=== PATIENT | female | born 1935 | race Caucasian/White ===

== ENCOUNTER 2020-06-29 10:07 | Observation (INO) | payer MEDICARE, SELFPAY ==
[2020-06-29] VITALS (8 sets, daily range): BP systolic 139–217; BP diastolic 70–103; PULSE 92–119; RESP 16–22; TEMP 36.1–36.5; O2SAT 96–100; BMI 32.0
--- NOTE | 2020-06-29 10:20 | ECG_ITS ---
Test Reason : HYPERTENSION Blood Pressure : / mmHG Vent. Rate : 097 BPM Atrial Rate : 097 BPM P-R Int : 140 ms QRS Dur : 074 ms QT Int : 350 ms P-R-T Axes : 041 -28 014 degrees QTc Int : 444 ms Sinus rhythm with Premature atrial complexes Possible Left atrial enlargement Left axis deviation Borderline ECG When compared with ECG of 17-DEC-2017 18:16, Premature atrial complexes are now Present Referred By: Suzanne Pablo Electronically Signed By:TASHA GONZALEZ MD
--- NOTE | 2020-06-29 10:20 | XR_ITS ---
EXAMINATION: Pain and swelling CLINICAL INFORMATION: Back pain COMPARISON: 12/17/2017 TECHNIQUE: Chest frontal and lateral Lungs and Rahel: No radiographic evidence of acute infiltrates. Prominent right and left rahel might be vascular, cannot rule out underlying adenopathy. Pleura: Normal. Costophrenic angles are sharp. No pneumothorax. Heart: The heart is normal in size. Mediastinum: The mediastinum is within normal limits.. Bones: Skeletal structures included are normal for patient's age. XR/XR chest 2V IMPRESSION: No acute infiltrates or failure. Prominent rahel bilaterally, although could be vascular, cannot rule out underlying pathology or lymphadenopathy. Attention to follow-up recommended. Consider chest x-ray in one month. Alternatively may further investigated with CT scan with IV contrast.
--- NOTE | 2020-06-29 10:25 | ED.GENADULT ---
HPI - General Adult General Chief complaint: Extremity Injury, Lower Stated complaint: LEFT LEG PAIN Time Seen by Provider: 06/29/20 10:20 Source: patient and EMS Mode of arrival: EMS Limitations: no limitations History of Present Illness HPI narrative: 84yoF c PMHx of DM, HTN, HLD, pulmonary hypertension, history of echocardiogram with EF of 60 through 65%, tricuspid/mitral/aortic regurg mild, LVH, thyroid disease, ulcerative colitis and arthritis presenting to the ED with complaints of left buttocks pain pain radiating down the lower leg reports it is her sciatica. Patient also noted that her legs are edematous but are more improved than usual. Denies any additional complaints or concerns such as fevers, nausea/vomiting, chest pain, shortness of breath, abdominal pain, diarrhea or constipation. Related Data Home Medications Medication Instructions Recorded Confirmed Amalia Back and Body 06/29/20 06/29/20 L.acid-L.casei-B.bif-B.jamee-FOS cap PO 06/29/20 06/29/20 [Probiotic Blend] Vitamin D3 06/29/20 magnesium 06/29/20 06/29/20 metformin 1 tab PO BEDTIME 06/29/20 06/29/20 metoprolol succinate 1 tab PO DAILY 06/29/20 06/29/20 naproxen sodium [Aleve] mg 06/29/20 06/29/20 omeprazole 1 cap PO DAILY 06/29/20 06/29/20 Allergies Allergy/AdvReac Type Severity Reaction Status Date / Time amoxicillin [Augmentin] Allergy Unknown hives Verified 02/01/19 00:00 clavulanic acid [Augmentin] Allergy Unknown hives Verified 02/01/19 00:00 morphine [MORPHINE] Allergy Unknown NAUSEA & Unverified 05/01/20 14:50 VOMITING codeine [CODEINE] AdvReac Unknown DIGESTIVE Unverified 05/01/20 14:50 PROBLEMS oxycodone AdvReac Unknown NAUSEA AND Unverified 05/01/20 14:50 VOMITING tramadol [From ULTRAM] AdvReac Unknown DIGESTIVE Unverified 05/01/20 14:50 PROBLEMS Codeine Phosphate Allergy Unknown Uncoded 03/27/20 00:00 codiene Allergy Unknown SOB, cp Uncoded 02/01/19 00:00 morphine Allergy Unknown n/v Uncoded 02/01/19 00:00 percocet Allergy Unknown vomiting Uncoded 02/01/19 00:00 Percodan Allergy Unknown Uncoded 03/27/20 00:00 percodan Allergy Unknown vomiting Uncoded 02/01/19 00:00 Review of Systems Review of Systems: Constitutional : No trauma, No Weight loss, No Fever, No Chills, No Night Sweats, No Fatigue, No Malaise ENT/Mouth : No Hearing loss, No Ear Pain, No Nasal Congestion, No Sinus Pain, No Hoarseness, No sore throat, No Rhinorrhea, No Swallowing Difficulty Cardiovascular : + extremity swelling, No SOB, no Dyspnea on Exertion, No Orthopnea, No Palpitations Respiratory : No Cough, No Sputum, No Wheezing, No Dyspnea Gastrointestinal : No Nausea, No Vomiting, No Diarrhea, No abdominal Pain, No Hematochezia, No Melena Genitourinary : No Dysuria, No Urinary Frequency, No Hematuria, No Urinary or Bowel Incontinence/retention Musculoskeletal : + Back pain, No neck pain, No joint stiffness, No joint swelling Skin : No Skin Lesions, No rash or signs of infection Neuro : No Weakness, No radiation, No Numbness, No Paresthesias, No headache, no loss of bowel or bladder incontinence, no saddle anesthesia Denies history of IV drug usage. Yes all other systems are reviewed and are negative [facility] Past Medical History Attestation statement: The following information was validated with the patient. Medical History (Updated 06/29/20 @ 16:24 by ALEJO Mai) Arthritis Diabetes Hyperlipidemia Hypertension Surgical History (Updated 06/29/20 @ 16:22 by ALEJO Moulton) H/O sinus surgery H/O: hysterectomy History of cholecystectomy History of total left knee replacement Hx of appendectomy Family History Family History (Updated 06/29/20 @ 16:23 by ALEJO Moulton) Mother Diabetes Social History Social History (Updated 06/29/20 @ 16:23 by ALEJO Moulton) Household Members: None Alcohol intake: never Smoking Status: Never smoker Smoked in Last 30 Days: No Use of substances other than those prescribed or required for medical reasons: No Advance Directives: No Advance Directives Information Provided: No Physical Exam Vital Signs: Vital Signs: Last Vital Signs Temp 97.7 F 06/29/20 16:00 Pulse 101 H 06/29/20 16:00 Resp 16 06/29/20 16:00 BP 155/79 H 06/29/20 16:00 Pulse Ox 97 06/29/20 16:00 Body Mass Index 32.0 vital signs have been reviewed as normal and appeared to be correct. Blood pressure hypertensive. Heart rate tacycardic. Respiration rate normal. Temperature normal. Oxygen saturation normal. Appearance: Alert. Oriented X3. No acute distress. Head: Normal external exam. Normocephalic. Atraumatic. Eyes: PERRLA. EOMI. Conjunctiva and sclera normal. Eyelids normal. ENT: EAC normal. Pharynx normal. Uvula midline. Moist mucous membranes. Neck: Normal inspection. Neck supple. FROM. No adenopathy. No meningeal signs. CVS: Normal heart rate and rhythm. Heart sound normal. No murmurs noted. Pulses normal throughout. Respiratory: No respiratory distress. Painless inspiration. Breath sounds normal. No wheezes/rales/rhonchi noted. Chest nontender. No accessory muscle usage noted or decreased air movement noted. Abdomen: Soft and nontender. Bowel sounds normal in all 4 quadrants. No distention noted. No organomegaly noted. No visible injury noted. Back: No CVA tenderness. Full range of motion noted. No obvious deformities, or edema. Mild para-spinal muscular tenderness from lumbar region to coccyx. Full ROM in back and lower extremities. 5/5 strength hip extension/flexion, abduction, adduction. Mild Lumbar pain with hip flexion against resistance. Straight leg raise test + on right; Straight leg raise test negative on left; Reflexes normal ankle and knee bilaterally; EHL motor strength normal bilaterally Skin: Skin warm and dry. Normal skin color. Normal skin turgor. No rashes/lesions/lacerations noted. Extremities: +b/l +2 pitting lower extremity edema noted. Extremities exhibit normal range of motion. Extremities nontender. Neuro: Oriented X 3. No motor deficit. No sensory deficit. Reflexes normal. Course Course Course Narrative: 10:30AM - 84yoF c PMHx of DM, HTN, HLD, pulmonary hypertension, history of echocardiogram with EF of 60 through 65%, tricuspid/mitral/aortic regurg mild, LVH, thyroid disease, ulcerative colitis and arthritis presenting to the ED with complaints of left buttocks pain pain radiating down the lower leg reports it is her sciatica. - Concern for scioatic. Concern for CHF. - Plan: Labs, CXR, EKG. Provide 5 mg of Flexeril and 650 mg of Tylenol then re-evaluate. Reevaluation(s) Reevaluation #1: - WBC at 11,000. BUN at 28 although appears to be at baseline per patient she has had this elevated in the past worse. BNP 114. All other labs WNL. EKG sinus rhythm with premature atrial complexes with left atrial enlargement, normal QRS duration, normal QT/QTC interval. No acute ischemic changes noted. Similar compared to prior on 12/17/2017. CXR revealed No acute infiltrates or failure. Prominent rahel bilaterally, although could be vascular, cannot rule out underlying pathology or lymphadenopathy. Attention to follow-up c repeat CXR in [address] chest c IV contrast. - Patient reports no symptomatic relief after the 5 mg of Flexeril on 650 mg of Tylenol therefore 15 mg of Toradol and 10 mg of Decadron ordered and still no symptomatic relief and patient's blood pressure is now 217/103 therefore will give her 1 mg of Dilaudid and scan her chest and abdomen to evaluate for any acute processes such as aortic dissection. Patient is tachycardic at this time and tachypneic although I believe this is due to the patient is in pain and this is not sepsis. No source of infection. No indication for lactic acid blood cultures at this time. Will re-evaluate. Time: 12:20 Reevaluation #2: - CTA of chest negative for PE/aortic dissection or any other acute processes. CT scan of abdomen and pelvis revealed chronic changes no acute processes noted. X-ray of left knee revealed that patient's left total knee prosthesis ease is in good position without complication. - patient's pain is a bit more controlled after the 1 mg of dilaudid. - awaiting for patient to wake back up due to she does not want to go to short-term rehab she would rather go home with VNA or be admitted for pain control. Will re-evaluate. Time: 15:35 Reevaluation #3: Patient will be admitted for intractable back pain/sciatica. Patient understands agrees the plan. Time: 16:07 Medical Decision Making Medical Records Medical records reviewed: Yes I reviewed the patient's medical records. Lab Data Lab results reviewed: Yes I reviewed the patient's lab results. Result diagrams: 06/29/20 10:33 06/29/20 10:33 Labs: Lab Results 06/29/20 06/29/20 06/29/20 Range/Units 10:33 10:33 10:33 WBC 11.4 H (4.8-10.8) X10*3/uL RBC 4.82 (4.20-5.50) X10*6/uL Hgb 12.7 (12.0-16.0) g/dl Hct 40.2 (37-47) % MCV 83.4 (80-98) fL MCH 26.3 L (27.0-33.0) pg MCHC 31.6 (31.0-35.0) g/dl RDW 13.6 (11.0-16.0) % Plt Count 311 (160-400) X10*3/uL MPV 10.7 (9.4-12.3) fL Immature Gran % (Auto) 1.0 H (0.0-0.4) % Neut % (Auto) 69.7 (45-73) % Lymph % (Auto) 20.6 (20-40) % [place] % (Auto) 7.1 (2-11) % Eos % (Auto) 1.1 (0-4) % Baso % (Auto) 0.5 (0-2) % Lymph # (Auto) 2.3 (1.2-4.9) X10*3/uL [place] # (Auto) 0.8 (0.1-1.2) X10*3/uL Eos # (Auto) 0.1 (0.0-0.4) X10*3/uL Baso # (Auto) 0.1 (0.0-0.2) X10*3/uL Abs Immat Gran (auto) 0.11 H (0.00-0.03) X10*3/uL Absolute Neuts (auto) 7.9 (2.0-8.3) X10*3/uL Absolute Nucleated RBC 0.000 (0.0-0.012) X10*3/uL Nucleated RBC % (auto) 0.0 (0.0-0.2) /100WBC Hold Purple Top PT 11.5 (10.8-13.0) SEC INR 1.0 (0.9-1.1) Sodium 137 (135-145) mmol/L Potassium 4.5 (3.3-5.1) mmol/l Chloride 101 (96-108) mmol/L Carbon Dioxide 27 (22-29) mmol/L Anion Gap 14 (12-20) BUN 28 H (9-16) mg/dL Creatinine 0.82 (0.5-1.4) mg/dL Estim Creat Clear Calc 44.1 Estimated GFR > 60 Random Glucose 157 H (60-115) mg/dL Calcium 9.3 (8.4-10.2) mg/dL Magnesium 1.9 (1.6-2.6) mg/dL Total Bilirubin 0.4 (0.0-1.0) mg/dL Direct Bilirubin < 0.2 (0.0-0.5) mg/dL AST 20 (5-31) U/L ALT 19 (0-31) U/L Alkaline Phosphatase 109 (39-117) U/L Troponin I High Sens (<3.5-17.0) ng/L B-Natriuretic Peptide (<100) pg/mL Total Protein 6.7 (6.5-8.0) g/dL Albumin 4.1 (3.5-5.0) g/dL Urine Color Urine Appearance Urine pH (5.0-8.0) Ur Specific [place] (1.005-1.025) Urine Protein (NEG-TRACE) MG/DL Urine Glucose (UA) (NEG) MG/DL Urine Ketones (NEG) MG/DL Urine Blood (NEG) Urine Nitrite (NEG) Ur Leukocyte Esterase (NEG) Coronavirus (PCR) (Negative) Influenza Type A (PCR) (Negative) Influenza Type B (PCR) (Negative) RSV RNA Qual (PCR) (Negative) 06/29/20 06/29/20 06/29/20 Range/Units 10:33 10:33 12:17 WBC (4.8-10.8) X10*3/uL RBC (4.20-5.50) X10*6/uL Hgb (12.0-16.0) g/dl Hct (37-47) % MCV (80-98) fL MCH (27.0-33.0) pg MCHC (31.0-35.0) g/dl RDW (11.0-16.0) % Plt Count (160-400) X10*3/uL MPV (9.4-12.3) fL Immature Gran % (Auto) (0.0-0.4) % Neut % (Auto) (45-73) % Lymph % (Auto) (20-40) % [place] % (Auto) (2-11) % Eos % (Auto) (0-4) % Baso % (Auto) (0-2) % Lymph # (Auto) (1.2-4.9) X10*3/uL [place] # (Auto) (0.1-1.2) X10*3/uL Eos # (Auto) (0.0-0.4) X10*3/uL Baso # (Auto) (0.0-0.2) X10*3/uL Abs Immat Gran (auto) (0.00-0.03) X10*3/uL Absolute Neuts (auto) (2.0-8.3) X10*3/uL Absolute Nucleated RBC (0.0-0.012) X10*3/uL Nucleated RBC % (auto) (0.0-0.2) /100WBC Hold Purple Top Cancelled PT (10.8-13.0) SEC INR (0.9-1.1) Sodium (135-145) mmol/L Potassium (3.3-5.1) mmol/l Chloride (96-108) mmol/L Carbon Dioxide (22-29) mmol/L Anion Gap (12-20) BUN (9-16) mg/dL Creatinine (0.5-1.4) mg/dL Estim Creat Clear Calc Estimated GFR Random Glucose (60-115) mg/dL Calcium (8.4-10.2) mg/dL Magnesium (1.6-2.6) mg/dL Total Bilirubin (0.0-1.0) mg/dL Direct Bilirubin (0.0-0.5) mg/dL AST (5-31) U/L ALT (0-31) U/L Alkaline Phosphatase (39-117) U/L Troponin I High Sens 19.9 H (<3.5-17.0) ng/L B-Natriuretic Peptide 114 H (<100) pg/mL Total Protein (6.5-8.0) g/dL Albumin (3.5-5.0) g/dL Urine Color YELLOW Urine Appearance CLEAR Urine pH 7.5 (5.0-8.0) Ur Specific [place] 1.015 (1.005-1.025) Urine Protein NEG (NEG-TRACE) MG/DL Urine Glucose (UA) NEG (NEG) MG/DL Urine Ketones NEG (NEG) MG/DL Urine Blood NEG (NEG) Urine Nitrite NEG (NEG) Ur Leukocyte Esterase NEG (NEG) Coronavirus (PCR) (Negative) Influenza Type A (PCR) (Negative) Influenza Type B (PCR) (Negative) RSV RNA Qual (PCR) (Negative) 06/29/20 06/29/20 Range/Units 13:25 14:12 WBC (4.8-10.8) X10*3/uL RBC (4.20-5.50) X10*6/uL Hgb (12.0-16.0) g/dl Hct (37-47) % MCV (80-98) fL MCH (27.0-33.0) pg MCHC (31.0-35.0) g/dl RDW (11.0-16.0) % Plt Count (160-400) X10*3/uL MPV (9.4-12.3) fL Immature Gran % (Auto) (0.0-0.4) % Neut % (Auto) (45-73) % Lymph % (Auto) (20-40) % [place] % (Auto) (2-11) % Eos % (Auto) (0-4) % Baso % (Auto) (0-2) % Lymph # (Auto) (1.2-4.9) X10*3/uL [place] # (Auto) (0.1-1.2) X10*3/uL Eos # (Auto) (0.0-0.4) X10*3/uL Baso # (Auto) (0.0-0.2) X10*3/uL Abs Immat Gran (auto) (0.00-0.03) X10*3/uL Absolute Neuts (auto) (2.0-8.3) X10*3/uL Absolute Nucleated RBC (0.0-0.012) X10*3/uL Nucleated RBC % (auto) (0.0-0.2) /100WBC Hold Purple Top PT (10.8-13.0) SEC INR (0.9-1.1) Sodium (135-145) mmol/L Potassium (3.3-5.1) mmol/l Chloride (96-108) mmol/L Carbon Dioxide (22-29) mmol/L Anion Gap (12-20) BUN (9-16) mg/dL Creatinine (0.5-1.4) mg/dL Estim Creat Clear Calc Estimated GFR Random Glucose (60-115) mg/dL Calcium (8.4-10.2) mg/dL Magnesium (1.6-2.6) mg/dL Total Bilirubin (0.0-1.0) mg/dL Direct Bilirubin (0.0-0.5) mg/dL AST (5-31) U/L ALT (0-31) U/L Alkaline Phosphatase (39-117) U/L Troponin I High Sens 20.9 H (<3.5-17.0) ng/L B-Natriuretic Peptide (<100) pg/mL Total Protein (6.5-8.0) g/dL Albumin (3.5-5.0) g/dL Urine Color Urine Appearance Urine pH (5.0-8.0) Ur Specific [place] (1.005-1.025) Urine Protein (NEG-TRACE) MG/DL Urine Glucose (UA) (NEG) MG/DL Urine Ketones (NEG) MG/DL Urine Blood (NEG) Urine Nitrite (NEG) Ur Leukocyte Esterase (NEG) Coronavirus (PCR) NEGATIVE (Negative) Influenza Type A (PCR) NEGATIVE (Negative) Influenza Type B (PCR) NEGATIVE (Negative) RSV RNA Qual (PCR) NEGATIVE (Negative) Imaging Data Chest x-ray: Attestation: I personally reviewed and interpreted this imaging study as follows: Radiologist's impression: Lungs and Rahel: No radiographic evidence of acute infiltrates. Prominent right and left rahel might be vascular, cannot rule out underlying adenopathy. Pleura: Normal. Costophrenic angles are sharp. No pneumothorax. Heart: The heart is normal in size. Mediastinum: The mediastinum is within normal limits.. Bones: Skeletal structures included are normal for patient's age. XR/XR chest 2V IMPRESSION: No acute infiltrates or failure. Prominent rahel bilaterally, although could be vascular, cannot rule out underlying pathology or lymphadenopathy. Attention to follow-up recommended. Consider chest x-ray in one month. Alternatively may further investigated with CT scan with IV contrast. 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 No other etiology for low back pain radiating to the left leg is found. Incidental note is made once again of: 1. Lobular liver cyst with mild intrahepatic ductal dilatation status post cholecystectomy. 2. Bilateral renal cysts with 2 hyperdense cysts on the left, one which demonstrates an increase in density since the prior CT scan. 3. Resolution of previously demonstrated colitis CT scan - chest: Attestation: I personally reviewed and interpreted this imaging study as follows: Radiologist's impression: IMPRESSION: Exam limited by motion artifacts. 1. There are no large emboli however exam is somewhat limited, there are motion artifact, some of the tertiary distal branches bilaterally are not opacified, this felt to be more likely artifactual, however the less likely possibility of small distal emboli cannot entirely be excluded. 2. There is pulmonary vascular congestion. 3. Mild coronary calcification. 4. Diminished lung volume. ECG Data Attestation: I personally reviewed and interpreted this ECG as follows: Interpretation: EKG sinus rhythm with premature atrial complexes with a ventricular rate of 97 with left atrial enlargement with normal QRS, normal QT/QTC interval. No acute ischemic changes noted. Similar compared to prior EKG on 12/17/2017. Critical Care Time Critical Care Time Critical Care Time: Yes Total Critical Care Time: 60 Attestation: I personally attest to this time spent taking care of the patient Discharge Plan Discharge Clinical Impression: Intractable back pain, Sciatica Patient Disposition: Admitted As Inpatient Prescriptions: No Action metoprolol succinate 100 mg tablet extended release 24 hr 1 tab PO DAILY RF: 0 omeprazole 20 mg capsule,delayed release(DR/EC) 1 cap PO DAILY RF: 0 metformin 500 mg tablet extended release 24 hr 1 tab PO BEDTIME RF: 0 naproxen sodium [Aleve] 220 mg Capsule RF: 0 Probiotic Blend 2 billion cell-50 mg Capsule PO RF: 0 Amalia Back and Body RF: 0 Vitamin D3 RF: 0 magnesium RF: 0
[2020-06-29 10:40] LABS: Basophils Absolute Auto 0.1 X10*3/uL (0.0-0.2); Basophils Percent Auto 0.5 % (0-2); Eosinophils Absolute Auto 0.1 X10*3/uL (0.0-0.4); Eosinophils Percent Auto 1.1 % (0-4); Hematocrit 40.2 % (37-47); Hemoglobin 12.7 g/dl (12.0-16.0); Imm Gran Abs Auto 0.11 X10*3/uL (0.00-0.03); Lymphocytes Absolute Auto 2.3 X10*3/uL (1.2-4.9); Lymphocytes Percent Auto 20.6 % (20-40); MANUAL DIFF FLAG NO; Mean Corpuscular HGB Conc 31.6 g/dl (31.0-35.0); Mean Corpuscular Hemoglobin 26.3 pg (27.0-33.0); Mean Corpuscular Volume 83.4 fL (80-98); Mean Platelet Volume 10.7 fL (9.4-12.3); Monocytes Absolute Auto 0.8 X10*3/uL (0.1-1.2); Monocytes Percent Auto 7.1 % (2-11); Neutrophils Absolute Auto 7.9 X10*3/uL (2.0-8.3); Neutrophils Percent Auto 69.7 % (45-73); Platelet Count 311 X10*3/uL (160-400); Red Blood Count 4.82 X10*6/uL (4.20-5.50); Red Cell Distribution Width 13.6 % (11.0-16.0); White Blood Count 11.4 X10*3/uL (4.8-10.8)
[2020-06-29 10:47] LABS: Prothrombin Time 11.5 SEC (10.8-13.0)
[2020-06-29] MEDS: Acetaminophen 325 MG TABLET 650 MG PO ×2 (10:48→19:46)
[2020-06-29] MEDS: Cyclobenzaprine HCl 5 MG TABLET PO (10:48)
[2020-06-29 11:08] LABS: Alanine Aminotransferase 19 U/L (0-31); Albumin Level 4.1 g/dL (3.5-5.0); Alkaline Phosphatase 109 U/L (39-117); Anion Gap 14 (12-20); Aspartate Amino Transferase 20 U/L (5-31); B Type Natriuretic Peptide 114 pg/mL (<100); Bilirubin Direct < 0.2 mg/dL (0.0-0.5); Bilirubin Total 0.4 mg/dL (0.0-1.0); Blood Urea Nitrogen 28 mg/dL (9-16); Calcium 9.3 mg/dL (8.4-10.2); Carbon Dioxide 27 mmol/L (22-29); Chloride 101 mmol/L (96-108); Creatinine Clr Calc Pharmacy 44.1; Estimated Glomerular Filt Rate > 60; Glucose Random 157 mg/dL (60-115); Magnesium 1.9 mg/dL (1.6-2.6); Potassium 4.5 mmol/l (3.3-5.1); Sodium 137 mmol/L (135-145); Total Protein 6.7 g/dL (6.5-8.0)
[2020-06-29] MEDS: Ketorolac Tromethamine 15 MG/ML VIAL IV (11:51)
[2020-06-29] MEDS: dexAMETHasone 2 MG TABLET 10 MG PO (11:52)
[2020-06-29] MEDS: 0.9 % Sodium Chloride 1,000 ML 999 ML IVCONT (11:52)
--- NOTE | 2020-06-29 12:11 | XR_ITS ---
EXAMINATION: XR KNEE, LEFT CLINICAL INFORMATION: Left knee pain COMPARISON: Left knee x-rays 02/09/2007 TECHNIQUE: 2 views of the left knee. FINDINGS: Patient is status post total knee arthroplasty. There is no periprosthetic fracture. Femoral component appears slightly subluxed anteriorly compared with the tibial component, however, I suspect this may be due to patient rotation. No suprapatellar joint effusion is demonstrated. There is mild soft tissue swelling of the anterior knee. XR/XR knee LT 2V IMPRESSION: Alignment of the prosthesis appears slightly subluxed, however, I suspect this is due to patient rotation. Clinical correlation is recommended. If indicated, further evaluation can be obtained with a dedicated 4 view knee series.
--- NOTE | 2020-06-29 12:15 | CT_ITS ---
EXAMINATION: CT CHEST ANGIOGRAM PE PROTOCOL CLINICAL INFORMATION: , Neck swelling and elevated blood pressure shortness of breath. COMPARISON: None TECHNIQUE: Volumetric imaging was performed through the chest. Reformatted coronal and sagittal imaging was performed. 3-D MIP images performed at a dedicated separate workstation. This CT examination was performed using dose optimization techniques as appropriate, variously including the following: *Automated exposure control *Adjustment of mA and/or kV according to patient size (this includes techniques or standardized protocols for targeted exams where dose is matched to indication/reason for exam; i.e. extremities or head) *Use of iterative reconstruction technique CONTRAST: 80 mL of Omnipaque 350 injected. DLP: 1035 FINDINGS: PULMONARY ARTERIES: The main pulmonary artery and its main branches are properly opacified with no evidence of large emboli however some of the distal branches were not fully opacified, this felt to be more likely due to an artifact, however less likely possibility of very small distal emboli cannot be entirely excluded. LINES/TUBES: None LUNGS: Overall diminished lung volume. Lung Parenchyma: The heart is enlarged, there is a prominence of the pulmonary vasculature. Lung Nodules:There are no significant lung nodules. AIRWAYS: Trachea and bronchi are normal. PLEURA: No pleural effusion or pneumothorax. MEDIASTINUM AND CHARY: The visualized thyroid gland is unremarkable. No mediastinal, hilar or axillary lymphadenopathy. There is no mediastinal mass. VESSELS: Thoracic aorta is normal in size. HEART AND PERICARDIUM: Heart is normal in size. There is no pericardial effusion. There are coronary calcifications. CHEST WALL, LOWER NECK, SURROUNDING SOFT TISSUES: Normal VISUALIZED ABDOMEN: Unremarkable BONES: The visualized bony thorax is within normal limits. CT/CT angio chest PE protocol IMPRESSION: Exam limited by motion artifacts. 1. There are no large emboli however exam is somewhat limited, there are motion artifact, some of the tertiary distal branches bilaterally are not opacified, this felt to be more likely artifactual, however the less likely possibility of small distal emboli cannot entirely be excluded. 2. There is pulmonary vascular congestion. 3. Mild coronary calcification. 4. Diminished lung volume.
--- NOTE | 2020-06-29 12:15 | CT_ITS ---
EXAMINATION: CT ABDOMEN AND PELVIS WITH CONTRAST CLINICAL INFORMATION: Low back pain radiating to left leg and buttocks COMPARISON: Renal ultrasound 01/26/[address] abdomen pelvis 12/17/2017 TECHNIQUE: Multidetector volumetric images were obtained from the superior aspect of the liver through the pubic symphysis following administration 80 mL of Omnipaque 350 intravenous contrast. Sagittal and coronal reformatted images were obtained on the technologist's workstation. Oral contrast: No This CT examination was performed using dose optimization techniques as appropriate, variously including the following: *Automated exposure control *Adjustment of mA and/or kV according to patient size (this includes techniques or standardized protocols for targeted exams where dose is matched to indication/reason for exam; i.e. extremities or head) *Use of iterative reconstruction technique DLP: 1035 mGy-cm FINDINGS: LUNG BASES: See report from chest CT same day. Small hiatal hernia is present. LIVER, GALLBLADDER, AND BILIARY TREE: The liver is normal in size, shape, and attenuation. Again seen is mild prominence of intrahepatic bile ducts similar to that noted previously. A lobular cyst centrally in the liver is unchanged. No worrisome solid focal liver masses are seen.. Status post cholecystectomy PANCREAS: Unremarkable. SPLEEN: Unremarkable. ADRENAL GLANDS: Unremarkable. KIDNEYS AND URETERS: The kidneys are normal in size, shape, and attenuation. Bilateral renal cysts are once again seen. There is one mass in the left kidney that measures 1.2 cm which now measures 80 Hounsfield units which previously measured 25-30 Hounsfield units. It is unchanged in size. Again noted is an unchanged hyperattenuating mass measuring 1 cm at the lower pole the left kidney presumably also a hyperattenuating cyst. This most likely represents hemorrhage into a cyst. No suspicious solid renal masses are seen. No hydronephrosis, hydroureter, or calculi seen. No perinephric stranding. BLADDER: Unremarkable. GASTROINTESTINAL TRACT: The small and large bowel are unremarkable. Marked wall thickening seen at the time of the prior study has resolved as have the inflammatory changes that were seen adjacent to the right colon.. The appendix is none seen. ABDOMINAL WALL: No significant hernia is appreciated. LYMPH NODES: No retroperitoneal lymphadenopathy. VASCULAR: Atherosclerotic changes present in the abdominal aorta and iliofemoral femoral vessels with calcific plaquing. No aneurysm is seen. PELVIC VISCERA: Status post hysterectomy. An abnormal pelvic mass or free pelvic fluid is not seen OSSEOUS STRUCTURES: Marked degenerative changes again seen throughout the lumbosacral spine most marked from T12 through L5. 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 No other etiology for low back pain radiating to the left leg is found. Incidental note is made once again of: 1. Lobular liver cyst with mild intrahepatic ductal dilatation status post cholecystectomy. 2. Bilateral renal cysts with 2 hyperdense cysts on the left, one which demonstrates an increase in density since the prior CT scan. 3. Resolution of previously demonstrated colitis
[2020-06-29 12:24] LABS: Glucose Urine UA NEG (NEG); Leukocyte Esterase Urine NEG (NEG); Nitrite Urine NEG (NEG); PH 7.5 (5.0-8.0); Specific Gravity - Urine 1.015 (1.005-1.025); Urine Blood NEG (NEG); Urine Ketones NEG (NEG); Urine Protein NEG (NEG-TRACE)
[2020-06-29 12:25] LABS: Appearance Urine CLEAR; Color Urine YELLOW
[2020-06-29] MEDS: ondansetron HCL 4 MG/2 ML VIAL IVPUSH (12:27)
[2020-06-29] MEDS: HYDROmorphone HCl 1 MG/ML SYRINGE IVPUSH (12:27)
--- NOTE | 2020-06-29 12:50 | MHC.CM.ED ---
Received case management consult from Suzanne DHILLON. Work up is still pending. Per ISHAN Lam, patient lives alone and has been going to outpatient physical therapy. Started experiencing increased leg pain. T/W will meet with patient once she is more comfortable. Continue to monitor for d/c needs.
[2020-06-29 12:57] LABS: Troponin-I High Sensitivity 19.9 ng/L (<3.5-17.0)
--- NOTE | 2020-06-29 13:46 | XR_ITS ---
EXAMINATION: XR KNEE, LEFT CLINICAL INFORMATION: Knee prosthesis COMPARISON: Films done at 12:30 PM today TECHNIQUE: Four views of the left knee. FINDINGS: A left total knee prosthesis is present. Based upon the 4 including radiographs no subluxation or dislocation is seen. No fractures are present and there is no evidence of prosthesis loosening. Again noted is some mild soft tissue swelling seen anteriorly. XR/XR knee LT 3V IMPRESSION: Knee prosthesis in good position without complication.
[2020-06-29] MEDS: iohexoL 350 MG/ML 100 ML INFUS..BTL IV (13:47)
[2020-06-29 13:58] LABS: Troponin-I High Sensitivity 20.9 ng/L (<3.5-17.0)
[2020-06-29] MEDS: Metoclopramide HCl 10 MG/2 ML VIAL IVPUSH (14:44)
[2020-06-29 15:01] LABS: Influenza A PCR NEGATIVE (Negative); Influenza B PCR NEGATIVE (Negative); Resp Syncy Virus RNA Qual PCR NEGATIVE (Negative); SARS COV2 PCR INHOUSE NEGATIVE (Negative)
--- NOTE | 2020-06-29 15:05 | PC.NURSE ---
plan for admission for pain managment control and pt reports wanting home pt and vna if not able to be admitted. left a message with nephmitchel toussaint.
--- NOTE | 2020-06-29 15:50 | PM.EVENT ---
Event Note Date of Service: 06/29/20 Event Note: Patient seen and examined independently and was present during lr portion of E/M service. Agree with midlevel's history, physical, assessment, and plan. 84F prsented with left sided leg pain sciatica tylenol, motrin, avoid opiates if possible PT
--- NOTE | 2020-06-29 16:16 | P.HPHOSP_ITS ---
History of Present Illness Date of Service: 06/29/20 Chief Complaint: sciatic pain this is an 84-year-old female who presented to the emergency department with complaints of sciatic pain. She began having pain in her left lower back which radiated down her left leg. It has been getting progressively worse over the past 5 days. She denies any numbness or tingling in her groin or loss of bladder /bowel control. She underwent CAT scan of the abdomen as well as CT a in the ED which were unremarkable. She was given numerous medications and her pain is finally improving, however the decision was made to keep her overnight for observation given her advanced age and lives alone. Review of Systems Review of Systems: Yes all other systems are reviewed and are negative Constitutional: Constitutional: Denies chills and Denies fever(s) Cardiovascular: Cardiovascular: Denies chest pain Respiratory: Respiratory: Denies cough Gastrointestinal: Gastrointestinal: Denies abdominal pain [facility] Medical History (Updated 06/29/20 @ 16:29 by ALEJO Moulton) Arthritis Diabetes Hyperlipidemia Hypertension Thyroid disease Family History (Updated 06/29/20 @ 16:23 by ALEJO Moulton) Mother Diabetes Surgical History (Updated 06/29/20 @ 16:24 by ALEJO Moulton) H/O adenoidectomy H/O sinus surgery H/O: hysterectomy History of cholecystectomy History of total left knee replacement Hx of appendectomy Hx of tonsillectomy Social History (Updated 06/29/20 @ 16:23 by ALEJO Moulton) Household Members: None Alcohol intake: never Smoking Status: Never smoker Smoked in Last 30 Days: No Use of substances other than those prescribed or required for medical reasons: No Currently Displaying Signs/Symptoms of Drug Intoxication Withdrawal: No Advance Directives: No Advance Directives Information Provided: No Do you have thoughts of harming others: None Do you have a plan to hurt others: No Plan service: No Current occupational status: retired Meds Allergies Allergy/AdvReac Type Severity Reaction Status Date / Time amoxicillin [Augmentin] Allergy Unknown hives Verified 02/01/19 00:00 clavulanic acid [Augmentin] Allergy Unknown hives Verified 02/01/19 00:00 morphine [MORPHINE] Allergy Unknown NAUSEA & Unverified 05/01/20 14:50 VOMITING codeine [CODEINE] AdvReac Unknown DIGESTIVE Unverified 05/01/20 14:50 PROBLEMS oxycodone AdvReac Unknown NAUSEA AND Unverified 05/01/20 14:50 VOMITING tramadol [From ULTRAM] AdvReac Unknown DIGESTIVE Unverified 05/01/20 14:50 PROBLEMS Codeine Phosphate Allergy Unknown Uncoded 03/27/20 00:00 codiene Allergy Unknown SOB, cp Uncoded 02/01/19 00:00 morphine Allergy Unknown n/v Uncoded 02/01/19 00:00 percocet Allergy Unknown vomiting Uncoded 02/01/19 00:00 Percodan Allergy Unknown Uncoded 03/27/20 00:00 percodan Allergy Unknown vomiting Uncoded 02/01/19 00:00 Home Medications Medication Instructions Recorded Confirmed Type Amalia Back and Body 06/29/20 06/29/20 History Probiotic Blend cap PO 06/29/20 06/29/20 History Vitamin D3 06/29/20 History magnesium 06/29/20 06/29/20 History metformin 1 tab PO DAILY@0730 06/29/20 06/30/20 History metoprolol succinate 1 tab PO DAILY 06/29/20 06/29/20 History naproxen sodium [Aleve] mg 06/29/20 06/29/20 History omeprazole 1 cap PO DAILY 06/29/20 06/29/20 History levothyroxine 1 tab PO QAM 06/30/20 06/30/20 History Physical Exam Vital Signs and Narrative: Vital Signs: Last Vital Signs Temp 97.7 F 06/29/20 16:00 Pulse 101 H 06/29/20 16:00 Resp 16 06/29/20 16:00 BP 155/79 H 06/29/20 16:00 Pulse Ox 97 06/29/20 16:00 Body Mass Index 32.0 Const: Nutritional Appearance: well nourished Orientation/consciousness: patient oriented x3 HENMT: Head: Yes normocephalic and Yes atraumatic Eyes: Sclerae: sclerae normal Chest: Chest palpation & inspection: normal inspection of the chest Resp: Effort & Inspection: normal respiratory effort and no respiratory distress Auscultation: clear to auscultation bilaterally Cardio: Rate: regular rate Rhythm: regular rhythm GI: Palpation (GI): Soft to palpation and nontender Skin: General skin exam: no rashes or lesions noted Neuro: General: patient oriented x3 Cranial nerves: Yes CN's II-XII intact bilaterally and Yes Bilaterally intact EOM present Extrem: Other: pain radiating down left leg with straight leg raise General: Yes normal to inspection Results Labs CBC and Chem 7: 06/30/20 06:21 06/29/20 10:33 Labs: Laboratory Results - last 24 hr 06/29/20 06/29/20 06/29/20 10:33 10:33 10:33 MCV 83.4 MCH 26.3 L MCHC 31.6 RDW 13.6 Plt Count 311 MPV 10.7 Immature Gran % (Auto) 1.0 H Neut % (Auto) 69.7 Lymph % (Auto) 20.6 [place] % (Auto) 7.1 Eos % (Auto) 1.1 Baso % (Auto) 0.5 Lymph # (Auto) 2.3 [place] # (Auto) 0.8 Eos # (Auto) 0.1 Baso # (Auto) 0.1 Abs Immat Gran (auto) 0.11 H Absolute Neuts (auto) 7.9 Absolute Nucleated RBC 0.000 Nucleated RBC % (auto) 0.0 Hold Purple Top PT 11.5 INR 1.0 Anion Gap 14 Estim Creat Clear Calc 44.1 Estimated GFR > 60 Random Glucose 157 H Calcium 9.3 Magnesium 1.9 Total Bilirubin 0.4 Direct Bilirubin < 0.2 AST 20 ALT 19 Alkaline Phosphatase 109 Troponin I High Sens B-Natriuretic Peptide Total Protein 6.7 Albumin 4.1 Urine Color Urine Appearance Urine pH Ur Specific [place] Urine Protein Urine Glucose (UA) Urine Ketones Urine Blood Urine Nitrite Ur Leukocyte Esterase Coronavirus (PCR) Influenza Type A (PCR) Influenza Type B (PCR) RSV RNA Qual (PCR) 06/29/20 06/29/20 06/29/20 10:33 10:33 12:17 MCV MCH MCHC RDW Plt Count MPV Immature Gran % (Auto) Neut % (Auto) Lymph % (Auto) [place] % (Auto) Eos % (Auto) Baso % (Auto) Lymph # (Auto) [place] # (Auto) Eos # (Auto) Baso # (Auto) Abs Immat Gran (auto) Absolute Neuts (auto) Absolute Nucleated RBC Nucleated RBC % (auto) Hold Purple Top Cancelled PT INR Anion Gap Estim Creat Clear Calc Estimated GFR Random Glucose Calcium Magnesium Total Bilirubin Direct Bilirubin AST ALT Alkaline Phosphatase Troponin I High Sens 19.9 H B-Natriuretic Peptide 114 H Total Protein Albumin Urine Color YELLOW Urine Appearance CLEAR Urine pH 7.5 Ur Specific [place] 1.015 Urine Protein NEG Urine Glucose (UA) NEG Urine Ketones NEG Urine Blood NEG Urine Nitrite NEG Ur Leukocyte Esterase NEG Coronavirus (PCR) Influenza Type A (PCR) Influenza Type B (PCR) RSV RNA Qual (PCR) 06/29/20 06/29/20 13:25 14:12 MCV MCH MCHC RDW Plt Count MPV Immature Gran % (Auto) Neut % (Auto) Lymph % (Auto) [place] % (Auto) Eos % (Auto) Baso % (Auto) Lymph # (Auto) [place] # (Auto) Eos # (Auto) Baso # (Auto) Abs Immat Gran (auto) Absolute Neuts (auto) Absolute Nucleated RBC Nucleated RBC % (auto) Hold Purple Top PT INR Anion Gap Estim Creat Clear Calc Estimated GFR Random Glucose Calcium Magnesium Total Bilirubin Direct Bilirubin AST ALT Alkaline Phosphatase Troponin I High Sens 20.9 H B-Natriuretic Peptide Total Protein Albumin Urine Color Urine Appearance Urine pH Ur Specific [place] Urine Protein Urine Glucose (UA) Urine Ketones Urine Blood Urine Nitrite Ur Leukocyte Esterase Coronavirus (PCR) NEGATIVE Influenza Type A (PCR) NEGATIVE Influenza Type B (PCR) NEGATIVE RSV RNA Qual (PCR) NEGATIVE Imaging Radiologist's Impressions: Impressions Chest X-Ray 06/29/20 10:20 IMPRESSION: No acute infiltrates or failure. Prominent iker bilaterally, although could be vascular, cannot rule out underlying pathology or lymphadenopathy. Attention to follow-up recommended. Consider chest x-ray in one month. Alternatively may further investigated with CT scan with IV contrast. Knee X-Ray 06/29/20 12:11 IMPRESSION: Alignment of the prosthesis appears slightly subluxed, however, I suspect this is due to patient rotation. Clinical correlation is recommended. If indicated, further evaluation can be obtained with a dedicated 4 view knee series. Abdomen/Pelvis CT 06/29/20 12:15 IMPRESSION: Severe degenerative changes involving the lumbosacral spine. No other etiology for low back pain radiating to the left leg is found. Incidental note is made once again of: 1. Lobular liver cyst with mild intrahepatic ductal dilatation status post cholecystectomy. 2. Bilateral renal cysts with 2 hyperdense cysts on the left, one which demonstrates an increase in density since the prior CT scan. 3. Resolution of previously demonstrated colitis Chest CTA 06/29/20 12:15 IMPRESSION: Exam limited by motion artifacts. 1. There are no large emboli however exam is somewhat limited, there are motion artifact, some of the tertiary distal branches bilaterally are not opacified, this felt to be more likely artifactual, however the less likely possibility of small distal emboli cannot entirely be excluded. 2. There is pulmonary vascular congestion. 3. Mild coronary calcification. 4. Diminished lung volume. Knee X-Ray 06/29/20 13:46 IMPRESSION: Knee prosthesis in good position without complication. Assessment and Plan (1) Intractable back pain: Status: Acute (2) Sciatica: Qualifiers: Laterality: left Qualified Code(s): M54.32 - Sciatica, left side Status: Acute this is an 84-year-old female with diabetes, hypertension who presents to the emergency department with sciatic back pain being admitted for intractable pain sciatic pain, left - scheduled Tylenol, p.r.n. Motrin - PT evaluation - avoid narcotics if possible diabetes - hold metformin ( received contrast bolus) - SSI, POCs - ADA diet hypertension blood pressure controlled - continue metoprolol thyroid disease - continue meds once med rec complete continue the remainder of her home medications once med reconciliation has been completed DVT prophylaxis- Lovenox code status -full code This case was discussed with Dr. Bro
--- NOTE | 2020-06-29 16:53 | PC.NURSE ---
CALLED TO MED [facility]G FOR REPORT
--- NOTE | 2020-06-29 17:26 | PC.NURSE ---
REPORT GIVEN TO MED SURG
[2020-06-29 18:55] LABS: Glucose, Whole Blood 221 mg/dL (60-115)
[2020-06-29] MEDS: 0.9 % Sodium Chloride Flush 3 ML SYRINGE IVFLUSH (19:00)
[2020-06-29] MEDS: Insulin Lispro 100 UNIT/ML 3 ML VIAL SUBCUT (19:01)
[2020-06-29] MEDS: Ibuprofen 400 MG TABLET PO (19:02)
[2020-06-29] MEDS: Enoxaparin Sodium 40 MG/0.4 ML SYRINGE SUBCUT (19:46)
[2020-06-29 20:49] LABS: Glucose, Whole Blood 295 mg/dL (60-115)
[2020-06-30] MEDS: Ibuprofen 400 MG TABLET PO ×2 (00:35→06:27)
[2020-06-30] MEDS: 0.9 % Sodium Chloride Flush 3 ML SYRINGE IVFLUSH ×2 (00:36→07:37)
--- NOTE | 2020-06-30 02:18 | MHC.PIE ---
06/29/20 2300 p; pt c/o pain to low back, 02/21, pt asking for prn motrin. note;prn motrin given at 100
--- NOTE | 2020-06-30 02:20 | MHC.PIE ---
06/29 2300 p; pt c/o pain 02/21 to low back. note; prn motrin q8 given at 1900 i; dr paige notified; new order motrin 400 mg now e; pt in bed asleep, no signs of pain noted in facial expression, will cont to monitor
[2020-06-30 04:00] VITALS: RESP 18
[2020-06-30] MEDS: Omeprazole 20 MG CAPSULE.DR PO (06:26)
[2020-06-30] MEDS: Levothyroxine Sodium 50 MCG TABLET PO (06:52)
[2020-06-30 06:58] LABS: Hematocrit 39.7 % (37-47); Hemoglobin 12.5 g/dl (12.0-16.0); Mean Corpuscular HGB Conc 31.5 g/dl (31.0-35.0); Mean Corpuscular Hemoglobin 26.5 pg (27.0-33.0); Mean Corpuscular Volume 84.1 fL (80-98); Mean Platelet Volume 12.1 fL (9.4-12.3); Platelet Count 236 X10*3/uL (160-400); Red Blood Count 4.72 X10*6/uL (4.20-5.50); Red Cell Distribution Width 13.7 % (11.0-16.0); White Blood Count 12.9 X10*3/uL (4.8-10.8)
[2020-06-30 07:07] VITALS: BP 140/85; PULSE 97; RESP 18; TEMP 36.5; O2SAT 97
[2020-06-30 07:59] LABS: Glucose, Whole Blood 162 mg/dL (60-115)
[2020-06-30 09:42] VITALS: BP 140/85; PULSE 97
[2020-06-30] MEDS: Metoprolol Succinate ER 100 MG TAB.ER.24H PO (09:42)
[2020-06-30] MEDS: Acetaminophen 325 MG TABLET 650 MG PO (09:42)
--- NOTE | 2020-06-30 10:05 | W.MHC.F2F ---
Service Date Service Date: 06/30/20 Reasons for Services Homebound: Leaving the home is medically contraindicated at this time without the asist of a device and/or another person due th the listed conditions above and below. Certification: Based on the above findings, I certify that this patient is confined to the home and needs intermittent intermediate care, physical therapy and/or speech therapy, or continues to need occupational therapy. The patient is under my care, and I have initiated the establishment of the plan of care. The patient will be followed by a physician who will periodically review the plan of care.
--- NOTE | 2020-06-30 10:06 | PM.DS ---
DS: Providers Provider Date of admission: 06/29/20 16:03 Primary care physician: Jose Alberto Bridges MD DS: Diagnosis Discharge Diagnosis (1) Intractable back pain: Status: Acute (2) Sciatica: Status: Acute DS: Medications Discharge Medications Home Medications: Home Medications Medication Instructions Recorded Confirmed Amalia Back and Body 06/29/20 06/29/20 Probiotic Blend cap PO 06/29/20 06/29/20 Vitamin D3 06/29/20 magnesium 06/29/20 06/29/20 metformin 1 tab PO DAILY@0730 06/29/20 06/30/20 metoprolol succinate 1 tab PO DAILY 06/29/20 06/29/20 naproxen sodium [Aleve] mg 06/29/20 06/29/20 omeprazole 1 cap PO DAILY 06/29/20 06/29/20 levothyroxine 1 tab PO QAM 06/30/20 06/30/20 DS: Summary Hospital Course Hospital Course: Patient was admitted for intractable pain due to left-sided sciatica. Her pain became manageable. She was able to walk with Physical therapy. Physical therapy did recommend rehab at long-term facility. However, patient does not want to be placed and would like to do physical therapy at home. Patient will be discharged home, she will continue on Tylenol and Aleve for pain control, she is on Prilosec for GI prophylaxis. Time Spent with Patient Time attestation: Total time spent providing and/or coordinating discharge services: Physical Exam Vital Signs: Vital Signs: Last Vital Signs Temp 97.7 F 06/30/20 07:07 Pulse 97 06/30/20 09:42 Resp 18 06/30/20 07:07 BP 140/85 H 06/30/20 09:42 Pulse Ox 97 06/30/20 07:07 Body Mass Index 32.0 General: AO X 3, no acute distress Resp: CTA bilateral CVS: S1,S2,RRR GI: soft, non tender, non distended Neuro: motor grossly intact Psych: appropriate affect DS: Data Data Completed and Pending Labs on day of discharge: 06/29/20 10:20 ECG 12 lead EKG Stat EKG Documentation DIRECTED XR chest 2V Stat 06/29/20 10:21 Acetaminophen [Tylenol] 650 mg PO ONCE ONE Cyclobenzaprine HCl [Flexeril] 5 mg PO ONCE ONE 06/29/20 10:25 Continuous Cardiac Monitoring NOW 06/29/20 10:33 B Type Natriuretic Peptide Stat Basic Metabolic Panel Stat Complete Blood Count Auto Diff Stat Liver Panel Stat Magnesium Stat Prothrombin Time INR Stat Troponin-I High Sensitivity Stat 06/29/20 11:34 Ketorolac Tromethamine [Toradol] 15 mg IV ONCE ONE dexAMETHasone [Decadron] 10 mg PO ONCE ONE 06/29/20 11:36 0.9 % Sodium Chloride [Ns] 1,000 ml IVCONT 999 mls/hr 06/29/20 12:11 XR knee LT 2V Stat 06/29/20 12:15 CT abdomen pelvis w con Stat CT angio chest PE protocol Stat Add Laboratory Test Stat 06/29/20 12:16 HYDROmorphone HCl [Dilaudid] 1 mg IVPUSH ONCE ONE 06/29/20 12:17 UA CC w/rflx Micro + Cult Stat ondansetron HCL [Zofran] 4 mg IVPUSH ONCE ONE 06/29/20 12:57 HYDROmorphone HCl [Dilaudid] 0.5 mg IVPUSH ONCE ONE 06/29/20 13:25 Troponin-I High Sensitivity Stat 06/29/20 13:46 XR knee LT 3V Stat 06/29/20 13:47 iohexoL 350 MG/ML [Omnipaque 350 MG/ML] 100 ml IV ONCE ONE 06/29/20 14:12 SARS-CoV2/FLU/RSV Stat 06/29/20 14:30 Metoclopramide HCl [Reglan] 10 mg IVPUSH ONCE ONE 06/29/20 15:52 Transfer Order Routine 06/29/20 18:48 Glucose, Whole Blood Routine 06/29/20 Dinner Regular Diet 06/29/20 20:41 Glucose, Whole Blood Routine 06/29/20 23:59 Ibuprofen [Motrin] 400 mg PO ONCE ONE 06/30/20 06:21 Complete Blood Count no Diff DAILY@0600 06/30/20 06:39 Levothyroxine Sodium [Synthroid] 50 mcg PO ONCE ONE 06/30/20 07:13 Glucose, Whole Blood Routine Laboratory Last Values WBC 12.9 X10*3/uL (4.8-10.8) H 06/30/20 06:21 RBC 4.72 X10*6/uL (4.20-5.50) 06/30/20 06:21 Hgb 12.5 g/dl (12.0-16.0) 06/30/20 06:21 Hct 39.7 % (37-47) 06/30/20 06:21 MCV 84.1 fL (80-98) 06/30/20 06:21 MCH 26.5 pg (27.0-33.0) L 06/30/20 06:21 MCHC 31.5 g/dl (31.0-35.0) 06/30/20 06:21 RDW 13.7 % (11.0-16.0) 06/30/20 06:21 Plt Count 236 X10*3/uL (160-400) 06/30/20 06:21 MPV 12.1 fL (9.4-12.3) 06/30/20 06:21 Immature Gran % (Auto) 1.0 % (0.0-0.4) H 06/29/20 10:33 Neut % (Auto) 69.7 % (45-73) 06/29/20 10:33 Lymph % (Auto) 20.6 % (20-40) 06/29/20 10:33 [place] % (Auto) 7.1 % (2-11) 06/29/20 10:33 Eos % (Auto) 1.1 % (0-4) 06/29/20 10:33 Baso % (Auto) 0.5 % (0-2) 06/29/20 10:33 Lymph # (Auto) 2.3 X10*3/uL (1.2-4.9) 06/29/20 10:33 [place] # (Auto) 0.8 X10*3/uL (0.1-1.2) 06/29/20 10:33 Eos # (Auto) 0.1 X10*3/uL (0.0-0.4) 06/29/20 10:33 Baso # (Auto) 0.1 X10*3/uL (0.0-0.2) 06/29/20 10:33 Abs Immat Gran (auto) 0.11 X10*3/uL (0.00-0.03) H 06/29/20 10:33 Absolute Neuts (auto) 7.9 X10*3/uL (2.0-8.3) 06/29/20 10:33 Absolute Nucleated RBC 0.000 X10*3/uL (0.0-0.012) 06/30/20 06:21 Nucleated RBC % (auto) 0.0 /100WBC (0.0-0.2) 06/30/20 06:21 Hold Purple Top Cancelled 06/29/20 10:33 PT 11.5 SEC (10.8-13.0) 06/29/20 10:33 INR 1.0 (0.9-1.1) 06/29/20 10:33 Sodium 137 mmol/L (135-145) 06/29/20 10:33 Potassium 4.5 mmol/l (3.3-5.1) 06/29/20 10:33 Chloride 101 mmol/L (96-108) 06/29/20 10:33 Carbon Dioxide 27 mmol/L (22-29) 06/29/20 10:33 Anion Gap 14 (12-20) 06/29/20 10:33 BUN 28 mg/dL (9-16) H 06/29/20 10:33 Creatinine 0.82 mg/dL (0.5-1.4) 06/29/20 10:33 Estim Creat Clear Calc 44.1 06/29/20 10:33 Estimated GFR > 60 06/29/20 10:33 POC Glucose 162 mg/dL (60-115) H 06/30/20 07:13 Random Glucose 157 mg/dL (60-115) H 06/29/20 10:33 Calcium 9.3 mg/dL (8.4-10.2) 06/29/20 10:33 Magnesium 1.9 mg/dL (1.6-2.6) 06/29/20 10:33 Total Bilirubin 0.4 mg/dL (0.0-1.0) 06/29/20 10:33 Direct Bilirubin < 0.2 mg/dL (0.0-0.5) 06/29/20 10:33 AST 20 U/L (5-31) 06/29/20 10:33 ALT 19 U/L (0-31) 06/29/20 10:33 Alkaline Phosphatase 109 U/L (39-117) 06/29/20 10:33 Troponin I High Sens 20.9 ng/L (<3.5-17.0) H 06/29/20 13:25 B-Natriuretic Peptide 114 pg/mL (<100) H 06/29/20 10:33 Total Protein 6.7 g/dL (6.5-8.0) 06/29/20 10:33 Albumin 4.1 g/dL (3.5-5.0) 06/29/20 10:33 Urine Color YELLOW 06/29/20 12:17 Urine Appearance CLEAR 06/29/20 12:17 Urine pH 7.5 (5.0-8.0) 06/29/20 12:17 Ur Specific [place] 1.015 (1.005-1.025) 06/29/20 12:17 Urine Protein NEG MG/DL (NEG-TRACE) 06/29/20 12:17 Urine Glucose (UA) NEG MG/DL (NEG) 06/29/20 12:17 Urine Ketones NEG MG/DL (NEG) 06/29/20 12:17 Urine Blood NEG (NEG) 06/29/20 12:17 Urine Nitrite NEG (NEG) 06/29/20 12:17 Ur Leukocyte Esterase NEG (NEG) 06/29/20 12:17 Coronavirus (PCR) NEGATIVE (Negative) 06/29/20 14:12 Influenza Type A (PCR) NEGATIVE (Negative) 06/29/20 14:12 Influenza Type B (PCR) NEGATIVE (Negative) 06/29/20 14:12 RSV RNA Qual (PCR) NEGATIVE (Negative) 06/29/20 14:12 Discharge Plan Discharge Patient Disposition: Home Health Service Referrals: Jose Alberto Bridges MD [Primary Care Provider] - Discharge Medications: Continued metoprolol succinate 100 mg tablet extended release 24 hr 1 tab PO DAILY RF: 0 omeprazole 20 mg capsule,delayed release(DR/EC) 1 cap PO DAILY RF: 0 metformin 500 mg tablet extended release 24 hr 1 tab PO DAILY@0730 RF: 0 naproxen sodium [Aleve] 220 mg Capsule RF: 0 Probiotic Blend 2 billion cell-50 mg Capsule PO RF: 0 Amalia Back and Body RF: 0 Vitamin D3 RF: 0 magnesium RF: 0 levothyroxine 50 mcg tablet 1 tab PO QAM RF: 0 Discharge Orders: Discharge Order (Routine); Ordered 06/30/20 Ordered By: Pardeep Bro Diet: advance to usual diet Activity on Discharge: As tolerated Visit Report Forms: Patient Portal Discharge page Care Plan Goals: pain control Health Concerns: sciatica Plan of Treatment: PT
[2020-06-30 11:33] VITALS: BP 118/88; PULSE 98; RESP 18; TEMP 36.6; O2SAT 99
--- NOTE | 2020-06-30 11:34 | MHC.CM.PN ---
CM met with pt to discuss DC planning, Pt reports she plans to go home today with VNA and requests a referral to [facility]. Pt reports she lives alone and is independent with all care at baseline. Pt reports she does have a walker and cane but typically does not need them. pt also has grab bars in her bathroom and an adjustable bed. Pt reports he nephew lives in the area and he can get her groceries and help her if needed. She will have him get the walker out of storage today. 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 Pt is active with Jose Alberto Bridges and has a HCP on file. Pt will DC home today with home PT. Referral sent to [facility]. Pts nephew Mohamud will provide transportation
--- NOTE | 2020-06-30 11:36 | MHC.CM.PN ---
Cm answered call from Mohamud Boyer ([email or web address] a [phone]). Will be picking up aunt today. Requests call back regarding time of d/c. Requesting information regarding help in the home for his aunt. Discussed [facility] elder care services, both private pay and if she is available for discounted services. Will place referral to [facility]. Will add to D/C planning along with contact number for care[facility]mil[facility] and awa.
[2020-06-30 12:01] LABS: Glucose, Whole Blood 178 mg/dL (60-115)
--- NOTE | 2020-06-30 13:01 | MHC.CM.PN ---
Pt initially set up to DC with [facility] however NA contacted CM and indicated they would not be able to see this pt. Referral placed to [facility] who report they will see the pt in the next 48 hours. Pt verbally informed of [facility] change
== END 2020-06-30 13:20 | disposition home health service (06) ==
LOC: HO.ED 16:24 → HO.S3 16:48
PROVIDERS: Physician Assistant Medical; Admitting Provider Internal Medicine; Emergency Provider Emergency Medicine; PCP Internal Medicine; Visit Provider Internal Medicine
DX: M54.42 Lumbago with sciatica, left side (principal); R22.1 Localized swelling, mass and lump, neck; I10 Essential (primary) hypertension; R06.02 Shortness of breath; I49.1 Atrial premature depolarization; E11.9 Type 2 diabetes mellitus without complications; E78.5 Hyperlipidemia, unspecified; N28.1 Cyst of kidney, acquired; N28.89 Other specified disorders of kidney and ureter; Z20.828 Contact with and (suspected) exposure to other viral communicable diseases; Z90.710 Acquired absence of both cervix and uterus; Z96.652 Presence of left artificial knee joint; Z88.5 Allergy status to narcotic agent; Z88.0 Allergy status to penicillin; Z79.4 Long term (current) use of insulin; Z79.899 Other long term (current) drug therapy
CPT/HCPCS: 0241U; 36415; 71046; 71275; 73560; 73562; 74177; 80048; 80076; 81003; 82947; 83735; 83880; 84484; 85025; 85027; 85610; 93005; 96361; 96374; 96375; 96376; 97162; 99218; 99285; 99291; J1170; J1650; J1885; J2405; J2765; J8540; Q9967

== ENCOUNTER 2020-08-11 06:48 | Outpatient (REF) | payer MEDICARE, SELFPAY ==
[2020-08-11 11:11] LABS: MANUAL DIFF FLAG NO
[2020-08-11 11:28] LABS: Basophils Absolute Auto 0.1 X10*3/uL (0.0-0.2); Eosinophils Absolute Auto 0.4 X10*3/uL (0.0-0.4); Eosinophils Percent Auto 5.1 % (0-4); Hematocrit 37.1 % (37-47); Hemoglobin 11.6 g/dl (12.0-16.0); Imm Gran Abs Auto 0.04 X10*3/uL (0.00-0.03); Imm Gran Pct Auto 0.5 % (0.0-0.4); Lymphocytes Absolute Auto 2.2 X10*3/uL (1.2-4.9); Lymphocytes Percent Auto 26.3 % (20-40); Mean Corpuscular HGB Conc 31.3 g/dl (31.0-35.0); Mean Corpuscular Hemoglobin 26.1 pg (27.0-33.0); Mean Corpuscular Volume 83.6 fL (80-98); Monocytes Absolute Auto 0.7 X10*3/uL (0.1-1.2); Monocytes Percent Auto 8.6 % (2-11); Neutrophils Absolute Auto 4.9 X10*3/uL (2.0-8.3); Neutrophils Percent Auto 58.5 % (45-73); Platelet Count 335 X10*3/uL (160-400); Red Blood Count 4.44 X10*6/uL (4.20-5.50); Red Cell Distribution Width 13.6 % (11.0-16.0); White Blood Count 8.3 X10*3/uL (4.8-10.8)
[2020-08-11 11:50] LABS: Glucose Urine UA NEG (NEG); Leukocyte Esterase Urine NEG (NEG); Nitrite Urine NEG (NEG); PH 5.5 (5.0-8.0); Specific Gravity - Urine 1.025 (1.005-1.025); Urine Blood NEG (NEG); Urine Ketones NEG (NEG); Urine Protein NEG (NEG-TRACE)
[2020-08-11 11:53] LABS: Alanine Aminotransferase 13 U/L (0-31); Albumin Level 4.1 g/dL (3.5-5.0); Alkaline Phosphatase 98 U/L (39-117); Anion Gap 16 (12-20); Aspartate Amino Transferase 14 U/L (5-31); Bilirubin Total 0.3 mg/dL (0.0-1.0); Blood Urea Nitrogen 33 mg/dL (9-16); Calcium 9.3 mg/dL (8.4-10.2); Carbon Dioxide 26 mmol/L (22-29); Chloride 103 mmol/L (96-108); Cholesterol 164 mg/dL; Estimated Glomerular Filt Rate > 60; Glucose Random 130 mg/dL (60-115); HDL Cholesterol 49 mg/dL; LDL Cholesterol Calculated 93 mg/dl; Potassium 4.3 mmol/l (3.3-5.1); Sodium 141 mmol/L (135-145); Total Protein 6.4 g/dL (6.5-8.0); Triglycerides 110 mg/dL
[2020-08-11 12:00] LABS: Appearance Urine CLEAR; Color Urine YELLOW
[2020-08-11 12:02] LABS: Thyroid Stimulating Hormone 2.16 uIU/mL (0.32-4.0)
[2020-08-11 12:03] LABS: Creatinine Urine 99.69 mg/dL
[2020-08-11 12:11] LABS: Estimated Average Glucose 146 mg/dL; Hemoglobin A1c % 6.7 %
[2020-08-11 12:12] LABS: Vitamin B12 298 pg/mL (200-900)
== END 2020-08-11 06:49 | disposition home or self-care (01) ==
LOC: HO.HMGCLDS 06:48
PROVIDERS: PCP Internal Medicine; Visit Provider Internal Medicine
DX: R60.0 Localized edema (principal); E11.9 Type 2 diabetes mellitus without complications; I10 Essential (primary) hypertension
CPT/HCPCS: 36415; 80053; 80061; 81003; 82043; 82607; 83036; 84443; 85025

== ENCOUNTER 2020-09-09 09:23 | Inpatient (IN) | payer MEDICARE, SELFPAY ==
--- NOTE | 2020-09-09 09:30 | CT_ITS ---
EXAMINATION: CT ABDOMEN AND PELVIS WITH CONTRAST CLINICAL INFORMATION: Diarrhea. History of colitis. COMPARISON: Previous CT of the abdomen and pelvis June 2020 TECHNIQUE: Multidetector volumetric images were obtained from the superior aspect of the liver through the pubic symphysis following administration 85 mL of Omnipaque 350 intravenous contrast. Sagittal and coronal reformatted images were obtained on the technologist's workstation. Oral contrast: Yes This CT examination was performed using dose optimization techniques as appropriate, variously including the following: *Automated exposure control *Adjustment of mA and/or kV according to patient size (this includes techniques or standardized protocols for targeted exams where dose is matched to indication/reason for exam; i.e. extremities or head) *Use of iterative reconstruction technique DLP: 629 mGy-cm FINDINGS: LUNG BASES: The visualized lung bases are unremarkable. LIVER, GALLBLADDER, AND BILIARY TREE: There is a 2.6 x 3 cm cyst in the central liver in the anterior segment of the right lobe. Axial image 22 series 3. There is a peripheral mild intrahepatic biliary duct dilatation of the right lobe. No other biliary duct dilatation is seen and biliary duct dilatation appears decreased from previous CT June 2020 There is a second small 5 mm low-attenuation lesion in the right lobe axial image 21 series 3 that is difficult to characterize due to small size. The liver is otherwise unremarkable. The gallbladder is not identified. There is no intra or extrahepatic biliary duct dilatation. PANCREAS: Unremarkable. SPLEEN: Unremarkable. ADRENAL GLANDS: Unremarkable. KIDNEYS AND URETERS: There are bilateral renal cysts. There is a 9 mm lesion exophytic to the lateral lower pole right kidney axial image 36 series 3. Hounsfield units following IV contrast measure 50 not compatible with a simple cyst. It is uncertain whether this represents a complex cyst or solid lesion. There is a second lesion in the lateral mid left kidney that measures 1.2 cm axial image 28 series 3. Hounsfield units measure 50 following contrast and again it is uncertain whether this represents a complex cyst or solid lesion. The remainder of the cysts represent simple cysts. The largest cyst measures 2.6 x 3.6 cm in the upper pole of the left kidney. BLADDER: Unremarkable. GASTROINTESTINAL TRACT: There is wall thickening of the colon suggestive of colitis. This is greatest involving the cecum and the right colon where there is marked wall thickening, edema of the wall and stranding of the surrounding pericolic fat. No evidence of obstruction is seen. There is no evidence of pneumatosis, mesenteric air or portal vein air. The small bowel is unremarkable. The appendix is not identified. There is trace ascites seen adjacent to the cecum. ABDOMINAL WALL: No significant hernia is appreciated. LYMPH NODES: Normal. VASCULAR: There is evidence of atherosclerotic disease. No aneurysm is seen. PELVIC VISCERA: The uterus may have been removed. No pelvic mass is seen. OSSEOUS STRUCTURES: There is scoliosis and degenerative change of the spine. CT/CT abdomen pelvis w con IMPRESSION: Pancolitis with severe involvement of the cecum and right colon with marked wall thickening and edema. Bilateral renal cysts. 2 indeterminate lesions in the left kidney questionable for complex cysts versus masses. Stable liver cyst. Interval decrease in intrahepatic biliary duct dilatation from June 2020
[2020-09-09 09:31] VITALS: BP 140/78; PULSE 124; RESP 18; TEMP 36.9; O2SAT 97; BMI 29.2
--- NOTE | 2020-09-09 09:31 | ECG_ITS ---
Test Reason : WEAKNESS Blood Pressure : / mmHG Vent. Rate : 124 BPM Atrial Rate : 124 BPM P-R Int : 140 ms QRS Dur : 072 ms QT Int : 320 ms P-R-T Axes : 031 -29 007 degrees QTc Int : 459 ms Sinus tachycardia with Premature supraventricular complexes Possible Left atrial enlargement Borderline ECG When compared with ECG of 29-JUN-2020 11:17, No significant change was found Referred By: Marce Garsia Electronically Signed By:Pranav Smyth
--- NOTE | 2020-09-09 09:33 | ED.NAVMDI ---
HPI - Nausea/Vomiting/Diarrhea General Chief complaint: Nausea/Vomiting/Diarrhea Stated complaint: DIARRHEA X'S 24 HOURS,ST @ 130-140 Time Seen by Provider: 09/09/20 09:29 Source: patient, EMS and old records reviewed Mode of arrival: EMS Limitations: no limitations History of Present Illness HPI Narrative: 84 yo female with HTN, DM valvular disease, hypothyroidism, hx of infectious colitis requiring IV antibiotics in 2011 comes in with 24 hours of significant watery diarrhea nonbloody, cramping abdominal pain and nausea, denies antibiotic use in the last 4 weeks, feels weak, reports eating grilled cheese she made at home prior to events, she has been going so frequently that she has soiled herself. MD elicited complaint: diarrhea and abdominal pain Pertinent past history: other (colitis) Onset (ago): hour(s) (24) Associated abdominal pain: Yes Location of pain: diffuse Radiation: diffuse Pain consistency: intermittent and colicky Severity: mild Quality: cramping Exacerbating factors: none Relieving factors: none Context: history of abdominal surgery Associated symptoms: loss of appetite and malaise Related Data Home Medications Medication Instructions Recorded Confirmed Probiotic Blend 1 cap PO DAILY 06/29/20 09/09/20 metformin 500 mg PO DAILY@0730 06/29/20 09/09/20 metoprolol succinate 100 mg PO DAILY 06/29/20 09/09/20 naproxen sodium [Aleve] 220 mg PO Q12H PRN 06/29/20 09/09/20 omeprazole 20 mg PO DAILY 06/29/20 09/09/20 levothyroxine 50 mcg PO QAM 06/30/20 09/09/20 furosemide 40 mg PO DAILY PRN 09/09/20 09/09/20 magnesium oxide 500 mg PO DAILY 09/09/20 09/09/20 Allergies Allergy/AdvReac Type Severity Reaction Status Date / Time morphine [MORPHINE] Allergy Unknown NAUSEA & Verified 09/09/20 09:55 VOMITING codeine [CODEINE] AdvReac Unknown DIGESTIVE Verified 09/09/20 09:55 PROBLEMS oxycodone AdvReac Unknown NAUSEA AND Verified 09/09/20 09:55 VOMITING tramadol [From ULTRAM] AdvReac Unknown DIGESTIVE Verified 09/09/20 09:55 PROBLEMS Codeine Phosphate Allergy Unknown Nausea and Uncoded 09/09/20 09:55 Vomiting codiene Allergy Unknown SOB, cp Uncoded 09/09/20 09:55 morphine Allergy Unknown n/v Uncoded 09/09/20 09:55 percocet Allergy Unknown vomiting Uncoded 09/09/20 09:55 Percodan Allergy Unknown Nausea and Uncoded 09/09/20 09:55 Vomiting percodan Allergy Unknown vomiting Uncoded 09/09/20 09:55 Review of Systems Review of Systems: Constitutional : No Weight loss, No Fever, pos Chills ENT/Mouth : No sore throat, No Rhinorrhea Eyes: No Swelling, No Redness Cardiovascular : No Chest Pain, No SOB, NoEdema Respiratory : No Cough, No Sputum, No Wheezing Gastrointestinal : no Nausea, no Vomiting, positive Diarrhea, positive abdominal Pain, No Hematochezia, No Melena Genitourinary : No Dysuria, No Urinary Frequency, No Hematuria, No Urgency Musculoskeletal : No joint pain, No Myalgias, No Joint Swelling Skin : No Skin Lesions, No rash Neuro : No Weakness, No Numbness, No Dizziness, No Headache Psych : No Anxiety/Panic, No Depression Heme/Lymph: No Bruising, No Lymphadenopathy Endocrine : No Polyuria, No Polydipsia All other systems reviewed and are negative. [facility] Past Medical History Attestation statement: The following information was validated with the patient. Medical History (Updated 09/09/20 @ 11:22 by Marce Garsia DO) Arthritis Diabetes Hyperlipidemia Hypertension Infectious colitis Thyroid disease Surgical History H/O adenoidectomy H/O sinus surgery H/O: hysterectomy History of cholecystectomy History of total left knee replacement Hx of appendectomy Hx of tonsillectomy Family History Family History (Updated 06/29/20 @ 16:23 by ALEJO Moulton) Mother Diabetes Social History Social History Household Members: None Alcohol intake: current Alcohol intake frequency: holidays/special occasions only Smoking Status: Former smoker Use of substances other than those prescribed or required for medical reasons: No Advance Directives: Yes Advance Directives Information Provided: Yes Advance Directives on File: No service: No Current occupational status: retired Physical Exam Vital Signs: Vital Signs: Last Vital Signs Temp 98.4 F 09/09/20 09:31 Pulse 124 H 09/09/20 09:31 Resp 18 09/09/20 09:31 BP 140/78 H 09/09/20 09:31 Pulse Ox 97 09/09/20 09:31 Body Mass Index 29.2 Appearance: Alert. Oriented X3. No acute distress. Eyes: Pupils equal, round and reactive to light. ENT: Pharynx normal. Neck: Normal inspection. Neck supple. CVS: tachycardic heart rate and rhythm. Pulses normal. Respiratory: No respiratory distress. Breath sounds normal. Abdomen: Soft and mild epigastric ttp, some mild distention Skin: Skin warm and dry. Normal skin color. Normal skin turgor. Extremities: bilateral 1 to 2+ pitting edema shiny skin changes no warmth or erythema. No calf ttp Neuro: Oriented X 3. No motor deficit. No sensory deficit. Course Course Course Narrative: started on IV antibiotics for colitis, PO metoprolol ordered did not take her 100mg today likely cause of her tachycardia MDM - Nausea/Vomiting/Diarrhea MDM Narrative Medical decision making narrative: 84 yo female with hx of HTN, DM, valve disease, chronic LE edema EF 60%, hx of infectious colitis in 2011 at this time will need tylenol, gentle fluids, CT scan for colitis, cultures and lactic acid dispo per results and findings. Lab Data Result diagrams: 09/09/20 10:06 09/09/20 10:07 Labs: Lab Results 09/09/20 09/09/20 09/09/20 Range/Units 10:06 10:06 10:06 WBC 12.1 H (4.8-10.8) X10*3/uL RBC 4.26 (4.20-5.50) X10*6/uL Hgb 11.0 L (12.0-16.0) g/dl Hct 34.8 L (37-47) % MCV 81.7 (80-98) fL MCH 25.8 L (27.0-33.0) pg MCHC 31.6 (31.0-35.0) g/dl RDW 14.0 (11.0-16.0) % Plt Count 319 (160-400) X10*3/uL MPV 11.3 (9.4-12.3) fL Immature Gran % (Auto) 0.4 (0.0-0.4) % Neut % (Auto) 89.3 H (45-73) % Lymph % (Auto) 5.6 L (20-40) % [place] % (Auto) 4.0 (2-11) % Eos % (Auto) 0.4 (0-4) % Baso % (Auto) 0.3 (0-2) % Lymph # (Auto) 0.7 L (1.2-4.9) X10*3/uL [place] # (Auto) 0.5 (0.1-1.2) X10*3/uL Eos # (Auto) 0.1 (0.0-0.4) X10*3/uL Baso # (Auto) 0.0 (0.0-0.2) X10*3/uL Abs Immat Gran (auto) 0.05 H (0.00-0.03) X10*3/uL Absolute Neuts (auto) 10.8 H (2.0-8.3) X10*3/uL Absolute Nucleated RBC 0.000 (0.0-0.012) X10*3/uL Nucleated RBC % (auto) 0.0 (0.0-0.2) /100WBC Smear Tech's Comments VERIFIED PT 12.4 (10.8-13.0) SEC INR 1.0 (0.9-1.1) APTT 33.5 (24.1-38.0) SEC Sodium (135-145) mmol/L Potassium (3.3-5.1) mmol/l Chloride (96-108) mmol/L Carbon Dioxide (22-29) mmol/L Anion Gap (12-20) BUN (9-16) mg/dL Creatinine (0.5-1.4) mg/dL Estim Creat Clear Calc Estimated GFR Random Glucose (60-115) mg/dL Lactic Acid (0.5-2.0) mmol/L Calcium (8.4-10.2) mg/dL Magnesium (1.6-2.6) mg/dL Total Bilirubin (0.0-1.0) mg/dL Direct Bilirubin (0.0-0.5) mg/dL AST (5-31) U/L ALT (0-31) U/L Alkaline Phosphatase (39-117) U/L B-Natriuretic Peptide 113 H (<100) pg/mL Total Protein (6.5-8.0) g/dL Albumin (3.5-5.0) g/dL Lipase (8-78) U/L COVID-19 (IVETH) (Negative) COVID-19 Clin Com 09/09/20 09/09/20 09/09/20 Range/Units 10:06 10:07 10:07 WBC (4.8-10.8) X10*3/uL RBC (4.20-5.50) X10*6/uL Hgb (12.0-16.0) g/dl Hct (37-47) % MCV (80-98) fL MCH (27.0-33.0) pg MCHC (31.0-35.0) g/dl RDW (11.0-16.0) % Plt Count (160-400) X10*3/uL MPV (9.4-12.3) fL Immature Gran % (Auto) (0.0-0.4) % Neut % (Auto) (45-73) % Lymph % (Auto) (20-40) % [place] % (Auto) (2-11) % Eos % (Auto) (0-4) % Baso % (Auto) (0-2) % Lymph # (Auto) (1.2-4.9) X10*3/uL [place] # (Auto) (0.1-1.2) X10*3/uL Eos # (Auto) (0.0-0.4) X10*3/uL Baso # (Auto) (0.0-0.2) X10*3/uL Abs Immat Gran (auto) (0.00-0.03) X10*3/uL Absolute Neuts (auto) (2.0-8.3) X10*3/uL Absolute Nucleated RBC (0.0-0.012) X10*3/uL Nucleated RBC % (auto) (0.0-0.2) /100WBC Smear Tech's Comments PT (10.8-13.0) SEC INR (0.9-1.1) APTT (24.1-38.0) SEC Sodium 139 (135-145) mmol/L Potassium 4.3 (3.3-5.1) mmol/l Chloride 105 (96-108) mmol/L Carbon Dioxide 19 L (22-29) mmol/L Anion Gap 19 (12-20) BUN 24 H (9-16) mg/dL Creatinine 0.70 (0.5-1.4) mg/dL Estim Creat Clear Calc 49.3 Estimated GFR > 60 Random Glucose 174 H (60-115) mg/dL Lactic Acid 1.6 (0.5-2.0) mmol/L Calcium 8.9 (8.4-10.2) mg/dL Magnesium 1.4 L* (1.6-2.6) mg/dL Total Bilirubin 0.5 (0.0-1.0) mg/dL Direct Bilirubin 0.2 (0.0-0.5) mg/dL AST 13 (5-31) U/L ALT 12 (0-31) U/L Alkaline Phosphatase 97 (39-117) U/L B-Natriuretic Peptide (<100) pg/mL Total Protein 5.9 L (6.5-8.0) g/dL Albumin 3.7 (3.5-5.0) g/dL Lipase 28 (8-78) U/L COVID-19 (IVETH) Negative (Negative) COVID-19 Clin Com See Note ECG Data Attestation: I personally reviewed and interpreted this ECG as follows: ECG interpretation date: 09/09/20 ECG interpretation time: 09:47 Interpretation: Rate: 124 Rhythm: sinus tachycardia [place]: left Normal P waves. Normal RACHEL. Normal QRS complex. ST T wave : normal, no ONEL qTC: normal prior studies: no acute ischemia The study has been interpreted contemporaneously by me. . Discharge Plan Discharge Clinical Impression: Pancolitis, Tachycardia, Abdominal pain, Hypomagnesemia Patient Disposition: Admitted As Inpatient Prescriptions: No Action metoprolol succinate 100 mg tablet extended release 24 hr 100 mg PO DAILY RF: 0 omeprazole 20 mg capsule,delayed release(DR/EC) 20 mg PO DAILY RF: 0 metformin 500 mg tablet extended release 24 hr 500 mg PO DAILY@0730 RF: 0 naproxen sodium [Aleve] 220 mg Capsule 220 mg PO Q12H PRN (Reason: Pain) RF: 0 Probiotic Blend 2 billion cell-50 mg Capsule 1 cap PO DAILY RF: 0 levothyroxine 50 mcg tablet 50 mcg PO QAM RF: 0 furosemide 40 mg tablet 40 mg PO DAILY PRN (Reason: Edema) RF: 0 magnesium oxide 500 mg Tablet 500 mg PO DAILY RF: 0
[2020-09-09] MEDS: 0.9 % Sodium Chloride 500 ML IV (09:52)
[2020-09-09] MEDS: Acetaminophen 325 MG TABLET 650 MG PO ×2 (09:55→17:19)
[2020-09-09 10:19] LABS: Basophils Percent Auto 0.3 % (0-2); Eosinophils Absolute Auto 0.1 X10*3/uL (0.0-0.4); Eosinophils Percent Auto 0.4 % (0-4); Hematocrit 34.8 % (37-47); Imm Gran Abs Auto 0.05 X10*3/uL (0.00-0.03); Imm Gran Pct Auto 0.4 % (0.0-0.4); Lymphocytes Absolute Auto 0.7 X10*3/uL (1.2-4.9); Lymphocytes Percent Auto 5.6 % (20-40); MANUAL DIFF FLAG SCAN; Mean Corpuscular HGB Conc 31.6 g/dl (31.0-35.0); Mean Corpuscular Hemoglobin 25.8 pg (27.0-33.0); Mean Corpuscular Volume 81.7 fL (80-98); Mean Platelet Volume 11.3 fL (9.4-12.3); Monocytes Absolute Auto 0.5 X10*3/uL (0.1-1.2); Neutrophils Absolute Auto 10.8 X10*3/uL (2.0-8.3); Neutrophils Percent Auto 89.3 % (45-73); Platelet Count 319 X10*3/uL (160-400); Red Blood Count 4.26 X10*6/uL (4.20-5.50); SCAN SMEAR FLAG 1; White Blood Count 12.1 X10*3/uL (4.8-10.8)
[2020-09-09 10:31] LABS: Prothrombin Time 12.4 SEC (10.8-13.0)
[2020-09-09 10:33] LABS: Partial Thromboplastin Time 33.5 SEC (24.1-38.0)
[2020-09-09 10:40] LABS: Lactic Acid 1.6 mmol/L (0.5-2.0)
[2020-09-09 10:43] LABS: COVID-19 Test Negative (Negative); IDNOW Serial# 9DD0AD1C
[2020-09-09 10:46] LABS: Alanine Aminotransferase 12 U/L (0-31); Albumin Level 3.7 g/dL (3.5-5.0); Alkaline Phosphatase 97 U/L (39-117); Anion Gap 19 (12-20); Aspartate Amino Transferase 13 U/L (5-31); Bilirubin Direct 0.2 mg/dL (0.0-0.5); Bilirubin Total 0.5 mg/dL (0.0-1.0); Blood Urea Nitrogen 24 mg/dL (9-16); Calcium 8.9 mg/dL (8.4-10.2); Carbon Dioxide 19 mmol/L (22-29); Chloride 105 mmol/L (96-108); Creatinine Clr Calc Pharmacy 49.3; Estimated Glomerular Filt Rate > 60; Glucose Random 174 mg/dL (60-115); Lipase 28 U/L (8-78); Potassium 4.3 mmol/l (3.3-5.1); Sodium 139 mmol/L (135-145); Total Protein 5.9 g/dL (6.5-8.0)
[2020-09-09 10:47] LABS: Magnesium 1.4 mg/dL (1.6-2.6)
[2020-09-09 10:49] LABS: B Type Natriuretic Peptide 113 pg/mL (<100)
[2020-09-09] MEDS: iohexoL 350 MG/ML 100 ML INFUS..BTL 85 ML IV (10:51)
[2020-09-09 11:09] LABS: SLIDE REVIEW VERIFIED
[2020-09-09 11:28] LABS: Glucose Urine UA NEG (NEG); Leukocyte Esterase Urine 1+ (NEG); Nitrite Urine NEG (NEG); UACC Culture Trigger YES; Urine Blood TRACE (NEG); Urine Ketones NEG (NEG); Urine Protein NEG (NEG-TRACE)
[2020-09-09 11:31] LABS: Appearance Urine HAZY; Color Urine YELLOW
--- NOTE | 2020-09-09 11:33 | P.HPHOSP_ITS ---
History of Present Illness Date of Service: 09/09/20 Chief Complaint: Diarrhea 84 year old women presenting with diarrhea and abdominal cramping. she reported that her diarrhea started yesterday morning. She denied fever, chills, improperly cooked foods, nausea or vomiting. She had constipation last week. She reported that she had a similar episode several years ago and may have been told it was her Metformin causing the issue although she still has been on it. Abdominal CT showed Pancolitis with severe involvement of the cecum and right colon with marked wall thickening and edema. Magnesium was noted to be 1.4, covid 19 negative. She was given Levaquin and Flagyl. She will be admitted for further management and treatment of pancolitis. Review of Systems Review of Systems: Denies any recent fever chills or decrease in appetite respiratory denies any shortness of breath coverage production cardiovascular is adjustment of any PND or edema gastrointestinal denies any dysphagia abdominal pain nausea vomiting or diarrhea genitourinary denies any dysuria frequency or hematuria musculoskeletal denies any joint pain or swelling neuropsych denies any weakness or seizures all other systems reviewed are negative [facility] Medical History (Updated 09/09/20 @ 11:22 by Marce Garsia DO) Arthritis Diabetes Hyperlipidemia Hypertension Infectious colitis Thyroid disease Family History (Updated 06/29/20 @ 16:23 by ALEJO Moulton) Mother Diabetes Surgical History H/O adenoidectomy H/O sinus surgery H/O: hysterectomy History of cholecystectomy History of total left knee replacement Hx of appendectomy Hx of tonsillectomy Social History Household Members: None Alcohol intake: current Alcohol intake frequency: holidays/special occasions only Smoking Status: Former smoker Use of substances other than those prescribed or required for medical reasons: No Advance Directives: Yes Advance Directives Information Provided: Yes Advance Directives on File: No service: No Current occupational status: retired Meds Allergies Allergy/AdvReac Type Severity Reaction Status Date / Time morphine [MORPHINE] Allergy Unknown NAUSEA & Verified 09/09/20 09:55 VOMITING codeine [CODEINE] AdvReac Unknown DIGESTIVE Verified 09/09/20 09:55 PROBLEMS oxycodone AdvReac Unknown NAUSEA AND Verified 09/09/20 09:55 VOMITING tramadol [From ULTRAM] AdvReac Unknown DIGESTIVE Verified 09/09/20 09:55 PROBLEMS Codeine Phosphate Allergy Unknown Nausea and Uncoded 09/09/20 09:55 Vomiting codiene Allergy Unknown SOB, cp Uncoded 09/09/20 09:55 morphine Allergy Unknown n/v Uncoded 09/09/20 09:55 percocet Allergy Unknown vomiting Uncoded 09/09/20 09:55 Percodan Allergy Unknown Nausea and Uncoded 09/09/20 09:55 Vomiting percodan Allergy Unknown vomiting Uncoded 09/09/20 09:55 Home Medications Medication Instructions Recorded Confirmed Type Probiotic Blend 1 cap PO DAILY 06/29/20 09/09/20 History metformin 500 mg PO DAILY@0730 06/29/20 09/09/20 History metoprolol succinate 100 mg PO DAILY 06/29/20 09/09/20 History naproxen sodium [Aleve] 220 mg PO Q12H PRN 06/29/20 09/09/20 History omeprazole 20 mg PO DAILY 06/29/20 09/09/20 History levothyroxine 50 mcg PO QAM 06/30/20 09/09/20 History furosemide 40 mg PO DAILY PRN 09/09/20 09/09/20 History magnesium oxide 500 mg PO DAILY 09/09/20 09/09/20 History Physical Exam Vital Signs and Narrative: Vital Signs: Last Vital Signs Temp 98.4 F 09/09/20 09:31 Pulse 124 H 09/09/20 09:31 Resp 18 09/09/20 09:31 BP 140/78 H 09/09/20 09:31 Pulse Ox 97 09/09/20 09:31 Body Mass Index 29.2 Appearing in no acute distress head is normocephalic atraumatic eyes pupils are PERRLA sclera is anicteric mouth throat mucous membranes are intact and moist neck is supple no lymphadenopathy, no JVD noted lung sounds are clear to auscultation heart regular rate rhythm, clear S1, S2 positive bowel sounds, abdomen is soft, nontender neuro patient is alert x3, no focal deficits Results Labs CBC and Chem 7: 09/09/20 10:06 09/09/20 10:07 Labs: Laboratory Results - last 24 hr 09/09/20 09/09/20 09/09/20 10:06 10:06 10:06 MCV 81.7 MCH 25.8 L MCHC 31.6 RDW 14.0 Plt Count 319 MPV 11.3 Immature Gran % (Auto) 0.4 Neut % (Auto) 89.3 H Lymph % (Auto) 5.6 L [place] % (Auto) 4.0 Eos % (Auto) 0.4 Baso % (Auto) 0.3 Lymph # (Auto) 0.7 L [place] # (Auto) 0.5 Eos # (Auto) 0.1 Baso # (Auto) 0.0 Abs Immat Gran (auto) 0.05 H Absolute Neuts (auto) 10.8 H Absolute Nucleated RBC 0.000 Nucleated RBC % (auto) 0.0 Smear Tech's Comments VERIFIED PT 12.4 INR 1.0 APTT 33.5 Anion Gap Estim Creat Clear Calc Estimated GFR Random Glucose Lactic Acid Calcium Magnesium Total Bilirubin Direct Bilirubin AST ALT Alkaline Phosphatase B-Natriuretic Peptide 113 H Total Protein Albumin Lipase Urine Color Urine Appearance Urine pH Ur Specific [place] Urine Protein Urine Glucose (UA) Urine Ketones Urine Blood Urine Nitrite Ur Leukocyte Esterase COVID-19 (IVETH) COVID-[facility] 09/09/20 09/09/20 09/09/20 10:06 10:07 10:07 MCV MCH MCHC RDW Plt Count MPV Immature Gran % (Auto) Neut % (Auto) Lymph % (Auto) [place] % (Auto) Eos % (Auto) Baso % (Auto) Lymph # (Auto) [place] # (Auto) Eos # (Auto) Baso # (Auto) Abs Immat Gran (auto) Absolute Neuts (auto) Absolute Nucleated RBC Nucleated RBC % (auto) Smear Tech's Comments PT INR APTT Anion Gap 19 Estim Creat Clear Calc 49.3 Estimated GFR > 60 Random Glucose 174 H Lactic Acid 1.6 Calcium 8.9 Magnesium 1.4 L* Total Bilirubin 0.5 Direct Bilirubin 0.2 AST 13 ALT 12 Alkaline Phosphatase 97 B-Natriuretic Peptide Total Protein 5.9 L Albumin 3.7 Lipase 28 Urine Color Urine Appearance Urine pH Ur Specific [place] Urine Protein Urine Glucose (UA) Urine Ketones Urine Blood Urine Nitrite Ur Leukocyte Esterase COVID-19 (IVETH) Negative COVID[facility]ure[facility] Clin Com See Note 09/09/20 11:11 MCV MCH MCHC RDW Plt Count MPV Immature Gran % (Auto) Neut % (Auto) Lymph % (Auto) [place] % (Auto) Eos % (Auto) Baso % (Auto) Lymph # (Auto) [place] # (Auto) Eos # (Auto) Baso # (Auto) Abs Immat Gran (auto) Absolute Neuts (auto) Absolute Nucleated RBC Nucleated RBC % (auto) Smear Tech's Comments PT INR APTT Anion Gap Estim Creat Clear Calc Estimated GFR Random Glucose Lactic Acid Calcium Magnesium Total Bilirubin Direct Bilirubin AST ALT Alkaline Phosphatase B-Natriuretic Peptide Total Protein Albumin Lipase Urine Color YELLOW Urine Appearance HAZY Urine pH 6.0 Ur Specific [place] 1.010 Urine Protein NEG Urine Glucose (UA) NEG Urine Ketones NEG Urine Blood TRACE Urine Nitrite NEG Ur Leukocyte Esterase 1+ H COVID-19 (IVETH) COVID-19 Clin Com Imaging Radiologist's Impressions: Impressions Abdomen/Pelvis CT 09/09/20 09:30 IMPRESSION: Pancolitis with severe involvement of the cecum and right colon with marked wall thickening and edema. Bilateral renal cysts. 2 indeterminate lesions in the left kidney questionable for complex cysts versus masses. Stable liver cyst. Interval decrease in intrahepatic biliary duct dilatation from June 2020 Assessment and Plan (1) Pancolitis: Status: Acute 84 year old women admitted with pancolitis with diarrhea that started yesterday. Pancolitis. Continue Levaquin and Flagyl, stool studies, GI consult, clear liquids for now. Hypomagnesemia. Repleted. Check Mag in the morning. Diabetes. Sliding scale, ADA diet. Hold Metformin due to diarrhea. LVH. Lasix, BB. GERD. PPI. DVT prophylaxis with Heparin Discussed with Dr. Frias DNR
[2020-09-09 11:42] LABS: Bacteria Urine TRACE /LPF; Mucus Urine 1+ /LPF; RBC Urine 0-2 /HPF (0); Renal Epithelial Cells Urine 1+ /LPF; Squamous Epithelial Cell Urine 1+ /LPF
[2020-09-09 11:55] VITALS: BP 148/82; PULSE 124
[2020-09-09] MEDS: Metoprolol Succinate ER 100 MG TAB.ER.24H PO (11:55)
[2020-09-09] MEDS: Magnesium Sulfate/H2O 2 GM/50 ML PIGGYBACK IV (11:59)
[2020-09-09] MEDS: metroNIDAZOLE/NS 500 MG/100 ML PIGGYBACK 100 MG IV (12:10)
--- NOTE | 2020-09-09 12:11 | PC.NURSE ---
CT scan obtained and results recieved. IV antibiotics ordered. MAgnesium also crtitically low. 2G mag ordered IV. Flagyl started with magnesium for compatability. Levaquin to be hung after the magnesium infusion. PT only has one IV and is a difficult stick. BC obtained prior to abx.
[2020-09-09] MEDS: Levothyroxine Sodium 50 MCG TABLET PO (13:45)
[2020-09-09] MEDS: levoFLOXacin/D5W 500 MG/100 ML PIGGYBACK 100 MG IV (13:49)
[2020-09-09 15:07] VITALS: BP 140/76; PULSE 102; RESP 20; TEMP 36.7; O2SAT 97
[2020-09-09 16:00] VITALS: BP 150/72; PULSE 108; RESP 18; TEMP 37.6; O2SAT 97
[2020-09-09] MEDS: 0.9 % Sodium Chloride Flush 3 ML SYRINGE IVFLUSH (17:11)
[2020-09-09 17:17] LABS: Glucose, Whole Blood 126 mg/dL (60-115)
[2020-09-09] MEDS: Heparin Sodium,Porcine 5,000 UNIT/ML VIAL 5000 UNIT SUBCUT (17:20)
--- NOTE | 2020-09-09 18:00 | PM.EVENT ---
Event Note Date of Service: 09/09/20 Event Note: GI Consult-Full note dictated-Hx via patient, EMR, and RN. Imp: Acute colitis-clinically stable with a benign abdomen Diff Dx: Infectious(although denies risk factors for that), NSAID-induced(uses Alleve fairly regularly) doubt ischemic given the distribution, doubt IBD. Rec: Supportive care, clear liquids, check stool specimens when available, F/U labs in AM, avoid anti-diarrheal agents, can continue antibiotics for now, and hold off on colonoscopy unless things do not improve. Repeat CT if abdominal exam worsens. Can advance diet as tolerated if her condition continues to improve. Avoid NSAIDs. D/W patient in detail and she is comfortable with this plan. Thanks
--- NOTE | 2020-09-09 18:14 | P.EN_ITS ---
Event Note Date of Service: 09/09/20 Event Note: admission note the patient was seen and evaluated with Abi Russo NP. I agree with her note, assessment and plan with the following. An 84 years old lady with PMH of MR, pulmonary hypertension, sciatica and LVH presents to the hospital with reported abdominal pain and diarrhea. She denies any fever, chills, urinary symptoms or chest pain. A CT scan done in the emergency showing salter colitis. Admitted for further evaluation treatment. Acute colitis Likely infectious, cannot rule out other etiologies CT scan as reported Start ceftriaxone and Flagyl GI input appreciated, supportive measures for now continue IV fluid Use Imodium as needed for diarrhea Rest of evaluations by BICYCLE RENTAL CLERK note.
--- NOTE | 2020-09-09 19:14 | PC.NURSE ---
PT ARRIVED TO UNIT VIA STRETCHER FROM ED. C/O HEADACHE, MEDICATED WITH PO TYLENOL WITH GOOD EFFECT. TOLERATED CLEAR LIQUID DIET AT THIS TIME
--- NOTE | 2020-09-09 19:39 | CONS_ITS ---
DATE OF SERVICE: 09/09/2020 REFERRING PHYSICIAN: Coby Frias MD REASON FOR CONSULTATION: Abdominal pain, diarrhea, and colitis. HISTORY OF PRESENT ILLNESS: The patient is an 84-year-old female, who was in her usual state of health up until yesterday. At that time, she developed the acute onset of diarrhea with some transient lower abdominal cramps. This persisted through the day and into this morning. She finally came to the ER for evaluation of this and her weakness. She describes that her bowel movements have been fairly regular with a single episode of hematochezia 2 weeks ago. However, there was no associated diarrhea and no bleeding prior to that, nor since then. Her past history is notable for an episode of infectious diarrhea and colitis in 2011 due to Campylobacter jejuni. She did well thereafter. Her last colonoscopy was in 2010 and this was unremarkable. After presenting to the ER here, she reports that she has really had no further bouts of diarrhea. She did have some transient nausea, but no vomiting. Aside from the intermittent abdominal cramps, which were relieved by passing diarrhea, she has had no other abdominal pain. She does take Aleve fairly regularly. She does not smoke nor use any significant alcohol. She denies any preceding history of travel, ill contacts, suspicious food intake, nor any antibiotic use. Of note, she does use daily probiotics. FAMILY HISTORY: Colon cancer in her mother and some paternal aunts. There is no family history of inflammatory bowel disease. MEDICATIONS: At home included furosemide, levothyroxine, magnesium, metformin, metoprolol, Aleve, omeprazole, and probiotics. Her medications here in the hospital include acetaminophen, ceftriaxone, subcu heparin, IV Flagyl, insulin, levothyroxine, metoprolol, omeprazole, and Zofran p.r.n. PAST MEDICAL HISTORY: She has had a cholecystectomy, appendectomy, hysterectomy. She has a history of [id number]-fmguulkrl diabetes mellitus. Osteoarthritis. Hyperlipidemia. Hypertension. Campylobacter gastritis as above. Hypothyroidism. She has had bilateral carpal tunnel surgery. Left knee replacement. Sinus surgery. Tonsillectomy and adenoidectomy. She denies history of [place] nor stroke. SOCIAL HISTORY: She lives by herself. She does not smoke or use any significant alcohol. REVIEW OF SYSTEMS: CONSTITUTIONAL: Prior to yesterday, she reports feeling well with good appetite and fairly good energy. SKIN: No rash. No pruritus. CARDIAC: No chest pain. PULMONARY: No cough. No hemoptysis. GI: As above. URINARY: No dysuria. No hematuria. PHYSICAL EXAMINATION: GENERAL: The patient is a pleasant, comfortable-appearing female, in no distress. She is lying comfortably in bed. SKIN: Warm and dry. Nonjaundiced. HEENT: Anicteric sclerae. Moist mucous membranes. NECK: Supple without lymphadenopathy. CARDIAC: Normal S1, S2. ABDOMEN: Soft, nondistended normal bowel sounds. Nontender without organomegaly or mass. LABORATORY DATA: White count 12.1, hemoglobin 11.0, MCV 82, platelets 219,000, PT 12.4 with INR 1.0. Normal electrolytes. BUN 24, creatinine 0.7, total bilirubin 0.5, AST 13, ALT 12, alkaline phosphatase 97, albumin 3.7, lipase 28. COVID was negative. Stool specimens have been ordered, but have not yet been collected. She did have a CAT scan of the abdomen and pelvis this morning. This describes what appears to be an acute colitis throughout the colon with the most involvement in the area of the cecum and ascending colon. There was some edema of the bowel wall and stranding in the surrounding fat. There is no evidence of any free air, abscess, nor obstruction. There is no description of any small-bowel disease. IMPRESSION: Given the patient's clinical history and workup, this appears to be an acute colitis. The most likely etiologies would be infectious, although she really has no risk factors for that, or possible NSAID-induced as she does use Aleve fairly regularly. Given the distribution of the colitis, I doubt this is ischemic. I also doubt this is inflammatory bowel disease given the acute onset as well. At this point, she appears stable and her abdominal exam is very benign. I will continue supportive care. I think she can be on clear liquids. I would follow up laboratories in the morning and check stool specimens when available. I think she can stay on antibiotics for now, but I would stop those in the next day or 2 if she remains well and there are no further signs of infection. I do not think colonoscopy is currently required, but would consider that if she continues to have problems going forward. I would repeat a CAT scan if her exam worsens. I would avoid all antidiarrheal agents. Her diet can be advanced in the next 24 to 48 hours if her condition continues to improve and remains stable. She should avoid all NSAIDs as well. This has been discussed with the patient in detail and she is comfortable with this plan. Thank you for this consultation. MD CLIFTON [place]/JORDAN / [id number] MTDD
[2020-09-09] MEDS: 0.9 % Sodium Chloride 1,000 ML 50 ML IVCONT (19:45)
[2020-09-09] MEDS: metroNIDAZOLE 500 MG TABLET PO (19:52)
[2020-09-09 21:17] LABS: Glucose, Whole Blood 126 mg/dL (60-115)
[2020-09-09 23:51] VITALS: BP 160/72; PULSE 100; RESP 20; TEMP 37.4; O2SAT 95
[2020-09-10] MEDS: Acetaminophen 325 MG TABLET 650 MG PO ×3 (00:06→14:16)
[2020-09-10] MEDS: metroNIDAZOLE 500 MG TABLET PO ×3 (03:37→21:30)
[2020-09-10] MEDS: Heparin Sodium,Porcine 5,000 UNIT/ML VIAL 5000 UNIT SUBCUT ×2 (05:39→18:10)
[2020-09-10] MEDS: Levothyroxine Sodium 50 MCG TABLET PO (05:39)
[2020-09-10 06:52] LABS: Basophils Percent Auto 0.4 % (0-2); Eosinophils Absolute Auto 0.2 X10*3/uL (0.0-0.4); Eosinophils Percent Auto 2.6 % (0-4); Hematocrit 33.1 % (37-47); Hemoglobin 10.4 g/dl (12.0-16.0); Imm Gran Abs Auto 0.04 X10*3/uL (0.00-0.03); Imm Gran Pct Auto 0.5 % (0.0-0.4); Lymphocytes Percent Auto 12.3 % (20-40); MANUAL DIFF FLAG SCAN; Mean Corpuscular HGB Conc 31.4 g/dl (31.0-35.0); Mean Corpuscular Hemoglobin 25.8 pg (27.0-33.0); Mean Corpuscular Volume 82.1 fL (80-98); Mean Platelet Volume 12.9 fL (9.4-12.3); Monocytes Absolute Auto 0.6 X10*3/uL (0.1-1.2); Neutrophils Absolute Auto 6.1 X10*3/uL (2.0-8.3); Neutrophils Percent Auto 76.2 % (45-73); PLT CLUMP 1; Red Blood Count 4.03 X10*6/uL (4.20-5.50); Red Cell Distribution Width 14.1 % (11.0-16.0); SCAN SMEAR FLAG 1
[2020-09-10 07:09] LABS: Anion Gap 12 (12-20); Blood Urea Nitrogen 13 mg/dL (9-16); Calcium 8.4 mg/dL (8.4-10.2); Carbon Dioxide 25 mmol/L (22-29); Chloride 105 mmol/L (96-108); Creatinine Clr Calc Pharmacy 54.7; Estimated Glomerular Filt Rate > 60; Glucose Random 103 mg/dL (60-115); Magnesium 1.8 mg/dL (1.6-2.6); Potassium 3.9 mmol/l (3.3-5.1); Sodium 138 mmol/L (135-145)
[2020-09-10 07:28] VITALS: BP 150/60; PULSE 91; RESP 19; TEMP 36.9; O2SAT 98
[2020-09-10 07:36] LABS: Glucose, Whole Blood 109 mg/dL (60-115)
[2020-09-10 07:42] LABS: White Blood Count 8.1 X10*3/uL (4.8-10.8)
[2020-09-10 07:43] LABS: SLIDE REVIEW VERIFIED
[2020-09-10] MEDS: Metoprolol Succinate ER 100 MG TAB.ER.24H PO (08:02)
[2020-09-10] MEDS: Omeprazole 20 MG CAPSULE.DR PO (08:02)
[2020-09-10] MEDS: cefTRIAXone sodium 1 GM in 0.9 % Sodium Chloride 50 ML IV (10:47)
--- NOTE | 2020-09-10 11:23 | MHC.CM.PN ---
probable dc dc plan home no servceis pt [facility]
[2020-09-10 12:33] LABS: Glucose, Whole Blood 122 mg/dL (60-115)
--- NOTE | 2020-09-10 13:42 | P.PNIM_ITS ---
Subjective Subjective Date of Service: 09/10/20 Interval History: the patient was seen and evaluated this morning Laying in bed, feels comfortable Denies any fever, chills or shortness of breath No reported diarrhea or abdominal pain Able to tolerate liquid diet No reported other overnight events. Systemic review: No fever, chills or weakness No chest pain, palpitation No shortness of breath or coughing No abdominal pain, nausea or vomiting No urinary symptoms No any rash or wounds Physical Exam Vital Signs: Vital Signs: Last Vital Signs Temp 98.5 F 09/10/20 07:28 Pulse 91 09/10/20 07:28 Resp 19 09/10/20 07:28 BP 150/60 H 09/10/20 07:28 Pulse Ox 98 09/10/20 07:28 Body Mass Index 29.2 Const: Other: Constitutional : Alert, oriented, not in distress Neck : Normal inspection, Supple Cardiovascular : RRR, S1 S2, no lower extremity edema Respiratory : Good bilateral air entry, no crackles, wheezes or rhonchi Gastrointestinal: soft, lax, Normal bowel sounds, Non tender Skin : Warm/Dry, No rash Neurological : Alert & oriented x3, No focal deficit Objective Data Current Medications Generic Name Dose Route Start Last Admin Trade Name Freq PRN Reason Stop Dose Admin Acetaminophen 650 mg 09/09/20 12:20 09/10/20 08:02 Acetaminophen 325 Mg Tablet PO 650 mg Q6H PRN Administration Pain, Mild (Pain Scale 1-3) Heparin Sodium (Porcine) 5,000 unit 09/09/20 18:00 09/10/20 05:39 Heparin Sodium,Porcine 5,000 Unit/Ml Vial SUBCUT 5,000 unit Q12H JULIA Administration Ceftriaxone Sodium 1 gm/ 50 mls @ 100 mls/hr 09/10/20 11:00 09/10/20 12:27 Sodium Chloride IV Infused Q24H JULIA Infusion Insulin Human Lispro 0 unit 09/09/20 16:30 09/10/20 12:49 Insulin Lispro 100 Unit/Ml 3 Ml Vial SUBCUT Not Given QIDACHS COUNTS INCLUDE 234 BEDS AT THE [facility] Protocol Levothyroxine Sodium 50 mcg 09/09/20 12:30 09/10/20 05:39 Levothyroxine Sodium 50 Mcg Tablet PO 50 mcg DAILY@0630 COUNTS INCLUDE 234 BEDS AT THE [facility] Administration Metoprolol Succinate 100 mg 09/10/20 09:00 09/10/20 08:02 Metoprolol Succinate Er 100 Mg Tab.Er.24h PO 100 mg DAILY JULIA Administration Protocol Metronidazole 500 mg 09/09/20 20:00 09/10/20 12:47 Metronidazole 500 Mg Tablet PO 500 mg Q8H JULIA Administration Omeprazole 20 mg 09/10/20 09:00 09/10/20 08:02 Omeprazole 20 Mg Capsule. PO 20 mg DAILY JULIA Administration Ondansetron HCl 4 mg 09/09/20 12:20 Ondansetron Hcl 4 Mg/2 Ml Vial IVPUSH Q8H PRN Nausea and Vomiting Pharmacy Consult 1 each 09/09/20 09:29 Consult Rx Perform Med Rec MISCELLANE ONCE PRN Consult order Sodium Chloride 3 ml 09/09/20 16:00 09/10/20 08:02 0.9 % Sodium Chloride Flush 3 Ml Syringe IVFLUSH Not Given QSHIFT COUNTS INCLUDE 234 BEDS AT THE [facility] Labs CBC & Chem 7: 09/10/20 06:04 09/10/20 06:04 Microbiology Microbiology Results: Microbiology 09/09/20 10:21 Blood - Venous Blood Culture - Preliminary No growth after 24 hours. 09/09/20 10:05 Blood - Venous Blood Culture - Preliminary No growth after 24 hours. 09/09/20 00:00 Urine clean catch - Clean Catch Midstream Urine Culture - Final Assessment and Plan (1) Pancolitis: Status: Acute Assessment and Plan: An 84 years old lady with PMH of MR, pulmonary hypertension, sciatica and LVH presents to the hospital with reported abdominal pain and diarrhea. Acute Pancolitis Likely infectious, cannot rule out other etiologies CT scan as reported Improving Continue ceftriaxone and Flagyl GI input appreciated, supportive measures for now DC IV fluid Advanced diet today Use Imodium as needed for diarrhea Hypomagnesemia Repleted Repeat Mag Diabetes Sliding scale, ADA diet. Hold Metformin due to diarrhea. LVH. Lasix, BB. GERD. PPI. DVT prophylaxis Heparin
[2020-09-10 15:59] VITALS: BP 150/82; PULSE 86; RESP 20; TEMP 36.2; O2SAT 97
[2020-09-10 16:43] LABS: Glucose, Whole Blood 121 mg/dL (60-115)
[2020-09-10 20:22] LABS: Glucose, Whole Blood 156 mg/dL (60-115)
[2020-09-10] MEDS: Insulin Lispro 100 UNIT/ML 3 ML VIAL SUBCUT (21:29)
[2020-09-10] MEDS: Butalb/Acetamin/Caff 50/325/40 TABLET 1 TAB PO (21:30)
[2020-09-11] VITALS: BP 160/68; PULSE 87; RESP 18; TEMP 36.9; O2SAT 95
[2020-09-11] MEDS: metroNIDAZOLE 500 MG TABLET PO (04:35)
[2020-09-11] MEDS: Heparin Sodium,Porcine 5,000 UNIT/ML VIAL 5000 UNIT SUBCUT (06:13)
[2020-09-11] MEDS: Levothyroxine Sodium 50 MCG TABLET PO (06:13)
[2020-09-11 08:00] VITALS: BP 140/70; PULSE 80; RESP 18; TEMP 36.8; O2SAT 97
[2020-09-11 08:22] LABS: Glucose, Whole Blood 116 mg/dL (60-115)
[2020-09-11 09:24] VITALS: BP 140/70; PULSE 80
[2020-09-11] MEDS: Metoprolol Succinate ER 100 MG TAB.ER.24H PO (09:24)
[2020-09-11] MEDS: Omeprazole 20 MG CAPSULE.DR PO (09:24)
--- NOTE | 2020-09-11 10:59 | MHC.CM.PN ---
nurse skin care technician note electronic medical record reviewed and case discussed on hospitalist. discharge plan home with no services, pcp to call for post hospital dischagre follow up transportation family
--- NOTE | 2020-09-11 11:07 | P.DS_ITS ---
DS: Providers Provider Date of Service: 09/11/20 Date of admission: 09/09/20 12:20 Primary care physician: Jose Alberto Bridges MD Consults: 09/09/20 12:20 Consult to Gastroenterology Routine Consulting Provider: Dwaine Odell Reason for consultation: Pancolitis for your kind eval and recommendations Has provider been notified: No DS: Diagnosis Discharge Diagnosis (1) Pancolitis: Status: Acute (2) Tachycardia: Status: Acute (3) Abdominal pain: Status: Acute (4) Hypomagnesemia: Status: Acute DS: Medications Discharge Medications Home Medications: Home Medications Medication Instructions Recorded Confirmed Probiotic Blend 1 cap PO DAILY 06/29/20 09/09/20 metformin 500 mg PO DAILY@0730 06/29/20 09/09/20 metoprolol succinate 100 mg PO DAILY 06/29/20 09/09/20 naproxen sodium [Aleve] 220 mg PO Q12H PRN 06/29/20 09/09/20 omeprazole 20 mg PO DAILY 06/29/20 09/09/20 levothyroxine 50 mcg PO QAM 06/30/20 09/09/20 furosemide 40 mg PO DAILY PRN 09/09/20 09/09/20 magnesium oxide 500 mg PO DAILY 09/09/20 09/09/20 Previous Rx's Medication Instructions Recorded [id number]-[id number]-bfxs 1 cap PO Q8H PRN #20 cap 09/11/20 cefuroxime axetil 500 mg PO BID #10 tab 09/11/20 metronidazole 500 mg PO BID #10 tab 09/11/20 DS: Summary Hospital Course Hospital Course: Admission note HPI 84 year old women presenting with diarrhea and abdominal cramping. she reported that her diarrhea started yesterday morning. She denied fever, chills, improperly cooked foods, nausea or vomiting. She had constipation last week. She reported that she had a similar episode several years ago and may have been told it was her Metformin causing the issue although she still has been on it. Abdominal CT showed Pancolitis with severe involvement of the cecum and right colon with marked wall thickening and edema. Magnesium was noted to be 1.4, covid 19 negative. She was given Levaquin and Flagyl. She will be admitted for further management and treatment of pancolitis. Hospital course The patient was admitted for treatment of acute pancolitis showing on CT scan of the abdomen and pelvis. Treated mainly for infection was causes with IV fluid and IV antibiotic of ceftriaxone and Flagyl. She was evaluated by industrial security analyst who recommended no intervention at this point and to continue supportive treatment. Her symptoms resolved and she was able to tolerate diet well with no reported fever or chills. To be discharged on Flagyl and Ceftin to finish total of 7 days of antibiotics. Time Spent with Patient Time attestation: Total time spent providing and/or coordinating discharge services: Discharge coordination time: Greater than 30 minutes Physical Exam Vital Signs: Vital Signs: Last Vital Signs Temp 98.2 F 09/11/20 08:00 Pulse 80 09/11/20 09:24 Resp 18 09/11/20 08:00 BP 140/70 H 09/11/20 09:24 Pulse Ox 97 09/11/20 08:00 Body Mass Index 29.2 Const: Other: Constitutional : Alert, oriented, not in distress Neck : Normal inspection, Supple Cardiovascular : RRR, S1 S2, no lower extremity edema Respiratory : Good bilateral air entry, no crackles, wheezes or rhonchi Gastrointestinal: soft, lax, Normal bowel sounds, Non tender Skin : Warm/Dry, No rash Neurological : Alert & oriented x3, No focal deficit DS: Data Data Completed and Pending Labs on day of discharge: Laboratory Tests 09/09/20 09/09/20 09/09/20 10:06 10:06 10:06 WBC 12.1 H RBC 4.26 Hgb 11.0 L Hct 34.8 L MCV 81.7 MCH 25.8 L MCHC 31.6 RDW 14.0 Plt Count 319 MPV 11.3 Immature Gran % (Auto) 0.4 Neut % (Auto) 89.3 H Lymph % (Auto) 5.6 L Evangeline % (Auto) 4.0 Eos % (Auto) 0.4 Baso % (Auto) 0.3 Lymph # (Auto) 0.7 L Evangeline # (Auto) 0.5 Eos # (Auto) 0.1 Baso # (Auto) 0.0 Abs Immat Gran (auto) 0.05 H Absolute Neuts (auto) 10.8 H Absolute Nucleated RBC 0.000 Nucleated RBC % (auto) 0.0 Smear Tech's Comments VERIFIED PT 12.4 INR 1.0 APTT 33.5 Sodium Potassium Chloride Carbon Dioxide Anion Gap BUN Creatinine Estim Creat Clear Calc Estimated GFR POC Glucose Random Glucose Lactic Acid Calcium Magnesium Total Bilirubin Direct Bilirubin AST ALT Alkaline Phosphatase B-Natriuretic Peptide 113 H Total Protein Albumin Lipase Urine Color Urine Appearance Urine pH Ur Specific [place] Urine Protein Urine Glucose (UA) Urine Ketones Urine Blood Urine Nitrite Ur Leukocyte Esterase Urine RBC Urine WBC Ur Squamous Epith Cells Ur Renal Epithelial Cell Urine Bacteria Urine Mucus COVID-19 (IVETH) COVID-19 Clin Com 09/09/20 09/09/20 09/09/20 10:06 10:07 10:07 WBC RBC Hgb Hct MCV MCH MCHC RDW Plt Count MPV Immature Gran % (Auto) Neut % (Auto) Lymph % (Auto) Evangeline % (Auto) Eos % (Auto) Baso % (Auto) Lymph # (Auto) Evangeline # (Auto) Eos # (Auto) Baso # (Auto) Abs Immat Gran (auto) Absolute Neuts (auto) Absolute Nucleated RBC Nucleated RBC % (auto) Smear Tech's Comments PT INR APTT Sodium 139 Potassium 4.3 Chloride 105 Carbon Dioxide 19 L Anion Gap 19 BUN 24 H Creatinine 0.70 Estim Creat Clear Calc 49.3 Estimated GFR > 60 POC Glucose Random Glucose 174 H Lactic Acid 1.6 Calcium 8.9 Magnesium 1.4 L* Total Bilirubin 0.5 Direct Bilirubin 0.2 AST 13 ALT 12 Alkaline Phosphatase 97 B-Natriuretic Peptide Total Protein 5.9 L Albumin 3.7 Lipase 28 Urine Color Urine Appearance Urine pH Ur Specific [place] Urine Protein Urine Glucose (UA) Urine Ketones Urine Blood Urine Nitrite Ur Leukocyte Esterase Urine RBC Urine WBC Ur Squamous Epith Cells Ur Renal Epithelial Cell Urine Bacteria Urine Mucus COVID-19 (IVETH) Negative COVID-19 Clin Com See Note 09/09/20 09/09/20 09/09/20 11:11 17:11 21:12 WBC RBC Hgb Hct MCV MCH MCHC RDW Plt Count MPV Immature Gran % (Auto) Neut % (Auto) Lymph % (Auto) Evangeline % (Auto) Eos % (Auto) Baso % (Auto) Lymph # (Auto) Evangeline # (Auto) Eos # (Auto) Baso # (Auto) Abs Immat Gran (auto) Absolute Neuts (auto) Absolute Nucleated RBC Nucleated RBC % (auto) Smear Tech's Comments PT INR APTT Sodium Potassium Chloride Carbon Dioxide Anion Gap BUN Creatinine Estim Creat Clear Calc Estimated GFR POC Glucose 126 H 126 H Random Glucose Lactic Acid Calcium Magnesium Total Bilirubin Direct Bilirubin AST ALT Alkaline Phosphatase B-Natriuretic Peptide Total Protein Albumin Lipase Urine Color YELLOW Urine Appearance HAZY Urine pH 6.0 Ur Specific [place] 1.010 Urine Protein NEG Urine Glucose (UA) NEG Urine Ketones NEG Urine Blood TRACE Urine Nitrite NEG Ur Leukocyte Esterase 1+ H Urine RBC 0-2 Urine WBC 10-14 H Ur Squamous Epith Cells 1+ Ur Renal Epithelial Cell 1+ Urine Bacteria TRACE Urine Mucus 1+ COVID-19 (IVETH) COVID-19 Clin Com 09/10/20 09/10/20 09/10/20 06:04 06:04 06:04 WBC 8.1 RBC 4.03 L Hgb 10.4 L Hct 33.1 L MCV 82.1 MCH 25.8 L MCHC 31.4 RDW 14.1 Plt Count TNP MPV 12.9 H Immature Gran % (Auto) 0.5 H Neut % (Auto) 76.2 H Lymph % (Auto) 12.3 L Evangeline % (Auto) 8.0 Eos % (Auto) 2.6 Baso % (Auto) 0.4 Lymph # (Auto) 1.0 L Evangeline # (Auto) 0.6 Eos # (Auto) 0.2 Baso # (Auto) 0.0 Abs Immat Gran (auto) 0.04 H Absolute Neuts (auto) 6.1 Absolute Nucleated RBC 0.000 Nucleated RBC % (auto) 0.0 Smear Tech's Comments VERIFIED PT INR APTT Sodium Cancelled 138 Potassium Cancelled 3.9 Chloride Cancelled 105 Carbon Dioxide Cancelled 25 Anion Gap Cancelled 12 BUN Cancelled 13 Creatinine Cancelled 0.63 Estim Creat Clear Calc Cancelled 54.7 Estimated GFR Cancelled > 60 POC Glucose Random Glucose Cancelled 103 D Lactic Acid Calcium Cancelled 8.4 Magnesium 1.8 Total Bilirubin Direct Bilirubin AST ALT Alkaline Phosphatase B-Natriuretic Peptide Total Protein Albumin Lipase Urine Color Urine Appearance Urine pH Ur Specific [place] Urine Protein Urine Glucose (UA) Urine Ketones Urine Blood Urine Nitrite Ur Leukocyte Esterase Urine RBC Urine WBC Ur Squamous Epith Cells Ur Renal Epithelial Cell Urine Bacteria Urine Mucus COVID-19 (IVETH) COVID-19 Scour Prevention Com 09/10/20 09/10/20 09/10/20 07:31 11:17 16:23 WBC RBC Hgb Hct MCV MCH MCHC RDW Plt Count MPV Immature Gran % (Auto) Neut % (Auto) Lymph % (Auto) Evangeline % (Auto) Eos % (Auto) Baso % (Auto) Lymph # (Auto) Evangeline # (Auto) Eos # (Auto) Baso # (Auto) Abs Immat Gran (auto) Absolute Neuts (auto) Absolute Nucleated RBC Nucleated RBC % (auto) Smear Tech's Comments PT INR APTT Sodium Potassium Chloride Carbon Dioxide Anion Gap BUN Creatinine Estim Creat Clear Calc Estimated GFR POC Glucose 109 122 H 121 H Random Glucose Lactic Acid Calcium Magnesium Total Bilirubin Direct Bilirubin AST ALT Alkaline Phosphatase B-Natriuretic Peptide Total Protein Albumin Lipase Urine Color Urine Appearance Urine pH Ur Specific [place] Urine Protein Urine Glucose (UA) Urine Ketones Urine Blood Urine Nitrite Ur Leukocyte Esterase Urine RBC Urine WBC Ur Squamous Epith Cells Ur Renal Epithelial Cell Urine Bacteria Urine Mucus COVID-19 (IVETH) COVID-19 [place] 09/10/20 09/11/20 20:16 08:03 WBC RBC Hgb Hct MCV MCH MCHC RDW Plt Count MPV Immature Gran % (Auto) Neut % (Auto) Lymph % (Auto) Evangeline % (Auto) Eos % (Auto) Baso % (Auto) Lymph # (Auto) Evangeline # (Auto) Eos # (Auto) Baso # (Auto) Abs Immat Gran (auto) Absolute Neuts (auto) Absolute Nucleated RBC Nucleated RBC % (auto) Smear Tech's Comments PT INR APTT Sodium Potassium Chloride Carbon Dioxide Anion Gap BUN Creatinine Estim Creat Clear Calc Estimated GFR POC Glucose 156 H 116 H Random Glucose Lactic Acid Calcium Magnesium Total Bilirubin Direct Bilirubin AST ALT Alkaline Phosphatase B-Natriuretic Peptide Total Protein Albumin Lipase Urine Color Urine Appearance Urine pH Ur Specific [place] Urine Protein Urine Glucose (UA) Urine Ketones Urine Blood Urine Nitrite Ur Leukocyte Esterase Urine RBC Urine WBC Ur Squamous Epith Cells Ur Renal Epithelial Cell Urine Bacteria Urine Mucus COVID-19 (IVETH) COVID-19 [place] Preliminary micro results at discharge 09/09/20 10:21 Blood Culture - Preliminary Blood - Venous No growth after 24 hours. 09/09/20 10:05 Blood Culture - Preliminary Blood - Venous No growth after 24 hours. Discharge Plan Discharge Patient Disposition: Home, Self-Care Referrals: Jose Alberto Bridges MD [Primary Care Provider] - Discharge Medications: New metronidazole 500 mg tablet 500 mg PO BID Qty: 10 RF: 0 cefuroxime axetil 500 mg tablet 500 mg PO BID Qty: 10 RF: 0 lkispyjtfw-dvyrrlurzwnwt-atov 50-300-40 mg capsule 1 cap PO Q8H PRN (Reason: pain) Qty: 20 RF: 0 Continued metoprolol succinate 100 mg tablet extended release 24 hr 100 mg PO DAILY RF: 0 omeprazole 20 mg capsule,delayed release(DR/EC) 20 mg PO DAILY RF: 0 metformin 500 mg tablet extended release 24 hr 500 mg PO DAILY@0730 RF: 0 naproxen sodium [Aleve] 220 mg Capsule 220 mg PO Q12H PRN (Reason: Pain) RF: 0 Probiotic Blend 2 billion cell-50 mg Capsule 1 cap PO DAILY RF: 0 levothyroxine 50 mcg tablet 50 mcg PO QAM RF: 0 furosemide 40 mg tablet 40 mg PO DAILY PRN (Reason: Edema) RF: 0 magnesium oxide 500 mg Tablet 500 mg PO DAILY RF: 0 Discharge Orders: Discharge Order (Routine); Ordered 09/11/20 Ordered By: Coby Frias Diet: advance to usual diet Activity on Discharge: As tolerated Stand Alone Forms: Patient Portal Discharge page Visit Report Forms: Patient Portal Discharge page Care Plan Goals: Read below Health Concerns: Read below Plan of Treatment: You were admitted to the hospital for evaluation of abdominal pain and diarrhea. Images for your abdomen was consistent with colitis. You were treated with IV fluid, IV antibiotics with good response and evaluated by industrial security analyst who recommended conservative measures only. Continue Flagyl and Ceftin as prescribed To follow-up with Dr. Odell as outpatient as needed
== END 2020-09-11 12:01 | disposition home or self-care (01) | DRG 387 ==
LOC: HO.ED 11:22 → HO.EDOVER 13:07 → HO.S3 14:49
PROVIDERS: Nurse Practitioner Acute Care; Admitting Provider Student in an Organized Health Care Education/Training Program; Emergency Provider Emergency Medicine; PCP Internal Medicine; Visit Provider Student in an Organized Health Care Education/Training Program
DX: K51.00 Ulcerative (chronic) pancolitis without complications (principal); E78.5 Hyperlipidemia, unspecified; I10 Essential (primary) hypertension; E83.42 Hypomagnesemia; K21.9 Gastro-esophageal reflux disease without esophagitis; E03.9 Hypothyroidism, unspecified; Z20.822 Contact with and (suspected) exposure to COVID-19; Z87.891 Personal history of nicotine dependence; Z88.6 Allergy status to analgesic agent; Z79.1 Long term (current) use of non-steroidal anti-inflammatories (NSAID); Z79.84 Long term (current) use of oral hypoglycemic drugs; Z79.899 Other long term (current) drug therapy; Z66 Do not resuscitate
CPT/HCPCS: 36415; 74177; 80048; 80076; 81001; 81003; 82947; 83605; 83690; 83735; 83880; 85025; 85610; 85730; 87040; 87086; 87635; 93005; 96361; 96365; 96367; 96375; 99285; J0696; J1956; J3475; Q9967

== ENCOUNTER 2020-10-22 09:54 | Outpatient (REF) | payer SELFPAY | END 2020-10-22 09:55 | disposition home or self-care (01) | LOC: HO.SH 09:54 | PROVIDERS: Visit Provider Internal Medicine | DX: H90.3 Sensorineural hearing loss, bilateral (principal) | CPT/HCPCS: V5266 ==

== ENCOUNTER 2020-10-22 11:11 | Outpatient (REF) | payer MEDICARE, SELFPAY ==
--- NOTE | 2020-10-22 14:22 | MHC.AU.P13 ---
Adult Audiological Evaluation Date of Visit: 10/22/20 Reason for Appointment: History of sensorineural hearing loss. Patient arrives to determine if there has been a change in hearing. Patient was hospitalized in August 2020 for colitis and a UTI. During this time, she was given IV Gentamicin, which is potentially ototoxic. Patient did not notice any acute changes in hearing during or after her hospitalization. Patient reports that she used to have cerumen removal performed by an ENT every 4-5 months, but has been unable to do so in the past year given the COVID-19 pandemic. Previous Hearing Test Results: At this clinic on 07/10/2019- Moderate to severe sensorineural hearing loss bilaterally. Word discrimination was 76% bilaterally. Ear History: Recent Ear Drainage: None Reported Recent Ear Pain: None Reported Recent Ear Infections: None Reported History of Ear Wax Buildup: Both Ears Medical History: Medical History: History of sciatica, which has required hospitalization and physical therapy within the past year to stabilize. Hypertension. Vascular problem/chronic edema in the legs- will soon be seeing a specialist. Type 2 Diabetes. Vitamin B12 Deficiency. Hearing Instrument History- Right Ear: Kosher Butcher: [employer] Model: [employer]0-M Serial Number: [id number] Battery Size: 312 Repair Warranty: 09/19/2019 Loss and Damage Warranty: 09/19/2019 Dispensed By: [facility] Date of Fittin06/30/2016 Hearing Instrument History- Left Ear: Kosher Butcher: [employer] Model: [employer]0-M Serial Number: [id number] Battery Size: 312 Warranty: 09/19/2019 Loss and Damage Warranty: 09/19/2019 Dispensed By: [facility] Date of Fittin06/30/2016 Otoscopy: Right Ear: Significant cerumen, but tympanic membrane still visible Left Ear: Significant cerumen, but tympanic membrane still visible Tympanometry: Tympanometry performed due to: To determine if cerumen blockage is fully occluding canal(s) Right Ear: Normal Middle Ear System (Type A) Left Ear: Normal Middle Ear System (Type A) Hearing Evaluation: Transducer(s) Used: Circumaural Headphones Method: Conventional Audiometry Stimuli Used: Pure Tones Right Ear: Description of Hearing: Moderate to severe sensorineural hearing loss Left Ear: Description of Hearing: Moderate to severe sensorineural hearing loss Speech Recognition Threshold (SRT): Method Used: Recorded Lists Stimuli Used: Spondee Words Right Ear: 50 dBHL Left Ear: 50 dBHL Word Discrimination: Method: Recorded Lists Word Lists Used: NU-6 Right Ear: 60% at 85 dBHL Left Ear: 64% at 80 dBHL Most Comfortable Level (MCL): Right Ear: 85 dBHL Left Ear: 80 dBHL Aided Testing: Aided word discrimination is 84% at 55 dBHL Comparison: Compared to the most recent evaluation: Hearing is stable. Recommendations: Audiological re-evaluation in one year, or sooner if changes are noted. Hearing aid maintenance performed. No programming changes made today. Patient is satisfied with how hearing aids sound, and there have been no changes to thresholds. Patient plans to schedule an appointment with her ENT for cerumen removal. Diagnosis: Primary Diagnosis: H90.3 Bilateral Sensorineural Hearing Loss Services Performed: Comprehensive Audiological Evaluation (CPT 61240), Tympanometry (CPT 44611) Signature: Provider: Valentina Bowles, CCC-A
== END 2020-10-22 11:12 | disposition home or self-care (01) ==
LOC: HO.HAP 11:11
PROVIDERS: Visit Provider Internal Medicine
DX: Z46.1 Encounter for fitting and adjustment of hearing aid (principal); H90.3 Sensorineural hearing loss, bilateral
CPT/HCPCS: 92557; 92567

== ENCOUNTER 2020-12-16 06:55 | Outpatient (REF) | payer MEDICARE, SELFPAY ==
[2020-12-16 11:14] LABS: MANUAL DIFF FLAG NO
[2020-12-16 11:33] LABS: Basophils Absolute Auto 0.1 X10*3/uL (0.0-0.2); Basophils Percent Auto 0.6 % (0-2); Eosinophils Absolute Auto 0.3 X10*3/uL (0.0-0.4); Eosinophils Percent Auto 3.3 % (0-4); Hematocrit 37.5 % (37-47); Hemoglobin 11.6 g/dl (12.0-16.0); Imm Gran Abs Auto 0.07 X10*3/uL (0.00-0.03); Imm Gran Pct Auto 0.9 % (0.0-0.4); Lymphocytes Absolute Auto 2.9 X10*3/uL (1.2-4.9); Lymphocytes Percent Auto 36.1 % (20-40); Mean Corpuscular HGB Conc 30.9 g/dl (31.0-35.0); Mean Corpuscular Hemoglobin 25.4 pg (27.0-33.0); Mean Corpuscular Volume 82.1 fL (80-98); Mean Platelet Volume 11.9 fL (9.4-12.3); Monocytes Absolute Auto 0.6 X10*3/uL (0.1-1.2); Monocytes Percent Auto 7.7 % (2-11); Neutrophils Absolute Auto 4.2 X10*3/uL (2.0-8.3); Neutrophils Percent Auto 51.4 % (45-73); Platelet Count 316 X10*3/uL (160-400); Red Blood Count 4.57 X10*6/uL (4.20-5.50); Red Cell Distribution Width 15.3 % (11.0-16.0); White Blood Count 8.1 X10*3/uL (4.8-10.8)
[2020-12-16 11:48] LABS: Estimated Average Glucose 160 mg/dL; Hemoglobin A1c % 7.2 %
[2020-12-16 11:59] LABS: Glucose Urine UA NEG (NEG); Leukocyte Esterase Urine NEG (NEG); Nitrite Urine NEG (NEG); PH 5.5 (5.0-8.0); Urine Blood 2+ (NEG); Urine Ketones NEG (NEG); Urine Protein NEG (NEG-TRACE)
[2020-12-16 12:03] LABS: Appearance Urine CLEAR; Color Urine YELLOW
[2020-12-16 12:16] LABS: Thyroid Stimulating Hormone 2.66 uIU/mL (0.32-4.0)
[2020-12-16 12:22] LABS: Alanine Aminotransferase 16 U/L (0-31); Albumin Level 3.9 g/dL (3.5-5.0); Alkaline Phosphatase 99 U/L (39-117); Anion Gap 18 (12-20); Aspartate Amino Transferase 17 U/L (5-31); Bilirubin Total 0.4 mg/dL (0.0-1.0); Blood Urea Nitrogen 32 mg/dL (9-16); Calcium 9.4 mg/dL (8.4-10.2); Carbon Dioxide 24 mmol/L (22-29); Chloride 103 mmol/L (96-108); Cholesterol 225 mg/dL; Estimated Glomerular Filt Rate > 60; Glucose Random 118 mg/dL (60-115); HDL Cholesterol 51 mg/dL; LDL Cholesterol Calculated 143 mg/dl; Potassium 4.5 mmol/L (3.3-5.1); Sodium 140 mmol/L (135-145); Total Protein 6.4 g/dL (6.5-8.0); Triglycerides 159 mg/dL
[2020-12-16 12:26] LABS: Creatinine Urine 97.11 mg/dL; Microalbum/Creatinine Ratio Ur 45.3 ug/mg cr
[2020-12-16 12:33] LABS: Squamous Epithelial Cell Urine TRACE /LPF; WBC Urine 0 /HPF (0-4)
== END 2020-12-16 06:56 | disposition home or self-care (01) ==
LOC: HO.HMGCLDS 06:55
PROVIDERS: PCP Internal Medicine; Visit Provider Internal Medicine
DX: E11.42 Type 2 diabetes mellitus with diabetic polyneuropathy (principal); I10 Essential (primary) hypertension
CPT/HCPCS: 36415; 80053; 80061; 81001; 81003; 82043; 83036; 84443; 85025; 87086

== ENCOUNTER 2021-04-28 09:55 | Outpatient (REF) | payer SELFPAY ==
--- NOTE | 2021-04-28 10:32 | MHC.AU.P13 ---
Hearing Instrument Problem Date of Visit: 04/28/21 Right Ear: Carpet Inspector Finished: Phonak Model: Bolero V50-M Serial Number: [id number] Repair Warranty: 09/19/2019 Loss and Damage Warranty: 09/19/2019 Battery Size: 312 Dispensed By: [facility] Date of Fittin06/30/2016 Left Ear: Carpet Inspector Finished: Phonak Model: Bolero V50-M Serial Number: [id number] Repair Warranty: 09/19/2019 Loss and Damage Warranty: 09/19/2019 Battery Size: 312 Dispensed By: [facility] Date of Fittin06/30/2016 Follow-Up Summary: Patient brought in left aid - battery door came off. Able to put back on with pin, cleaned, changed #1 left slim tube and small power dome - amplifying clearly. Recommendations: Recommendations: Hearing instrument follow-up or maintenance as needed. Diagnosis Code(s): Primary Diagnosis: H90.3 Bilateral Sensorineural Hearing Loss Signature: Provider: LILIA Fuller-HIS
== END 2021-04-28 09:56 | disposition home or self-care (01) ==
LOC: HO.HAP 09:55
PROVIDERS: Visit Provider Internal Medicine
DX: Z46.1 Encounter for fitting and adjustment of hearing aid (principal); H90.3 Sensorineural hearing loss, bilateral
CPT/HCPCS: 99499; V5266

== ENCOUNTER 2021-04-29 06:47 | Outpatient (REF) | payer MEDICARE, SELFPAY ==
[2021-04-29 11:22] LABS: MANUAL DIFF FLAG NO
[2021-04-29 11:29] LABS: Basophils Absolute Auto 0.1 X10*3/uL (0.0-0.2); Basophils Percent Auto 0.6 % (0-2); Eosinophils Absolute Auto 0.4 X10*3/uL (0.0-0.4); Eosinophils Percent Auto 3.7 % (0-4); Hemoglobin 11.2 g/dl (12.0-16.0); Imm Gran Abs Auto 0.08 X10*3/uL (0.00-0.03); Imm Gran Pct Auto 0.7 % (0.0-0.4); Lymphocytes Absolute Auto 3.3 X10*3/uL (1.2-4.9); Lymphocytes Percent Auto 30.5 % (20-40); Mean Corpuscular HGB Conc 31.1 g/dl (31.0-35.0); Mean Corpuscular Hemoglobin 25.5 pg (27.0-33.0); Mean Corpuscular Volume 81.8 fL (80-98); Mean Platelet Volume 11.8 fL (9.4-12.3); Monocytes Absolute Auto 0.8 X10*3/uL (0.1-1.2); Neutrophils Absolute Auto 6.3 X10*3/uL (2.0-8.3); Neutrophils Percent Auto 57.5 % (45-73); Platelet Count 325 X10*3/uL (160-400); Red Cell Distribution Width 15.4 % (11.0-16.0); White Blood Count 10.9 X10*3/uL (4.8-10.8)
[2021-04-29 12:25] LABS: Creatinine Urine 47.02 mg/dL; Microalbum/Creatinine Ratio Ur 25.5 ug/mg cr
[2021-04-29 12:41] LABS: Alanine Aminotransferase 12 U/L (0-31); Alkaline Phosphatase 107 U/L (39-117); Anion Gap 14 (12-20); Aspartate Amino Transferase 11 U/L (5-31); Bilirubin Total 0.5 mg/dL (0.0-1.0); Blood Urea Nitrogen 35 mg/dL (9-16); Calcium 9.7 mg/dL (8.4-10.2); Carbon Dioxide 26 mmol/L (22-29); Chloride 104 mmol/L (96-108); Estimated Glomerular Filt Rate > 60; Glucose Random 120 mg/dL (60-115); Potassium 4.4 mmol/L (3.3-5.1); Sodium 140 mmol/L (135-145); Total Protein 6.2 g/dL (6.5-8.0)
[2021-04-29 12:58] LABS: Estimated Average Glucose 148 mg/dL; Hemoglobin A1C 149.7063 umol/L; Hemoglobin A1c % 6.8 %
[2021-04-29 14:54] LABS: Thyroid Stimulating Hormone 2.24 uIU/mL (0.32-4.0)
== END 2021-04-29 06:48 | disposition home or self-care (01) ==
LOC: HO.HMGCLDS 06:47
PROVIDERS: PCP Internal Medicine; Visit Provider Internal Medicine
DX: I10 Essential (primary) hypertension (principal); E11.9 Type 2 diabetes mellitus without complications; E78.00 Pure hypercholesterolemia, unspecified; E03.9 Hypothyroidism, unspecified
CPT/HCPCS: 36415; 80053; 82043; 83036; 84443; 85025

== ENCOUNTER 2021-06-22 12:25 | Outpatient (REF) | payer SELFPAY ==
--- NOTE | 2021-06-22 16:32 | MHC.AU.HAS ---
Hearing Aid Evaluation Date of Visit: 06/22/21 Historical Information: Description of Hearing: Mild to moderately severe sensorineural hearing loss bilaterally. Current personal amplification information, if applicable: Phonak Bolero V50-M BTE with slim tubes Summary: Ms. Piña reports that she has lost her left hearing aid. She is interested in purchasing a new hearing aid for the left ear only at this time. Would like to stay with a similar style hearing aid. Hearing Aid Prescription: Based on the individual?s shared listening needs, communication environments, dexterity, desire for connectivity, and personal preferences, the following prescription for amplification has been made: Left ear: Left ear prescription to be same as Right Hearing Aid above: Web Database Developer: [place] Model: [employer] M50-M Battery Size: 312 Color: P6- Silver Smith Tubing: Size 1 slim tube Type of Dome: Small power Plan of Care: Patient wishes to purchase hearing aids as prescribed Action Taken/Action Needed: Medical Clearance to be requested from PCP/ENT. Hearing Instrument Fitting to be scheduled when materials arrive. Primary Diagnosis: H90.3 Bilateral Sensorineural Hearing Loss Secondary Diagnosis: H61.23 Impacted Cerumen, Bilateral Signature: Provider: Valentina Junior, CCC-A
--- NOTE | 2021-06-22 16:33 | MHC.AU.MED ---
Medical Clearance for Hearing Instrumentation Date: 06/22/21 Patient Name: Lory Piña Date of : 1935 Referring Provider: Jose Alberto Bridges MD We have seen your patient on 06/22/21 and have determined that they are a candidate for amplification (See accompanying report). Specifically, they would benefit from: Hearing aid use in both ears There is a statute that addresses Medical Evaluation Requirements prior to fitting a patient with a hearing aid. According to [place] statute 265 CMR:6.03(1), (a) General. Except as provided in 265 CMR 6.03(1)(b), a skid strapper shall not sell a hearing aid unless the prospective user has presented to the skid strapper a written statement signed by a licensed physician that states that the patient's hearing loss has been medically evaluated and the patient may be considered a candidate for a hearing aid. The medical evaluation must have taken place within the preceding six months. Please note: Due to the [place] Statute referenced above, we cannot accept a signature other than that of a licensed physician. MARKET DEVELOPMENT TRAINER and PA signatures cannot be accepted. I am in agreement with the above recommendation. There is no medical contraindication for hearing instrumentation. Physician Signature Date Physician Name (Printed)
== END 2021-06-22 12:26 | disposition home or self-care (01) ==
LOC: HO.HAP 12:25
PROVIDERS: Visit Provider Internal Medicine
DX: H90.3 Sensorineural hearing loss, bilateral (principal); H61.23 Impacted cerumen, bilateral
CPT/HCPCS: 92591; 92700

== ENCOUNTER 2021-06-24 06:25 | Outpatient (REF) | payer MEDICARE, SELFPAY ==
[2021-06-24 11:23] LABS: MANUAL DIFF FLAG NO
[2021-06-24 11:32] LABS: Basophils Absolute Auto 0.1 X10*3/uL (0.0-0.2); Eosinophils Absolute Auto 0.4 X10*3/uL (0.0-0.4); Eosinophils Percent Auto 5.8 % (0-4); Hematocrit 36.1 % (37.0-47.0); Hemoglobin 11.3 g/dl (12.0-16.0); Imm Gran Abs Auto 0.02 X10*3/uL (0.00-0.03); Imm Gran Pct Auto 0.3 % (0.0-0.4); Lymphocytes Absolute Auto 2.6 X10*3/uL (1.2-4.9); Mean Corpuscular HGB Conc 31.3 g/dl (31.0-35.0); Mean Corpuscular Hemoglobin 25.5 pg (27.0-33.0); Mean Corpuscular Volume 81.5 fL (80.0-98.0); Monocytes Absolute Auto 0.5 X10*3/uL (0.1-1.2); Monocytes Percent Auto 8.3 % (2-11); Neutrophils Absolute Auto 2.6 x10*3/uL (2.0-8.3); Neutrophils Percent Auto 42.6 % (45-73); Platelet Count 322 X10*3/uL (160-400); Red Blood Count 4.43 X10*6/uL (4.20-5.50); Red Cell Distribution Width 15.3 % (11.0-16.0); White Blood Count 6.2 X10*3/uL (4.8-10.8)
[2021-06-24 11:57] LABS: Anion Gap 14 (12-20); Blood Urea Nitrogen 27 mg/dL (9-16); Calcium 9.6 mg/dL (8.4-10.2); Carbon Dioxide 25 mmol/L (22-29); Chloride 106 mmol/L (96-108); Estimated Glomerular Filt Rate > 60; Glucose Random 118 mg/dL (60-115); Potassium 4.2 mmol/L (3.3-5.1); Sodium 141 mmol/L (135-145)
[2021-06-24 12:07] LABS: Thyroid Stimulating Hormone 3.18 uIU/mL (0.32-4.0)
== END 2021-06-24 06:26 | disposition home or self-care (01) ==
LOC: HO.HMGCLDS 06:25
PROVIDERS: PCP Internal Medicine; Visit Provider Internal Medicine
DX: I10 Essential (primary) hypertension (principal); R60.0 Localized edema
CPT/HCPCS: 36415; 80048; 84443; 85025

== ENCOUNTER 2021-07-22 14:27 | Outpatient (REF) | payer SELFPAY | END 2021-07-22 14:28 | disposition home or self-care (01) | LOC: HO.HAP 14:27 | PROVIDERS: Visit Provider Internal Medicine | DX: Z46.1 Encounter for fitting and adjustment of hearing aid (principal); H90.3 Sensorineural hearing loss, bilateral; H61.23 Impacted cerumen, bilateral | CPT/HCPCS: V5257 ==

== ENCOUNTER 2021-10-13 06:28 | Outpatient (REF) | payer MEDICARE, SELFPAY ==
[2021-10-13 11:31] LABS: MANUAL DIFF FLAG NO
[2021-10-13 11:53] LABS: Estimated Average Glucose 143 mg/dL; Hemoglobin A1C 149.8937 umol/L; Hemoglobin A1c % 6.6 %
[2021-10-13 11:54] LABS: Basophils Absolute Auto 0.1 X10*3/uL (0.0-0.2); Basophils Percent Auto 0.8 % (0-2); Eosinophils Absolute Auto 0.3 X10*3/uL (0.0-0.4); Eosinophils Percent Auto 3.7 % (0-4); Hematocrit 37.6 % (37.0-47.0); Hemoglobin 11.4 g/dl (12.0-16.0); Imm Gran Pct Auto 1.1 % (0.0-0.4); Lymphocytes Absolute Auto 2.1 X10*3/uL (1.2-4.9); Lymphocytes Percent Auto 22.6 % (20-40); Mean Corpuscular HGB Conc 30.3 g/dl (31.0-35.0); Mean Corpuscular Hemoglobin 25.7 pg (27.0-33.0); Mean Corpuscular Volume 84.7 fL (80.0-98.0); Mean Platelet Volume 11.8 fL (9.4-12.3); Monocytes Absolute Auto 0.7 X10*3/uL (0.1-1.2); Monocytes Percent Auto 7.4 % (2-11); Neutrophils Percent Auto 64.4 % (45-73); Platelet Count 283 X10*3/uL (160-400); Red Blood Count 4.44 X10*6/uL (4.20-5.50); White Blood Count 9.3 X10*3/uL (4.8-10.8)
[2021-10-13 11:56] LABS: Appearance Urine CLEAR; Color Urine YELLOW; Glucose Urine UA NEG (NEG); Leukocyte Esterase Urine NEG (NEG); Nitrite Urine NEG (NEG); Specific Gravity - Urine 1.015 (1.005-1.025); Urine Blood NEG (NEG); Urine Ketones NEG (NEG); Urine Protein NEG (NEG-TRACE)
[2021-10-13 12:06] LABS: Alanine Aminotransferase 12 U/L (0-31); Albumin Level 3.9 g/dL (3.5-5.0); Alkaline Phosphatase 95 U/L (39-117); Anion Gap 14 (12-20); Aspartate Amino Transferase 13 U/L (5-31); Bilirubin Total 0.5 mg/dL (0.0-1.0); Blood Urea Nitrogen 34 mg/dL (9-16); Calcium 9.7 mg/dL (8.4-10.2); Carbon Dioxide 27 mmol/L (22-29); Chloride 103 mmol/L (96-108); Cholesterol 240 mg/dL; Estimated Glomerular Filt Rate > 60; Glucose Random 119 mg/dL (60-115); HDL Cholesterol 60 mg/dL; LDL Cholesterol Calculated 157 mg/dl; Potassium 4.6 mmol/L (3.3-5.1); Sodium 139 mmol/L (135-145); Total Protein 6.3 g/dL (6.5-8.0); Triglycerides 119 mg/dL
[2021-10-13 12:16] LABS: Thyroid Stimulating Hormone 2.14 uIU/mL (0.32-4.0)
[2021-10-13 12:25] LABS: Vitamin B12 1060 pg/mL (200-900)
[2021-10-13 12:33] LABS: Creatinine Urine 40.88 mg/dL; Microalbumin Urine < 5.0 mg/L
== END 2021-10-13 06:29 | disposition home or self-care (01) ==
LOC: HO.HMGCLDS 06:28
PROVIDERS: Visit Provider Internal Medicine
DX: E11.9 Type 2 diabetes mellitus without complications (principal); E78.00 Pure hypercholesterolemia, unspecified; I10 Essential (primary) hypertension; E03.9 Hypothyroidism, unspecified; M89.49 Other hypertrophic osteoarthropathy, multiple sites; Z79.4 Long term (current) use of insulin
CPT/HCPCS: 36415; 80053; 80061; 81003; 82043; 82607; 83036; 84443; 85025

== ENCOUNTER 2021-12-16 10:52 | Outpatient (REF) | payer MEDICARE, SELFPAY ==
--- NOTE | ~2021-12-16 | MM_ITS ---
EXAMINATION: BONE DENSITOMETRY CLINICAL INDICATION: Postmenopausal estrogen deficiency. COMPARISON: Previous BD dated 03/28/2012 and baseline BD dated 07/05/2005. TECHNIQUE: Using a Gramovox DXA System (software version: 13.1) manufactured by [employer], dual-energy x-ray absorptiometry was performed of the lumbar spine and left hip. The images are of good technical quality. Summary results are attached. FINDINGS: AP SPINE L1-L4 (excluding L3): The data of L1-L4 has been changed to exclude the L3 vertebral body, because levocurvature and degenerative changes at this level may cause overestimation of lumbar spine density. There are other multilevel degenerative changes also contributing to probable overestimation of the bone mineral density lumbar spine. Current: BMD 1.503 g/cm2, Z-score 4.9, T-score 2.8, normal, 14.3% decrease from previous, 14.6% increase from baseline (<5% change is not significant). Prior: BMD 1.754 g/cm2. Baseline: BMD 1.311 g/cm2. LEFT FEMUR, NECK: Current: BMD 0.654 g/cm2, Z-score -0.2, T-score -2.8, osteoporosis. Prior: BMD 0.786 g/cm2. Baseline: BMD 0.805 g/cm2. LEFT FEMUR, TOTAL: Current: BMD 0.758 g/cm2, Z-score 0.5, T-score -2.0, osteopenia, 16.5% decrease from previous, 18.5% decrease from baseline (<5% change is not significant). Prior: BMD 0.908 g/cm2. Baseline: BMD 0.930 g/cm2. IDENTIFIED RISK FACTORS: Early menopause, secondary osteoporosis, height loss, osteoporosis, hysterectomy, bilateral oophorectomy. HISTORY OF FRACTURE: None listed. MEDICATIONS: Vitamin D. MM/XR DEXA axial skeleton IMPRESSION: 1. DIAGNOSIS: Osteoporosis based on the lowest T-score value of -2.8 in the femoral neck applying World Health Organization criteria. 2. 10-YEAR FRACTURE RISK PREDICTION, FRAX: According to the guidelines, FRAX calculation should only be performed on patients in the osteopenia bone density category. Therefore, FRAX was not performed on this patient. 3. Treatment Recommendations: NOF guidelines recommend consideration for treatment in postmenopausal women and men age 50 and older presenting with the following: -A hip or vertebral (clinical or morphometric) fracture. -T-score less than or equal to -2.5 at the femoral neck or spine after appropriate evaluation to exclude secondary causes. -Low bone mass at the hip or spine and a 10-year fracture probability by FRAX of greater than or equal to 3% for hip fracture or greater than or equal to 20% for major osteoporotic fracture based on the [place] adapted WHO algorithm. 4. Other Recommendations: All treatment decisions require clinical judgment and consideration of individual patient factors, including patient preferences, comorbidities, previous drug use, risk factors not captured in the FRAX model (e.g. frailty, falls, vitamin D deficiency, increased bone turnover, interval significant decline in bone density) and possible under or overestimation of fracture risk by FRAX. Additional medical evaluation for secondary cause of low bone mineral density may be appropriate. FUTURE SCAN RECOMMENDATION: People with diagnosed cases of osteoporosis or at high risk for fracture should have regular bone mineral density tests. For patients eligible for Medicare, routine testing is allowed once every 2 years. The testing frequency can be increased to one year for patients who have rapidly progressing disease, those who are receiving or discontinuing medical therapy to restore bone mass, or have additional risk factors.
== END 2021-12-16 10:53 | disposition home or self-care (01) ==
LOC: HO.MAMMO 10:52
PROVIDERS: Visit Provider Internal Medicine
DX: M81.0 Age-related osteoporosis without current pathological fracture (principal); Z78.0 Asymptomatic menopausal state; Z90.710 Acquired absence of both cervix and uterus; Z90.722 Acquired absence of ovaries, bilateral
CPT/HCPCS: 77080

== ENCOUNTER 2022-02-09 06:18 | Outpatient (REF) | payer MEDICARE, SELFPAY ==
[2022-02-09 11:42] LABS: MANUAL DIFF FLAG NO
[2022-02-09 11:59] LABS: Basophils Absolute Auto 0.1 X10*3/uL (0.0-0.2); Basophils Percent Auto 0.4 % (0-2); Eosinophils Absolute Auto 0.2 X10*3/uL (0.0-0.4); Eosinophils Percent Auto 1.8 % (0-4); Hemoglobin 11.3 g/dl (12.0-16.0); Imm Gran Abs Auto 0.13 X10*3/uL (0.00-0.03); Lymphocytes Absolute Auto 3.4 X10*3/uL (1.2-4.9); Lymphocytes Percent Auto 27.2 % (20-40); Mean Corpuscular HGB Conc 30.5 g/dl (31.0-35.0); Mean Corpuscular Volume 85.3 fL (80.0-98.0); Monocytes Absolute Auto 0.8 X10*3/uL (0.1-1.2); Monocytes Percent Auto 6.7 % (2-11); Neutrophils Percent Auto 62.9 % (45-73); Platelet Count 308 X10*3/uL (160-400); Red Blood Count 4.34 X10*6/uL (4.20-5.50); Red Cell Distribution Width 14.5 % (11.0-16.0); White Blood Count 12.6 X10*3/uL (4.8-10.8)
[2022-02-09 12:07] LABS: Alanine Aminotransferase 18 U/L (0-31); Albumin Level 3.9 g/dL (3.5-5.0); Alkaline Phosphatase 93 U/L (39-117); Anion Gap 13 (12-20); Aspartate Amino Transferase 14 U/L (5-31); Bilirubin Total 0.4 mg/dL (0.0-1.0); Blood Urea Nitrogen 33 mg/dL (9-16); Calcium 9.5 mg/dL (8.4-10.2); Carbon Dioxide 27 mmol/L (22-29); Chloride 104 mmol/L (96-108); Estimated Glomerular Filt Rate > 60; Glucose Random 134 mg/dL (60-115); Potassium 4.6 mmol/L (3.3-5.1); Sodium 139 mmol/L (135-145); Total Protein 6.3 g/dL (6.5-8.0)
[2022-02-09 12:25] LABS: Estimated Average Glucose 157 mg/dL; Hemoglobin A1c % 7.1 %
[2022-02-09 12:50] LABS: Vitamin B12 917 pg/mL (200-900)
== END 2022-02-09 06:19 | disposition home or self-care (01) ==
LOC: HO.HMGCLDS 06:18
PROVIDERS: Visit Provider Internal Medicine
DX: E11.42 Type 2 diabetes mellitus with diabetic polyneuropathy (principal); I10 Essential (primary) hypertension
CPT/HCPCS: 36415; 80053; 82607; 83036; 85025

== ENCOUNTER 2022-04-21 09:53 | Outpatient (REF) | payer MEDICARE, SELFPAY ==
[2022-04-21 11:13] LABS: MANUAL DIFF FLAG NO
[2022-04-21 11:27] LABS: Basophils Absolute Auto 0.1 X10*3/uL (0.0-0.2); Eosinophils Absolute Auto 0.3 X10*3/uL (0.0-0.4); Eosinophils Percent Auto 2.9 % (0-4); Hematocrit 36.1 % (37.0-47.0); Hemoglobin 11.2 g/dl (12.0-16.0); Imm Gran Abs Auto 0.05 X10*3/uL (0.00-0.03); Imm Gran Pct Auto 0.5 % (0.0-0.4); Lymphocytes Absolute Auto 2.3 X10*3/uL (1.2-4.9); Lymphocytes Percent Auto 24.7 % (20-40); Mean Corpuscular Hemoglobin 25.7 pg (27.0-33.0); Mean Platelet Volume 12.3 fL (9.4-12.3); Monocytes Absolute Auto 0.9 X10*3/uL (0.1-1.2); Monocytes Percent Auto 9.8 % (2-11); Neutrophils Absolute Auto 5.8 x10*3/uL (2.0-8.3); Neutrophils Percent Auto 61.1 % (45-73); Platelet Count 271 X10*3/uL (160-400); Red Blood Count 4.35 X10*6/uL (4.20-5.50); Red Cell Distribution Width 14.5 % (11.0-16.0); White Blood Count 9.4 X10*3/uL (4.8-10.8)
== END 2022-04-21 09:54 | disposition home or self-care (01) ==
LOC: HO.HMGCLDS 09:53
PROVIDERS: PCP Internal Medicine; Visit Provider Nurse Practitioner Family
DX: D72.829 Elevated white blood cell count, unspecified (principal)
CPT/HCPCS: 36415; 85025

== ENCOUNTER → 2022-05-18 11:14 | Outpatient (BNVA) | payer MEDICARE, SELFPAY | PROVIDERS: PCP Internal Medicine; Visit Provider Internal Medicine Endocrinology, Diabetes & Metabolism | DX: M81.0 Age-related osteoporosis without current pathological fracture (principal) | CPT/HCPCS: 99202 ==

== ENCOUNTER 2022-05-25 09:44 | Outpatient (REF) | payer MEDICARE, SELFPAY ==
[2022-05-25 12:06] LABS: Vitamin D 25-OH Total 58.1 ng/mL (>30)
[2022-05-27 22:07] LABS: Prot Elec - Albumin 3.9 g/dL (3.8-4.8); Prot Elec - Alpha1 0.3 g/dL (0.2-0.3); Prot Elec - Beta 1 0.5 g/dL (0.4-0.6); Prot Elec - Beta 2 0.3 g/dL (0.2-0.5); Prot Elec - Gamma 0.6 g/dL (0.8-1.7); Prot Elec - Total Protein 6.6 g/dL (6.1-8.1)
== END 2022-05-25 09:45 | disposition home or self-care (01) ==
LOC: HO.HMGCLDS 09:44
PROVIDERS: PCP Internal Medicine; Visit Provider Internal Medicine Endocrinology, Diabetes & Metabolism
DX: M81.0 Age-related osteoporosis without current pathological fracture (principal)
CPT/HCPCS: 82306; 84100; 84165; 86335

== ENCOUNTER 2022-05-27 08:54 | Outpatient (REF) | payer MEDICARE, SELFPAY ==
[2022-05-27 12:13] LABS: Total Volume 24 Hour Urine 1325 mL
[2022-05-27 13:24] LABS: Creatinine, 24Hr Urine 0.5 G/Day (1.0-2.0); Creatinine, mg/dL 34.04
[2022-05-29 17:47] LABS: Calcium, 24 Hr Urine 82 mg/24 h; Calcium/Creatinine Ratio 182 mg/g creat (30-275); Creatinine 24Hr Urine 0.45 g/24 h (0.50-2.15)
== END 2022-05-27 08:55 | disposition home or self-care (01) ==
LOC: HO.HMGCLDS 08:54
PROVIDERS: PCP Internal Medicine; Visit Provider Internal Medicine Endocrinology, Diabetes & Metabolism
DX: M81.0 Age-related osteoporosis without current pathological fracture (principal)
CPT/HCPCS: 82340; 82570

== ENCOUNTER 2022-06-01 11:15 | Outpatient (REF) | payer SELFPAY | END 2022-06-01 11:16 | disposition home or self-care (01) | LOC: HO.HAP 11:15 | PROVIDERS: Visit Provider Internal Medicine | DX: Z46.1 Encounter for fitting and adjustment of hearing aid (principal); H90.3 Sensorineural hearing loss, bilateral; H61.23 Impacted cerumen, bilateral | CPT/HCPCS: V5266 ==

== ENCOUNTER 2022-06-03 08:37 | Outpatient (REF) | payer MEDICARE, SELFPAY | END 2022-06-03 08:38 | disposition home or self-care (01) | LOC: HO.HMGCLDS 08:37 | PROVIDERS: PCP Internal Medicine; Visit Provider Internal Medicine Endocrinology, Diabetes & Metabolism | DX: M81.0 Age-related osteoporosis without current pathological fracture (principal) | CPT/HCPCS: 86335 ==

== ENCOUNTER 2022-06-23 06:41 | Outpatient (REF) | payer MEDICARE, SELFPAY ==
[2022-06-23 11:24] LABS: MANUAL DIFF FLAG NO
[2022-06-23 11:33] LABS: Basophils Absolute Auto 0.1 X10*3/uL (0.0-0.2); Basophils Percent Auto 0.8 % (0-2); Eosinophils Absolute Auto 0.2 X10*3/uL (0.0-0.4); Eosinophils Percent Auto 2.5 % (0-4); Hematocrit 39.4 % (37.0-47.0); Hemoglobin 12.3 g/dl (12.0-16.0); Imm Gran Abs Auto 0.08 X10*3/uL (0.00-0.03); Imm Gran Pct Auto 0.9 % (0.0-0.4); Lymphocytes Absolute Auto 2.8 X10*3/uL (1.2-4.9); Lymphocytes Percent Auto 32.3 % (20-40); Mean Corpuscular HGB Conc 31.2 g/dl (31.0-35.0); Mean Corpuscular Hemoglobin 25.9 pg (27.0-33.0); Mean Corpuscular Volume 82.9 fL (80.0-98.0); Mean Platelet Volume 11.5 fL (9.4-12.3); Monocytes Absolute Auto 0.7 X10*3/uL (0.1-1.2); Monocytes Percent Auto 7.5 % (2-11); Neutrophils Absolute Auto 4.9 x10*3/uL (2.0-8.3); Platelet Count 318 X10*3/uL (160-400); Red Blood Count 4.75 X10*6/uL (4.20-5.50); Red Cell Distribution Width 14.8 % (11.0-16.0); White Blood Count 8.8 X10*3/uL (4.8-10.8)
[2022-06-23 11:45] LABS: Alanine Aminotransferase 18 U/L (0-31); Alkaline Phosphatase 97 U/L (39-117); Anion Gap 18 (12-20); Aspartate Amino Transferase 15 U/L (5-31); Bilirubin Total 0.4 mg/dL (0.0-1.0); Blood Urea Nitrogen 32 mg/dL (9-16); Calcium 9.8 mg/dL (8.4-10.2); Carbon Dioxide 25 mmol/L (22-29); Chloride 102 mmol/L (96-108); Cholesterol 264 mg/dL; Estimated Glomerular Filt Rate > 60; Glucose Random 156 mg/dL (60-115); HDL Cholesterol 64 mg/dL; Iron 101 mcg/dL (30-160); LDL Cholesterol Calculated 174 mg/dl; Percent Iron Saturation 23 % (15-50); Potassium 4.5 mmol/L (3.3-5.1); Sodium 140 mmol/L (135-145); Total Iron Binding Capacity 443 mcg/dL (228-428); Total Protein 6.6 g/dL (6.5-8.0); Triglycerides 130 mg/dL; Unsaturated Iron Binding 342 ug/dL
[2022-06-23 11:47] LABS: Estimated Average Glucose 171 mg/dL; Hemoglobin A1c % 7.6 %
[2022-06-23 12:10] LABS: Ferritin 18 ng/mL (10-250); Free T4 (Free Thyroxine) 1.19 ng/dL (0.71-1.85); Thyroid Stimulating Hormone 2.25 uIU/mL (0.32-4.0)
[2022-06-23 12:18] LABS: Creatinine Urine 26.64 mg/dL; Microalbum/Creatinine Ratio Ur 22.5 ug/mg cr
[2022-06-23 12:40] LABS: Folate 13.4 ng/mL (> or = 4.0); Vitamin B12 > 2000 pg/mL (200-900)
== END 2022-06-23 06:42 | disposition home or self-care (01) ==
LOC: HO.HMGCLDS 06:41
PROVIDERS: PCP Internal Medicine; Visit Provider Internal Medicine
DX: E11.42 Type 2 diabetes mellitus with diabetic polyneuropathy (principal); I10 Essential (primary) hypertension; D64.9 Anemia, unspecified; E78.00 Pure hypercholesterolemia, unspecified; E03.9 Hypothyroidism, unspecified
CPT/HCPCS: 36415; 80053; 80061; 82043; 82607; 82728; 82746; 83036; 83540; 84439; 84443; 85025

== ENCOUNTER 2022-06-24 11:23 | Outpatient (REF) | payer MEDICARE, SELFPAY | END 2022-06-24 11:24 | disposition home or self-care (01) | LOC: HO.SH 11:23 | PROVIDERS: Visit Provider Internal Medicine | DX: H90.3 Sensorineural hearing loss, bilateral (principal) | CPT/HCPCS: 92552; 92556; 92567 ==

== ENCOUNTER 2022-06-24 11:46 | Outpatient (REF) | payer SELFPAY ==
--- NOTE | 2022-06-24 16:21 | MHC.AU.MED ---
Medical Clearance for Hearing Instrumentation Date: 06/24/22 Patient Name: Lory Piña Date of : 1935 Primary Care Provider: Referring Provider: Jose Alberto Bridges MD We have seen your patient on 06/24/22 and have determined that they are a candidate for amplification (See accompanying report). Specifically, they would benefit from: Hearing aid use in the right ear There is a statute that addresses Medical Evaluation Requirements prior to fitting a patient with a hearing aid. According to [place] statute 265 CMR:6.03(1), (a) General. Except as provided in 265 CMR 6.03(1)(b), a shearing machine operator shall not sell a hearing aid unless the prospective user has presented to the shearing machine operator a written statement signed by a licensed physician that states that the patient's hearing loss has been medically evaluated and the patient may be considered a candidate for a hearing aid. The medical evaluation must have taken place within the preceding six months. Please note: Due to the [place] Statute referenced above, we cannot accept a signature other than that of a licensed physician. CHARACTER ARTIST and PA signatures cannot be accepted. I am in agreement with the above recommendation. There is no medical contraindication for hearing instrumentation. Physician Signature Date Physician Name (Printed)
--- NOTE | 2022-06-25 07:29 | MHC.AU.HAS ---
Hearing Aid Evaluation Date of Visit: 06/24/22 Historical Information: Description of Hearing: Bilateral moderate to severe sensorineural hearing loss. Current personal amplification information, if applicable: Left Phonak Bolero M 50-M BTE (08/04) & Right Phonak Bolero V 50-M (06/30) Summary: Lory would like to purchase a new right hearing aid to match her newer left aid Hearing Aid Prescription: Based on the individual?s shared listening needs, communication environments, dexterity, desire for connectivity, and personal preferences, the following prescription for amplification has been made: Right ear: Reinforced Concrete Inspector: Phonak Model: Bolero M 50-M Color: Silver Smith Battery: 312 Tubin slim tube Type of Dome: Small Power Plan of Care: Patient wishes to purchase hearing aids as prescribed Action Taken/Action Needed: Medical Clearance to be requested from PCP/ENT Hearing Instrument Fitting to be scheduled when materials arrive Primary Diagnosis: H90.3 Bilateral Sensorineural Hearing Loss Secondary Diagnosis: H61.23 Impacted Cerumen, Bilateral Signature:Provider: Jose Grier, [facility]
== END 2022-06-24 11:47 | disposition home or self-care (01) ==
LOC: HO.HAP 11:46
PROVIDERS: Visit Provider Internal Medicine
DX: H90.3 Sensorineural hearing loss, bilateral (principal); H61.23 Impacted cerumen, bilateral
CPT/HCPCS: 92590; 92700; V5266

== ENCOUNTER 2022-07-15 10:24 | Outpatient (REF) | payer SELFPAY | END 2022-07-15 10:25 | disposition home or self-care (01) | LOC: HO.HAP 10:24 | PROVIDERS: Visit Provider Internal Medicine | DX: Z46.1 Encounter for fitting and adjustment of hearing aid (principal); H90.3 Sensorineural hearing loss, bilateral; H61.23 Impacted cerumen, bilateral | CPT/HCPCS: V5257; V5266; V5299 ==

== ENCOUNTER 2022-08-02 12:53 | Outpatient (REF) | payer SELFPAY ==
--- NOTE | 2022-08-02 15:12 | MHC.AU.HFU ---
Hearing Instrument Follow-Up- Binaural Date of Visit: 08/02/22 Right Ear: Spinning Mule Tender: Usha Tomlin M50-M Silver Serial # [id number] Repair Warranty: 09/25/2025 Loss and Damage Warranty: 09/25/2025 Service Plan: 07/15/2025 Battery Size: 312 Tubing: Size 0 slim tube Type of Dome: Small power dome Type of Wax Guard: NONE Dispensed By: [facility] Date of Fittin07/15/2022 Left Ear: Phonak Nabor M 50 M #[id number] Repair Warranty: 09/27/2024 Loss and Damage Warranty: 09/27/2024 Service Plan: 07/22/2024 Battery Size: 312 Color: P6- Silver Smith Tubing: Size 0 slim tube Type of Dome: Small power Type of Wax Guard: NONE Dispensed By: [facility] Date of Fittin07/22/2021 Follow-Up Summary: Patient reports she is doing very well having the matching hearing aids now. Hearing is much more balanced and clear. Datalogging shows an average of 2 hours wearing time a day. Patient reports she primarily only wears the aid when going out and to [employer] everyday. Discussed the improved benefit and maintenance of speech understanding from aids when using the aids every day, all day. Patient understands and will try to increase wearing time of aids. Patient wants to keep the new right aid. Recommendations: Hearing instrument follow-up or maintenance as needed. Please contact our clinic with any questions or concerns. Diagnosis Code(s):Primary Diagnosis: H90.3 Bilateral Sensorineural Hearing Loss Secondary Diagnosis: H61.23 Impacted Cerumen, Bilateral Signature:Provider: Jose Grier, [facility]
== END 2022-08-02 12:54 | disposition home or self-care (01) ==
LOC: HO.HAP 12:53
PROVIDERS: Visit Provider Internal Medicine
DX: Z13.89 Encounter for screening for other disorder (principal)

== ENCOUNTER 2022-09-21 11:45 | Outpatient (REF) | payer MEDICARE, SELFPAY ==
--- NOTE | ~2022-09-21 | XR_ITS ---
EXAMINATION: XR KNEE, RIGHT CLINICAL INFORMATION: Age-related osteoporosis without current pathologic fracture. COMPARISON: None TECHNIQUE: Four views of the right knee. FINDINGS: Osteopenia. No fracture or subluxation. Sclerosis along the medial and lateral compartments with mild lateral compartment joint space narrowing. Chondrocalcinosis present. Tricompartmental marginal osteophytes. Small joint effusion. Diffuse soft tissue swelling. XR/XR knee RT 4V IMPRESSION: No fracture or malalignment. Moderate tricompartmental degenerative changes. Chondrocalcinosis. Small joint effusion.
== END 2022-09-21 11:46 | disposition home or self-care (01) ==
LOC: HO.HMGCX 11:45
PROVIDERS: Absent Provider Nurse Practitioner Family; PCP Internal Medicine; Visit Provider Internal Medicine Endocrinology, Diabetes & Metabolism
DX: M81.0 Age-related osteoporosis without current pathological fracture (principal); M25.561 Pain in right knee; Z79.899 Other long term (current) drug therapy
CPT/HCPCS: 73564; 99212

== ENCOUNTER 2022-09-23 08:51 | Outpatient (REF) | payer MEDICARE, SELFPAY ==
--- NOTE | ~2022-09-23 | XR_ITS ---
EXAMINATION: XR knee RT 1V, XR knee standing BI CLINICAL INFORMATION: Reason for Exam M25.569 - Pain in unspecified knee COMPARISON: 09/21/2022 TECHNIQUE: Standing view of the bilateral knees and one view of the right knee XR/XR knee RT 1V FINDINGS/IMPRESSION: * No acute fracture or dislocation. * Redemonstration of moderate tricompartmental degenerative changes with chondrocalcinosis of the bilateral tibiofemoral compartments. Small suprapatellar effusion. Status post left total knee arthroplasty.
--- NOTE | ~2022-09-23 | XR_ITS ---
EXAMINATION: XR knee RT 1V, XR knee standing BI CLINICAL INFORMATION: Reason for Exam M25.569 - Pain in unspecified knee COMPARISON: 09/21/2022 TECHNIQUE: Standing view of the bilateral knees and one view of the right knee XR/XR knee standing BI FINDINGS/IMPRESSION: * No acute fracture or dislocation. * Redemonstration of moderate tricompartmental degenerative changes with chondrocalcinosis of the bilateral tibiofemoral compartments. Small suprapatellar effusion. Status post left total knee arthroplasty.
== END 2022-09-23 08:52 | disposition home or self-care (01) ==
LOC: HO.HOSX 08:51
PROVIDERS: Visit Provider Physician Assistant
DX: M17.11 Unilateral primary osteoarthritis, right knee (principal)
CPT/HCPCS: 20610; 73560; 73565; 99202; J1040

== ENCOUNTER 2022-09-27 08:33 | Outpatient (REF) | payer MEDICARE, SELFPAY ==
--- NOTE | ~2022-09-27 | XR_ITS ---
EXAMINATION: XR HAND, RIGHT CLINICAL INFORMATION: M79.641 - Pain in right hand COMPARISON: None TECHNIQUE: Right hand is imaged in 3 views. FINDINGS: There is generalized osteopenia. There is a fracture mid waist carpal navicular possibly subacute or chronic and with cystic change which may suggest pathologic fracture. There is slight positive ulnar variance. Chondrocalcinosis is present in the region of triangular fibrocartilage and proximal radial carpal compartment. There is osteoarthritis lateral carpus at the triscaphe joint and first carpometacarpal joint. Mild narrowing MCP joints without erosive change. There are osteoarthritic changes interphalangeal joints, prominent at the DIP points without definite erosions. XR/XR hand RT min 3V IMPRESSION: 1. Fracture mid carpal navicular possibly subacute or chronic and with cystic changes which may suggest pathologic fracture. 2. Chondrocalcinosis wrist. Osteoarthritis lateral carpus. 3. Mild joint narrowing MCP joints. Osteoarthritis interphalangeal joints, greatest DIP.
== END 2022-09-27 08:34 | disposition home or self-care (01) ==
LOC: HO.HOSX 08:33
PROVIDERS: Visit Provider Orthopaedic Surgery
DX: S62.001G Unspecified fracture of navicular [scaphoid] bone of right wrist, subsequent encounter for fracture with delayed healing (principal); M19.041 Primary osteoarthritis, right hand; M19.042 Primary osteoarthritis, left hand
CPT/HCPCS: 73130; 99212

== ENCOUNTER 2022-11-02 06:44 | Outpatient (REF) | payer MEDICARE, SELFPAY ==
[2022-11-02 11:31] LABS: MANUAL DIFF FLAG NO
[2022-11-02 11:49] LABS: Basophils Absolute Auto 0.1 X10*3/uL (0.0-0.2); Eosinophils Absolute Auto 0.5 X10*3/uL (0.0-0.4); Imm Gran Abs Auto 0.03 X10*3/uL (0.00-0.03); Imm Gran Pct Auto 0.4 % (0.0-0.4); Lymphocytes Absolute Auto 2.4 X10*3/uL (1.2-4.9); Lymphocytes Percent Auto 33.9 % (20-40); Mean Corpuscular HGB Conc 30.6 g/dl (31.0-35.0); Mean Corpuscular Hemoglobin 25.3 pg (27.0-33.0); Mean Corpuscular Volume 82.9 fL (80.0-98.0); Mean Platelet Volume 11.7 fL (9.4-12.3); Monocytes Absolute Auto 0.6 X10*3/uL (0.1-1.2); Monocytes Percent Auto 8.5 % (2-11); Neutrophils Absolute Auto 3.4 x10*3/uL (2.0-8.3); Neutrophils Percent Auto 48.2 % (45-73); Platelet Count 363 X10*3/uL (160-400); Red Blood Count 4.34 X10*6/uL (4.20-5.50); Red Cell Distribution Width 14.9 % (11.0-16.0)
[2022-11-02 12:03] LABS: Estimated Average Glucose 151 mg/dL; Hemoglobin A1C 150.1128 umol/L; Hemoglobin A1c % 6.9 %
[2022-11-02 12:29] LABS: Alanine Aminotransferase 21 U/L (0-31); Albumin Level 3.8 g/dL (3.5-5.0); Alkaline Phosphatase 190 U/L (39-117); Anion Gap 15 (12-20); Aspartate Amino Transferase 19 U/L (5-31); Bilirubin Total 0.6 mg/dL (0.0-1.0); Blood Urea Nitrogen 30 mg/dL (9-16); Calcium 9.2 mg/dL (8.4-10.2); Carbon Dioxide 25 mmol/L (22-29); Chloride 107 mmol/L (96-108); Cholesterol 175 mg/dL; Estimated Glomerular Filt Rate > 60; Glucose Random 129 mg/dL (60-115); HDL Cholesterol 50 mg/dL; LDL Cholesterol Calculated 108 mg/dl; Sodium 142 mmol/L (135-145); Total Protein 6.1 g/dL (6.5-8.0); Triglycerides 89 mg/dL
== END 2022-11-02 06:45 | disposition home or self-care (01) ==
LOC: HO.HMGCLDS 06:44
PROVIDERS: PCP Internal Medicine; Visit Provider Internal Medicine
DX: E11.42 Type 2 diabetes mellitus with diabetic polyneuropathy (principal); I10 Essential (primary) hypertension
CPT/HCPCS: 36415; 80053; 80061; 83036; 85025

== ENCOUNTER → 2022-12-30 14:34 | Outpatient (BNVA) | payer MEDICARE, SELFPAY | PROVIDERS: PCP Internal Medicine; Visit Provider Physician Assistant | DX: M17.11 Unilateral primary osteoarthritis, right knee (principal); E11.9 Type 2 diabetes mellitus without complications | CPT/HCPCS: 20610; 99212; J1020 ==

== ENCOUNTER 2023-01-18 06:31 | Outpatient (REF) | payer MEDICARE, SELFPAY ==
[2023-01-18 11:58] LABS: Anion Gap 13 (12-20); Blood Urea Nitrogen 34 mg/dL (9-16); Calcium 9.2 mg/dL (8.4-10.2); Carbon Dioxide 25 mmol/L (22-29); Chloride 106 mmol/L (96-108); Estimated Glomerular Filt Rate > 60; Glucose Random 125 mg/dL (60-115); Potassium 4.6 mmol/L (3.3-5.1); Sodium 139 mmol/L (135-145)
== END 2023-01-18 06:32 | disposition home or self-care (01) ==
LOC: HO.HMGCLDS 06:31
PROVIDERS: PCP Internal Medicine; Visit Provider Internal Medicine
DX: I10 Essential (primary) hypertension (principal)
CPT/HCPCS: 36415; 80048

== ENCOUNTER 2023-03-29 13:31 | Outpatient (AMB) | payer MEDICARE, SELFPAY ==
[2023-03-29 13:36] VITALS: BMI 31.2
--- NOTE | 2023-03-29 13:36 | MHC.OFFVIS ---
Intake Vital Signs 03/29/23 13:36 Height 4 ft 9 in Weight 144 lb BMI 31.2 Intake Visit Reasons: OV-Right knee injection-last injection 12/30/22 Intake Note: Lory is a 86 year old female who presents today for a follow up for her right knee pain, last injection 12/30/22. Patient reports she would like to repeat her injections due to her last injection lasting for 2 months. She states that her knee gives out on her randomly. Patient reports using her cane to move around for her appointments and she uses her walker to move a little quicker around the house. Allergies morphine [MORPHINE] Allergy (Unknown, Verified 03/29/23 13:40) NAUSEA & VOMITING codeine [CODEINE] Adverse Reaction (Unknown, Verified 03/29/23 13:40) DIGESTIVE PROBLEMS oxycodone Adverse Reaction (Unknown, Verified 03/29/23 13:40) NAUSEA AND VOMITING tramadol [From ULTRAM] Adverse Reaction (Unknown, Verified 03/29/23 13:40) DIGESTIVE PROBLEMS Codeine Phosphate Allergy (Unknown, Uncoded 12/30/22 14:43) Nausea and Vomiting codiene Allergy (Unknown, Uncoded 12/30/22 14:43) SOB, cp morphine Allergy (Unknown, Uncoded 12/30/22 14:43) n/v percocet Allergy (Unknown, Uncoded 12/30/22 14:43) vomiting Percodan Allergy (Unknown, Uncoded 12/30/22 14:43) Nausea and Vomiting percodan Allergy (Unknown, Uncoded 12/30/22 14:43) vomiting HPI OV-Right knee injection-last injection 12/30/22 HPI Details 87-year-old female who presents in the office today for a follow up of right knee pain. The patient had a cortisone injection on 12/30/2022, with 2 months of relief. She would like to repeat the cortisone injection in the office today. She claims her right knee gave out on her randomly. She states she uses a cane to get around for her appointment and a walker to move a little quicker at home. Patient has a medical history of diabetes mellitus. [facility] Medical History Arthritis Diabetes Hyperlipidemia Hypertension Infectious colitis Osteoporosis Thyroid disease Surgical History H/O adenoidectomy H/O sinus surgery H/O: hysterectomy History of carpal tunnel surgery History of cholecystectomy History of surgery History of surgery History of total left knee replacement Hx of appendectomy Hx of tonsillectomy Family History Mother Diabetes Social History Household Members: None Housing: House Do you presently have visiting nurse or other home services: No Alcohol intake: current Alcohol intake frequency: holidays/special occasions only Patient Tobacco Use Status: Never used Tobacco Advance Directives Date on File: 09/09/20 service: No Current occupational status: retired Review of Systems Const All systems reviewed & are unremarkable except as noted in HPI and below Physical Exam Vital Signs: BMI result Body Mass Index 31.2 Const General: cooperative, healthy appearing and no acute distress Resp Effort & Inspection: normal respiratory effort and able to speak in complete sentences Cardio Rate: regular rate Peripheral pulses: Peripheral pulses 2+ throughout GI Palpation (GI): Soft to palpation Skin Lesions: no lesions Rashes: no rashes Extrem Other: Right knee: Normal to inspection. No ecchymosis, erythema, or joint effusion. No tenderness to palpation to the medial or lateral joint lines. ROM is 10-90 degrees. Crepitus felt with ROM. NVI. The patient reports her pain to be globally, but more pain located on the medial aspect of the right knee. Office Procedures Joint Injection/Drain Joint Injection/Drain Primary Site: right knee Prep: site was prepped using aseptic technique, ethochloride spray was applied and injection warnings given Injected: 40 mg of, DepoMedrol, with 8 mL of (2% plain lido ) and in the joint Approach Used: anterolateral Procedure: The patient tolerated the procedure well, but had some pain with the injection and there was some relief with the local anesthesia Coding 38989 - Large joint Procedure code (CPT) selection complete Results Reviewed Results Reviewed: 03/29/23 13:48 Lidocaine HCl 2 % MPF [Xylocaine 2 % MPF] 5 ml .ROUTE .STK-MED ONE methylPREDNISolone acetate [DEPO-MedroL] 40 mg .ROUTE .STK-MED ONE Assessment & Plan Assessment & Plan (1) Osteoarthritis of right knee: Code(s): M17.11 - Unilateral primary osteoarthritis, right knee (2) Diabetes mellitus: Code(s): E11.9 - Type 2 diabetes mellitus without complications Plan Ms. Piña is an 87-year-old female who presents in the office today for a follow up of right knee pain. The patient had a cortisone injection on 12/30/2022, with 2 months of relief. She would like to repeat the cortisone injection in the office today. She claims her right knee gave out on her randomly. She states she uses a cane to get around for her appointment and a walker to move a little quicker at home. Patient has a medical history of diabetes mellitus. The patient was offered a cortisone injection in the right knee with 40 mg of DepoMedrol. The patient was explained the risk, benefits, and alternatives to receiving this injection. After receiving consent for the injection, the patient had the procedure done while in office today. The patient tolerated the procedure well with no complications. Due to the patient?s history of diabetes, they were instructed to monitor her blood glucose level. The patient was informed that they could see a rise in their numbers and if the numbers became too high, they were instructed to call their PCP. The patient was also informed that they could have facial flushing as a side effect of the injection but this will pass. Follow up will be in 3 months for a repeat cortisone injection, or sooner if needed. Patient Instructions: Scribed for Gertrude Melvin PA-C by [facility] representative, on 03/29/2023 at 1:38 pm, EST. Coding Level of Care Code Est Pt Level 4 (27243) Diagnoses Osteoarthritis of right knee M17.11 Diabetes mellitus E11.9 CPT Codes Coding - 42409 Large joint: 11429 - Large joint ([id number])
== END 2023-03-29 15:19 | disposition home or self-care (01) ==
PROVIDERS: Visit Provider Physician Assistant
DX: M17.11 Unilateral primary osteoarthritis, right knee (principal); E11.9 Type 2 diabetes mellitus without complications
CPT/HCPCS: 20610; 99214

== ENCOUNTER → 2023-03-29 13:31 | Outpatient (BNVA) | payer MEDICARE, SELFPAY | PROVIDERS: Visit Provider Physician Assistant | DX: M17.11 Unilateral primary osteoarthritis, right knee (principal); E11.9 Type 2 diabetes mellitus without complications | CPT/HCPCS: 20610; 99212; J1020 ==

== ENCOUNTER 2023-04-05 09:52 | Outpatient (AMB) | payer MEDICARE, SELFPAY ==
--- NOTE | 2023-04-05 10:05 | A.OFFVIS_ITS ---
Intake Vital Signs 04/05/23 10:06 Height 4 ft 9 in Weight 141 lb 5.061 oz BMI 30.6 BP 142/96 H Blood Pressure Location Lt brachial Position Sitting Pulse 92 Pulse Source Pulse Oximeter Intake Visit Reasons: f/u osteoporosis Intake Note: Patient present for Osteoporosis follow up visit. 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 Accompanied by: Self / Same As Patient Allergies morphine [MORPHINE] Allergy (Unknown, Verified 04/05/23 10:11) NAUSEA & VOMITING codeine [CODEINE] Adverse Reaction (Unknown, Verified 04/05/23 10:11) DIGESTIVE PROBLEMS oxycodone Adverse Reaction (Unknown, Verified 04/05/23 10:11) NAUSEA AND VOMITING tramadol [From ULTRAM] Adverse Reaction (Unknown, Verified 04/05/23 10:11) DIGESTIVE PROBLEMS Codeine Phosphate Allergy (Unknown, Uncoded 12/30/22 14:43) Nausea and Vomiting codiene Allergy (Unknown, Uncoded 12/30/22 14:43) SOB, cp morphine Allergy (Unknown, Uncoded 12/30/22 14:43) n/v percocet Allergy (Unknown, Uncoded 12/30/22 14:43) vomiting Percodan Allergy (Unknown, Uncoded 12/30/22 14:43) Nausea and Vomiting percodan Allergy (Unknown, Uncoded 12/30/22 14:43) vomiting HPI HPI Comments History of Present Illness Details 87 YO Female with is seen in consultation at the request of PCP for Osteoporosis. First diagnosed in this yr . Not Received treatment in the past No history of pathologic fracture or ONJ. Has several servings of dietary calcium per day in the form of milk and cottage cheese . Not Takes Calcium supplement Takes 1000 IU of Vitamin D daily. Takes PPI, not anticoagulant, antiepileptic or glucocorticoid medication. 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 UTD on dental cleanings and sees dentist every 6 months. Has upcoming dental work for crown placement or extractions. DXA dated : EXAMINATION: BONE DENSITOMETRY CLINICAL INDICATION: Postmenopausal estrogen deficiency. COMPARISON: Previous BD dated 03/28/2012 and baseline BD dated 07/05/2005. TECHNIQUE: Using a [employer] DXA System (software version: 13.1) manufactured by [employer], dual-energy x-ray absorptiometry was performed of the lumbar spine and left hip. The images are of good technical quality. Summary results are attached. FINDINGS: AP SPINE L1-L4 (excluding L3): The data of L1-L4 has been changed to exclude the L3 vertebral body, because levocurvature and degenerative changes at this level may cause overestimation of lumbar spine density. There are other multilevel degenerative changes also contributing to probable overestimation of the bone mineral density lumbar spine. Current: BMD 1.503 g/cm2, Z-score 4.9, T-score 2.8, normal, 14.3% decrease from previous, 14.6% increase from baseline (<5% change is not significant). Prior: BMD 1.754 g/cm2. Baseline: BMD 1.311 g/cm2. LEFT FEMUR, NECK: Current: BMD 0.654 g/cm2, Z-score -0.2, T-score -2.8, osteoporosis. Prior: BMD 0.786 g/cm2. Baseline: BMD 0.805 g/cm2. LEFT FEMUR, TOTAL: Current: BMD 0.758 g/cm2, Z-score 0.5, T-score -2.0, osteopenia, 16.5% decrease from previous, 18.5% decrease from baseline (<5% change is not significant). Prior: BMD 0.908 g/cm2. Baseline: BMD 0.930 g/cm2. Labs: Currently on alendronate 70 mg q.week PFSH Medical History Arthritis Diabetes Hyperlipidemia Hypertension Infectious colitis Osteoporosis Thyroid disease Surgical History H/O adenoidectomy H/O sinus surgery H/O: hysterectomy History of carpal tunnel surgery History of cholecystectomy History of surgery History of surgery History of total left knee replacement Hx of appendectomy Hx of tonsillectomy Family History Mother Diabetes Social History Household Members: None Housing: House Do you presently have visiting nurse or other home services: No Alcohol intake: current Alcohol intake frequency: holidays/special occasions only Patient Tobacco Use Status: Never used Tobacco Advance Directives Date on File: 09/09/20 service: No Current occupational status: retired Physical Exam Vital Signs: Last Vital Signs Pulse 92 04/05/23 10:06 BP 142/96 H 04/05/23 10:06 BMI result Body Mass Index 30.6 Assessment & Plan Assessment & Plan (1) Osteoporosis: Code(s): M81.0 - Age-related osteoporosis without current pathological fracture Plan: This 86-year-old white female with a history of osteoporosis. Secondary workup is negative Plan is to continue the alendronate Coding Level of Care Code Est Pt Level 3 (72490) Diagnoses Osteoporosis M81.0
[2023-04-05 10:06] VITALS: BP 142/96; PULSE 92; BMI 30.6
== END 2023-04-05 10:35 | disposition home or self-care (01) ==
PROVIDERS: PCP Internal Medicine; Visit Provider Internal Medicine Endocrinology, Diabetes & Metabolism
DX: M81.0 Age-related osteoporosis without current pathological fracture (principal)
CPT/HCPCS: 99213

== ENCOUNTER → 2023-04-05 09:52 | Outpatient (BNVA) | payer MEDICARE, SELFPAY | PROVIDERS: Visit Provider Internal Medicine Endocrinology, Diabetes & Metabolism | DX: M81.0 Age-related osteoporosis without current pathological fracture (principal) | CPT/HCPCS: 99212 ==

== ENCOUNTER 2023-05-12 07:18 | Outpatient (REF) | payer MEDICARE, SELFPAY ==
[2023-05-12 11:06] LABS: MANUAL DIFF FLAG NO
[2023-05-12 11:31] LABS: Basophils Absolute Auto 0.1 X10*3/uL (0.0-0.2); Eosinophils Absolute Auto 0.3 X10*3/uL (0.0-0.4); Eosinophils Percent Auto 3.9 % (0-4); Hematocrit 37.4 % (37.0-47.0); Hemoglobin 11.8 g/dl (12.0-16.0); Imm Gran Abs Auto 0.03 X10*3/uL (0.00-0.03); Imm Gran Pct Auto 0.4 % (0.0-0.4); Lymphocytes Absolute Auto 2.7 X10*3/uL (1.2-4.9); Mean Corpuscular HGB Conc 31.6 g/dl (31.0-35.0); Mean Corpuscular Volume 82.4 fL (80.0-98.0); Monocytes Absolute Auto 0.6 X10*3/uL (0.1-1.2); Monocytes Percent Auto 7.9 % (2-11); Neutrophils Percent Auto 51.8 % (45-73); Platelet Count 302 X10*3/uL (160-400); Red Blood Count 4.54 X10*6/uL (4.20-5.50); Red Cell Distribution Width 14.3 % (11.0-16.0); White Blood Count 7.8 X10*3/uL (4.8-10.8)
[2023-05-12 11:51] LABS: Alanine Aminotransferase 9 U/L (0-31); Alkaline Phosphatase 73 U/L (39-117); Anion Gap 17 (12-20); Aspartate Amino Transferase 14 U/L (5-31); Bilirubin Total 0.4 mg/dL (0.0-1.0); Blood Urea Nitrogen 27 mg/dL (9-16); Calcium 9.8 mg/dL (8.4-10.2); Carbon Dioxide 22 mmol/L (22-29); Chloride 105 mmol/L (96-108); Estimated Glomerular Filt Rate > 60; Glucose Random 130 mg/dL (60-115); Magnesium 1.9 mg/dL (1.6-2.6); Potassium 4.2 mmol/L (3.3-5.1); Sodium 140 mmol/L (135-145); Total Protein 6.9 g/dL (6.5-8.0)
[2023-05-12 12:07] LABS: Estimated Average Glucose 134 mg/dL; Hemoglobin A1c % 6.3 % (<6.0)
== END 2023-05-12 07:19 | disposition home or self-care (01) ==
LOC: HO.HMGCLDS 07:18
PROVIDERS: PCP Internal Medicine; Visit Provider Internal Medicine
DX: I10 Essential (primary) hypertension (principal); E11.42 Type 2 diabetes mellitus with diabetic polyneuropathy; M15.9 Polyosteoarthritis, unspecified; E03.9 Hypothyroidism, unspecified; I87.2 Venous insufficiency (chronic) (peripheral)
CPT/HCPCS: 36415; 80053; 83036; 83735; 85025

== ENCOUNTER 2023-07-01 13:37 | Outpatient (AMB) | payer MEDICARE, SELFPAY ==
--- NOTE | 2023-07-01 13:42 | MHC.OFFVIS ---
Intake Vital Signs 07/01/23 13:54 Height 4 ft 9 in Weight 141 lb BMI 30.5 Intake Visit Reasons: OV-Right knee injection-last injection 03/29/23 Intake Note: Lory 87 yr old female presents for repeat injection for her right knee. States last injection from 03/29/23 lasted approx 3 months. Allergies morphine [MORPHINE] Allergy (Unknown, Verified 07/01/23 13:54) NAUSEA & VOMITING codeine [CODEINE] Adverse Reaction (Unknown, Verified 07/01/23 13:54) DIGESTIVE PROBLEMS oxycodone Adverse Reaction (Unknown, Verified 07/01/23 13:54) NAUSEA AND VOMITING tramadol [From ULTRAM] Adverse Reaction (Unknown, Verified 07/01/23 13:54) DIGESTIVE PROBLEMS Codeine Phosphate Allergy (Unknown, Uncoded 07/01/23 13:54) Nausea and Vomiting codiene Allergy (Unknown, Uncoded 07/01/23 13:54) SOB, cp morphine Allergy (Unknown, Uncoded 07/01/23 13:54) n/v percocet Allergy (Unknown, Uncoded 07/01/23 13:54) vomiting Percodan Allergy (Unknown, Uncoded 07/01/23 13:54) Nausea and Vomiting percodan Allergy (Unknown, Uncoded 07/01/23 13:54) vomiting HPI OV-Right knee injection-last injection 03/29/23 HPI Details 87-year-old female who presents in the office today for a follow up of right knee pain. The patient had a cortisone injection in the right knee on 03/29/2023. Patient has a significant medical history of diabetes mellitus. [facility] Medical History Arthritis Diabetes Hyperlipidemia Hypertension Infectious colitis Osteoporosis Thyroid disease Surgical History H/O adenoidectomy H/O sinus surgery H/O: hysterectomy History of carpal tunnel surgery History of cholecystectomy History of surgery History of surgery History of total left knee replacement Hx of appendectomy Hx of tonsillectomy Family History Mother Diabetes Social History Household Members: None Housing: House Do you presently have visiting nurse or other home services: No Alcohol intake: current Alcohol intake frequency: holidays/special occasions only Patient Tobacco Use Status: Never used Tobacco Advance Directives Date on File: 09/09/20 service: No Current occupational status: retired Review of Systems Const All systems reviewed & are unremarkable except as noted in HPI and below Physical Exam Const General: cooperative, healthy appearing and no acute distress Resp Effort & Inspection: normal respiratory effort and able to speak in complete sentences Cardio Rate: regular rate Peripheral pulses: Peripheral pulses 2+ throughout GI Palpation (GI): Soft to palpation Skin Lesions: no lesions Rashes: no rashes Extrem Other: Right knee: Normal to inspection. No ecchymosis, erythema, or joint effusion. No tenderness to palpation to the medial or lateral joint lines. ROM is 10-90 degrees. Crepitus felt with ROM. NVI. The patient reports her pain to be globally, but more pain located on the medial aspect of the right knee. Office Procedures Joint Injection/Drain Joint Injection/Drain Primary Site: right knee Prep: site was prepped using aseptic technique, ethochloride spray was applied and injection warnings given Injected: 40 mg of, DepoMedrol, with 8 mL of (2% plain lido ) and in the joint Approach Used: anterolateral Procedure: The patient tolerated the procedure well, but had some pain with the injection and there was some relief with the local anesthesia Coding 74766 - Large joint Procedure code (CPT) selection complete Assessment & Plan Assessment & Plan (1) Osteoarthritis of right knee: Code(s): M17.11 - Unilateral primary osteoarthritis, right knee Qualifiers: Osteoarthritis type: unspecified Qualified Code(s): M17.11 - Unilateral primary osteoarthritis, right knee (2) Diabetes mellitus: Code(s): E11.9 - Type 2 diabetes mellitus without complications Plan Ms. Piña is an 87-year-old female who presents in the office today for a follow up of right knee pain. The patient had a cortisone injection in the right knee on 03/29/2023. Patient has a significant medical history of diabetes mellitus. The patient was offered a cortisone injection in the right knee with 40 mg of DepoMedrol. The patient was explained the risk, benefits, and alternatives to receiving this injection. After receiving consent for the injection, the patient had the procedure done while in office today. The patient tolerated the procedure well with no complications. Due to the patient?s history of diabetes, they were instructed to monitor her blood glucose level. The patient was informed that they could see a rise in their numbers and if the numbers became too high, they were instructed to call their PCP. The patient was also informed that they could have facial flushing as a side effect of the injection but this will pass. Follow up will be PRN, or sooner if needed. Patient Instructions: Scribed for Gertrude Melvin PA-C by Mitra Munoz medical detail representative, on 07/01/2023 at 1:45 pm, EST. Coding Level of Care Code Est Pt Level 4 (76909) Diagnoses Osteoarthritis of right knee, unspecified osteoarthritis type M17.11 Osteoarthritis type: unspecified Diabetes mellitus E11.9 CPT Codes Coding - 20484 Large joint: 81965 - Large joint ([id number])
[2023-07-01 13:54] VITALS: BMI 30.5
== END 2023-07-01 13:54 | disposition home or self-care (01) ==
PROVIDERS: PCP Internal Medicine; Visit Provider Physician Assistant
DX: M17.11 Unilateral primary osteoarthritis, right knee (principal)
CPT/HCPCS: 20610; 99214

== ENCOUNTER → 2023-07-01 13:37 | Outpatient (BNVA) | payer MEDICARE, SELFPAY | PROVIDERS: PCP Internal Medicine; Visit Provider Physician Assistant | DX: M17.11 Unilateral primary osteoarthritis, right knee (principal); E11.9 Type 2 diabetes mellitus without complications | CPT/HCPCS: 20610; 99212; J1020 ==

== ENCOUNTER 2023-07-15 13:27 | Outpatient (REF) | payer MEDICARE, SELFPAY ==
--- NOTE | ~2023-07-15 | US_ITS ---
EXAMINATION: US VENOUS ULTRASOUND WITH DOPPLER LOWER EXTREMITY, RIGHT CLINICAL INFORMATION: Right leg pain and edema. Evaluate for deep vein thrombosis. COMPARISON: None available. TECHNIQUE: Ultrasound of the deep veins is performed from the right hip to the calf with compression sonography and color and pulse Doppler assessment. Spectral analysis with color-flow imaging is performed. FINDINGS: The common femoral vein is compressible and exhibits a normal phasic waveform; this suggests that the iliac veins are widely patent above. Within the proximal thigh, the visualized profunda femoris vein is normal. The examined greater saphenous vein and saphenofemoral junction are normal. Superficial femoral vein is patent in the proximal, mid and distal thigh. Popliteal vein is normal to the level of the trifurcation. On compression wright scale and color Doppler images, the visualized deep calf veins are grossly patent. No evidence of Gaytan's cyst. There is edema within subcutaneous tissues of the calf. US/US venous duplex LE RT IMPRESSION: * No evidence of deep vein thrombosis in the right lower extremity. * There is edema within subcutaneous tissues of the calf.
--- NOTE | ~2023-07-15 | XR_ITS ---
EXAMINATION: XR LUMBOSACRAL SPINE CLINICAL INFORMATION: Right lower back pain with sciatica. COMPARISON: None available. TECHNIQUE: AP, lateral, and both oblique views of the lumbosacral spine. FINDINGS: There is bony demineralization. There is a marked lumbar levoscoliosis. There is multi-level marked degenerative disc disease extending from T12-L1 through L4-L5. No remaining disc spaces are relatively well-maintained. No acute fracture or spondylolisthesis is seen. There is multi-level thoracolumbar spondylosis and facet arthropathy. There are aortoiliac atherosclerotic calcifications. XR/XR lumbar spine 2-3V IMPRESSION: 1. There is a marked lumbar levoscoliosis. 2. There is multi-level marked degenerative disc disease extending from T12-L1 through L4-L5. 3. There is multi-level thoracolumbar spondylosis and facet arthropathy.
[2023-07-15 16:06] LABS: MANUAL DIFF FLAG NO
[2023-07-15 16:13] LABS: Basophils Absolute Auto 0.1 X10*3/uL (0.0-0.2); Basophils Percent Auto 0.6 % (0-2); Eosinophils Absolute Auto 0.2 X10*3/uL (0.0-0.4); Eosinophils Percent Auto 1.9 % (0-4); Hematocrit 36.6 % (37.0-47.0); Hemoglobin 11.4 g/dl (12.0-16.0); Imm Gran Abs Auto 0.02 X10*3/uL (0.00-0.03); Imm Gran Pct Auto 0.2 % (0.0-0.4); Mean Corpuscular HGB Conc 31.1 g/dl (31.0-35.0); Mean Corpuscular Hemoglobin 26.5 pg (27.0-33.0); Mean Corpuscular Volume 84.9 fL (80.0-98.0); Mean Platelet Volume 12.2 fL (9.4-12.3); Monocytes Absolute Auto 0.5 X10*3/uL (0.1-1.2); Neutrophils Absolute Auto 6.3 x10*3/uL (2.0-8.3); Neutrophils Percent Auto 69.3 % (45-73); Platelet Count 248 X10*3/uL (160-400); Red Blood Count 4.31 X10*6/uL (4.20-5.50); Red Cell Distribution Width 14.6 % (11.0-16.0)
[2023-07-15 16:19] LABS: INTERNATIONAL NORM RATIO 0.9 (0.9-1.1)
[2023-07-15 16:29] LABS: Alanine Aminotransferase 12 U/L (0-31); Albumin Level 4.1 g/dL (3.5-5.0); Alkaline Phosphatase 82 U/L (39-117); Anion Gap 12 (12-20); Aspartate Amino Transferase 15 U/L (5-31); Bilirubin Total 0.2 mg/dL (0.0-1.0); Blood Urea Nitrogen 33 mg/dL (9-16); Calcium 9.8 mg/dL (8.4-10.2); Carbon Dioxide 26 mmol/L (22-29); Chloride 103 mmol/L (96-108); Estimated Glomerular Filt Rate > 60; Glucose Random 237 mg/dL (60-115); Potassium 4.2 mmol/L (3.3-5.1); Sodium 137 mmol/L (135-145)
== END 2023-07-15 13:28 | disposition home or self-care (01) ==
LOC: HO.HMGCX 13:27
PROVIDERS: PCP Internal Medicine; Visit Provider Internal Medicine
DX: R60.0 Localized edema (principal); M79.604 Pain in right leg; M54.41 Lumbago with sciatica, right side; I10 Essential (primary) hypertension; T14.8XXA Other injury of unspecified body region, initial encounter
CPT/HCPCS: 36415; 72100; 80053; 85025; 85610; 93971

== ENCOUNTER 2023-08-01 13:25 | Inpatient (IN) | payer MEDICARE, SELFPAY ==
--- NOTE | ~2023-08-01 | XR_ITS ---
EXAMINATION: XR CHEST CLINICAL INFORMATION: Reason for Exam Lower extremity swelling COMPARISON: Chest radiograph 06/19/2020 TECHNIQUE: One view of the chest FINDINGS: Lines and tubes: None. Clear lungs. No pleural effusion. No pneumothorax. Unchanged cardiomediastinal silhouette. Left humeral head is high riding with loss of subacromial joint space which could be seen in the setting of rotator cuff pathology. XR/XR chest 1V IMPRESSION: 1. Clear lungs. 2. Left humeral head is high riding with loss of subacromial joint space which could be seen in the setting of rotator cuff pathology.
[2023-08-01 13:36] VITALS: BP 150/90; PULSE 130; O2SAT 97
[2023-08-01 13:45] VITALS: BP 152/79; PULSE 113; RESP 16; TEMP 37; O2SAT 93; BMI 26.3
--- NOTE | 2023-08-01 13:59 | PC.NURSE ---
pt a&o x4, pleasant, calm, and cooperative. coming from home. pt reports sciatica pain and BLLE pain, swelling, redness, and warmth. pt sts she is newly taking lasix for edema but is having a tough time elevating her feet due to sciatica pain. pt has 3+ pitting edema to BLLE, with redness, warmth, and pain. IV initiated by EMS. 20G to right hand. plan of care ongoing.
--- NOTE | 2023-08-01 14:14 | ED.GENADULT ---
HPI - General Adult General Chief complaint: General Medical Stated complaint: REDNESS+SWELLING TO LOWER EXTREMITIES Time Seen by Provider: 08/01/23 14:03 History of Present Illness HPI narrative: 87 y/o F patient; PMH T2DM, OA, sciatica, pulmonary hypertension, ulcerative colitis; presents from home reporting bilateral lower extremity swelling, redness, warmth, and pain. She states she has a history of lower extremity swelling but never this severe. She has been following with her PCP who prescribed her Lasix. She took 40mg, 40mg, 60mg, 80mg, 40mg over the last 5 days with minimal improvement. One day ago she noticed the lower extremity pain and redness which is what brought her to the ED today. She also reports intermittent chills yesterday 07/31/2023. She denies any history of prior DVT/PE. She denies any associated: nausea/vomiting, diarrhea, abdominal pain, chest pain, SOB, syncope, fever. Related Data Home Medications Medication Instructions Recorded Confirmed L.acidophil-L.casei-B.bifid-B.longum-FOS 1 cap PO DAILY 06/29/20 09/21/22 2 billion cell-50 mg capsule (Probiotic Blend) metformin 500 mg tablet,extended 500 mg PO DAILY@0730 06/29/20 09/21/22 release 24 hr metoprolol succinate 100 mg 100 mg PO DAILY 06/29/20 09/21/22 tablet,extended release 24 hr naproxen sodium 220 mg capsule 220 mg PO Q12H PRN Pain 06/29/20 09/21/22 (Aleve) omeprazole 20 mg capsule,delayed 20 mg PO DAILY 06/29/20 09/21/22 release furosemide 40 mg tablet 40 mg PO DAILY PRN Edema 09/09/20 09/21/22 magnesium oxide 500 mg tablet 500 mg PO DAILY 09/09/20 09/21/22 losartan 25 mg tablet 25 mg PO DAILY 05/18/22 09/21/22 cholecalciferol (vitamin D3) 50 50 mcg PO DAILY 09/21/22 09/21/22 mcg (2,000 unit) capsule levothyroxine 50 mcg capsule 50 mcg PO DAILY 09/21/22 09/21/22 vitamin B complex (B 1 tab PO DAILY 09/21/22 09/21/22 Complex-Vitamin B12 tablet) Previous Rx's Medication Instructions Recorded cefuroxime axetil 500 mg tablet 500 mg PO BID #10 tabs 09/11/20 alendronate 70 mg tablet 70 mg PO QWEEK #4 tabs 09/21/22 diclofenac sodium 1 % topical gel 4 g topical QID #100 grams 09/23/22 Allergies Allergy/AdvReac Type Severity Reaction Status Date / Time morphine [MORPHINE] Allergy Unknown NAUSEA & Verified 08/01/23 14:02 VOMITING codeine [CODEINE] AdvReac Unknown DIGESTIVE Verified 08/01/23 14:02 PROBLEMS oxycodone AdvReac Unknown NAUSEA AND Verified 08/01/23 14:02 VOMITING tramadol [From ULTRAM] AdvReac Unknown DIGESTIVE Verified 08/01/23 14:02 PROBLEMS Codeine Phosphate Allergy Unknown Nausea and Uncoded 07/01/23 13:54 Vomiting codiene Allergy Unknown SOB, cp Uncoded 07/01/23 13:54 morphine Allergy Unknown n/v Uncoded 07/01/23 13:54 percocet Allergy Unknown vomiting Uncoded 07/01/23 13:54 Percodan Allergy Unknown Nausea and Uncoded 07/01/23 13:54 Vomiting percodan Allergy Unknown vomiting Uncoded 07/01/23 13:54 Review of Systems Review of Systems: Yes all other systems are reviewed and are negative PMFSH Past Medical History Attestation statement: The following information was validated with the patient. Source: old records reviewed Medical History Osteoporosis Infectious colitis Hyperlipidemia Hypertension Thyroid disease Arthritis Diabetes Surgical History History of surgery History of surgery History of carpal tunnel surgery History of cholecystectomy H/O sinus surgery H/O: hysterectomy Hx of appendectomy H/O adenoidectomy Hx of tonsillectomy History of total left knee replacement Family History Family History Mother Diabetes Social History Social History Household Members: None Housing: House Do you presently have visiting nurse or other home services: No Alcohol intake: current Alcohol intake frequency: holidays/special occasions only Comment: sleeping Patient Tobacco Use Status: Never used Tobacco Advance Directives: Yes Advance Directives on File: Yes Advance Directives Date on File: 08/01/23 service: No Current occupational status: retired Physical Exam ED Vital Signs: Vital Signs - 24 hr 08/01/23 13:45 08/01/23 16:24 Temperature 98.6 F 98.2 F Pulse Rate 113 H 98 Respiratory Rate 16 18 Blood Pressure 152/79 H 157/76 H Pulse Oximetry 93 96 Oxygen Delivery Method Room Air Room Air BMI result Body Mass Index 26.3 Patient is afebrile, tachycardic, normotensive. Const General: cooperative and no acute distress HENMT Head: Yes atraumatic Eyes General: appearance normal, both eyes and all related structures Pupils: Equal, round and reactive pupils present EOM: EOMs intact bilaterally Neck Neck: Yes full ROM, Yes supple and No tender Chest Chest palpation & inspection: normal inspection of the chest and normal palpation of entire chest wall Resp Effort & Inspection: normal respiratory effort, able to speak in complete sentences and no respiratory distress Auscultation: clear to auscultation bilaterally Cardio Other: 3+ bilateral lower extremity edema Rate: regular rate Rhythm: regular rhythm GI Inspection: Yes normal to inspection and No Abdominal wall edema Palpation (GI): Soft to palpation, not firm and nontender Auscultation: normal bowel sounds Skin Other: Bilateral lower extremity cellulitis - with warmth, sensitivity, redness circumferentially but especially anteriorly. Neuro Cranial nerves: Yes Equal, round and reactive pupils present Course Course Course Narrative: Patient is afebrile, tachycardic, normotensive. Concern for lower extremity edema and signs of bilateral lower extremity cellulitis. Ordered EKG, CXR, and laboratory studies including ESR. Reevaluation(s) Reevaluation #1: EKG: ST 106BPM without ischemic changes Patient with tachycardia, LA 1.9. Provided Cefazolin IV after blood cultures obtained. Held further IVF, received 500cc IVF via EMS and concern for fluid overload state given significant lower extremity edema. ESR 40. BNP 59. CXR without acute abnormalities. Time: 15:07 Reevaluation #2: Plan: Admit to hospitalist for bilateral lower extremity cellulitis Condition: Stable Medications Administered Generic Name Dose Route Start Last Admin Trade Name Freq PRN Reason Stop Dose Admin Cefazolin Sodium/Dextrose 2 gm in 50 mls @ 100 mls/hr 08/01/23 16:00 08/01/23 17:13 Ancef IV 100 mls/hr ONCE JULIA Administration Medical Decision Making Lab Data 08/01/23 14:55 08/01/23 14:55 Labs: Lab Results 08/01/23 Range/Units 14:55 WBC 10.7 (4.8-10.8) X10*3/uL RBC 4.33 (4.20-5.50) X10*6/uL Hgb 11.9 L (12.0-16.0) g/dl Hct 36.4 L (37.0-47.0) % MCV 84.1 (80.0-98.0) fL MCH 27.5 (27.0-33.0) pg MCHC 32.7 (31.0-35.0) g/dl RDW 14.2 (11.0-16.0) % Plt Count 236 (160-400) X10*3/uL MPV 11.7 (9.4-12.3) fL Immature Gran % (Auto) 0.6 H (0.0-0.4) % Neut % (Auto) 72.5 (45-73) % Lymph % (Auto) 18.4 L (20-40) % [place] % (Auto) 7.0 (2-11) % Eos % (Auto) 0.8 (0-4) % Baso % (Auto) 0.7 (0-2) % Lymph # (Auto) 2.0 (1.2-4.9) X10*3/uL [place] # (Auto) 0.8 (0.1-1.2) X10*3/uL Eos # (Auto) 0.1 (0.0-0.4) X10*3/uL Baso # (Auto) 0.1 (0.0-0.2) X10*3/uL Abs Immat Gran (auto) 0.06 H (0.00-0.03) X10*3/uL Absolute Neuts (auto) 7.8 (2.0-8.3) x10*3/uL Absolute Nucleated RBC 0.000 (0.0-0.012) X10*3/uL Nucleated RBC % (auto) 0.0 (0.0-0.2) /100WBC Smear Tech's Comments VERIFIED ESR 40 H (0-20) MM/HR Sodium 139 (135-145) mmol/L Potassium 3.9 (3.3-5.1) mmol/L Chloride 101 (96-108) mmol/L Carbon Dioxide 26 (22-29) mmol/L Anion Gap 16 (12-20) BUN 40 H (9-16) mg/dL Creatinine 0.83 (0.5-1.4) mg/dL Estim Creat Clear Calc 37.3 Estimated GFR > 60 Random Glucose 124 H (60-115) mg/dL Lactic Acid 1.9 (0.5-2.0) mmol/L Calcium 10.3 H (8.4-10.2) mg/dL Total Bilirubin 0.3 (0.0-1.0) mg/dL Direct Bilirubin 0.1 (0.0-0.5) mg/dL AST 19 (5-31) U/L ALT 16 (0-31) U/L Alkaline Phosphatase 81 (39-117) U/L B-Natriuretic Peptide 59 (<100) pg/mL Total Protein 7.1 (6.5-8.0) g/dL Albumin 4.1 (3.5-5.0) g/dL Lipase 28 (8-78) U/L Discharge Plan Discharge Clinical Impression: Cellulitis Patient Disposition: Admitted As Inpatient Prescriptions: No Action metoprolol succinate 100 mg tablet extended release 24 hr 100 mg PO DAILY omeprazole 20 mg capsule,delayed release(DR/EC) 20 mg PO DAILY metformin 500 mg tablet extended release 24 hr 500 mg PO DAILY@0730 naproxen sodium [Aleve] 220 mg Capsule 220 mg PO Q12H PRN (Reason: Pain) Probiotic Blend 2 billion cell-50 mg Capsule 1 cap PO DAILY furosemide 40 mg tablet 40 mg PO DAILY PRN (Reason: Edema) magnesium oxide 500 mg Tablet 500 mg PO DAILY cefuroxime axetil 500 mg tablet 500 mg PO BID Qty: 10 0RF levothyroxine 50 mcg capsule 50 mcg PO DAILY cholecalciferol (vitamin D3) 50 mcg (2,000 unit) capsule 50 mcg PO DAILY vitamin B complex [B Complex-Vitamin B12] Tablet 1 tab PO DAILY alendronate 70 mg tablet 70 mg PO QWEEK Qty: 4 11RF losartan 25 mg tablet 25 mg PO DAILY diclofenac sodium 1 % gel 4 g topical QID Qty: 100 0RF Rx Instructions: apply to single knee, ankle, foot; for foot includes sole/toes/top of foot
--- NOTE | 2023-08-01 14:34 | ECG_ITS ---
Test Reason : CELLULITIS Blood Pressure : / mmHG Vent. Rate : 106 BPM Atrial Rate : 106 BPM P-R Int : 166 ms QRS Dur : 076 ms QT Int : 336 ms P-R-T Axes : 025 -38 002 degrees QTc Int : 446 ms Sinus tachycardia Possible Left atrial enlargement Left axis deviation Abnormal ECG When compared with ECG of 09-SEP-2020 09:38, Premature supraventricular complexes are no longer Present Referred By: Britney Christensen Electronically Signed By:MISSY HAMILTON MD
--- NOTE | 2023-08-01 14:53 | PC.NURSE ---
pt ambulated to bathroom with walker. gait slow and steady. pt changed over to hospital attire. labs drawn and sent.
[2023-08-01 15:17] LABS: Lactic Acid 1.9 mmol/L (0.5-2.0)
[2023-08-01 15:21] LABS: Alanine Aminotransferase 16 U/L (0-31); Albumin Level 4.1 g/dL (3.5-5.0); Alkaline Phosphatase 81 U/L (39-117); Anion Gap 16 (12-20); Aspartate Amino Transferase 19 U/L (5-31); Bilirubin Direct 0.1 mg/dL (0.0-0.5); Bilirubin Total 0.3 mg/dL (0.0-1.0); Blood Urea Nitrogen 40 mg/dL (9-16); Calcium 10.3 mg/dL (8.4-10.2); Carbon Dioxide 26 mmol/L (22-29); Chloride 101 mmol/L (96-108); Creatinine Clr Calc Pharmacy 37.3; Estimated Glomerular Filt Rate > 60; Glucose Random 124 mg/dL (60-115); Lipase 28 U/L (8-78); Potassium 3.9 mmol/L (3.3-5.1); Sodium 139 mmol/L (135-145); Total Protein 7.1 g/dL (6.5-8.0)
[2023-08-01 15:26] LABS: B Type Natriuretic Peptide 59 pg/mL (<100)
[2023-08-01 15:40] LABS: Basophils Absolute Auto 0.1 X10*3/uL (0.0-0.2); Basophils Percent Auto 0.7 % (0-2); Eosinophils Absolute Auto 0.1 X10*3/uL (0.0-0.4); Eosinophils Percent Auto 0.8 % (0-4); Hematocrit 36.4 % (37.0-47.0); Hemoglobin 11.9 g/dl (12.0-16.0); Imm Gran Abs Auto 0.06 X10*3/uL (0.00-0.03); Imm Gran Pct Auto 0.6 % (0.0-0.4); Lymphocytes Percent Auto 18.4 % (20-40); MANUAL DIFF FLAG SCAN; Mean Corpuscular HGB Conc 32.7 g/dl (31.0-35.0); Mean Corpuscular Hemoglobin 27.5 pg (27.0-33.0); Mean Corpuscular Volume 84.1 fL (80.0-98.0); Mean Platelet Volume 11.7 fL (9.4-12.3); Monocytes Absolute Auto 0.8 X10*3/uL (0.1-1.2); Neutrophils Absolute Auto 7.8 x10*3/uL (2.0-8.3); Neutrophils Percent Auto 72.5 % (45-73); PLT CLUMP 1; Red Blood Count 4.33 X10*6/uL (4.20-5.50); Red Cell Distribution Width 14.2 % (11.0-16.0); SCAN SMEAR FLAG 1
[2023-08-01 16:02] LABS: Platelet Count 236 X10*3/uL (160-400); SLIDE REVIEW VERIFIED; White Blood Count 10.7 X10*3/uL (4.8-10.8)
[2023-08-01 16:07] LABS: Erythrocyte Sedimentation Rate 40 MM/HR (0-20)
[2023-08-01 16:24] VITALS: BP 157/76; PULSE 98; RESP 18; TEMP 36.8; O2SAT 96
--- NOTE | 2023-08-01 16:25 | PC.NURSE ---
pt ambulatory to bathroom with walker and standby assist.
[2023-08-01] MEDS: ceFAZolin Sodium/Dextrose,Iso 2 GM/50 ML PIGGYBACK IV (17:13)
--- NOTE | 2023-08-01 17:29 | PC.NURSE ---
pt requesting something to eat. given OK by Dr. Christensen. pt provided with PB&J sandwich and milk.
--- NOTE | 2023-08-01 18:29 | P.HPHOSP_ITS ---
History of Present Illness Date of Service: 08/01/23 Chief Complaint: Bilateral lower extremity cellulitis 87 y/o F patient; PMH T2DM, OA, sciatica, pulmonary hypertension, ulcerative colitis; presents from home reporting bilateral lower extremity swelling, redness, warmth, and pain. She states she has a history of lower extremity swelling but never this severe. She has been following with her PCP who prescribed her Lasix. She took 40mg, 40mg, 60mg, 80mg, 40mg over the last 5 days with minimal improvement. One day ago she noticed the lower extremity pain and redness which is what brought her to the ED today. She also reports intermittent chills yesterday 07/31/2023. She denies any history of prior DVT/PE. She denies any associated: nausea/vomiting, diarrhea, abdominal pain, chest pain, SOB, syncope, fever. ER Course Received Kefzol 2 g IV; chest x-ray unremarkable admission requested for treatment of cellulitis Review of Systems 2 Review of Systems: Denies chest pain Denies shortness of breath Denies nausea vomiting and diarrhea Denies fever chills [facility] Medical History (Updated 08/01/23 @ 18:34 by Elton Madsen DO) Hypertension Thyroid disease Osteoporosis Infectious colitis Hyperlipidemia Arthritis Diabetes Family History Mother Diabetes Surgical History History of surgery History of surgery History of carpal tunnel surgery History of cholecystectomy H/O sinus surgery H/O: hysterectomy Hx of appendectomy H/O adenoidectomy Hx of tonsillectomy History of total left knee replacement Social History Household Members: None Housing: House Do you presently have visiting nurse or other home services: No Alcohol intake: current Alcohol intake frequency: holidays/special occasions only Comment: sleeping Patient Tobacco Use Status: Never used Tobacco Advance Directives: Yes Advance Directives on File: Yes Advance Directives Date on File: 08/01/23 service: No Current occupational status: retired Meds Allergies Allergy/AdvReac Type Severity Reaction Status Date / Time morphine [MORPHINE] Allergy Unknown NAUSEA & Verified 08/01/23 14:02 VOMITING codeine [CODEINE] AdvReac Unknown DIGESTIVE Verified 08/01/23 14:02 PROBLEMS oxycodone AdvReac Unknown NAUSEA AND Verified 08/01/23 14:02 VOMITING tramadol [From ULTRAM] AdvReac Unknown DIGESTIVE Verified 08/01/23 14:02 PROBLEMS Codeine Phosphate Allergy Unknown Nausea and Uncoded 07/01/23 13:54 Vomiting codiene Allergy Unknown SOB, cp Uncoded 07/01/23 13:54 morphine Allergy Unknown n/v Uncoded 07/01/23 13:54 percocet Allergy Unknown vomiting Uncoded 07/01/23 13:54 Percodan Allergy Unknown Nausea and Uncoded 07/01/23 13:54 Vomiting percodan Allergy Unknown vomiting Uncoded 07/01/23 13:54 Active Medications: Current Medications Acetaminophen (Acetaminophen 325 Mg Tablet) 650 mg PO Q6H PRN PRN Reason: Pain, Mild (Pain Scale 1-3) Enoxaparin Sodium (Enoxaparin Sodium 40 Mg/0.4 Ml Syringe) 40 mg SUBCUT Q24H [facility] Cefazolin Sodium/Dextrose (Ancef) 2 gm in 50 mls @ 100 mls/hr IV ONCE JULIA Last Admin: 08/01/23 17:13 Dose: 100 mls/hr Piperacillin Sod/Tazobactam (Sod 2.25 gm/ Sodium Chloride) 50 mls @ 100 mls/hr IV Q6H JULIA Vancomycin HCl 1,250 mg/ (Sodium Chloride) 250 mls @ 166.667 mls/hr IV ONCE ONE Stop: 08/01/23 19:23 Ondansetron HCl (Ondansetron Hcl 4 Mg/2 Ml Vial) 4 mg IVPUSH Q8H PRN PRN Reason: Nausea and Vomiting Pharmacy Consult (Consult Rx Vancomycin Dosing) 1 each MISCELLANE DAILY PRN PRN Reason: Consult order Sodium Chloride (0.9 % Sodium Chloride Flush 3 Ml Syringe) 3 ml IVFLUSH QSHIFT [facility] Home Medications Medication Instructions Recorded Confirmed Last Taken Type L.acidophil-L.casei-B.bifid-B.longum-FOS 1 cap PO DAILY 06/29/20 09/21/22 09/08/20 History 2 billion cell-50 mg capsule (Probiotic Blend) metformin 500 mg tablet,extended 500 mg PO DAILY@0730 06/29/20 09/21/22 09/08/20 History release 24 hr metoprolol succinate 100 mg 100 mg PO DAILY 06/29/20 09/21/22 09/08/20 History tablet,extended release 24 hr naproxen sodium 220 mg capsule 220 mg PO Q12H PRN Pain 06/29/20 09/21/22 09/08/20 History (Aleve) omeprazole 20 mg capsule,delayed 20 mg PO DAILY 06/29/20 09/21/22 09/08/20 History release furosemide 40 mg tablet 40 mg PO DAILY PRN Edema 09/09/20 09/21/22 09/08/20 History magnesium oxide 500 mg tablet 500 mg PO DAILY 09/09/20 09/21/22 09/08/20 History cholecalciferol (vitamin D3) 50 50 mcg PO DAILY 09/21/22 09/21/22 Unknown History mcg (2,000 unit) capsule levothyroxine 50 mcg capsule 50 mcg PO DAILY 09/21/22 09/21/22 Unknown History vitamin B complex (B 1 tab PO DAILY 09/21/22 09/21/22 Unknown History Complex-Vitamin B12 tablet) alendronate 70 mg tablet 70 mg PO WE 08/01/23 08/01/23 07/27/23 History diclofenac sodium 1 % topical gel 4 g topical QID PRN SHOULDER PAIN 08/01/23 08/01/23 08/01/23 History gabapentin 100 mg capsule 100 - 200 mg PO BEDTIME low back 08/01/23 Unknown History pain losartan 50 mg tablet 50 mg PO DAILY 08/01/23 Unknown History Physical Exam 2 Vital Signs and Narrative: Vital Signs: Last Vital Signs Temp 98.2 F 08/01/23 16:24 Pulse 98 08/01/23 16:24 Resp 18 08/01/23 16:24 BP 157/76 H 08/01/23 16:24 Pulse Ox 96 08/01/23 16:24 O2 Del Method Room Air 08/01/23 16:24 BMI result Body Mass Index 26.3 Const: Other: Awake alert no acute distress Resp: Other: Clear to auscultation bilaterally no rales rhonchi or wheeze Cardio: Other: No S4; positive S1-S2; no S3 murmurs rubs or gallops GI: Other: Soft nontender nondistended normoactive bowel sounds Neuro: Other: Cranial nerves 2-12 grossly intact as tested. Motor is 5/5 all extremities. Sensation is intact. Extrem: Other: Bilateral lower extremity pitting edema with erythema from tibial plateau to dorsum of bilateral feet Results Labs 08/01/23 14:55 08/01/23 14:55 Labs: Laboratory Results - last 24 hr 08/01/23 14:55 MCV 84.1 MCH 27.5 MCHC 32.7 RDW 14.2 Plt Count 236 MPV 11.7 Immature Gran % (Auto) 0.6 H Neut % (Auto) 72.5 Lymph % (Auto) 18.4 L [place] % (Auto) 7.0 Eos % (Auto) 0.8 Baso % (Auto) 0.7 Lymph # (Auto) 2.0 [place] # (Auto) 0.8 Eos # (Auto) 0.1 Baso # (Auto) 0.1 Abs Immat Gran (auto) 0.06 H Absolute Neuts (auto) 7.8 Absolute Nucleated RBC 0.000 Nucleated RBC % (auto) 0.0 Smear Tech's Comments VERIFIED ESR 40 H Anion Gap 16 Estim Creat Clear Calc 37.3 Estimated GFR > 60 Random Glucose 124 H Lactic Acid 1.9 Calcium 10.3 H Total Bilirubin 0.3 Direct Bilirubin 0.1 AST 19 ALT 16 Alkaline Phosphatase 81 B-Natriuretic Peptide 59 Total Protein 7.1 Albumin 4.1 Lipase 28 Imaging Radiologist's Impressions: Impressions Chest X-Ray 08/01/23 15:53 IMPRESSION: 1. Clear lungs. 2. Left humeral head is high riding with loss of subacromial joint space which could be seen in the setting of rotator cuff pathology. 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 She states this started out with worsening edema for which she attempted oral Lasix without results. Today could not ambulate without extreme pain and sought treatment in the emergency room. She will be admitted for treatment of lower extremity edema with cellulitis 1. Lower extremity cellulitis (history of diabetes) -vanco/Zosyn (1) -bilateral venous duplex in a.m. -1 dose IV Lasix 40 mg. .. Follow clinically -2D echo in a.m. 2. Diabetes type 2 -acceptable control on current regimen. .. Continue outpatient therapies -lispro correctional scale -adjust as indicated 3. Hypertension -acceptable control -adjust as indicated 4. Hypothyroidism -continue outpatient supplements Full code Lovenox Patient will require at least 2 midnights going forward of inpatient hospitalization for IV antibiotics for lower extremity cellulitis along with IV Lasix for edema. She has failed outpatient therapy with oral Lasix and therefore will be admitted for IV therapy. Quality Stroke Does the patient have a stroke diagnosis?: No VTE Prior VTE?: No VTE Risk Level:: Medical - moderate - high VTE Device Contraindication: Treatment Not Indicated VTE Drug Contraindication: N/A - Med Ordered
--- NOTE | 2023-08-01 18:36 | PHA.MEDREC ---
Pharmacy Consult ? Medication Reconciliation Pharmacy has completed the medication reconciliation. Patient had updated list of medications. Report she has been taking her prn furosemide; she took 40 mg on tuesday and , 60 mg on and 80 mg on tuesday because the swelling was not going down. Due to gi issue, patient reports only taking morning dose of metformin. Evangelina Mcallister, PharmD
[2023-08-01] MEDS: Enoxaparin Sodium 40 MG/0.4 ML SYRINGE SUBCUT (19:16)
[2023-08-01] MEDS: vancomycin HCL 1,250 MG in 0.9 % Sodium Chloride 250 ML 166.67 MG IV (19:16)
--- NOTE | 2023-08-01 19:17 | PC.NURSE ---
this rn assumed care of pt. pt ambulated off stretcher to bathroom with walker with steady gait.pt denies chest pain and dizziness. delay in medication administration due to previous shift and pt only having one IV access.
--- NOTE | 2023-08-01 19:23 | PC.NURSE ---
pt noted to have bilateral lower extremity redness and swelling. pt reports pain upon palpation. CSM in tact.
[2023-08-01 19:29] VITALS: BP 152/79; PULSE 94; RESP 18; TEMP 37; O2SAT 98
--- NOTE | 2023-08-01 20:02 | PC.NURSE ---
pt right hand access infiltrated at this time, new access established.
--- NOTE | 2023-08-01 20:16 | PHA.PROG ---
Admission Date/Time: August 01, 2023 17:49 Indication: Cellulitis Weight in k.967 kg Adjusted body weight in Kg: Blain body weight in Kg: Obesity Dosing Indication % IBW: Serum Creatinine - Last 168 Hours 08/01/23 14:55 Creatinine 0.83 Estimated CrCl and GFR - Last 168 Hours 08/01/23 14:55 Estim Creat Clear Calc 37.3 Estimated GFR > 60 Vancomycin Loading Dose: 1250 mg (21 mg/kg) Current Vancomycin Dosing Regimen: 1000 mg Q24h Date and Time for next Vancomycin Level to be drawn: 08/04 @ 1800 Pharmacist Comments on Vancomycin Plan: patient receiving an adequate load dose in the ER, start 08/01 @ 1916. Line inflitrated so full dose took longer than 1 and half hours to infuse. Maintenance dose vancomycin 1000 mg q24h is scheduled to start 08/02 @ 2000. Predict AUC 477 with a trough of 14.3. Level is scheduled for prior to the 4th dose Pharmacy will monitor renal function daily Evangelina Mcallister, DarielD Vancomycin dosing will take advantage of [employer] as a clinical decision support tool that uses Bayesian modeling to calculate individual patient's pharmacokinetic parameters and forecast the patient's drug concentration time course with the target goal AUC 24 range of 400 - 600 mg/L/hr.
[2023-08-01] MEDS: Acetaminophen 325 MG TABLET 650 MG PO (21:08)
[2023-08-01] MEDS: Piperacillin Sodium/Tazobactam 2.25 GM in 0.9 % Sodium Chloride 50 ML IV (21:11)
[2023-08-01 21:59] LABS: Glucose, Whole Blood 140 mg/dL (60-115)
[2023-08-01] MEDS: Ibuprofen 400 MG TABLET PO (23:35)
[2023-08-01] MEDS: Gabapentin 100 MG CAPSULE PO (23:47)
[2023-08-01 23:57] VITALS: BP 154/72; PULSE 110; RESP 16; TEMP 36.6; O2SAT 98
[2023-08-02] MEDS: 0.9 % Sodium Chloride Flush 3 ML SYRINGE IVFLUSH ×3 (01:16→20:34)
--- NOTE | 2023-08-02 01:19 | PC.NURSE ---
per hospitalist verbal order, hold 0100 dose of zosyn due to previous dose being administered late. this rn contacted pharmacy to change dosing times per provider order.
[2023-08-02] MEDS: Piperacillin Sodium/Tazobactam 2.25 GM in 0.9 % Sodium Chloride 50 ML IV ×4 (03:10→23:40)
[2023-08-02 05:18] VITALS: BP 158/82; PULSE 94; RESP 16; TEMP 36.5; O2SAT 98
[2023-08-02 05:49] LABS: MANUAL DIFF FLAG NO
[2023-08-02 06:09] LABS: Alanine Aminotransferase 11 U/L (0-31); Albumin Level 3.5 g/dL (3.5-5.0); Alkaline Phosphatase 69 U/L (39-117); Anion Gap 15 (12-20); Aspartate Amino Transferase 17 U/L (5-31); Bilirubin Total 0.4 mg/dL (0.0-1.0); Blood Urea Nitrogen 32 mg/dL (9-16); Calcium 9.9 mg/dL (8.4-10.2); Carbon Dioxide 26 mmol/L (22-29); Chloride 106 mmol/L (96-108); Creatinine Clr Calc Pharmacy 38.7; Estimated Glomerular Filt Rate > 60; Glucose Random 117 mg/dL (60-115); Potassium 4.2 mmol/L (3.3-5.1); Sodium 143 mmol/L (135-145)
--- NOTE | 2023-08-02 06:13 | PC.NURSE ---
pt IV access infiltrated. multiple attempts by this RN and other ED RNs made to gain IV access. No access obtained, aware. no further orders at this time.
[2023-08-02 06:17] LABS: Basophils Absolute Auto 0.1 X10*3/uL (0.0-0.2); Eosinophils Absolute Auto 0.4 X10*3/uL (0.0-0.4); Eosinophils Percent Auto 5.2 % (0-4); Hematocrit 35.4 % (37.0-47.0); Hemoglobin 11.3 g/dl (12.0-16.0); Imm Gran Abs Auto 0.04 X10*3/uL (0.00-0.03); Imm Gran Pct Auto 0.5 % (0.0-0.4); Lymphocytes Absolute Auto 2.2 X10*3/uL (1.2-4.9); Lymphocytes Percent Auto 27.2 % (20-40); Mean Corpuscular HGB Conc 31.9 g/dl (31.0-35.0); Mean Corpuscular Hemoglobin 27.2 pg (27.0-33.0); Mean Corpuscular Volume 85.3 fL (80.0-98.0); Mean Platelet Volume 11.6 fL (9.4-12.3); Monocytes Absolute Auto 0.7 X10*3/uL (0.1-1.2); Monocytes Percent Auto 8.9 % (2-11); Neutrophils Absolute Auto 4.5 x10*3/uL (2.0-8.3); Neutrophils Percent Auto 57.2 % (45-73); Platelet Count 225 X10*3/uL (160-400); Red Blood Count 4.15 X10*6/uL (4.20-5.50); Red Cell Distribution Width 14.4 % (11.0-16.0); White Blood Count 7.9 X10*3/uL (4.8-10.8)
--- NOTE | 2023-08-02 07:00 | CA_ITS ---
Transthoracic Echocardiogram Patient (Last, First, Middle): Lory Piña A Gender: Female Date of : 1935 Age: 87 Procedure Date: 08/02/2023 Procedure Type: Transthoracic Echocardiogram Location: S3E Height: 149.86 cm Weight: 58.97 kg BSA: 1.54 m2 Heart Rate: bpm BP: 158 / 82 mmHg Lieutenant Shift Supervisor: JOSELUIS/LINA Referring MD: Elton Madsen DO C Programmer: David Clements MD Symptoms: edema Study Quality: Adequate ECG Rhythm: Sinus Conclusions: - 1. Normal LV ejection fraction 60 65% with mild LVH with elevated filling pressures with on some views appears to have mid cavitary obstructive physiology 2. Increased gradient across the aortic valve may suggest mild early aortic stenosis and/or subaortic obstruction, not clear on this study 3. No gross pericardial effusion Findings Left Ventricle Normal left ventricular size and systolic function. There is mildly increased left ventricular wall thickness. The visually estimated ejection fraction is between 60-65%. Spectral Doppler is indicative of an impaired relaxation filling pattern. Elevated filling pressures. E/E prime ratio is >15, consistent with elevated filling pressures. Right Ventricle Normal right ventricular cavity size and systolic function. Atria The left atrium is normal in size. There is lipomatous hypertrophy of the interatrial septum. There is no evidence of interatrial shunt. The right atrium is normal in size. Aortic Valve The aortic valve was not well visualized. There is no aortic valve regurgitation. Mitral Valve There is mild anterior and posterior mitral leaflet thickening. There is mild mitral annular calcification. There is no mitral valve regurgitation. There is no mitral valve stenosis. Pulmonic Valve The pulmonic valve was not well visualized. Tricuspid Valve The tricuspid valve was not well visualized. Tricuspid regurgitation envelope is inadequate for calculation of right ventricular systolic pressure. Great Vessels All visible segments of the aorta are normal in size. The pulmonary artery was not well visualized. Venous The inferior vena cava was not well visualized. Pericardium/Pleural There is no evidence of pericardial effusion. Measurements 2D Linear Measurements IVSd: 1.34 0.6-0.9/0.6-1.0 cm LVIDd: 3.73 3.9-5.3/4.2-5.9 cm LVIDd Index: 2.42 2.4-3.2/2.2-3.1 cm/m2 LVIDs: 2.59 2.0-3.6 cm LVPWd: 1.36 0.7-1.1 cm LA Diam: 3.30 2.7-3.8/3.0-4.0 cm LAIDs Index: 2.14 1.5-2.3 cm/m2 LV Mass: 222.51 67-162/88-224 g LV Mass Index: 144.49 43-95/49-115 g/m2 LVOT Diam: 1.90 3.0+(-)1.3 cm Mitral Valve MV VTI: 0.35 MV Pk Hector: 2.09 MV Mn Hector: 1.25 MV Pk Grad: 17.00 MV Mn Grad: 7.00 MV Pk E: 0.95 MV PK A: 1.93 MV Decel Time: 102.00 E/A: 0.50 E'Lateral: 4.24 E'Medial: 3.59 E/E' Med: 26.50 E/E' Lat: 22.40 PHT: 30.00 MVA PHT: 7.33 MVA Continuity: 2.43 Decel [place]: 9.30 Aortic Valve AoV Pk Hector: 2.00 AoV Mn Hector: 1.31 AoV VTI: 0.37 AoV Pk Grad: 16.00 Aov Mn Grad: 8.00 SHAKEEL Cont.VTI: 2.25 LVOT LVOT Pk Hector: 1.64 LVOT Mn Hector: 1.13 LVOT VTI: 0.30 LVOT Pk Grad: 11.00 LVOT Mn Grad: 6.00 LVOT Diam: 1.90 LVOT Area: 2.84 Diastolic Function MV Pk E: 0.95 MV Pk A: 1.93 E/A: 0.50 E'Medial: 3.59 E/E' Med: 26.50 E' Laterial: 4.24 E/E' Lat: 22.40 Right Ventricle TAPSE (mm): 21.50 TVS' Hector: 15.70 Great Vessels Aorta Sinus of Valsalva: 2.50 2.0-3.5 cm Ao Asc: 3.20 2.1-3.4 cm Updated in Other Vendor System with Status of Final David Clements MD electronically signed on 08/02/2023 4:53:25 PM with status of Final
[2023-08-02 07:08] LABS: Glucose, Whole Blood 107 mg/dL (60-115)
--- NOTE | 2023-08-02 07:33 | PC.NURSE ---
Andreina DHILLON made attempt to place U/S guided IV line - unable to obtain IV access . will notify
--- NOTE | 2023-08-02 07:46 | PC.NURSE ---
informed MD Tim of inability to place U/S guided IV line and request made for assistance for IV access. MD tim to come bedside to evaluate pt
--- NOTE | 2023-08-02 08:37 | PC.NURSE ---
plan for pt to go to IR for IV line access
[2023-08-02 08:39] VITALS: BP 177/91; PULSE 98; RESP 16; TEMP 36.8; O2SAT 98
--- NOTE | 2023-08-02 08:41 | PC.NURSE ---
requested pts home meds to be ordered
--- NOTE | 2023-08-02 11:20 | HO.MIDLINE ---
Midline Insertion MIDLINE INSERTION Diagnosis: [Cellulitis] Indication: IV access Antibiotics Pertinent Labs: Reviewed Technique: Using sterile technique including cap and mask, glove and drape, the right arm was prepped and draped in the usual sterile fashion of full barrier technique with CHG. Using ultrasound guidance, the right basilic vein access was obtained after 2 attempts by this RN, access obtained but unable to wire , then 2 attempts by Ammon Lynn RN. Access was obtained in a second attempt by ALEJO Wang. A 20 guage 8 cm NON PASV Midline was positioned. The procedure was performed in S272. Ultrasound was used to document vein patency and for needle entry. A formal ultrasound picture was recorded. Vascular Pediatric Ophthalmologist has released the line for use and it is currently dressed with a StatLock, Tegaderm, and CHG disc. Verification has been performed for blood return and line patency. Arm Circumference: 31.5 cm Equipment: [employer] ST Midline Catheter Catheter Type: NON-PASV 20 guage 8 cm Midline Lot #: [id number]
[2023-08-02 11:42] LABS: Glucose, Whole Blood 149 mg/dL (60-115)
[2023-08-02 11:44] VITALS: BP 173/111; PULSE 100; RESP 18; TEMP 36.1; O2SAT 97
[2023-08-02] MEDS: HYDROmorphone HCl 0.5 MG/0.5 ML SYRINGE 0.25 MG IVPUSH ×2 (12:25→21:42)
--- NOTE | 2023-08-02 13:11 | MHC.CM.PN ---
IMM 08/02 PT LIVES ALONE. USES WALKER FOR MOBILITY AND HAS A MODIFIED BATHROOM. PT HAS A GAONA BOX AND LIFELINE. +HCP ON FILE PCP DR. HERNANDEZ DP: HOME WITH [facility] SERVICES IF RECOMMENDED, PT PREFERS [facility] IF POSSIBLE. REFERRAL SENT. PT HAS OWN RIDE HOME. CM WILL CONTINUE TO FOLLOW FOR DC NEEDS/PLAN
--- NOTE | 2023-08-02 15:23 | P.PNIM_ITS ---
Subjective Subjective Date of Service: 08/02/23 Interval History: No acute issues overnight. Required midline insertion this a.m. to start antibiotics. Continues to complain of low back pain going down leg Review of Systems Denies chest pain Denies shortness of breath Denies nausea vomiting and diarrhea Denies fever chills Physical Exam 2 Vital Signs: Vital Signs: Last Vital Signs Temp 96.9 F 08/02/23 11:44 Pulse 100 08/02/23 11:44 Resp 18 08/02/23 11:44 BP 173/111 H 08/02/23 11:44 Pulse Ox 97 08/02/23 11:44 O2 Del Method Room Air 08/02/23 11:44 BMI result Body Mass Index 26.3 Const: Other: Awake alert no acute distress Resp: Other: Clear to auscultation bilaterally no rales rhonchi or wheeze Cardio: Other: No S4; positive S1-S2; no S3 murmurs rubs or gallops GI: Other: Soft nontender nondistended normoactive bowel sounds Neuro: Other: Cranial nerves 2-12 grossly intact as tested. Motor is 5/5 all extremities. Sensation is intact. Extrem: Other: Bilateral lower extremity pitting edema with erythema from tibial plateau to dorsum of bilateral feet Objective Data Active Medications Acetaminophen (Acetaminophen 325 Mg Tablet) 650 mg PO Q6H PRN PRN Reason: Pain, Mild (Pain Scale 1-3) Last Admin: 08/01/23 21:08 Dose: 650 mg Documented By: HANNA Heparin Sodium (Porcine) 50 (units/ Sodium Chloride 5 ml) 0 units IVFLUSH TID [facility] Dextrose (Dextrose 50 % 25 Gm/50 Ml Syringe) 25 gm IVPUSH Q15M PRN; Protocol PRN Reason: per Hypoglycemia Standing Ord. Enoxaparin Sodium (Enoxaparin Sodium 40 Mg/0.4 Ml Syringe) 40 mg SUBCUT Q24H [facility] Last Admin: 08/01/23 19:16 Dose: 40 mg Documented By: HANNA Glucose (Glucose Gel 15 Gm Gel..Gram.) 15 gm PO Q15M PRN; Protocol PRN Reason: per Hypoglycemia Standing Ord. Hydromorphone HCl (Hydromorphone Hcl 0.5 Mg/0.5 Ml Syringe) 0.25 mg IVPUSH Q4H PRN; Protocol PRN Reason: Pain, Severe (Pain Scale 7-10) Last Admin: 08/02/23 12:25 Dose: 0.25 mg Documented By: JOSE Cefazolin Sodium/Dextrose (Ancef) 2 gm in 50 mls @ 100 mls/hr IV ONCE [facility] Last Infusion: 08/01/23 17:48 Dose: Infused Documented By: KEAGAN Vancomycin HCl 1,000 mg/ (Sodium Chloride) 270 mls @ 270 mls/hr IV Q24H [facility] Piperacillin Sod/Tazobactam (Sod 2.25 gm/ Sodium Chloride) 50 mls @ 100 mls/hr IV Q6H [facility] Last Infusion: 08/02/23 12:25 Dose: Infused Documented By: JOSE Insulin Human Lispro (Insulin Lispro 100 Unit/Ml 3 Ml Vial) 0 unit SUBCUT QIDACHS [facility]; Protocol Last Admin: 08/02/23 11:33 Dose: Not Given Documented By: JOSE Non-Admin Reason: No Insulin Coverage Ondansetron HCl (Ondansetron Hcl 4 Mg/2 Ml Vial) 4 mg IVPUSH Q8H PRN PRN Reason: Nausea and Vomiting Pharmacy Consult (Consult Rx Vancomycin Dosing) 1 each MISCELLANE DAILY PRN PRN Reason: Consult order Sodium Chloride (0.9 % Sodium Chloride Flush 3 Ml Syringe) 3 ml IVFLUSH QSHIFT [facility] Last Admin: 08/02/23 08:37 Dose: Not Given Documented By: ARMANDO Non-Admin Reason: No Access Labs 08/02/23 05:37 08/02/23 05:37 Labs: Laboratory Results - last 24 hr 08/01/23 08/01/23 08/02/23 14:55 21:55 05:37 MCV 84.1 85.3 MCH 27.5 27.2 MCHC 32.7 31.9 RDW 14.2 14.4 Plt Count 236 225 MPV 11.7 11.6 Immature Gran % (Auto) 0.6 H 0.5 H Neut % (Auto) 72.5 57.2 Lymph % (Auto) 18.4 L 27.2 [place] % (Auto) 7.0 8.9 Eos % (Auto) 0.8 5.2 H Baso % (Auto) 0.7 1.0 Lymph # (Auto) 2.0 2.2 [place] # (Auto) 0.8 0.7 Eos # (Auto) 0.1 0.4 Baso # (Auto) 0.1 0.1 Abs Immat Gran (auto) 0.06 H 0.04 H Absolute Neuts (auto) 7.8 4.5 Absolute Nucleated RBC 0.000 0.000 Nucleated RBC % (auto) 0.0 0.0 Smear Tech's Comments VERIFIED ESR 40 H Anion Gap 15 Estim Creat Clear Calc 38.7 Estimated GFR > 60 POC Glucose 140 H Random Glucose 117 H Calcium 9.9 Total Bilirubin 0.4 AST 17 ALT 11 Alkaline Phosphatase 69 B-Natriuretic Peptide 59 Total Protein 6.0 L Albumin 3.5 08/02/23 08/02/23 07:04 11:33 MCV MCH MCHC RDW Plt Count MPV Immature Gran % (Auto) Neut % (Auto) Lymph % (Auto) [place] % (Auto) Eos % (Auto) Baso % (Auto) Lymph # (Auto) [place] # (Auto) Eos # (Auto) Baso # (Auto) Abs Immat Gran (auto) Absolute Neuts (auto) Absolute Nucleated RBC Nucleated RBC % (auto) Smear Tech's Comments ESR Anion Gap Estim Creat Clear Calc Estimated GFR POC Glucose 107 149 H Random Glucose Calcium Total Bilirubin AST ALT Alkaline Phosphatase B-Natriuretic Peptide Total Protein Albumin Assessment and Plan (1) Bilateral lower leg cellulitis: Status: Acute (2) Diabetes type 2, controlled: Status: Acute (3) Hypertension: Status: Acute Plan 87-year-old female with a history of type 2 diabetes, hypertension hypothyroidism presents with bilateral lower extremity cellulitis. She states this started out with worsening edema for which she attempted oral Lasix without results. Today could not ambulate without extreme pain and sought treatment in the emergency room. She will be admitted for treatment of lower extremity edema with cellulitis 1. Lower extremity cellulitis (history of diabetes) -vanco/Zosyn (1) -1 dose IV Lasix 40 mg. .. Follow clinically -2D echo in a.m. 2. Diabetes type 2 -acceptable control on current regimen. .. Continue outpatient therapies -lispro correctional scale -adjust as indicated 3. Hypertension -acceptable control -adjust as indicated 4. Hypothyroidism -continue outpatient supplements Full code Lovenox Patient will require at least 2 midnights going forward of inpatient hospitalization for IV antibiotics for lower extremity cellulitis along with IV Lasix for edema. She has failed outpatient therapy with oral Lasix and therefore will be admitted for IV therapy. Quality Stroke Does the patient have a stroke diagnosis?: No VTE Prior VTE?: No VTE Risk Level:: Medical - moderate - high VTE Device Contraindication: Treatment Not Indicated VTE Drug Contraindication: N/A - Med Ordered
[2023-08-02 15:45] VITALS: BP 140/69; PULSE 97; RESP 16; TEMP 36.2; O2SAT 99
[2023-08-02] MEDS: Heparin Sodium,Porcine Flush 50 UNITS, 0.9 % Sodium Chloride Flush 5 ML IVFLUSH ×2 (15:57→20:24)
[2023-08-02] MEDS: Furosemide 40 MG/4 ML VIAL IVPUSH (15:57)
[2023-08-02 16:20] LABS: Glucose, Whole Blood 195 mg/dL (60-115)
[2023-08-02] MEDS: Insulin Lispro 100 UNIT/ML 3 ML VIAL SUBCUT ×2 (16:44→20:24)
[2023-08-02] MEDS: Enoxaparin Sodium 40 MG/0.4 ML SYRINGE SUBCUT (18:18)
[2023-08-02 19:41] VITALS: BP 158/90; PULSE 88; RESP 16; TEMP 36.5; O2SAT 95
[2023-08-02 20:12] LABS: Glucose, Whole Blood 162 mg/dL (60-115)
[2023-08-02] MEDS: Gabapentin 100 MG CAPSULE PO (20:24)
[2023-08-02] MEDS: vancomycin HCL 1,000 MG in 0.9 % Sodium Chloride 250 ML 270 MG IV (20:33)
[2023-08-03 03:12] VITALS: BP 165/85; PULSE 100; RESP 18; TEMP 36.5; O2SAT 98
[2023-08-03] MEDS: Omeprazole 20 MG CAPSULE.DR PO (05:57)
[2023-08-03] MEDS: Piperacillin Sodium/Tazobactam 2.25 GM in 0.9 % Sodium Chloride 50 ML IV ×4 (05:57→23:18)
[2023-08-03] MEDS: Levothyroxine Sodium 50 MCG TABLET PO (05:57)
[2023-08-03 06:30] LABS: MANUAL DIFF FLAG NO
[2023-08-03 06:35] LABS: Basophils Absolute Auto 0.1 X10*3/uL (0.0-0.2); Basophils Percent Auto 0.5 % (0-2); Eosinophils Absolute Auto 0.5 X10*3/uL (0.0-0.4); Eosinophils Percent Auto 5.5 % (0-4); Hematocrit 34.6 % (37.0-47.0); Hemoglobin 10.9 g/dl (12.0-16.0); Imm Gran Abs Auto 0.05 X10*3/uL (0.00-0.03); Imm Gran Pct Auto 0.5 % (0.0-0.4); Lymphocytes Absolute Auto 1.6 X10*3/uL (1.2-4.9); Mean Corpuscular HGB Conc 31.5 g/dl (31.0-35.0); Mean Corpuscular Hemoglobin 26.7 pg (27.0-33.0); Mean Corpuscular Volume 84.6 fL (80.0-98.0); Mean Platelet Volume 11.3 fL (9.4-12.3); Monocytes Absolute Auto 0.7 X10*3/uL (0.1-1.2); Monocytes Percent Auto 7.9 % (2-11); Neutrophils Absolute Auto 6.4 x10*3/uL (2.0-8.3); Neutrophils Percent Auto 68.6 % (45-73); Platelet Count 228 X10*3/uL (160-400); Red Blood Count 4.09 X10*6/uL (4.20-5.50); Red Cell Distribution Width 14.5 % (11.0-16.0); White Blood Count 9.3 X10*3/uL (4.8-10.8)
[2023-08-03 06:52] LABS: Alanine Aminotransferase 10 U/L (0-31); Albumin Level 3.5 g/dL (3.5-5.0); Alkaline Phosphatase 63 U/L (39-117); Anion Gap 13 (12-20); Aspartate Amino Transferase 16 U/L (5-31); Bilirubin Total 0.4 mg/dL (0.0-1.0); Blood Urea Nitrogen 30 mg/dL (9-16); Calcium 9.7 mg/dL (8.4-10.2); Carbon Dioxide 29 mmol/L (22-29); Chloride 103 mmol/L (96-108); Creatinine Clr Calc Pharmacy 42.4; Estimated Glomerular Filt Rate > 60; Glucose Random 133 mg/dL (60-115); Potassium 3.8 mmol/L (3.3-5.1); Sodium 141 mmol/L (135-145); Total Protein 6.2 g/dL (6.5-8.0)
[2023-08-03 07:28] VITALS: BP 138/66; PULSE 105; RESP 16; TEMP 36.1; O2SAT 98
[2023-08-03 07:46] LABS: Glucose, Whole Blood 135 mg/dL (60-115)
[2023-08-03] MEDS: 0.9 % Sodium Chloride Flush 3 ML SYRINGE IVFLUSH ×3 (07:55→23:18)
[2023-08-03] MEDS: Multivitamin TABLET 1 TAB PO (07:56)
[2023-08-03] MEDS: Heparin Sodium,Porcine Flush 50 UNITS, 0.9 % Sodium Chloride Flush 5 ML IVFLUSH ×3 (07:56→19:51)
[2023-08-03] MEDS: Cholecalciferol (Vitamin D3) 25 MCG TABLET 50 MCG PO (07:56)
[2023-08-03] MEDS: metFORMIN HCl ER 500 MG TAB.ER.24H PO (07:56)
[2023-08-03] MEDS: Metoprolol Succinate ER 100 MG TAB.ER.24H PO (07:56)
[2023-08-03] MEDS: Losartan Potassium 50 MG TABLET PO (07:57)
[2023-08-03 11:18] LABS: Glucose, Whole Blood 173 mg/dL (60-115)
[2023-08-03] MEDS: Insulin Lispro 100 UNIT/ML 3 ML VIAL SUBCUT (11:35)
--- NOTE | 2023-08-03 13:45 | HO.PM.IMPN ---
Subjective Subjective Date of Service: 08/03/23 Interval History: Remains tolerant of therapies. Leg edema markedly improved given reclined position since admission. Erythema improving. No acute issues Review of Systems Denies chest pain Denies shortness of breath Denies nausea vomiting and diarrhea Denies fever chills Physical Exam Vital Signs: Vital Signs: Last Vital Signs Temp 96.9 F 08/03/23 07:28 Pulse 105 H 08/03/23 07:28 Resp 16 08/03/23 07:28 BP 138/66 08/03/23 07:28 Pulse Ox 98 08/03/23 07:28 O2 Del Method Room Air 08/03/23 07:28 BMI result Body Mass Index 26.3 Const: Other: Awake alert no acute distress Resp: Other: Clear to auscultation bilaterally no rales rhonchi or wheeze Cardio: Other: No S4; positive S1-S2; no S3 murmurs rubs or gallops GI: Other: Soft nontender nondistended normoactive bowel sounds Neuro: Other: Cranial nerves 2-12 grossly intact as tested. Motor is 5/5 all extremities. Sensation is intact. Extrem: Other: Bilateral lower extremity pitting edema with erythema from tibial plateau to dorsum of bilateral feet Objective Data Active Medications Acetaminophen (Acetaminophen 325 Mg Tablet) 650 mg PO Q6H PRN PRN Reason: Pain, Mild (Pain Scale 1-3) Last Admin: 08/01/23 21:08 Dose: 650 mg Documented By: HANNA Heparin Sodium (Porcine) 50 (units/ Sodium Chloride 5 ml) 0 units IVFLUSH TID [facility] Last Admin: 08/03/23 07:56 Dose: 10 unit Documented By: JOSE Dextrose (Dextrose 50 % 25 Gm/50 Ml Syringe) 25 gm IVPUSH Q15M PRN; Protocol PRN Reason: per Hypoglycemia Standing Ord. Enoxaparin Sodium (Enoxaparin Sodium 40 Mg/0.4 Ml Syringe) 40 mg SUBCUT Q24H [facility] Last Admin: 08/02/23 18:18 Dose: 40 mg Documented By: JOSE Gabapentin (Gabapentin 100 Mg Capsule) 100 mg PO BEDTIME [facility] Last Admin: 08/02/23 20:24 Dose: 100 mg Documented By: SOFÍA Glucose (Glucose Gel 15 Gm Gel..Gram.) 15 gm PO Q15M PRN; Protocol PRN Reason: per Hypoglycemia Standing Ord. Hydromorphone HCl (Hydromorphone Hcl 0.5 Mg/0.5 Ml Syringe) 0.25 mg IVPUSH Q4H PRN; Protocol PRN Reason: Pain, Severe (Pain Scale 7-10) Last Admin: 08/02/23 21:42 Dose: 0.25 mg Documented By: SOFÍA Cefazolin Sodium/Dextrose (Ancef) 2 gm in 50 mls @ 100 mls/hr IV ONCE [facility] Last Infusion: 08/01/23 17:48 Dose: Infused Documented By: KEAGAN Vancomycin HCl 1,000 mg/ (Sodium Chloride) 270 mls @ 270 mls/hr IV Q24H [facility] Last Infusion: 08/02/23 21:44 Dose: Infused Documented By: SOFÍA Piperacillin Sod/Tazobactam (Sod 2.25 gm/ Sodium Chloride) 50 mls @ 100 mls/hr IV Q6H [facility] Last Infusion: 08/03/23 12:55 Dose: Infused Documented By: JOSE Insulin Human Lispro (Insulin Lispro 100 Unit/Ml 3 Ml Vial) 0 unit SUBCUT QIDACHS [facility]; Protocol Last Admin: 08/03/23 11:35 Dose: 2 unit Documented By: JOSE Levothyroxine Sodium (Levothyroxine Sodium 50 Mcg Tablet) 50 mcg PO DAILY@0600 [facility] Last Admin: 08/03/23 05:57 Dose: 50 mcg Documented By: SOFÍA Losartan Potassium (Losartan Potassium 50 Mg Tablet) 50 mg PO DAILY [facility]; Protocol Last Admin: 08/03/23 07:57 Dose: 50 mg Documented By: JOSE Metformin HCl (Metformin Hcl Er 500 Mg Tab.Er.24h) 500 mg PO DAILY@0730 [facility] Last Admin: 08/03/23 07:56 Dose: 500 mg Documented By: JOSE Metoprolol Succinate (Metoprolol Succinate Er 100 Mg Tab.Er.24h) 100 mg PO DAILY [facility]; Protocol Last Admin: 08/03/23 07:56 Dose: 100 mg Documented By: JOSE Multivitamins/Vitamin C (Multivitamin Tablet) 1 tab PO DAILY [facility] Last Admin: 08/03/23 07:56 Dose: 1 tab Documented By: JOSE Non-Formulary Medication (Alendronate) 70 mg PO ONCE ONE Stop: 08/03/23 06:03 Omeprazole (Omeprazole 20 Mg Eri.) 20 mg PO DAILY@0630 [facility] Last Admin: 08/03/23 05:57 Dose: 20 mg Documented By: SOFÍA Ondansetron HCl (Ondansetron Hcl 4 Mg/2 Ml Vial) 4 mg IVPUSH Q8H PRN PRN Reason: Nausea and Vomiting Pharmacy Consult (Consult Rx Vancomycin Dosing) 1 each MISCELLANE DAILY PRN PRN Reason: Consult order Sodium Chloride (0.9 % Sodium Chloride Flush 3 Ml Syringe) 3 ml IVFLUSH QSHIFT [facility] Last Admin: 08/03/23 07:55 Dose: 3 ml Documented By: JOSE Vitamin D (Cholecalciferol (Vitamin D3) 25 Mcg Tablet) 50 mcg PO DAILY [facility] Last Admin: 08/03/23 07:56 Dose: 50 mcg Documented By: JOSE Labs 08/03/23 05:52 08/03/23 05:52 Labs: Laboratory Results - last 24 hr 08/02/23 08/02/23 08/03/23 16:07 20:08 05:52 MCV 84.6 MCH 26.7 L MCHC 31.5 RDW 14.5 Plt Count 228 MPV 11.3 Immature Gran % (Auto) 0.5 H Neut % (Auto) 68.6 Lymph % (Auto) 17.0 L [place] % (Auto) 7.9 Eos % (Auto) 5.5 H Baso % (Auto) 0.5 Lymph # (Auto) 1.6 [place] # (Auto) 0.7 Eos # (Auto) 0.5 H Baso # (Auto) 0.1 Abs Immat Gran (auto) 0.05 H Absolute Neuts (auto) 6.4 Absolute Nucleated RBC 0.000 Nucleated RBC % (auto) 0.0 Anion Gap 13 Estim Creat Clear Calc 42.4 Estimated GFR > 60 POC Glucose 195 H 162 H Random Glucose 133 H Calcium 9.7 Total Bilirubin 0.4 AST 16 ALT 10 Alkaline Phosphatase 63 Total Protein 6.2 L Albumin 3.5 08/03/23 08/03/23 07:39 11:15 MCV MCH MCHC RDW Plt Count MPV Immature Gran % (Auto) Neut % (Auto) Lymph % (Auto) [place] % (Auto) Eos % (Auto) Baso % (Auto) Lymph # (Auto) [place] # (Auto) Eos # (Auto) Baso # (Auto) Abs Immat Gran (auto) Absolute Neuts (auto) Absolute Nucleated RBC Nucleated RBC % (auto) Anion Gap Estim Creat Clear Calc Estimated GFR POC Glucose 135 H 173 H Random Glucose Calcium Total Bilirubin AST ALT Alkaline Phosphatase Total Protein Albumin Microbiology Microbiology Results: Microbiology 08/01/23 14:56 Blood Culture - Preliminary Blood - Venous No growth after 24 hours. 08/01/23 14:55 Blood Culture - Preliminary Blood - Venous No growth after 24 hours. Assessment and Plan (1) Bilateral lower leg cellulitis: Status: Acute (2) Diabetes type 2, controlled: Status: Acute Plan 87-year-old female with a history of type 2 diabetes, hypertension hypothyroidism presents with bilateral lower extremity cellulitis. She states this started out with worsening edema for which she attempted oral Lasix without results. Today could not ambulate without extreme pain and sought treatment in the emergency room. She will be admitted for treatment of lower extremity edema with cellulitis 1. Lower extremity cellulitis (history of diabetes) -vanco/Zosyn (2) -excellent response to Lasix. .. Follow-up clinically -2D echo demonstrates LVEF of 60-65%. -blood cultures negative times 24 hours 2. Diabetes type 2 -acceptable control on current regimen. .. Continue outpatient therapies -lispro correctional scale -adjust as indicated 3. Hypertension -acceptable control -adjust as indicated 4. Hypothyroidism -continue outpatient supplements Full code Lovenox Patient require ongoing hospitalization secondary to need for IV antibiotics and close monitoring of respiratory status. Quality Stroke Does the patient have a stroke diagnosis?: No VTE Prior VTE?: No VTE Risk Level:: Medical - moderate - high VTE Device Contraindication: Treatment Not Indicated VTE Drug Contraindication: N/A - Med Ordered
[2023-08-03] MEDS: HYDROmorphone HCl 0.5 MG/0.5 ML SYRINGE 0.25 MG IVPUSH (14:29)
--- NOTE | 2023-08-03 14:34 | P.CDIM_ITS ---
PROVIDER RESPONSE TEXT: To clarify, the appropriate diagnosis supported by the clinical indicators: No cellulitis is not related to / associated with / due to the Diabetes mellitus QUERY TEXT: PHYSICIAN'S DOCUMENTATION REQUEST Date of Query: 08/02/2023 12:48 PM EST Patient Name: Lory Piña Admit Date: 08/01/2023 Dear Elton Madsen, A review of the medical record indicates additional documentation may be needed. Please review below and update the documentation accordingly. Clinical Indicators: Lower extremity cellulitis (history of diabetes) Vanco/Zosyn bilateral venous duplex in am Diabetes type 2 lower extremity edema with cellulitis Please clarify the relationship between these conditions: Cellulitis is related to / associated with / due to Diabetes mellitus No cellulitis is not related to / associated with / due to the Diabetes mellitus Other (explain) Clinically unable to determine (explain) Thank you, Gladys Jules, CCS, CDIS Use of terms such as suspected, likely, concern for, or probable (associated with a specific diagnosi s that is being evaluated, monitored, or treated as if it exists) are acceptable and can be coded in the inpatient se tting, when documented at the time of discharge. Please use your independent medical judgment in providing your response. THIS QUERY IS PART OF THE PERMANENT MEDICAL RECORD
--- NOTE | 2023-08-03 15:38 | MHC.CM.PN ---
Per MD rounds no discharge today. Patient has been referred to NA at her request. DP home with [facility]. She will arrange for a ride home.
[2023-08-03 15:54] VITALS: BP 123/65; PULSE 106; RESP 18; TEMP 36.9; O2SAT 97
[2023-08-03] MEDS: HYDROcodone Bit/Acetam 5/325 TABLET 1 TAB PO ×2 (15:59→19:50)
[2023-08-03 16:20] LABS: Glucose, Whole Blood 133 mg/dL (60-115)
[2023-08-03] MEDS: Enoxaparin Sodium 40 MG/0.4 ML SYRINGE SUBCUT (18:32)
[2023-08-03 19:23] VITALS: BP 135/66; PULSE 103; RESP 18; TEMP 36.8; O2SAT 96
[2023-08-03] MEDS: Gabapentin 100 MG CAPSULE PO (19:50)
[2023-08-03] MEDS: vancomycin HCL 1,000 MG in 0.9 % Sodium Chloride 250 ML 270 MG IV (19:50)
[2023-08-03 20:00] LABS: Glucose, Whole Blood 150 mg/dL (60-115)
[2023-08-04 03:03] VITALS: BP 152/86; PULSE 88; RESP 18; TEMP 37.1; O2SAT 98
[2023-08-04] MEDS: Piperacillin Sodium/Tazobactam 2.25 GM in 0.9 % Sodium Chloride 50 ML IV ×4 (05:33→23:50)
[2023-08-04] MEDS: HYDROcodone Bit/Acetam 5/325 TABLET 1 TAB PO ×3 (06:04→16:34)
[2023-08-04] MEDS: Levothyroxine Sodium 50 MCG TABLET PO (06:05)
[2023-08-04] MEDS: Omeprazole 20 MG CAPSULE.DR PO (06:05)
[2023-08-04 07:13] LABS: MANUAL DIFF FLAG NO
[2023-08-04 07:21] LABS: Basophils Percent Auto 0.4 % (0-2); Eosinophils Absolute Auto 0.3 X10*3/uL (0.0-0.4); Hematocrit 33.1 % (37.0-47.0); Hemoglobin 10.3 g/dl (12.0-16.0); Imm Gran Abs Auto 0.04 X10*3/uL (0.00-0.03); Imm Gran Pct Auto 0.4 % (0.0-0.4); Lymphocytes Absolute Auto 1.2 X10*3/uL (1.2-4.9); Lymphocytes Percent Auto 13.1 % (20-40); Mean Corpuscular HGB Conc 31.1 g/dl (31.0-35.0); Mean Corpuscular Hemoglobin 26.7 pg (27.0-33.0); Mean Corpuscular Volume 85.8 fL (80.0-98.0); Mean Platelet Volume 11.1 fL (9.4-12.3); Monocytes Absolute Auto 0.8 X10*3/uL (0.1-1.2); Monocytes Percent Auto 8.7 % (2-11); Neutrophils Absolute Auto 6.7 x10*3/uL (2.0-8.3); Neutrophils Percent Auto 74.4 % (45-73); Platelet Count 204 X10*3/uL (160-400); Red Blood Count 3.86 X10*6/uL (4.20-5.50); Red Cell Distribution Width 14.6 % (11.0-16.0)
[2023-08-04 07:29] LABS: Alanine Aminotransferase 9 U/L (0-31); Albumin Level 3.2 g/dL (3.5-5.0); Alkaline Phosphatase 53 U/L (39-117); Anion Gap 12 (12-20); Aspartate Amino Transferase 12 U/L (5-31); Bilirubin Total 0.6 mg/dL (0.0-1.0); Blood Urea Nitrogen 21 mg/dL (9-16); Calcium 9.4 mg/dL (8.4-10.2); Carbon Dioxide 27 mmol/L (22-29); Chloride 104 mmol/L (96-108); Creatinine Clr Calc Pharmacy 42.4; Estimated Glomerular Filt Rate > 60; Glucose Random 141 mg/dL (60-115); Potassium 3.8 mmol/L (3.3-5.1); Sodium 139 mmol/L (135-145); Total Protein 5.8 g/dL (6.5-8.0)
[2023-08-04 07:35] LABS: Glucose, Whole Blood 128 mg/dL (60-115)
[2023-08-04 07:44] VITALS: BP 123/61; PULSE 92; RESP 16; TEMP 36.2; O2SAT 94
[2023-08-04] MEDS: Multivitamin TABLET 1 TAB PO (08:06)
[2023-08-04] MEDS: metFORMIN HCl ER 500 MG TAB.ER.24H PO (08:06)
[2023-08-04] MEDS: Cholecalciferol (Vitamin D3) 25 MCG TABLET 50 MCG PO (08:06)
[2023-08-04] MEDS: Metoprolol Succinate ER 100 MG TAB.ER.24H PO (08:06)
[2023-08-04] MEDS: Losartan Potassium 50 MG TABLET PO (08:06)
[2023-08-04] MEDS: Heparin Sodium,Porcine Flush 50 UNITS, 0.9 % Sodium Chloride Flush 5 ML IVFLUSH ×3 (08:07→21:10)
[2023-08-04 08:09] LABS: C Reactive Protein 5.82 mg/dL (< or = 0.50)
[2023-08-04 11:27] LABS: Glucose, Whole Blood 151 mg/dL (60-115)
--- NOTE | 2023-08-04 12:13 | MHC.CM.PN ---
Addendum entered by Mary Martinez 08/04/23 12:15: [facility] added to EMR. They have been notified that the patient will need her medication brought to her room, 385 at discharge. Original Note: Met with patient to review the discharge plan. She will discharge tomorrow with [facility], SN,PT and [facility]. A referral has been sent to [facility] for home making and personal care. DP home with [facility] via BLS for safety.
[2023-08-04] MEDS: Insulin Lispro 100 UNIT/ML 3 ML VIAL SUBCUT ×2 (12:27→16:22)
--- NOTE | 2023-08-04 12:30 | P.PNIM_ITS ---
Subjective Subjective Date of Service: 08/04/23 Interval History: pain, leg redness improved no fever Review of Systems Review of Systems: Yes all other systems are reviewed and are negative Physical Exam 2 Vital Signs: Vital Signs: Last Vital Signs Temp 97.1 F 08/04/23 07:44 Pulse 92 08/04/23 07:44 Resp 16 08/04/23 07:44 BP 123/61 08/04/23 07:44 Pulse Ox 94 08/04/23 07:44 O2 Del Method Room Air 08/04/23 07:44 BMI result Body Mass Index 26.3 Gen: in no acute distress HEENT: sclera anicteric, moist mucus membranes Neck: supple Lungs: clear to auscultation bilaterally Heart: regular rate and rhythm, no murmurs Abd: soft, non-tender, non-distended Ext: no edema, RUE midline catheter Skin: warm/well-perfused, bilateral [place] bright-red erythema and induration, no fluctuance Neuro: alert and oriented x3, no focal findings Psych: appropriate affect Objective Data Active Medications Acetaminophen (Acetaminophen 325 Mg Tablet) 650 mg PO Q6H PRN PRN Reason: Pain, Mild (Pain Scale 1-3) Last Admin: 08/01/23 21:08 Dose: 650 mg Documented By: HANNA Hydrocodone Bitart/Acetaminophen (Hydrocodone Bit/Acetam 5/325 Tablet) 1 tab PO Q4H PRN PRN Reason: moderate pain Last Admin: 08/04/23 06:04 Dose: 1 tab Documented By: SOFÍA Heparin Sodium (Porcine) 50 (units/ Sodium Chloride 5 ml) 0 units IVFLUSH TID [facility] Last Admin: 08/04/23 08:07 Dose: 50 unit Documented By: KRISTIN Dextrose (Dextrose 50 % 25 Gm/50 Ml Syringe) 25 gm IVPUSH Q15M PRN; Protocol PRN Reason: per Hypoglycemia Standing Ord. Enoxaparin Sodium (Enoxaparin Sodium 40 Mg/0.4 Ml Syringe) 40 mg SUBCUT Q24H [facility] Last Admin: 08/03/23 18:32 Dose: 40 mg Documented By: ROSINA Gabapentin (Gabapentin 100 Mg Capsule) 100 mg PO BEDTIME [facility] Last Admin: 08/03/23 19:50 Dose: 100 mg Documented By: ROSINA Glucose (Glucose Gel 15 Gm Gel..Gram.) 15 gm PO Q15M PRN; Protocol PRN Reason: per Hypoglycemia Standing Ord. Hydromorphone HCl (Hydromorphone Hcl 0.5 Mg/0.5 Ml Syringe) 0.25 mg IVPUSH Q4H PRN; Protocol PRN Reason: Pain, Severe (Pain Scale 7-10) Last Admin: 08/03/23 14:29 Dose: 0.25 mg Documented By: JOSE Cefazolin Sodium/Dextrose (Ancef) 2 gm in 50 mls @ 100 mls/hr IV ONCE [facility] Last Infusion: 08/01/23 17:48 Dose: Infused Documented By: KEAGAN Vancomycin HCl 1,000 mg/ (Sodium Chloride) 270 mls @ 270 mls/hr IV Q24H [facility] Last Infusion: 08/03/23 21:36 Dose: Infused Documented By: ROSINA Piperacillin Sod/Tazobactam (Sod 2.25 gm/ Sodium Chloride) 50 mls @ 100 mls/hr IV Q6H [facility] Last Admin: 08/04/23 12:28 Dose: 100 mls/hr Documented By: KRISTIN Insulin Human Lispro (Insulin Lispro 100 Unit/Ml 3 Ml Vial) 0 unit SUBCUT QIDACHS [facility]; Protocol Last Admin: 08/04/23 12:27 Dose: 2 unit Documented By: KRISTIN Levothyroxine Sodium (Levothyroxine Sodium 50 Mcg Tablet) 50 mcg PO DAILY@0600 [facility] Last Admin: 08/04/23 06:05 Dose: 50 mcg Documented By: SOFÍA Losartan Potassium (Losartan Potassium 50 Mg Tablet) 50 mg PO DAILY [facility]; Protocol Last Admin: 08/04/23 08:06 Dose: 50 mg Documented By: KRISTIN Metformin HCl (Metformin Hcl Er 500 Mg Tab.Er.24h) 500 mg PO DAILY@0730 [facility] Last Admin: 08/04/23 08:06 Dose: 500 mg Documented By: KRISTIN Metoprolol Succinate (Metoprolol Succinate Er 100 Mg Tab.Er.24h) 100 mg PO DAILY [facility]; Protocol Last Admin: 08/04/23 08:06 Dose: 100 mg Documented By: KRISTIN Multivitamins/Vitamin C (Multivitamin Tablet) 1 tab PO DAILY [facility] Last Admin: 08/04/23 08:06 Dose: 1 tab Documented By: KRISTIN Omeprazole (Omeprazole 20 Mg Capsule.) 20 mg PO DAILY@0630 [facility] Last Admin: 08/04/23 06:05 Dose: 20 mg Documented By: SOFÍA Ondansetron HCl (Ondansetron Hcl 4 Mg/2 Ml Vial) 4 mg IVPUSH Q8H PRN PRN Reason: Nausea and Vomiting Pharmacy Consult (Consult Rx Vancomycin Dosing) 1 each MISCELLANE DAILY PRN PRN Reason: Consult order Sodium Chloride (0.9 % Sodium Chloride Flush 3 Ml Syringe) 3 ml IVFLUSH QSHIFT [facility] Last Admin: 08/04/23 08:14 Dose: Not Given Documented By: KRISTIN Non-Admin Reason: Previously Administered Vitamin D (Cholecalciferol (Vitamin D3) 25 Mcg Tablet) 50 mcg PO DAILY [facility] Last Admin: 08/04/23 08:06 Dose: 50 mcg Documented By: KRISTIN Labs 08/04/23 07:00 08/04/23 07:00 Labs: Laboratory Results - last 24 hr 08/03/23 08/03/23 08/04/23 16:10 19:56 07:00 MCV 85.8 MCH 26.7 L MCHC 31.1 RDW 14.6 Plt Count 204 MPV 11.1 Immature Gran % (Auto) 0.4 Neut % (Auto) 74.4 H Lymph % (Auto) 13.1 L [place] % (Auto) 8.7 Eos % (Auto) 3.0 Baso % (Auto) 0.4 Lymph # (Auto) 1.2 [place] # (Auto) 0.8 Eos # (Auto) 0.3 Baso # (Auto) 0.0 Abs Immat Gran (auto) 0.04 H Absolute Neuts (auto) 6.7 Absolute Nucleated RBC 0.000 Nucleated RBC % (auto) 0.0 Anion Gap 12 Estim Creat Clear Calc 42.4 Estimated GFR > 60 POC Glucose 133 H 150 H Random Glucose 141 H Calcium 9.4 Total Bilirubin 0.6 AST 12 ALT 9 Alkaline Phosphatase 53 C-Reactive Protein 5.82 H Total Protein 5.8 L Albumin 3.2 L 08/04/23 08/04/23 07:22 11:02 MCV MCH MCHC RDW Plt Count MPV Immature Gran % (Auto) Neut % (Auto) Lymph % (Auto) [place] % (Auto) Eos % (Auto) Baso % (Auto) Lymph # (Auto) [place] # (Auto) Eos # (Auto) Baso # (Auto) Abs Immat Gran (auto) Absolute Neuts (auto) Absolute Nucleated RBC Nucleated RBC % (auto) Anion Gap Estim Creat Clear Calc Estimated GFR POC Glucose 128 H 151 H Random Glucose Calcium Total Bilirubin AST ALT Alkaline Phosphatase C-Reactive Protein Total Protein Albumin Microbiology Microbiology Results: Microbiology 08/01/23 14:56 Blood Culture - Preliminary Blood - Venous No growth after 48 hours. 08/01/23 14:55 Blood Culture - Preliminary Blood - Venous No growth after 48 hours. Assessment and Plan (1) Bilateral lower leg cellulitis: Status: Acute (2) Diabetes type 2, controlled: Status: Acute Plan d4 87yo F with DM2, HTN, hypothyroidism admitted for bilateral leg cellulitis bilateral leg cellulitis associated with diabetes - d3 vanco + pip/keon - TTE 08/02/23: 1. Normal LV ejection fraction 60 65% with mild LVH with elevated filling pressures with on some views appears to have mid cavitary obstructive physiology 2. Increased gradient across the aortic valve may suggest mild early aortic stenosis and/or subaortic obstruction, not clear on this study 3. No gross pericardial effusion - BCx negative DM2 - correction-dose lispro, MTF HTN - continue losartan, metoprolol hypothyroidism - continue LT4 VTE ppx - LMWH dispo - anticipate home with VNA likely in next 1-2d In my clinical judgment, the patient requires continued inpatient hospitalization for the following reasons: IV ABX Total time managing care of this patient today: 35 minutes. Quality Stroke Does the patient have a stroke diagnosis?: No VTE Prior VTE?: No VTE Risk Level:: Medical - moderate - high VTE Device Contraindication: Treatment Not Indicated VTE Drug Contraindication: N/A - Med Ordered
[2023-08-04 15:17] VITALS: BP 136/63; PULSE 92; RESP 16; TEMP 36.6; O2SAT 99
[2023-08-04 16:08] LABS: Glucose, Whole Blood 154 mg/dL (60-115)
[2023-08-04] MEDS: Enoxaparin Sodium 40 MG/0.4 ML SYRINGE SUBCUT (17:57)
[2023-08-04 18:35] LABS: Vancomycin Trough 9.2 mcg/mL (10.0-20.0)
--- NOTE | 2023-08-04 18:55 | HE.PHANOTE ---
VANCO DOSE ADJUSTMENT BASED ON SCR AND TROUGH OF 9.2 DOSE CHANGED FROM 1000 Q 24 TO 1250 Q 24. NEXT TROUGH ON 08/06 @ 1999 PREDICTED AUC OF 475
[2023-08-04 19:37] VITALS: BP 157/74; PULSE 87; RESP 16; TEMP 36.1; O2SAT 97
[2023-08-04 20:59] LABS: Glucose, Whole Blood 149 mg/dL (60-115)
[2023-08-04] MEDS: vancomycin HCL 1,250 MG in 0.9 % Sodium Chloride 250 ML 166.67 MG IV (21:10)
[2023-08-05] MEDS: 0.9 % Sodium Chloride Flush 3 ML SYRINGE IVFLUSH (01:51)
[2023-08-05 03:51] VITALS: BP 138/70; PULSE 89; RESP 18; TEMP 36.5; O2SAT 96
[2023-08-05] MEDS: Piperacillin Sodium/Tazobactam 2.25 GM in 0.9 % Sodium Chloride 50 ML IV (05:36)
[2023-08-05] MEDS: Omeprazole 20 MG CAPSULE.DR PO (05:36)
[2023-08-05] MEDS: Levothyroxine Sodium 50 MCG TABLET PO (05:36)
[2023-08-05 07:46] LABS: Glucose, Whole Blood 94 mg/dL (60-115)
[2023-08-05 07:59] VITALS: BP 146/67; PULSE 100; RESP 18; TEMP 36; O2SAT 98
[2023-08-05] MEDS: HYDROcodone Bit/Acetam 5/325 TABLET 1 TAB PO (08:39)
[2023-08-05] MEDS: Losartan Potassium 50 MG TABLET PO (08:40)
[2023-08-05] MEDS: Metoprolol Succinate ER 100 MG TAB.ER.24H PO (08:40)
[2023-08-05] MEDS: Multivitamin TABLET 1 TAB PO (08:40)
[2023-08-05] MEDS: Cholecalciferol (Vitamin D3) 25 MCG TABLET 50 MCG PO (08:40)
[2023-08-05] MEDS: Heparin Sodium,Porcine Flush 50 UNITS, 0.9 % Sodium Chloride Flush 5 ML IVFLUSH (08:41)
[2023-08-05] MEDS: metFORMIN HCl ER 500 MG TAB.ER.24H PO (08:41)
[2023-08-05 11:16] LABS: Glucose, Whole Blood 174 mg/dL (60-115)
--- NOTE | 2023-08-05 11:40 | P.F2F_ITS ---
Service Date Service Date: 08/05/23 Encounter Date of encounter: 08/05/23 Reasons for Services Signs and symptoms assessed: cellulitis weakness/balance Reason for senior care: medication management, medication treatment and teach disease management Reason for physical therapy: home safety and mobility, therapeutic exercises, gait/transfer training, assess need for DME, ADL training and energy conservation MD Overseeing Care: Jose Alberto Bridges Homebound: Leaving the home is medically contraindicated at this time without the asist of a device and/or another person due th the listed conditions above and below. Reason homebound: unsteady gait / fall risk and weakness related to hospital stay Certification: Based on the above findings, I certify that this patient is confined to the home and needs intermittent senior care care, physical therapy and/or speech therapy, or continues to need occupational therapy. The patient is under my care, and I have initiated the establishment of the plan of care. The patient will be followed by a physician who will periodically review the plan of care. Time Spent With Patient Time: Total time managing care of this patient today ____ minutes.
[2023-08-05] MEDS: Insulin Lispro 100 UNIT/ML 3 ML VIAL SUBCUT (11:52)
--- NOTE | 2023-08-05 11:53 | P.F2F_ITS ---
Service Date Service Date: 08/05/23 Encounter Date of encounter: 08/05/23 Reasons for Services Signs and symptoms assessed: Cellulitis Reason for group home: medication management, medication treatment and teach disease management Reason for physical therapy: home safety and mobility, therapeutic exercises, gait/transfer training, assess need for DME, ADL training and energy conservation MD Overseeing Care: Jose Alberto Bridges Homebound: Leaving the home is medically contraindicated at this time without the asist of a device and/or another person due th the listed conditions above and below. Reason homebound: immunosuppression / infection risk and weakness related to hospital stay Certification: Based on the above findings, I certify that this patient is confined to the home and needs intermittent group home care, physical therapy and/or speech therapy, or continues to need occupational therapy. The patient is under my care, and I have initiated the establishment of the plan of care. The patient will be followed by a physician who will periodically review the plan of care. Time Spent With Patient Time: Total time managing care of this patient today ____ minutes.
--- NOTE | 2023-08-05 11:54 | PM.DS ---
DS: Providers Provider Date of Service: 08/05/23 Date of admission: 08/01/23 17:49 Date of discharge: 08/05/23 Primary care physician: Jose Alberto Bridges MD DS: Diagnosis Discharge Diagnosis (1) Bilateral lower leg cellulitis: Status: Acute (2) Diabetes type 2, controlled: Status: Acute DS: Summary Hospital Course Hospital Course: From the history and physical by the admitting hospitalist, 08/01/23, Elton Madsen DO: 87 y/o F patient; PMH T2DM, OA, sciatica, pulmonary hypertension, ulcerative colitis; presents from home reporting bilateral lower extremity swelling, redness, warmth, and pain. She states she has a history of lower extremity swelling but never this severe. She has been following with her PCP who prescribed her Lasix. She took 40mg, 40mg, 60mg, 80mg, 40mg over the last 5 days with minimal improvement. One day ago she noticed the lower extremity pain and redness which is what brought her to the ED today. She also reports intermittent chills yesterday 07/31/2023. She denies any history of prior DVT/PE. She denies any associated: nausea/vomiting, diarrhea, abdominal pain, chest pain, SOB, syncope, fever. ER Course Received Kefzol 2 g IV; chest x-ray unremarkable admission requested for treatment of cellulitis 87yo F with DM2, HTN, and hypothyroidism who was admitted to the medical-surgical floor for bilateral leg cellulitis associated with diabetes. She improved with 3 days of IV vancomycin plus piperacillin-tazobactam and was discharged on 4 days of PO doxycycline plus amoxicillin-clavulanate. No signs of CHF. TTE 08/02/23 showed: 1. Normal LV ejection fraction 60 65% with mild LVH with elevated filling pressures with on some views appears to have mid cavitary obstructive physiology 2. Increased gradient across the aortic valve may suggest mild early aortic stenosis and/or subaortic obstruction, not clear on this study 3. No gross pericardial effusion These findings may be followed up with outpatient cardiology consultation. She was discharged home with [facility] services. Time Attestation Discharge coordination time: Greater than 30 minutes Quality: Safe Use of Opioids Does Pt have an Active Cancer Diagnosis on the Problem List?: No Quality: Stroke Does the patient have a stroke diagnosis?: No Physical Exam Vital Signs: Vital Signs: Last Vital Signs Temp 96.8 F 08/05/23 07:59 Pulse 100 08/05/23 07:59 Resp 18 08/05/23 07:59 BP 146/67 H 08/05/23 07:59 Pulse Ox 98 08/05/23 07:59 O2 Del Method Room Air 08/05/23 07:59 BMI result Body Mass Index 26.3 Gen: in no acute distress HEENT: sclera anicteric, moist mucus membranes Neck: supple Lungs: clear to auscultation bilaterally Heart: regular rate and rhythm, no murmurs Abd: soft, non-tender, non-distended Ext: no edema, RUE midline catheter Skin: warm/well-perfused, postinflammatory pigmentation of anterior shins bilaterally with induration, no fluctuance Neuro: alert and oriented x3, no focal findings Psych: appropriate affect DS: Data Data Completed and Pending Completed studies during hospitalization [Text1]: Laboratory Results WBC 9.0 X10*3/uL (4.8-10.8) 08/04/23 07:00 RBC 3.86 X10*6/uL (4.20-5.50) L 08/04/23 07:00 Hgb 10.3 g/dl (12.0-16.0) L 08/04/23 07:00 Hct 33.1 % (37.0-47.0) L 08/04/23 07:00 MCV 85.8 fL (80.0-98.0) 08/04/23 07:00 MCH 26.7 pg (27.0-33.0) L 08/04/23 07:00 MCHC 31.1 g/dl (31.0-35.0) 08/04/23 07:00 RDW 14.6 % (11.0-16.0) 08/04/23 07:00 Plt Count 204 X10*3/uL (160-400) 08/04/23 07:00 MPV 11.1 fL (9.4-12.3) 08/04/23 07:00 Immature Gran % (Auto) 0.4 % (0.0-0.4) 08/04/23 07:00 Neut % (Auto) 74.4 % (45-73) H 08/04/23 07:00 Lymph % (Auto) 13.1 % (20-40) L 08/04/23 07:00 [place] % (Auto) 8.7 % (2-11) 08/04/23 07:00 Eos % (Auto) 3.0 % (0-4) 08/04/23 07:00 Baso % (Auto) 0.4 % (0-2) 08/04/23 07:00 Lymph # (Auto) 1.2 X10*3/uL (1.2-4.9) 08/04/23 07:00 [place] # (Auto) 0.8 X10*3/uL (0.1-1.2) 08/04/23 07:00 Eos # (Auto) 0.3 X10*3/uL (0.0-0.4) 08/04/23 07:00 Baso # (Auto) 0.0 X10*3/uL (0.0-0.2) 08/04/23 07:00 Abs Immat Gran (auto) 0.04 X10*3/uL (0.00-0.03) H 08/04/23 07:00 Absolute Neuts (auto) 6.7 x10*3/uL (2.0-8.3) 08/04/23 07:00 Absolute Nucleated RBC 0.000 X10*3/uL (0.0-0.012) 08/04/23 07:00 Nucleated RBC % (auto) 0.0 /100WBC (0.0-0.2) 08/04/23 07:00 Smear Tech's Comments VERIFIED 08/01/23 14:55 ESR 40 MM/HR (0-20) H 08/01/23 14:55 Sodium 139 mmol/L (135-145) 08/04/23 07:00 Potassium 3.8 mmol/L (3.3-5.1) 08/04/23 07:00 Chloride 104 mmol/L (96-108) 08/04/23 07:00 Carbon Dioxide 27 mmol/L (22-29) 08/04/23 07:00 Anion Gap 12 (12-20) 08/04/23 07:00 BUN 21 mg/dL (9-16) H 08/04/23 07:00 Creatinine 0.73 mg/dL (0.5-1.4) 08/04/23 07:00 Estim Creat Clear Calc 42.4 08/04/23 07:00 Estimated GFR > 60 08/04/23 07:00 POC Glucose 174 mg/dL (60-115) H 08/05/23 11:09 Random Glucose 141 mg/dL (60-115) H 08/04/23 07:00 Lactic Acid 1.9 mmol/L (0.5-2.0) 08/01/23 14:55 Calcium 9.4 mg/dL (8.4-10.2) 08/04/23 07:00 Total Bilirubin 0.6 mg/dL (0.0-1.0) 08/04/23 07:00 Direct Bilirubin 0.1 mg/dL (0.0-0.5) 08/01/23 14:55 AST 12 U/L (5-31) 08/04/23 07:00 ALT 9 U/L (0-31) 08/04/23 07:00 Alkaline Phosphatase 53 U/L (39-117) 08/04/23 07:00 C-Reactive Protein 5.82 mg/dL (< or = 0.50) H 08/04/23 07:00 B-Natriuretic Peptide 59 pg/mL (<100) 08/01/23 14:55 Total Protein 5.8 g/dL (6.5-8.0) L 08/04/23 07:00 Albumin 3.2 g/dL (3.5-5.0) L 08/04/23 07:00 Lipase 28 U/L (8-78) 08/01/23 14:55 Vancomycin Trough 9.2 mcg/mL (10.0-20.0) L 08/04/23 17:58 Impressions Chest X-Ray 08/01/23 15:53 IMPRESSION: 1. Clear lungs. 2. Left humeral head is high riding with loss of subacromial joint space which could be seen in the setting of rotator cuff pathology. Discharge Plan Discharge Anticipated Discharge Date/Time: 08/05/23 11:42 Patient Disposition: Home Health Service Discharge Diagnosis: cellulitis Referrals: [facility] [Outside] - 1 Week Jose Alberto Bridges MD [Primary Care Provider] - 1 Week Discharge Medications: New doxycycline monohydrate 100 mg tablet 100 mg PO BID Qty: 8 0RF amoxicillin-pot clavulanate 875-125 mg tablet 1 tab PO BID Qty: 8 0RF Continued metoprolol succinate 100 mg tablet extended release 24 hr 100 mg PO DAILY omeprazole 20 mg capsule,delayed release(DR/EC) 20 mg PO DAILY metformin 500 mg tablet extended release 24 hr 500 mg PO DAILY@0730 naproxen sodium [Aleve] 220 mg Capsule 220 mg PO Q12H PRN (Reason: Pain) Probiotic Blend 2 billion cell-50 mg Capsule 1 cap PO DAILY furosemide 40 mg tablet 40 mg PO DAILY PRN (Reason: Edema) magnesium oxide 500 mg Tablet 500 mg PO DAILY losartan 50 mg tablet 50 mg PO DAILY gabapentin 100 mg capsule 100 mg PO BEDTIME alendronate 70 mg tablet 70 mg PO WE diclofenac sodium 1 % gel 4 g topical QID PRN (Reason: SHOULDER PAIN) Rx Instructions: apply to single knee, ankle, foot; for foot includes sole/toes/top of foot levothyroxine 50 mcg capsule 50 mcg PO DAILY cholecalciferol (vitamin D3) 50 mcg (2,000 unit) capsule 50 mcg PO DAILY vitamin B complex [B Complex-Vitamin B12] Tablet 1 tab PO DAILY Discharge Orders: Discharge Order (Routine); Ordered 08/05/23 Ordered By: Garrett Scott Diet: Diabetic diet Activity on Discharge: As tolerated Stand Alone Forms: Patient Portal Discharge page Care Plan Goals: cure of infection Health Concerns: cellulitis Plan of Treatment: take doxycycline monohydrate 100 mg twice daily PLUS amoxicillin-clavulanate 100 mg twice daily for 4 days Please follow up with your primary care doctor within 1 week. Return to the hospital if you experience recurrent or worsening symptoms. Assessment: See Discharge Summary.
--- NOTE | 2023-08-05 12:13 | MHC.CM.PN ---
IMM 08/05/23 Female 87 Is discharged to home today with [facility]. All discharge paperwork has been sent to the agency. S is booked for safe transport home. Patient is weak and deconditioned from hospitalization for josselyn le cellulitis with edema, and fragile skin. BLS booked for safety
--- NOTE | 2023-08-05 12:23 | PM.EVENT ---
Event Note Date of Service: 08/05/23 Event Note: Right arm midline removed without complications. Dry dressing and tegaderm applied. Time Spent With Patient Time: Total time managing care of this patient today ____ minutes.
== END 2023-08-05 15:17 | disposition home health service (06) | DRG 638 ==
LOC: HO.ED 18:16 → HO.EDOVER 18:20 → HO.S3 08-02 07:29
PROVIDERS: Admitting Provider Hospitalist; Emergency Provider Emergency Medicine; PCP Internal Medicine; Visit Provider Family Medicine
PROC: 05HB33Z Insertion of Infusion Device into Right Basilic Vein, Percutaneous Approach (ICD-10-PCS; principal; 2023-08-02 10:00)
DX: E11.628 Type 2 diabetes mellitus with other skin complications (principal); L03.115 Cellulitis of right lower limb; L03.116 Cellulitis of left lower limb; I10 Essential (primary) hypertension; E03.9 Hypothyroidism, unspecified; Z79.84 Long term (current) use of oral hypoglycemic drugs; Z79.890 Hormone replacement therapy; Z79.899 Other long term (current) drug therapy
CPT/HCPCS: 36410; 36415; 71045; 80048; 80053; 80076; 80202; 82947; 83605; 83690; 83880; 85025; 85652; 86140; 87040; 93005; 93306; 99285; C1751; C1894; J0690; J1170; J1642; J1650; J1940; J2543; J3370; J3371; Q9957

== ENCOUNTER → 2023-08-01 14:34 | Outpatient (BNV) | payer MEDICARE, SELFPAY | PROVIDERS: Emergency Provider Emergency Medicine; PCP Internal Medicine; Visit Provider Internal Medicine Cardiovascular Disease | DX: R00.0 Tachycardia, unspecified (principal); I44.4 Left anterior fascicular block | CPT/HCPCS: 93010 ==

== ENCOUNTER 2023-08-01 17:49 | Outpatient (BNV) | payer MEDICARE, SELFPAY | END 2023-08-02 07:00 | PROVIDERS: Admitting Provider Hospitalist; Emergency Provider Emergency Medicine; PCP Internal Medicine; Visit Provider Internal Medicine Cardiovascular Disease | DX: I34.81 Nonrheumatic mitral (valve) annulus calcification (principal) | CPT/HCPCS: 93306 ==

== ENCOUNTER → 2023-08-01 17:49 | Outpatient (BNV) | payer MEDICARE, SELFPAY | PROVIDERS: Admitting Provider Hospitalist; Emergency Provider Emergency Medicine; PCP Internal Medicine; Visit Provider Physician Assistant Surgical | DX: Z45.2 Encounter for adjustment and management of vascular access device (principal) | CPT/HCPCS: 99499 ==

== ENCOUNTER → 2023-08-01 17:49 | Outpatient (BNV) | payer MEDICARE, SELFPAY | PROVIDERS: Admitting Provider Hospitalist; Emergency Provider Emergency Medicine; PCP Internal Medicine; Visit Provider Hospitalist | DX: L03.116 Cellulitis of left lower limb (principal); L03.115 Cellulitis of right lower limb; E11.9 Type 2 diabetes mellitus without complications | CPT/HCPCS: 99222; 99232; 99239; G0180 ==

== ENCOUNTER 2023-10-11 06:44 | Outpatient (REF) | payer MEDICARE, SELFPAY ==
[2023-10-11 10:23] LABS: MANUAL DIFF FLAG NO
[2023-10-11 10:33] LABS: Basophils Absolute Auto 0.1 X10*3/uL (0.0-0.2); Basophils Percent Auto 1.2 % (0-2); Eosinophils Absolute Auto 0.3 X10*3/uL (0.0-0.4); Eosinophils Percent Auto 5.2 % (0-4); Hematocrit 36.6 % (37.0-47.0); Hemoglobin 11.4 g/dl (12.0-16.0); Imm Gran Abs Auto 0.02 X10*3/uL (0.00-0.03); Imm Gran Pct Auto 0.3 % (0.0-0.4); Lymphocytes Absolute Auto 2.2 X10*3/uL (1.2-4.9); Lymphocytes Percent Auto 37.6 % (20-40); Mean Corpuscular HGB Conc 31.1 g/dl (31.0-35.0); Mean Corpuscular Hemoglobin 25.9 pg (27.0-33.0); Mean Corpuscular Volume 83.2 fL (80.0-98.0); Monocytes Absolute Auto 0.6 X10*3/uL (0.1-1.2); Monocytes Percent Auto 9.6 % (2-11); Neutrophils Absolute Auto 2.7 x10*3/uL (2.0-8.3); Neutrophils Percent Auto 46.1 % (45-73); Platelet Count 292 X10*3/uL (160-400); Red Cell Distribution Width 13.2 % (11.0-16.0); White Blood Count 5.9 X10*3/uL (4.8-10.8)
[2023-10-11 11:16] LABS: Alanine Aminotransferase 15 U/L (0-31); Albumin Level 3.9 g/dL (3.5-5.0); Alkaline Phosphatase 73 U/L (39-117); Anion Gap 14 (12-20); Aspartate Amino Transferase 18 U/L (5-31); Bilirubin Total 0.3 mg/dL (0.0-1.0); Blood Urea Nitrogen 32 mg/dL (9-16); Calcium 9.5 mg/dL (8.4-10.2); Carbon Dioxide 25 mmol/L (22-29); Chloride 105 mmol/L (96-108); Cholesterol 167 mg/dL (<200); Estimated Glomerular Filt Rate > 60; Glucose Random 117 mg/dL (60-115); HDL Cholesterol 46 mg/dL (>40); LDL Cholesterol Calculated 99 mg/dL (<100); Potassium 4.1 mmol/L (3.3-5.1); Sodium 140 mmol/L (135-145); Total Protein 6.8 g/dL (6.5-8.0); Triglycerides 110 mg/dL (<150)
[2023-10-11 11:18] LABS: Thyroid Stimulating Hormone 2.02 uIU/mL (0.32-4.0)
[2023-10-11 11:51] LABS: Microalbum/Creatinine Ratio Ur 22.8 ug/mg cr (<30)
[2023-10-11 16:16] LABS: Estimated Average Glucose 134 mg/dL; Hemoglobin A1c % 6.3 % (<6.0)
[2023-10-12 14:40] LABS: Vitamin B12 881 pg/mL (200-900)
== END 2023-10-11 06:45 | disposition home or self-care (01) ==
LOC: HO.HMGCLDS 06:44
PROVIDERS: PCP Internal Medicine; Visit Provider Internal Medicine
DX: E78.00 Pure hypercholesterolemia, unspecified (principal); E11.42 Type 2 diabetes mellitus with diabetic polyneuropathy; I10 Essential (primary) hypertension; M15.9 Polyosteoarthritis, unspecified; M54.31 Sciatica, right side
CPT/HCPCS: 36415; 80053; 80061; 82043; 82570; 82607; 83036; 84443; 85025

== ENCOUNTER 2023-12-27 11:22 | Outpatient (AMB) | payer MEDICARE, SELFPAY ==
--- NOTE | 2023-12-27 11:24 | A.OFFVIS_ITS ---
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 Was hospitalized in July 2023 for cellulitis for 9 days. Has been seen by and compression wraps, compression socks were given, she states it does help. Accompanied by: Self / Same As Patient Allergies morphine [MORPHINE] Allergy (Unknown, Verified 12/27/23 11:35) NAUSEA & VOMITING codeine [CODEINE] Adverse Reaction (Unknown, Verified 12/27/23 11:35) DIGESTIVE PROBLEMS oxycodone Adverse Reaction (Unknown, Verified 12/27/23 11:35) NAUSEA AND VOMITING tramadol [From ULTRAM] Adverse Reaction (Unknown, Verified 12/27/23 11:35) DIGESTIVE PROBLEMS Codeine Phosphate Allergy (Unknown, Uncoded 12/27/23 11:35) Nausea and Vomiting codiene Allergy (Unknown, Uncoded 12/27/23 11:35) SOB, cp morphine Allergy (Unknown, Uncoded 12/27/23 11:35) n/v percocet Allergy (Unknown, Uncoded 12/27/23 11:35) vomiting Percodan Allergy (Unknown, Uncoded 12/27/23 11:35) Nausea and Vomiting percodan Allergy (Unknown, Uncoded 12/27/23 11:35) vomiting 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 Complaints include pain over varicosities, swelling of lower extremities, cramping, fatigue, and heaviness of the lower extremities. It has been affecti ng there daily activities including walking. It is noted more so in right leg. Of note she has undergone left total knee in 2006. She has a prominent right lower extremity varicosity which has been a source of pain for her. Patient reports bilateral venous ablation performed by Dr. Fermin at [facility] Patient denies any history of DVT/ PE. Patient denies any history of phlebitis. Trial of compression includes - prescription compression for many years They now present for vascular evaluation regarding their varicose veins. [facility] Medical History Diabetes type 2, controlled Hypertension Thyroid disease Osteoporosis Infectious colitis Hyperlipidemia Arthritis Diabetes Surgical History History of surgery History of surgery History of carpal tunnel surgery History of cholecystectomy H/O sinus surgery H/O: hysterectomy Hx of appendectomy H/O adenoidectomy Hx of tonsillectomy History of total left knee replacement Family History Mother Diabetes Social History Household Members: None Housing: House Do you presently have visiting nurse or other home services: No Alcohol intake: current Alcohol intake frequency: holidays/special occasions only Comment: sleeping Patient Tobacco Use Status: Never used Tobacco Advance Directives Date on File: 08/01/23 service: No Current occupational status: retired Review of Systems Const Reports as per HPI ENT Reports no additional complaints Card Denies chest pain, Denies chest pain at rest and Denies chest pain with activity Resp Denies chest congestion and Denies cough GI Reports no additional complaints Musc Details: pain over varicosities, aching of lower extremities, swelling, cramping, heaviness and tiredness, itching Denies abnormal gait Skin/Breast Reports pruritus and Denies wounds Neuro Reports no additional complaints and Denies abnormal gait Psych Denies no additional complaints Physical Exam Const General: cooperative, healthy appearing and comfortable Orientation/consciousness: oriented to person, oriented to place and oriented to time Neck Carotids: no bruits Chest Chest palpation & inspection: normal inspection of the chest and normal palpation of entire chest wall Resp Effort & Inspection: normal respiratory effort and able to speak in complete sentences Cardio Rate: regular rate Heart sounds: S1 normal heart sound present and S2 normal heart sound present Peripheral pulses: Peripheral pulses 2+ throughout GI Inspection: Yes normal to inspection Skin Other: +2 edema, large rope-like varicosities greater than 4 mm right thigh and calf CEAP Classification C4 - skin color changes Ep - Etiology Primary As - superficial veins P - reflux General skin exam: dry skin Neuro General: oriented to person, oriented to place and oriented to time Extrem Right lower extremity: full ROM, normal capillary refill and edema Left lower extremity: full ROM, normal capillary refill and edema Psych Mental Status: mental status grossly normal Assessment & Plan Assessment & Plan (1) Varicose veins of right lower extremity with inflammation: Code(s): I83.11 - Varicose veins of right lower extremity with inflammation Category: Medical Plan: In short, the patient has evidence of venous insufficiency. I have discussed the pathophysiology with the patient. In addition I have provided informational material regarding venous disease to the patient. We have discussed conservative measures including compression, elevation, and exercise. I have also provided a handout regarding appropriate use of compression stockings and where to purchase good compression stockings as well. I have taken the liberty of ordering venous insufficiency testing with the patient. They will follow up with me after testing. The patient had an opportunity to ask questions regarding the treatment plan. All questions were answered. Imaging studies, laboratory studies and physical exam results were discussed and reviewed in detail. No major barriers to understanding were identified. The patient expressed understanding and agreement with the above treatment plan. The patient is aware they should contact our office by phone for worsening of the current condition or the appearance of new symptoms. Thank you for allowing me to participate in the vascular care of this patient. If you have any questions or concerns regarding the treatment for the above condition please do not hesitate to contact me. The office telephone contact is [phone]. This note is constructed using voice recognition software. While every effort has been made to ensure accuracy, pneumatic tube repairer errors may have been included. Thank you for allowing me to participate in the care of your patient. Yours sincerely, Oni Matthews MD, FACS, R.P.V.I. Orders: Orders US venous duplex LE BI 1 Week I83.11 - Varicose veins of right lower extremity with inflammation Coding Level of Care Code New Pt Level 4 (17154) Diagnoses Varicose veins of right lower extremity with inflammation I83.11
== END 2023-12-27 11:56 | disposition home or self-care (01) ==
PROVIDERS: PCP Internal Medicine; Visit Provider Surgery Vascular Surgery
DX: I83.11 Varicose veins of right lower extremity with inflammation (principal)
CPT/HCPCS: 99203

== ENCOUNTER → 2023-12-27 11:22 | Outpatient (BNVA) | payer MEDICARE, SELFPAY | PROVIDERS: PCP Internal Medicine; Visit Provider Surgery Vascular Surgery | DX: I83.11 Varicose veins of right lower extremity with inflammation (principal) | CPT/HCPCS: 99202 ==

== ENCOUNTER 2024-01-24 12:50 | Outpatient (REF) | payer MEDICARE, SELFPAY ==
--- NOTE | ~2024-01-24 | US_ITS ---
EXAMINATION: US LOWER EXTREMITY VENOUS (REFLUX EXAM), BILATERAL CLINICAL INDICATION: Varicose veins of the right lower extremity with inflammation, history of bilateral venous ablation COMPARISON: Ultrasound venous duplex dated 07/15/2023 TECHNIQUE: Color flow triplex imaging and compression Doppler was performed to evaluate both the deep and the superficial systems bilaterally. To evaluate the superficial system, the examination was performed in the upright position. Color-flow Doppler ultrasound and compression ultrasound were utilized. In addition, maneuvers were utilized to demonstrate reflux. FINDINGS: 1. DEEP VENOUS ULTRASOUND OF THE RIGHT LOWER EXTREMITY: Common Femoral Vein: Compressible, normal respiratory variation and augmented flow. Femoral Vein: Compressible, normal color flow and augmentation. Popliteal Vein: Compressible, normal augmentation. Deep Reflux: There is no evidence of reflux in the deep system in either the common femoral vein, superficial femoral or the popliteal vein. There is no evidence of a Gaytan's cyst. 2. SUPERFICIAL ULTRASOUND WITH DOPPLER OF RIGHT LOWER EXTREMITY: GREAT SAPHENOUS VEIN: Saphenofemoral Junction: 0.8 cm; Reflux: 1684 ms Proximal Thigh: 0.2 cm; Reflux: 0 ms The right great saphenous vein is not visualized from the level of the mid thigh to the knee in keeping with prior ablation. Below Knee: 0.1 cm; Reflux: 2884 ms Mid Calf: 0.2 cm; Reflux: 0 ms Ankle: 0.2 cm; Reflux: 0 ms DUPLICATED LATERAL GREAT SAPHENOUS VEIN: Saphenofemoral Junction: 0.5 cm; Reflux: 2360 ms SMALL SAPHENOUS VEIN: Saphenopopliteal Junction: 0.2 cm; Reflux: 0 ms Proximal: 0.1 cm; Reflux: 0 ms Distal: 0.1 cm; Reflux: 0 ms PERFORATORS: Location: Proximal calf Size: 0.2; Reflux: 0 ms Location: Proximal calf Size: 0.3; Reflux: 0 ms VARICOSITIES: Location: Proximal lateral accessory GSV Size: 0.4; Reflux: 3376 ms Location: Mid thigh Size: 0.9; Reflux: 2608 ms 3. DEEP VENOUS ULTRASOUND OF THE LEFT LOWER EXTREMITY: Common Femoral Vein: Compressible, normal respiratory variation and augmented flow. Femoral Vein: Compressible, normal color flow and augmentation. Popliteal Vein: Compressible, normal augmentation. Deep Reflux: There is no evidence of reflux in the deep system in either the common femoral vein, superficial femoral or the popliteal vein. There is no evidence of a Gaytan's cyst. 4. SUPERFICIAL ULTRASOUND WITH DOPPLER OF LEFT LOWER EXTREMITY: GREAT SAPHENOUS VEIN: Saphenofemoral Junction: 0.5 cm; Reflux: 0 ms Proximal Thigh: 0.3 cm; Reflux: 0 ms The left great saphenous vein is not visualized from the level of the mid thigh to the knee, in keeping with prior ablation. Below Knee: 0.1 cm; Reflux: 0 ms Mid Calf: 0.1 cm; Reflux: 2896 ms Ankle: 0.1 cm; Reflux: 0 ms SMALL SAPHENOUS VEIN: Saphenopopliteal Junction: 0.3 cm; Reflux: 0 ms Proximal: 0.2 cm; Reflux: 0 ms Distal: 0.2 cm; Reflux: 0 ms PERFORATORS: Location: 32 cm from the femoral head Size: 0.2; Reflux: 3328 ms Location: 23 cm from the femoral head Size: 0.3; Reflux: 1376 ms VARICOSITIES: Location: At knee Size: 0.4; Reflux: 2940 ms US/US venous duplex LE BI IMPRESSION: 1. No evidence of deep venous thrombosis or reflux. 2. The right great saphenous vein is not visualized from the level of the mid thigh to the knee, in keeping with prior ablation. The distal vein remains patent and demonstrates incompetence at the level of the proximal calf with reflux measuring up to 2884 ms. 3. The left great saphenous vein is not visualized from the level of the mid thigh to the knee, in keeping with prior ablation. The distal vein remains patent and demonstrates incompetence at the level of the mid calf with reflux measuring up to 2896 ms. 4. Incompetent right duplicated lateral great saphenous vein with reflux measuring up to 2360 ms at the saphenofemoral junction. This supplies a complex cluster of varicose veins that extend to the medial calf and lateral knee. 5. Competent bilateral small saphenous veins. 6. Scattered perforators and varicose veins in the bilateral lower extremities, some of which demonstrate reflux, as above.
== END 2024-01-24 12:51 | disposition home or self-care (01) ==
LOC: HO.US 12:50
PROVIDERS: PCP Internal Medicine; Visit Provider Surgery Vascular Surgery
DX: I83.11 Varicose veins of right lower extremity with inflammation (principal)
CPT/HCPCS: 93970

== ENCOUNTER 2024-02-08 14:25 | Outpatient (REF) | payer SELFPAY | END 2024-02-08 14:26 | disposition home or self-care (01) | LOC: HO.HAP 14:25 | PROVIDERS: Visit Provider Internal Medicine | DX: Z13.89 Encounter for screening for other disorder (principal) ==

== ENCOUNTER 2024-02-09 11:33 | Outpatient (REF) | payer SELFPAY | END 2024-02-09 11:34 | disposition home or self-care (01) | LOC: HO.HAP 11:33 | PROVIDERS: Visit Provider Internal Medicine | DX: Z46.1 Encounter for fitting and adjustment of hearing aid (principal); H90.3 Sensorineural hearing loss, bilateral | CPT/HCPCS: V5266 ==

== ENCOUNTER 2024-03-01 14:11 | Outpatient (AMB) | payer MEDICARE, SELFPAY ==
--- NOTE | 2024-03-01 14:12 | A.OFFVIS_ITS ---
Intake Visit Reasons: follow up 01/24/2024 Intake Note: follow up 01/24/24 for bilateral LE swelling and discoloration. Pt states her legs are worse than ever before. Right leg is worse than Left leg. Pt states she has wraps at home and lasix. Has hx of being seen by , she states no procedures. Accompanied by: Self / Same As Patient Allergies morphine [MORPHINE] Allergy (Unknown, Verified 03/01/24 14:20) NAUSEA & VOMITING codeine [CODEINE] Adverse Reaction (Unknown, Verified 03/01/24 14:20) DIGESTIVE PROBLEMS oxycodone Adverse Reaction (Unknown, Verified 03/01/24 14:20) NAUSEA AND VOMITING tramadol [From ULTRAM] Adverse Reaction (Unknown, Verified 03/01/24 14:20) DIGESTIVE PROBLEMS Codeine Phosphate Allergy (Unknown, Uncoded 03/01/24 14:20) Nausea and Vomiting codiene Allergy (Unknown, Uncoded 03/01/24 14:20) SOB, cp morphine Allergy (Unknown, Uncoded 03/01/24 14:20) n/v percocet Allergy (Unknown, Uncoded 03/01/24 14:20) vomiting Percodan Allergy (Unknown, Uncoded 03/01/24 14:20) Nausea and Vomiting percodan Allergy (Unknown, Uncoded 03/01/24 14:20) vomiting HPI HPI follow up 01/24/2024: Details: Very pleasant 88-year-old female presents for follow-up regarding lower extremity swelling. She does have a history of bilateral lower extremity ablation is. She has significant swelling and had undergone left total knee replacement back in 2006. He continued swelling is been a source of discomfort for her. She has difficulty ambulating and requires the use of walker. She reports that towards the later portion of the day she can barely ambulate. She now presents for follow-up with venous insufficiency testing. COUNTS INCLUDE 234 BEDS AT THE [facility] Medical History Diabetes type 2, controlled Hypertension Thyroid disease Osteoporosis Infectious colitis Hyperlipidemia Arthritis Diabetes Surgical History History of surgery History of surgery History of carpal tunnel surgery History of cholecystectomy H/O sinus surgery H/O: hysterectomy Hx of appendectomy H/O adenoidectomy Hx of tonsillectomy History of total left knee replacement Family History Mother Diabetes Social History Household Members: None Housing: House Do you presently have visiting nurse or other home services: No Alcohol intake: current Alcohol intake frequency: holidays/special occasions only Comment: sleeping Patient Tobacco Use Status: Never used Tobacco Advance Directives Date on File: 08/01/23 service: No Current occupational status: retired Review of Systems Const Reports as per HPI ENT Reports no additional complaints Card Denies chest pain, Denies chest pain at rest and Denies chest pain with activity Resp Denies chest congestion and Denies cough GI Reports no additional complaints Musc Details: pain over varicosities, aching of lower extremities, swelling, cramping, hea viness and tiredness, itching Denies abnormal gait Skin/Breast Reports pruritus and Denies wounds Neuro Reports no additional complaints and Denies abnormal gait Psych Denies no additional complaints Physical Exam Const General: cooperative, healthy appearing and comfortable Orientation/consciousness: oriented to person, oriented to place and oriented to time Neck Carotids: no bruits Chest Chest palpation & inspection: normal inspection of the chest and normal palpation of entire chest wall Resp Effort & Inspection: normal respiratory effort and able to speak in complete sentences Cardio Rate: regular rate Heart sounds: S1 normal heart sound present and S2 normal heart sound present Peripheral pulses: Peripheral pulses 2+ throughout GI Inspection: Yes normal to inspection Skin Other: +3 edema, large CEAP Classification C4 - skin color changes Ep - Etiology Primary As - superficial veins P - reflux General skin exam: dry skin Neuro General: oriented to person, oriented to place and oriented to time Extrem Other: Right in cm: Thigh 51 Knee 48.5 Calf 42 Ankle 33 Left in cm: Thigh 50 Knee 48 Calf 42.5 Ankle 32.5 Right lower extremity: full ROM, normal capillary refill and edema Left lower extremity: full ROM, normal capillary refill and edema Psych Mental Status: mental status grossly normal Results Reviewed Results Reviewed: Brief summary of venous insufficiency testing is as follows: right great saphenous vein: negative right small saphenous vein: negative right accessory vein: none present left great saphenous vein: negative left small saphenous vein: negative left accessory vein: none present Please note there is no evidence of any venous aneurysms or significant tort uosity Assessment & Plan Assessment & Plan (1) Varicose veins of right lower extremity with inflammation: Code(s): I83.11 - Varicose veins of right lower extremity with inflammation Category: Medical Plan: In short patient is negative for any significant venous insufficiency. She has been appreciating some benefit with the use of CircAid stockings. She does have significant lower extremity calf and foot edema. We will pursue the use of lymphedema pumps. (2) Lymphedema: Code(s): I89.0 - Lymphedema, not elsewhere classified Category: Medical Plan: In short the patient has late on sent lymphedema. The patient has been on conservative treatment for at least 3 months with minimal relief. Patient has tried 30 mm of mercury compression garments, elevation, exercise healthy diet and doing manual says self MLD to the best of their ability for over 4 weeks but with no significant relief. She has been compliant with the program but has provided minimal relief. In addition on physical we are noticing hyperpigmentation, lymphorrhea, and hyperplasia. It appears that she has stage 2 lymphedema. Patient has completed multiple forms of conservative therapy yet significant symptoms remain. Patient requires the use of a pneumatic comp ression device which we will assist in trying to have the patient obtain them. A pneumatic compression device will help reduce swelling and other lymphedema comorbidities. Thank you for allowing us to assist in this patient's care. Coding Level of Care Code Est Pt Level 4 (89075) Diagnoses Varicose veins of right lower extremity with inflammation I83.11 Lymphedema I89.0
== END 2024-03-01 15:09 | disposition home or self-care (01) ==
PROVIDERS: PCP Internal Medicine; Visit Provider Surgery Vascular Surgery
DX: I83.11 Varicose veins of right lower extremity with inflammation (principal); I89.0 Lymphedema, not elsewhere classified
CPT/HCPCS: 99214

== ENCOUNTER → 2024-03-01 14:11 | Outpatient (BNVA) | payer MEDICARE, SELFPAY | PROVIDERS: PCP Internal Medicine; Visit Provider Surgery Vascular Surgery | DX: I83.11 Varicose veins of right lower extremity with inflammation (principal); I89.0 Lymphedema, not elsewhere classified | CPT/HCPCS: 99212 ==

== ENCOUNTER 2024-03-05 16:14 | Outpatient (REF) | payer MEDICARE, SELFPAY ==
--- NOTE | ~2024-03-05 | MR_ITS ---
EXAMINATION: MR LUMBAR SPINE WITHOUT CONTRAST CLINICAL INFORMATION: Right-sided low back pain, sciatica COMPARISON: None TECHNIQUE: MRI of the lumbar spine was obtained using routine sequences without contrast. FINDINGS: Upper lumbar levocurvature. Slight right lateral listhesis at T12-L1 and L1-L2 and left lateral listhesis at L2-L3 and L3-L4. Straightening of the normal lumbar lordosis. Grade 1 retrolisthesis at T12-L1, L1-L2, and L2-L3. Vertebral body heights are maintained. There is no suspicious osseous lesion. Diffuse disc desiccation with multilevel moderate to severe disc height loss, most pronounced along the concavity of the upper lumbar levocurvature. Diffuse degenerative endplate irregularity with patchy type II Modic endplate changes, prominent type I Modic endplate changes at L5-S1 and milder type I Modic endplate change elsewhere. A couple intraosseous hemangiomata are seen. Multilevel anterior osteophytic spurring. Level by level detail as follows: L1-L2: Disc osteophyte complex and mild to moderate facet arthrosis with ligamentum flavum thickening. Moderate right eccentric spinal canal and subarticular zone narrowing. Severe right and moderate left neural foraminal stenosis with mass effect along the exiting right L1 nerve root. L2-L3: Disc osteophyte complex eccentric to the right and left foraminal/extraforaminal disc protrusion. Moderate facet arthrosis and ligamentum flavum thickening. Mild to moderate spinal canal stenosis. Moderate to severe right and mild left neural foraminal stenosis with impingement upon the exiting right L2 nerve root and deformity of the exiting/extraforaminal left L2 nerve root. L3-L4: Disc osteophyte complex and advanced bilateral facet arthrosis with ligamentum flavum thickening. Severe spinal canal and subarticular zone narrowing. Severe right neural foraminal stenosis with compression of the exiting right L3 nerve root. Mild to moderate left neural foraminal stenosis with lesser impingement upon the exiting right L3 nerve root. L4-L5: Disc osteophyte complex eccentric to the left and advanced facet arthrosis with ligamentum flavum thickening. Mild to moderate spinal canal stenosis. Moderate left and mild right neural foraminal stenosis with mass effect along the exiting left greater than right L4 nerve roots. L5-S1: Disc osteophyte complex with inferiorly migrated right foraminal disc extrusion and left subarticular disc protrusion/extrusion. Advanced facet arthrosis with small facet joint effusions. 1.7 x 0.3 cm prominent synovial cyst along the anterior margin of the left facet joint. Mild spinal canal stenosis. Subarticular zone narrowing with impression upon the traversing left greater than right S1 nerve roots. Severe bilateral neural foraminal stenosis with compression of the exiting bilateral L5 nerve roots. A left lateral disc osteophyte also impinges upon the extraforaminal left L5 nerve root with edema along its distal extraforaminal course. The conus medullaris terminates at the level of 1 L2. The distal spinal cord is normal in appearance. No epidural fluid collection, hematoma, or mass. There is moderate fatty atrophy of the paraspinal musculature. There are simple appearing bilateral renal cysts as well as T2 hypointense renal lesions bilaterally, which are incompletely characterized; recommend further assessment with renal ultrasound or contrast-enhanced renal protocol MRI. The abdominal aorta is of normal contour and caliber. MR/MR lumbar spine wo con IMPRESSION: 1. Upper lumbar levoscoliosis. Multilevel advanced discogenic disease with prominent type I Modic endplate change at L5-S1. Lumbar spondylosis contributes to severe spinal canal stenosis at L3-L4 and moderate spinal canal stenosis at L1-L2. Multilevel neural foraminal stenosis; severe on the right at L1-L2, L3-L4, and L5-S1 with compression of the exiting nerve roots. There is also severe left neural foraminal stenosis at L5-S1, where there is a 1.7 x 0.3 cm prominent synovial cyst along the anterior margin of the left facet joint contributing to compression of the exiting left L5 nerve root. A left lateral disc osteophyte also impinges upon the extraforaminal left L5 nerve root with edema along its distal extraforaminal course. 2. T2 hypointense renal lesions bilaterally, which are incompletely characterized; recommend further assessment with renal ultrasound or contrast-enhanced renal protocol MRI.
== END 2024-03-05 16:15 | disposition home or self-care (01) ==
LOC: HO.MRI 16:14
PROVIDERS: PCP Internal Medicine; Visit Provider Physician Assistant Surgical
DX: M54.41 Lumbago with sciatica, right side (principal)
CPT/HCPCS: 72148

== ENCOUNTER 2024-03-07 10:05 | Outpatient (AMB) | payer MEDICARE, SELFPAY ==
[2024-03-07 10:57] VITALS: BP 122/88; PULSE 121; TEMP 36.6; O2SAT 97; BMI 30.1
--- NOTE | 2024-03-07 10:57 | AM.OFFWIN_ITS ---
Intake Vital Signs 03/07/24 10:57 Height 4 ft 9 in Weight 139 lb BMI 30.1 BP 122/88 Blood Pressure Location Rt brachial Position Sitting Pulse 121 H Pulse Source Pulse Oximeter Temp 97.9 F Temp Source Temporal Artery Scan Pulse Oximetry (%) 97 Oxygen Delivery Method Room Air Intake Visit Reasons: EP lower leg swelling -Bilateral Intake Note: Lory is a 88 year old female who presents to the office today for bilateral lower leg swelling that has been going on for about a year but she states on Tuesday the swelling started to get worse. Pt is being followed by Dr. Matthews for her edema and is currently waiting for lymphedema pumps for her legs to help with the swelling. Patient Tobacco Use Status: Never used Tobacco Allergies morphine [MORPHINE] Allergy (Unknown, Verified 03/07/24 11:02) NAUSEA & VOMITING codeine [CODEINE] Adverse Reaction (Unknown, Verified 03/07/24 11:02) DIGESTIVE PROBLEMS oxycodone Adverse Reaction (Unknown, Verified 03/07/24 11:02) NAUSEA AND VOMITING tramadol [From ULTRAM] Adverse Reaction (Unknown, Verified 03/07/24 11:02) DIGESTIVE PROBLEMS Codeine Phosphate Allergy (Unknown, Uncoded 03/07/24 11:02) Nausea and Vomiting codiene Allergy (Unknown, Uncoded 03/07/24 11:02) SOB, cp morphine Allergy (Unknown, Uncoded 03/07/24 11:02) n/v percocet Allergy (Unknown, Uncoded 03/07/24 11:02) vomiting Percodan Allergy (Unknown, Uncoded 03/07/24 11:02) Nausea and Vomiting percodan Allergy (Unknown, Uncoded 03/07/24 11:02) vomiting HPI HPI Comments History of Present Illness Details 87 y/o F patient with a past med hx of T 2DM, OA, sciatica, pulmonary hypertension, ulcerative colitis c/o bilateral lower extremity swelling, redness, warmth, and pain. She states she has a history of lower extremity swelling but this is worse than her baseline swelling. She typically takes 40 mg of Lasix daily but this morning she took 60 mg and has been peeing a lot & the swelling has gone down a little bit, she also used some compression stockings for about 6 hours this morning which seemed to help as well. She denies any history of prior DVT/PE and she states Dr. Matthews just did an ultrasound on both of her legs in January which were negative for a DVT. She denies fever. She states this happened to her last year and she let it get too far out of control and she ended up needing IV antibiotics in the hospital for a few days. Patient states she called Dr. Matthews's office and they recommended she come to the walk-in clinic. She also called her primary care doctor's office and they recommended she come here as well. [facility] Medical History Diabetes type 2, controlled Hypertension Thyroid disease Osteoporosis Infectious colitis Hyperlipidemia Arthritis Diabetes Surgical History History of surgery History of surgery History of carpal tunnel surgery History of cholecystectomy H/O sinus surgery H/O: hysterectomy Hx of appendectomy H/O adenoidectomy Hx of tonsillectomy History of total left knee replacement Family History Mother Diabetes Social History Household Members: None Housing: House Do you presently have visiting nurse or other home services: No Alcohol intake: current Alcohol intake frequency: holidays/special occasions only Comment: sleeping Patient Tobacco Use Status: Never used Tobacco Advance Directives Date on File: 08/01/23 service: No Current occupational status: retired Review of Systems Const All systems reviewed & are unremarkable except as noted in HPI and below Physical Exam Vital Signs: Last Vital Signs Temp 97.9 F 03/07/24 10:57 Pulse 121 H 03/07/24 10:57 BP 122/88 03/07/24 10:57 Pulse Ox 97 03/07/24 10:57 Oxygen Delivery Method Room Air 03/07/24 10:57 BMI result Body Mass Index 30.1 Const General: cooperative, healthy appearing, comfortable and no acute distress Orientation/consciousness: patient oriented x3 Limitations: no limitations HEENT Head: Yes normal to inspection Resp Effort & Inspection: normal respiratory effort and able to speak in complete sentences Neuro General: patient oriented x3 Extrem Other: Bilateral lower extremity edema, erythema and warmth, right side is worse than left, no open wounds or drainage noted. Assessment & Plan Assessment & Plan (1) Cellulitis: Code(s): L03.90 - Cellulitis, unspecified Plan: Reviewed patient's visit with Dr. Matthews from last month, also reviewed patient's records from her hospitalization last year. She has no history of MRSA. She does have a history of diabetes, we will treat with cefadroxil for 7 days. Recommended patient watch the areas closely and if they get wors to go to the emergency department for further workup. Plan See above Medications: New cefadroxil 500 mg PO BID 14 caps 0RF Coding Level of Care Code New Pt Level 4 (83554) Diagnoses Cellulitis L03.90
== END 2024-03-07 11:22 | disposition home or self-care (01) ==
PROVIDERS: PCP Internal Medicine; Visit Provider Physician Assistant
DX: L03.90 Cellulitis, unspecified (principal)
CPT/HCPCS: 99204

== ENCOUNTER → 2024-04-02 13:20 | Outpatient (BNVA) | payer MEDICARE, SELFPAY | PROVIDERS: PCP Internal Medicine; Visit Provider Surgery Vascular Surgery ==

== ENCOUNTER 2024-04-05 10:56 | Outpatient (AMB) | payer MEDICARE, SELFPAY ==
--- NOTE | 2024-04-05 11:00 | A.OFFVIS_ITS ---
Vital Signs 04/05/24 11:07 Height 4 ft 9.64 in Weight 145 lb 4.554 oz BMI 30.7 BP 144/68 H Blood Pressure Location Rt brachial Position Sitting Pulse 94 Pulse Source Pulse Oximeter Intake Visit Reasons: f/u osteoporosis-lvm Intake Note: Patient present today for Osteoporosis follow up visit. 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 Accompanied by: Self / Same As Patient Allergies morphine [MORPHINE] Allergy (Unknown, Verified 04/05/24 11:07) NAUSEA & VOMITING codeine [CODEINE] Adverse Reaction (Unknown, Verified 04/05/24 11:07) DIGESTIVE PROBLEMS oxycodone Adverse Reaction (Unknown, Verified 04/05/24 11:07) NAUSEA AND VOMITING tramadol [From ULTRAM] Adverse Reaction (Unknown, Verified 04/05/24 11:07) DIGESTIVE PROBLEMS Codeine Phosphate Allergy (Unknown, Uncoded 04/05/24 11:07) Nausea and Vomiting codiene Allergy (Unknown, Uncoded 04/05/24 11:07) SOB, cp morphine Allergy (Unknown, Uncoded 04/05/24 11:07) n/v percocet Allergy (Unknown, Uncoded 04/05/24 11:07) vomiting Percodan Allergy (Unknown, Uncoded 04/05/24 11:07) Nausea and Vomiting percodan Allergy (Unknown, Uncoded 04/05/24 11:07) vomiting HPI Comments Details: 88 YO Female with is seen in consultation at the request of PCP for Osteoporosis. First diagnosed in this yr . Not Received treatment in the past No history of pathologic fracture or ONJ. Has several servings of dietary calcium per day in the form of milk and cottage cheese . Not Takes Calcium supplement Takes 1000 IU of Vitamin D daily. Takes PPI, not anticoagulant, antiepileptic or glucocorticoid medication. 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 UTD on dental cleanings and sees dentist every 6 months. Has upcoming dental work for crown placement or extractions. DXA dated : EXAMINATION: BONE DENSITOMETRY CLINICAL INDICATION: Postmenopausal estrogen deficiency. COMPARISON: Previous BD dated 03/28/2012 and baseline BD dated 07/05/2005. TECHNIQUE: Using a [employer] DXA System (software version: 13.1) manufactured by [employer], dual-energy x-ray absorptiometry was performed of the lumbar spine and left hip. The images are of good technical quality. Summary results are attached. FINDINGS: AP SPINE L1-L4 (excluding L3): The data of L1-L4 has been changed to exclude the L3 vertebral body, because levocurvature and degenerative changes at this level may cause overestimation of lumbar spine density. There are other multilevel degenerative changes also contributing to probable overestimation of the bone mineral density lumbar spine. Current: BMD 1.503 g/cm2, Z-score 4.9, T-score 2.8, normal, 14.3% decrease from previous, 14.6% increase from baseline (<5% change is not significant). Prior: BMD 1.754 g/cm2. Baseline: BMD 1.311 g/cm2. LEFT FEMUR, NECK: Current: BMD 0.654 g/cm2, Z-score -0.2, T-score -2.8, osteoporosis. Prior: BMD 0.786 g/cm2. Baseline: BMD 0.805 g/cm2. LEFT FEMUR, TOTAL: Current: BMD 0.758 g/cm2, Z-score 0.5, T-score -2.0, osteopenia, 16.5% decrease from previous, 18.5% decrease from baseline (<5% change is not significant). Prior: BMD 0.908 g/cm2. Baseline: BMD 0.930 g/cm2. Labs: Currently on alendronate 70 mg q.week. Having lymphedema and cellulitis as well as sciata [facility] Medical History Diabetes type 2, controlled Hypertension Thyroid disease Osteoporosis Infectious colitis Hyperlipidemia Arthritis Diabetes Surgical History History of surgery History of surgery History of carpal tunnel surgery History of cholecystectomy H/O sinus surgery H/O: hysterectomy Hx of appendectomy H/O adenoidectomy Hx of tonsillectomy History of total left knee replacement Family History Mother Diabetes Social History Household Members: None Housing: House Do you presently have visiting nurse or other home services: No Alcohol intake: current Alcohol intake frequency: holidays/special occasions only Comment: sleeping Patient Tobacco Use Status: Never used Tobacco Advance Directives Date on File: 08/01/23 service: No Current occupational status: retired Physical Exam Vital Signs: Last Vital Signs Pulse 94 04/05/24 11:07 BP 144/68 H 04/05/24 11:07 BMI result Body Mass Index 30.7 Assessment & Plan Assessment & Plan (1) Osteoporosis: Code(s): M81.0 - Age-related osteoporosis without current pathological fracture Category: Medical Plan: This 86-year-old white female with a history of osteoporosis. Secondary workup is negative. Being treated with alendronate since 09/2022 Plan is to continue the alendronate. We will check urine NTX. Will repeat DEXA Orders: Orders Collagen Crosslinks NTX Today M81.0 - Age-related osteoporosis without current pathological fracture XR DEXA axial skeleton Today M81.0 - Age-related osteoporosis without current pathological fracture Coding Level of Care Code Est Pt Level 3 (57287) Diagnoses Osteoporosis M81.0
[2024-04-05 11:07] VITALS: BP 144/68; PULSE 94; BMI 30.7
== END 2024-04-05 11:46 | disposition home or self-care (01) ==
PROVIDERS: PCP Internal Medicine; Visit Provider Internal Medicine Endocrinology, Diabetes & Metabolism
DX: M81.0 Age-related osteoporosis without current pathological fracture (principal)
CPT/HCPCS: 99213

== ENCOUNTER → 2024-04-05 10:56 | Outpatient (BNVA) | payer MEDICARE, SELFPAY | PROVIDERS: PCP Internal Medicine; Visit Provider Internal Medicine Endocrinology, Diabetes & Metabolism | DX: M81.0 Age-related osteoporosis without current pathological fracture (principal); Z79.83 Long term (current) use of bisphosphonates | CPT/HCPCS: 99212 ==

== ENCOUNTER 2024-04-06 13:13 | Outpatient (REF) | payer MEDICARE, SELFPAY ==
--- NOTE | ~2024-04-06 | US_ITS ---
EXAMINATION: US RETROPERITONEAL COMPLETE (RENAL) CLINICAL INFORMATION: Follow-up renal lesions. COMPARISON: MRI lumbar spine dated 03/29/2024; CT abdomen and pelvis dated 09/09/2020; renal ultrasound dated 05/04/2012. TECHNIQUE: Real-time imaging of the kidneys and bladder. FINDINGS: RIGHT KIDNEY: 9.9 x 4.6 x 5.2 cm (SAG x AP x TRV). The kidney is normal in size, contour, and echogenicity. Renal cortical thickness is normal. No calculi or focal parenchymal solid lesions. No hydronephrosis. At the upper pole, 1.5 cm and 0.9 cm benign, simple cysts are seen, which require no imaging follow-up. LEFT KIDNEY: 9.3 x 4.6 x 4.7 cm (SAG x AP x TRV). The kidney is normal in size, contour, and echogenicity. Renal cortical thickness is normal. No calculi or focal parenchymal solid lesions. No hydronephrosis. At the upper pole, 3.6 cm and 1.3 cm benign, simple cysts are seen, and at the lower pole, a 1.7 cm benign, simple cyst is seen. These require no imaging follow-up. US/US renal BI IMPRESSION: There are benign, simple cysts, which require no imaging follow-up. The examination is otherwise unremarkable. Electronically signed by: Vish Roper MD 04/06/2024 11:42 PM EDT
== END 2024-04-06 13:14 | disposition home or self-care (01) ==
LOC: HO.US 13:13
PROVIDERS: PCP Internal Medicine; Visit Provider Internal Medicine
DX: R93.429 Abnormal radiologic findings on diagnostic imaging of unspecified kidney (principal)
CPT/HCPCS: 76775

== ENCOUNTER 2024-04-13 13:18 | Outpatient (AMB) | payer MEDICARE, SELFPAY ==
--- NOTE | 2024-04-13 13:19 | A.SPINEOV_ITS ---
Intake Visit Reasons: Right sided back pain Intake Note: Ms. Piña is here today c/o right sided sciatica pain. Hatch Supervisor Required: No Allergies morphine [MORPHINE] Allergy (Unknown, Verified 04/05/24 11:07) NAUSEA & VOMITING codeine [CODEINE] Adverse Reaction (Unknown, Verified 04/05/24 11:07) DIGESTIVE PROBLEMS oxycodone Adverse Reaction (Unknown, Verified 04/05/24 11:07) NAUSEA AND VOMITING tramadol [From ULTRAM] Adverse Reaction (Unknown, Verified 04/05/24 11:07) DIGESTIVE PROBLEMS Codeine Phosphate Allergy (Unknown, Uncoded 04/05/24 11:07) Nausea and Vomiting codiene Allergy (Unknown, Uncoded 04/05/24 11:07) SOB, cp morphine Allergy (Unknown, Uncoded 04/05/24 11:07) n/v percocet Allergy (Unknown, Uncoded 04/05/24 11:07) vomiting Percodan Allergy (Unknown, Uncoded 04/05/24 11:07) Nausea and Vomiting percodan Allergy (Unknown, Uncoded 04/05/24 11:07) vomiting Assessment & Plan Assessment & Plan (1) Lumbar radiculopathy: Code(s): M54.16 - Radiculopathy, lumbar region Category: Medical Plan Dear Dr Bridges, Thank you for referring Mrs Piña to our office today. This is a very nice 88-year-old female referred today for evaluation of a right-sided lumbar radiculopathy. She has had it on and off for a few years, but last May seem to be aggravated for some reason. The last few months has been terribly difficult for. It starts in her right buttock radiates into her posterolateral thigh going down into her calf and into her outer ankle. It does go into her foot but she can not tell if as the top or the bottom. All of her toes go numb on the right. The issue, is that she has been getting to the point now where she has been unable to walk for more than a short distance before she has tremendous pain. Gabapentin helps quite a bit, a leave has been helping and she also takes Tylenol extra strength. These things give her temporary relief but it makes her life manageable and she is able to sleep a little bit at night. First thing in the morning however getting out of bed is terribly difficult. She is here today with an MRI showing multilevel degenerative disc disease, scoliosis and foraminal narrowing. PMH: History of hypertension, diabetes but her A1c is well controlled at 6.3. Over the last year she has developed a problem with lymphedema related to poor venous competency in her lower extremities, DVT was excluded. She did have 1 episode of cellulitis from this. It was treated and has resolved a number of months ago. She has had cholecystectomy, total hysterectomy, left knee replacement, carpal tunnel, sinus surgery, cataract surgery. She tells me that her heart and lungs and kidneys are otherwise okay. No bleeding disorders or blood clots in her history. Social hx: She has not smoke, drink use any recreational drugs Medications: Metoprolol, losartan, metformin, levothyroxine Allergies: Please see the [facility] Physical exam: Pleasant no acute distress, she walks with a walker she is stable to stand up out of a chair on her own. She has good strength in bilateral lower extremities, positive straight leg raise at 30-40 degrees. Reflexes absent bilaterally at the patella and the Achilles. Imaging review: Lumbar MRI shows significant degeneration of the lumbar spine with levo scoliotic curvature, multilevel degenerative disc disease. She has moderate to severe stenosis at L3-4 with severe right 3 foraminal stenosis. She has significant disc collapse at L5-S1 with severe right L5 foraminal stenosis. There may be a small disc herniation in the foramen as well. There is an overgrowth of the left L5-S1 facet causing foraminal narrowing as well. Impression: 88-year-old female presents with right L5 radiculopathy, worse with standing walking, but also gets aggravated when she puts her feet up at night and during the day to try to treat her lymphedema. She is managed on medications that make her life tolerable but not enjoyable. She is having very limited mobility and her days are generally revolving around trying to keep the leg pain manageable. She has had no dedicated conservative treatment this point. It sounds like she is going to the [place] [facility]. I think that is reasonable place to start with her given her age. Maybe they can do L5 nerve block and keep this symptom manageable in the [place] [facility] without surgery. If she ends up needing an operation because of failure of conservative management, she may need an L5 foraminotomy or given the scoliotic curvature, some kind of pedicle screw construct around the foramen as well. In a perfect world we would generally treat this with a larger surgical construct but given her age, and her osteoporosis less is more. If she fails conservative treatment I told her to come back and we can re-evaluate her and I can review her imaging with Dr. Bains to finalize some kind of surgical plan for her. Thank you for allowing us to care for your patient. The total time spent with this visit with this patient was 45 minutes reviewing history, physical exam, lumbar imaging review, and implementation of treatment plan or further diagnostic testing Ghulam Bains MD,PhD [facility] Coding Level of Care Code New Pt Level 4 (31311) Diagnoses Lumbar radiculopathy M54.16
== END 2024-04-13 13:57 | disposition home or self-care (01) ==
PROVIDERS: PCP Internal Medicine; Referring Provider Internal Medicine; Visit Provider Physician Assistant
DX: M54.16 Radiculopathy, lumbar region (principal)
CPT/HCPCS: 99204; 99214

== ENCOUNTER → 2024-04-13 13:18 | Outpatient (BNVA) | payer MEDICARE, SELFPAY | PROVIDERS: PCP Internal Medicine; Visit Provider Physician Assistant | DX: M54.16 Radiculopathy, lumbar region (principal) | CPT/HCPCS: 99202 ==

== ENCOUNTER 2024-04-20 06:32 | Outpatient (REF) | payer MEDICARE, SELFPAY ==
[2024-04-20 10:06] LABS: MANUAL DIFF FLAG NO
[2024-04-20 10:08] LABS: Appearance Urine Clear; Color Urine Yellow; Glucose Urine UA Negative (Negative); Leukocyte Esterase Urine Moderate (2+) (Negative); Nitrite Urine Negative (Negative); Specific Gravity - Urine 1.015 (1.005-1.025); UMIC TRIGGER UA YES; Urine Blood Negative (Negative); Urine Ketones Negative (Negative); Urine Protein Negative (Neg-Trace)
[2024-04-20 10:10] LABS: Basophils Absolute Auto 0.1 X10*3/uL (0.0-0.2); Basophils Percent Auto 0.9 % (0-2); Eosinophils Absolute Auto 0.5 X10*3/uL (0.0-0.4); Eosinophils Percent Auto 6.5 % (0-4); Hematocrit 33.7 % (37.0-47.0); Hemoglobin 10.4 g/dl (12.0-16.0); Imm Gran Abs Auto 0.02 X10*3/uL (0.00-0.03); Imm Gran Pct Auto 0.3 % (0.0-0.4); Lymphocytes Absolute Auto 2.1 X10*3/uL (1.2-4.9); Lymphocytes Percent Auto 29.7 % (20-40); Mean Corpuscular HGB Conc 30.9 g/dl (31.0-35.0); Mean Corpuscular Hemoglobin 26.5 pg (27.0-33.0); Mean Corpuscular Volume 85.8 fL (80.0-98.0); Mean Platelet Volume 11.5 fL (9.4-12.3); Monocytes Absolute Auto 0.6 X10*3/uL (0.1-1.2); Monocytes Percent Auto 8.8 % (2-11); Neutrophils Absolute Auto 3.7 x10*3/uL (2.0-8.3); Neutrophils Percent Auto 53.8 % (45-73); Platelet Count 313 X10*3/uL (160-400); Red Blood Count 3.93 X10*6/uL (4.20-5.50); Red Cell Distribution Width 13.6 % (11.0-16.0); White Blood Count 6.9 X10*3/uL (4.8-10.8)
[2024-04-20 10:28] LABS: Bacteria Urine None Seen (None Seen); Hyaline Casts Urine 0-2 /LPF (0-2); RBC Urine 0-2 /HPF (0-2); Squamous Epithelial Cell Urine 0-2 /HPF (0-2); WBC Urine 0-5 /HPF (0-5)
[2024-04-20 10:49] LABS: Alanine Aminotransferase 12 U/L (0-31); Albumin Level 3.8 g/dL (3.5-5.0); Alkaline Phosphatase 87 U/L (39-117); Anion Gap 13 (12-20); Aspartate Amino Transferase 16 U/L (5-31); Bilirubin Total 0.3 mg/dL (0.0-1.0); Blood Urea Nitrogen 26 mg/dL (9-16); Calcium 9.3 mg/dL (8.4-10.2); Carbon Dioxide 24 mmol/L (22-29); Chloride 106 mmol/L (96-108); Cholesterol 153 mg/dL (<200); Estimated Glomerular Filt Rate > 60; Glucose Random 107 mg/dL (60-115); HDL Cholesterol 47 mg/dL (>40); LDL Cholesterol Calculated 91 mg/dL (<100); Potassium 4.2 mmol/L (3.3-5.1); Sodium 139 mmol/L (135-145); Total Protein 6.6 g/dL (6.5-8.0); Triglycerides 76 mg/dL (<150)
[2024-04-20 10:53] LABS: Thyroid Stimulating Hormone 2.13 uIU/mL (0.32-4.0)
[2024-04-20 10:55] LABS: Estimated Average Glucose 128 mg/dL; Hemoglobin A1c % 6.1 % (<6.0)
== END 2024-04-20 06:33 | disposition home or self-care (01) ==
LOC: HO.HMGCLDS 06:32
PROVIDERS: PCP Internal Medicine; Visit Provider Internal Medicine
DX: I10 Essential (primary) hypertension (principal); E11.42 Type 2 diabetes mellitus with diabetic polyneuropathy; E03.9 Hypothyroidism, unspecified
CPT/HCPCS: 36415; 80053; 80061; 81001; 83036; 84443; 85025

== ENCOUNTER 2024-04-27 15:06 | Outpatient (AMB) | payer MEDICARE, SELFPAY ==
[2024-04-27 15:08] VITALS: BP 130/82; PULSE 105; TEMP 36.8; O2SAT 94; BMI 30.7
--- NOTE | 2024-04-27 15:08 | MHC.OFFWIV ---
Intake Vital Signs 04/27/24 15:08 Height 4 ft 9.64 in Weight 145 lb BMI 30.7 BP 130/82 Blood Pressure Location Rt brachial Position Sitting Pulse 105 H Pulse Source Pulse Oximeter Temp 98.2 F Temp Source Oral Pulse Oximetry (%) 94 Oxygen Delivery Method Room Air Intake Visit Reasons: EP-lt leg wound Intake Note: pt c/o bilateral leg swelling, wound on LT leg. banged into walker at home 3 weeks ago Patient Tobacco Use Status: Never used Tobacco Allergies morphine [MORPHINE] Allergy (Unknown, Verified 04/27/24 15:15) NAUSEA & VOMITING codeine [CODEINE] Adverse Reaction (Unknown, Verified 04/27/24 15:15) DIGESTIVE PROBLEMS oxycodone Adverse Reaction (Unknown, Verified 04/27/24 15:15) NAUSEA AND VOMITING tramadol [From ULTRAM] Adverse Reaction (Unknown, Verified 04/27/24 15:15) DIGESTIVE PROBLEMS Codeine Phosphate Allergy (Unknown, Uncoded 04/27/24 15:15) Nausea and Vomiting codiene Allergy (Unknown, Uncoded 04/27/24 15:15) SOB, cp morphine Allergy (Unknown, Uncoded 04/27/24 15:15) n/v percocet Allergy (Unknown, Uncoded 04/27/24 15:15) vomiting Percodan Allergy (Unknown, Uncoded 04/27/24 15:15) Nausea and Vomiting percodan Allergy (Unknown, Uncoded 04/27/24 15:15) vomiting Do you need a note to return to daycare/school/sports/work: No HPI HPI Comments History of Present Illness Details Patient is an 88-year-old female complaining of a nonhealing wound on her left lower leg. She states that 3 weeks ago she thinks her leg on her walker and she came to have the wound evaluated at this clinic, it was not infected at that time. She states it is not healing despite keeping her blood sugars in a healthy range. She states she has been keeping bandages on it because it is weeping and she is having to change the bandages more frequently in the last few days. She has been applying an antibiotic cream but does not seem to be helping. She states that sometimes it is a milky discharge from the wound. And it does appear to be warm but both of her legs are warm and swollen chronically [facility] Medical History Diabetes type 2, controlled Hypertension Thyroid disease Osteoporosis Infectious colitis Hyperlipidemia Arthritis Diabetes Surgical History History of surgery History of surgery History of carpal tunnel surgery History of cholecystectomy H/O sinus surgery H/O: hysterectomy Hx of appendectomy H/O adenoidectomy Hx of tonsillectomy History of total left knee replacement Family History Mother Diabetes Social History Household Members: None Housing: House Do you presently have visiting nurse or other home services: No Alcohol intake: current Alcohol intake frequency: holidays/special occasions only Comment: sleeping Patient Tobacco Use Status: Never used Tobacco Advance Directives Date on File: 08/01/23 service: No Current occupational status: retired Review of Systems Const All systems reviewed & are unremarkable except as noted in HPI and below Physical Exam Vital Signs: Last Vital Signs Temp 98.2 F 04/27/24 15:08 Pulse 105 H 04/27/24 15:08 BP 130/82 04/27/24 15:08 Pulse Ox 94 04/27/24 15:08 Oxygen Delivery Method Room Air 04/27/24 15:08 BMI result Body Mass Index 30.7 Const General: cooperative, healthy appearing, comfortable, no acute distress and well developed Orientation/consciousness: patient oriented x3 Limitations: no limitations HEENT Head: Yes normal to inspection Neck Neck: Yes normal visual inspection and Yes supple Skin Other: Left lower extremity lateral side has a 1 cm wound weeping with serous fluid and purulence, warmth and erythema surrounding the wound Neuro General: patient oriented x3 Assessment & Plan Assessment & Plan (1) Infected wound: Code(s): T14.8XXA - Other injury of unspecified body region, initial encounter; L08.9 - Local infection of the skin and subcutaneous tissue, unspecified Plan: I have seen this patient before and the wound never looked infected until today, she had some purulent fluid leaking from it so I prescribed her 5 days of doxycycline. Recommended she keep her blood sugars in check and if it does not heal she should follow up with her primary care doctor. Plan See above Medications: New doxycycline hyclate 100 mg PO BID 10 tabs 0RF Coding Level of Care Code New Pt Level 3 (87466) Diagnoses Infected wound T14.8XXA; L08.9
== END 2024-04-27 15:33 | disposition home or self-care (01) ==
PROVIDERS: PCP Internal Medicine; Visit Provider Physician Assistant
DX: L08.9 Local infection of the skin and subcutaneous tissue, unspecified (principal); T14.8XXA Other injury of unspecified body region, initial encounter
CPT/HCPCS: 99213

== ENCOUNTER 2024-05-01 13:24 | Outpatient (REF) | payer MEDICARE, SELFPAY ==
--- NOTE | ~2024-05-01 | MM_ITS ---
EXAMINATION: BONE DENSITOMETRY CLINICAL INDICATION: Age-related osteoporosis without current pathological fracture. COMPARISON: Previous BD dated 12/16/2021 and baseline BD dated 07/05/2005. TECHNIQUE: Using a Trending Taste DXA System (software version: 13.1) manufactured by [employer], dual-energy x-ray absorptiometry was performed of the lumbar spine and left hip. The images are of good technical quality. Summary results are attached. FINDINGS: LEFT FEMUR, NECK: Current: BMD 0.746 g/cm2, Z-score 0.5, T-score -2.1, osteopenia. Prior: BMD 0.654 g/cm2. Baseline: BMD 0.805 g/cm2. LEFT FEMUR, TOTAL: Current: BMD 0.763 g/cm2, Z-score 0.6, T-score -1.9, osteopenia, 0.7% increase from previous, 18.0% decrease from baseline (<5% change is not significant). Prior: BMD 0.758 g/cm2. Baseline: BMD 0.930 g/cm2. AP SPINE L1-L4: Current: BMD 1.512 g/cm2, Z-score 4.9, T-score 2.8, normal, 2.8% decrease from previous, 10.9% increase from baseline (<5% change is not significant). Prior: BMD 1.555 g/cm2. Baseline: BMD 1.363 g/cm2. IDENTIFIED RISK FACTORS: Early menopause, secondary osteoporosis, osteoporosis, recurrent falls, height loss, glucocorticoids, hysterectomy, bilateral oophorectomy. HISTORY OF FRACTURE: None listed. MEDICATIONS: Calcium supplements or multivitamin, vitamin D, bisphosphonates. MM/XR DEXA axial skeleton IMPRESSION: 1. DIAGNOSIS: Osteopenia based on the lowest T-score value of -2.1 in the femoral neck applying World Health Organization criteria. 2. 10-YEAR FRACTURE RISK PREDICTION, FRAX: Not performed in this patient on estrogen or bone building treatments. 3. Treatment Recommendations: NOF guidelines recommend consideration for treatment in postmenopausal women and men age 50 and older presenting with the following: -A hip or vertebral (clinical or morphometric) fracture. -T-score less than or equal to -2.5 at the femoral neck or spine after appropriate evaluation to exclude secondary causes. -Low bone mass at the hip or spine and a 10-year fracture probability by FRAX of greater than or equal to 3% for hip fracture or greater than or equal to 20% for major osteoporotic fracture based on the [place] adapted WHO algorithm. 4. Other Recommendations: All treatment decisions require clinical judgment and consideration of individual patient factors, including patient preferences, comorbidities, previous drug use, risk factors not captured in the FRAX model (e.g. frailty, falls, vitamin D deficiency, increased bone turnover, interval significant decline in bone density) and possible under or overestimation of fracture risk by FRAX. Additional medical evaluation for secondary cause of low bone mineral density may be appropriate. FUTURE SCAN RECOMMENDATION: People with diagnosed cases of osteoporosis or at high risk for fracture should have regular bone mineral density tests. For patients eligible for Medicare, routine testing is allowed once every 2 years. The testing frequency can be increased to one year for patients who have rapidly progressing disease, those who are receiving or discontinuing medical therapy to restore bone mass, or have additional risk factors. Electronically signed by: Tram Jade MD 05/22/2024 08:32 AM EDT
== END 2024-05-01 13:25 | disposition home or self-care (01) ==
LOC: HO.MAMMO 13:24
PROVIDERS: PCP Internal Medicine; Visit Provider Internal Medicine Endocrinology, Diabetes & Metabolism
DX: M81.0 Age-related osteoporosis without current pathological fracture (principal)
CPT/HCPCS: 77080

== ENCOUNTER 2024-05-08 10:37 | Outpatient (REF) | payer MEDICARE, SELFPAY ==
[2024-05-08 13:14] LABS: MANUAL DIFF FLAG NO
[2024-05-08 13:29] LABS: Basophils Absolute Auto 0.1 X10*3/uL (0.0-0.2); Basophils Percent Auto 1.1 % (0-2); Eosinophils Absolute Auto 0.3 X10*3/uL (0.0-0.4); Eosinophils Percent Auto 3.6 % (0-4); Hematocrit 33.9 % (37.0-47.0); Hemoglobin 10.7 g/dl (12.0-16.0); Imm Gran Abs Auto 0.04 X10*3/uL (0.00-0.03); Imm Gran Pct Auto 0.5 % (0.0-0.4); Lymphocytes Absolute Auto 2.2 X10*3/uL (1.2-4.9); Mean Corpuscular HGB Conc 31.6 g/dl (31.0-35.0); Mean Corpuscular Hemoglobin 26.9 pg (27.0-33.0); Mean Corpuscular Volume 85.2 fL (80.0-98.0); Mean Platelet Volume 11.7 fL (9.4-12.3); Monocytes Absolute Auto 0.7 X10*3/uL (0.1-1.2); Monocytes Percent Auto 8.5 % (2-11); Neutrophils Percent Auto 60.3 % (45-73); Platelet Count 304 X10*3/uL (160-400); Red Blood Count 3.98 X10*6/uL (4.20-5.50); Red Cell Distribution Width 13.6 % (11.0-16.0); White Blood Count 8.3 X10*3/uL (4.8-10.8)
[2024-05-08 13:58] LABS: Iron 41 mcg/dL (30-160); Percent Iron Saturation 13 % (15-50); Total Iron Binding Capacity 310 mcg/dL (228-428); Unsaturated Iron Binding 269 ug/dL
[2024-05-08 14:05] LABS: Ferritin 40 ng/mL (10-250)
[2024-05-08 14:39] LABS: Folate 10.6 ng/mL (> or = 4.0); Vitamin B12 > 2000 pg/mL (200-900)
== END 2024-05-08 10:38 | disposition home or self-care (01) ==
LOC: HO.HMGCLDS 10:37
PROVIDERS: PCP Internal Medicine; Visit Provider Internal Medicine
DX: D64.9 Anemia, unspecified (principal)
CPT/HCPCS: 36415; 82607; 82728; 82746; 83540; 85025

== ENCOUNTER 2024-05-16 10:40 | Outpatient (RCR) | payer MEDICARE, SELFPAY | END 2024-07-06 13:44 | disposition home or self-care (01) | LOC: HO.WCC 10:40 | PROVIDERS: PCP Internal Medicine; Visit Provider Surgery | DX: E11.622 Type 2 diabetes mellitus with other skin ulcer (principal); L97.822 Non-pressure chronic ulcer of other part of left lower leg with fat layer exposed; Q82.0 Hereditary lymphedema; I10 Essential (primary) hypertension; Z79.84 Long term (current) use of oral hypoglycemic drugs; Z79.899 Other long term (current) drug therapy; Z87.891 Personal history of nicotine dependence | CPT/HCPCS: 97597; 97598; 99212 ==

== ENCOUNTER 2024-06-04 11:33 | Outpatient (REF) | payer SELFPAY | END 2024-06-04 11:34 | disposition home or self-care (01) | LOC: HO.HAP 11:33 | PROVIDERS: Visit Provider Internal Medicine | DX: Z46.1 Encounter for fitting and adjustment of hearing aid (principal) | CPT/HCPCS: V5266 ==

== ENCOUNTER 2024-07-20 11:37 | Outpatient (AMB) | payer MEDICARE, SELFPAY ==
--- NOTE | 2024-07-20 11:56 | HO.SPINEOV ---
Intake Visit Reasons: follow up injection Intake Note: Ms. Piña is here today to F/u after injections. Social Media Marketing Manager Required: No Allergies morphine [MORPHINE] Allergy (Unknown, Verified 07/20/24 11:57) NAUSEA & VOMITING codeine [CODEINE] Adverse Reaction (Unknown, Verified 07/20/24 11:57) DIGESTIVE PROBLEMS oxycodone Adverse Reaction (Unknown, Verified 07/20/24 11:57) NAUSEA AND VOMITING tramadol [From ULTRAM] Adverse Reaction (Unknown, Verified 07/20/24 11:57) DIGESTIVE PROBLEMS Codeine Phosphate Allergy (Unknown, Uncoded 04/27/24 15:15) Nausea and Vomiting codiene Allergy (Unknown, Uncoded 04/27/24 15:15) SOB, cp morphine Allergy (Unknown, Uncoded 04/27/24 15:15) n/v percocet Allergy (Unknown, Uncoded 04/27/24 15:15) vomiting Percodan Allergy (Unknown, Uncoded 04/27/24 15:15) Nausea and Vomiting percodan Allergy (Unknown, Uncoded 04/27/24 15:15) vomiting Assessment & Plan Assessment & Plan (1) Lumbar radiculopathy: Code(s): M54.16 - Radiculopathy, lumbar region Category: Medical Plan Dear colleague, On 07/20/2024 I saw for follow-up Lory Piña. This 88-year-old female is suffering from a right L5 radiculopathy diagnosed by zhane Clinton previously. He referred her for an L5 block. The good news is that her pain is completely gone since the block 2 months ago. I advised her to undergo a 2nd injection if the symptoms return and return to my clinic if the 2nd injection is not helpful anymore. I hope that she will not need any further injections or surgery. Total time spent 15 minutes for review of imaging and discussing plan of care. Thank you for allowing me take care of your patient. Kendall Bains MD, PhD Spine Fellowship Trained Neurosurgeon Director, [facility] Coding Level of Care Code Est Pt Level 2 (49151) Diagnoses Lumbar radiculopathy M54.16
== END 2024-07-20 13:03 | disposition home or self-care (01) ==
PROVIDERS: PCP Internal Medicine; Visit Provider Neurological Surgery
DX: M54.16 Radiculopathy, lumbar region (principal)
CPT/HCPCS: 99212

== ENCOUNTER → 2024-07-20 11:37 | Outpatient (BNVA) | payer MEDICARE, SELFPAY | PROVIDERS: PCP Internal Medicine; Visit Provider Physician Assistant | DX: M54.16 Radiculopathy, lumbar region (principal); Z98.890 Other specified postprocedural states | CPT/HCPCS: 99212 ==

== ENCOUNTER 2024-11-29 06:34 | Outpatient (REF) | payer MEDICARE, SELFPAY ==
--- OUTSIDE RECORDS SUMMARY | 2024-11-29 06:38 | XMS_ITS ---
Author Organization [facility] Address [address] [place] [address] Care Team Providers Care Rehab Director Occupational Therapist Name Role Phone Jose Alberto Bridges MD Primary Care Provider Unavaila ble Black, Belinda Unavailable [phone] Allergies Allergen (clinical drug ingredient) Drug/Non Drug Allergy documented on EMR Reaction Allergy Type Onset Date Status acetaminophen / oxycodone Percocet vomiting Drug Allergy Active Percodan vomiting Drug Allergy Active Seasonale Unknown Drug Allergy Active Simvastatin Unknown Drug Allergy Activ e tramadol Ultram vomiting Drug Allergy Active codeine Codeine Severe Chest Pain Drug Allergy Active morphine Morphine vomiting Drug Allergy Active REASON FOR VISIT At Risk Footcare, Ingrown Nail Medications Medication SIG (Take, Route, Frequency, Duration) Notes Start Date End Date Status Fosamax Active Metformin & Diet Manage Prod 500 MG as directed Orally Once a day Not-Taking Simvastatin Not-Taki ng Ibuprofen Not-Taking Calcium 500 + D 500mg Not-Taking Losartan Potassium 50 MG 1 tablet Orally Once a day Not-Taking hydroCHLOROthiazide Not-Taking Cephalexin 500 MG 1 tablet Orally Twice a day for 10 day(s) Not-Taking Lasix PRN Not-Taking Vitamin D 50 MCG (1999 UT) as directed Orally twice a day Active metFORMIN HCl 500 MG 1 tablet with a meal Orally in morning and two at night once a day Active Omeprazole Active Metoprolol & Diet Manage Prod 100 mcg Daily Active Compression Stockings 20-30mm Hg as directed Not-Taking Vitamin B-12 Active Lasix 20 MG 1 tablet Orally Once a day for 30 day(s) PRN as needed Active Losartan Potassium 50 MG 1 tablet Orally Once a day Active Levothyroxine Sodium Active Social History Tobacco Use: Social History Observation Description Date Details (start date - stop date) Former Smoker NA - NA Tobacco Use/Smoking Question Answer Notes Are you a: former smoker Additional Findings: Tobacco Non-User Current no n-smoker Alcohol Screen Question Answer Notes Did you have a drink contain ing alcohol in the past year? Yes How often did you have a dri nk containing alcohol in the past year? Monthly or less (1 point) How often did you have 6 or more drinks on one occasion in the past year? Less than monthly (1 point) Points 2 Interpretation Negative Tobacco use other than smoking: Question Answer Notes Are you an other tobacco user? No Vital Signs Height 4 ft 11 in in 06/04/2024 Weight 139 lbs 06/04/2024 BMI 28.07 kg/m2 06/04/2024 Procedures Procedure Date Ordered Date Performed Result Body Sit e 84100-WLIBSVM NAIL, 6 OR MORE 06/04/2024 N/A 18666-Gncqhjqx Plate 06/04/2024 N/A 44609-QQPQ SKIN LESIONS, 2 TO 4 06/04/2024 N/A Encounters Encounter Location Date Provider Diagnosis [facility] [address] [address] 06/04/2024 Belinda Garcia Tinea unguium B35.1 ; Type 2 diabetes mellitus with diabetic polyneuropathy E11.42 and Ingrown nail L60.0 Assessments Encounter Date Diagnosis (ICD Code) Assessment Notes Treatment Notes Treatment Clinical Notes Section Notes 06/04/2024 Tinea unguium (ICD-10 - B35.1) 06/04/2024 Type 2 diabetes mellitus with diabetic polyneuropathy (ICD-10 - E11.42) 06/04/2024 Ingrown nail (ICD-10 - L60.0) Plan Of Treatment Pending Test Test Name Order Date 55216-CIRTTEV NAIL, 6 OR MORE 06/04/2024 08362-Zxnqjlnt Plate 06/04/2024 43622-UPGB SKIN LESIONS, 2 TO 4 06/04/20 24 Next Appt Details Follow Up: 2 Weeks,prn, Reas on: Provider Name:Belinda Tori Jose , 01/10/2025 11:15:00 AM, [address] [place] [address], [phone], Provider Name:Belinda Garcia , 03/21/2025 11:00:00 AM, [address] [facility], [place], [address], Procedure Notes * Category Sub-Category Detail Notes Nail Avulsion Procedure A fine sterile e levator was placed between the eponychium, nail fold, and nail plate to separate the structures. A sterile nail splitter, and/or sterile 316 blade, was then used to longitudinally section the nail along its entire length through the eponychium to the area under the nail fold. The offending portion of nail was from the nail bed with a rolling action and then removed with a hemostat. No underlying bone was identified. There was minimal bleeding as hemostasis was achieved through the temporary use of either a digital tourniquet or the aforementioned local with epinephrine. A bacitracin sterile dressing was applied. Local wound aftercare instructions were discussed and dispensed. The patient was informed of both conservative and future surgical procedures to prevent recurrence. Tylenol or Motrin was recommended for pain or discomfort (75566) , , DIABETES: Matricectomy deferred at this time due to diabetes risk Anesthesia was deferred - NEURO SJ: patient has medically documented neuropathic condition affecting sensation, Location Medial nail border, TA, Debride Nail 6-10 Nail debridement Performance o f this nail treatment by a nonprofessional would put this patients foot and overall health at risk. Therefore, nail debridement was performed extensively to reduce/remove overall nail length, girth, thickness, subungual debris, and necrotic tissue, by manual and/or electrical means through the use of a nail nipper and/or dremel-type carbide grinder, to a more viable healthy nail plate or bed tissue 6-10. Silver nitrate used for any petechial bleeding as necessary. Definitive antifungal treatment options have been reviewed and discussed with the patient. The patient chooses, no pharmaceutical tx - 50839 Keratoma Treatment Parring or Cutting o f Benign Hyperkeratotic Lesion(s) 90337 (2-4 Lesions) - The Benign hyperkeratotic lesions, as described above were pared, and/or cut utilizing a sterile #15 blade, tissue nippers, and/or dremel Progress Notes * Lory STANLEY ADOB:[birth year] (88 yo F)Acc No.[id number]:06/04/2024 Progress Note Patient:?Lory Stanley Provider:?Belinda Garcia DPM :1935???Age:88 Y???Sex:Female D ate:06/04/2024 Address:[address] [place] [address], [facility] Pcp:Jose Alberto Bridges MD Subjective: * Chief Complaints: * ???At Risk FootcareIngrown N ail * HPI: ???At Risk footcare:?Pt States Last PCP Visit:?Date?05/04/2024 ? unna boot left - edema and open wound. * Medical History:? * Surgical History:?appendecto my 1971cholecystectomy 1971hysterectomy 1982left knee replacement 2007sinus surgery 1983tonsillectomy and adenoidectomy 1947bilateral eyelid surgery 05/2014lt and rt cataracts 2013carpal tunnel 03/2018 and 05/2018 * Hospitalization/Major Diagno stic Procedure:?[facility] for acute diverculitis 2017[facility] for headache and stomach bacterial infection 12/2017ER in [place]-Sepsis Infection in hand- IV antibiotics/Flu 07/2019[facility]- Fall- swollen eye - head scan 03/27/20[facility]- Sciatica 06/29/20 06/30/20[facility]- Gi issues stay a few days 1Acute Cellulitis- b/l legs infected-IV antibiotics - [facility] comes to pts home and PT 1 x a week 08/01/23-08/05/23 * Family History:?Mother: dece ased, diagnosed with Family history of arthritis, Diabetic - NIDDM, Other malignant neoplasm of unspecified site.?Father: , diagnosed with Other malignant neoplasm of unspecified site.?Siblings: Brother -Cancer, diagnosed with Other malignant neoplasm of unspecified site.? * Social History:?Tobacco Use:?Tobacco Use/Smoking?Are you a:?former smoker ?Additional Findings: Tobacco Non-User?Current non-smoker ?Tobacco use other than smoking?Are you an other tobacco user??No ???Drugs/Alcohol:?Drugs?Have you used drugs other than those for medical reasons in the past 12 months??No ?Alcohol Screen?Did you have a drink containing alcohol in the past year??Yes ?How often did you have a drink containing alcohol in the past year??Monthly or less (1 point) ?How often did you have 6 or more drinks on one occasion in the past year??Less than monthly (1 point) ?Points?2 ?Interpretation?Negative ???Miscellaneous:?Caffeine: yes, frequency:, 2-3 cups per day. ?no Children. ?Exercise: yes, walking. ?Marital status: single. 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 * Medications:?TakingFosamax L asix 20 MG Tablet 1 tablet Orally Once a day, Notes: PRN as neededLosartan Potassium 50 MG Tablet 1 tablet Orally Once a dayLevothyroxine Sodium Metoprolol & Diet Manage Prod 100 mcg Daily metFORMIN HCl 500 MG Tablet 1 tablet with a meal Orally in morning and two at night, Notes: once a dayOmeprazole Vitamin B-12 Vitamin D 50 MCG (2000 UT) Capsule as directed Orally , Notes: twice a dayTaking Fosamax Taking Lasix 20 MG Tablet 1 tablet Orally Once a day, Notes: PRN as neededTaking Losartan Potassium 50 MG Tablet 1 tablet Orally Once a dayTaking Levothyroxine Sodium Taking Metoprolol & Diet Manage Prod 100 mcg Daily Taking metFORMIN HCl 500 MG Tablet 1 tablet with a meal Orally in morning and two at night, Notes: once a dayTaking Omeprazole Taking Vitamin B-12 Taking Vitamin D 50 MCG (2000 UT) Capsule as directed Orally , Notes: twice a dayNot-Taking/PRNCompression Stockings 20-30mm Hg closed toe- knee high as directed Cephalexin 500 MG Tablet 1 tablet Orally Twice a dayLasix PRNLosartan Potassium 50 MG Tablet 1 tablet Orally Once a dayhydroCHLOROthiazide Ibuprofen Calcium 500 + D 500mg Metformin & Diet Manage Prod 500 MG Miscellaneous as directed Orally Once a daySimvastatin Medication List reviewed and reconciled with the patientNot-Taking/PRN Compression Stockings 20- 30mm Hg closed toe- knee high as directed Not-Taking/PRN Cephalexin 500 MG Tablet 1 tablet Orally Twice a dayNot-Taking/PRN Lasix PRNNot-Taking/PRN Losartan Potassium 50 MG Tablet 1 tablet Orally Once a dayNot-Taking/PRN hydroCHLOROthiazide Not- Taking/PRN Ibuprofen Not-Taking/PRN Calcium 500 + D 500mg Not-Taking/PRN Metformin & Diet Manage Prod 500 MG Miscellaneous as directed Orally Once a dayNot-Taking/PRN Simvastatin Medication List reviewed and reconciled with the patient * Allergies:?Percocet: vomitin g - AllergyUltram: vomiting - AllergyPercodan: vomiting - AllergySimvastatinCodeine: Severe Chest Pain - AllergyMorphine: vomiting - AllergySeasonaleyes[Allergies Verified] Objective: * Vitals:?Ht: 4 ft 11 in, Wt: 139, BMI: 28.07, Shoe size: 6ww, BS: not taken, Wt- k.05 kg. * ???Past Orders: ???Lab:HEMOGLOBIN A1C (GLYCO HEMOGLOBIN) (Order Date - 04/15/2024) (Collection Date - 04/15/2024) ? Value Reference Range ?TOTAL HEMOGLOBIN (HGBA1C) 6.1 * Examination: ???Ophthalmology Referral: ?DIABETES EYE EXAM?Diabetic Retinopathy Screening:?Yes ?Findings of Diabetic Eye Exam:?retinopathy right and maybe left?Neurological: ?SENSORY:?Neurological exam demonstrates, reduced vibration sensation, reduced light touch sensation, reduced sharp/dull pin prick discrimination , 5.07 monofilament test performed at plantar aspects of 5 varied sites per foot shows sensation, absent, B/L, Pt relates, anesthesia, pins and needles sensation, especially in the evening,.?Nails: ?NAILS are:?Elongated, overgrown, dystrophic, lytic, greater than 3mm thick, discolored and friable with crumbly malodorous subungual debris, , 2-5 Left foot , 1-5 Right foot.?Dermatologic: ?SKIN FINDINGS:?Skin exam reveals Keratotic lesion(s) located at, SUB MTH (s), 1, B/L,? Unna boot left leg.?Ingrown Nail: ?INSPECTION:?Reveals nail incurvation, pain on palpation, groove hypertrophy , groove ischemia , Medial nail border, , TA.? Assessment: * Assessment: 1.?Tinea unguium - B35.1?2.? Type 2 diabetes mellitus with diabetic polyneuropathy - E11.42 (Primary)?3.?Ingrown nail - L60.0? Plan: * Treatment: 2.?Tinea unguium?Procedure: 47396-NCDYOJV NAIL, 6 OR MORE 3.?Ingrown nail?Procedure: 34987-Ujbyfghl Plate * Procedures:?Debride Nail 6-10:?Nail debridement?Performance of this nail treatment by a nonprofessional would put this patients foot and overall health at risk. Therefore, nail debridement was performed extensively to reduce/remove overall nail length, girth, thickness, subungual debris, and necrotic tissue, by manual and/or electrical means through the use of a nail nipper and/or dremel-type carbide grinder, to a more viable healthy nail plate or bed tissue 6-10. Silver nitrate used for any petechial bleeding as necessary. Definitive antifungal treatment options have been reviewed and discussed with the patient. The patient chooses, no pharmaceutical tx - 52994.?Keratoma Treatment:?Parring or Cutting of Benign Hyperkeratotic Lesion(s)?98179 (2-4 Lesions) - The Benign hyperkeratotic lesions, as described above were pared, and/or cut utilizing a sterile #15 blade, tissue nippers, and/or dremel.?Nail Avulsion:?Location?Medial nail border, TA, ?.?Anesthesia?was deferred - NEUROPATHY: patient has medically documented neuropathic condition affecting sensation, ?.?Procedure?A fine sterile elevator was placed between the eponychium, nail fold, and nail plate to separate the structures. A sterile nail splitter, and/or sterile 316 blade, was then used to longitudinally section the nail along its entire length through the eponychium to the area under the nail fold. The offending portion of nail was from the nail bed with a rolling action and then removed with a hemostat. No underlying bone was identified. There was minimal bleeding as hemostasis was achieved through the temporary use of either a digital tourniquet or the aforementioned local with epinephrine. A bacitracin sterile dressing was applied. Local wound aftercare instructions were discussed and dispensed. The patient was informed of both conservative and future surgical procedures to prevent recurrence. Tylenol or Motrin was recommended for pain or discomfort (52672) , , DIABETES: Matricectomy deferred at this time due to diabetes risk.? * Procedure Codes:?00986 DEBRI DE NAIL, 6 OR MORE, Modifiers: XS 60578 Avulsion Plate, [place] [address] TRIM SKIN LESIONS, 2 TO 4, Modifiers: XS * Follow Up:?2 Weeks,prn * Images: * Sign off status: Completed true * Provider:?Belinda Garcia DPM Date:?2023 Generated for Ayleen matias/Kevan/eTkarliesmitting on:?11/29/2024 06:38 AM EDT History and Physical Notes * HPI (History of Present Illness) Category Sub-Category Detail Notes Category Not es At Risk footcare Pt States Last PCP Visit: Date: 4 unna boot left - edema and open wound Examination Category Sub-Category Detail Notes Category Not es Ingrown Nail INSPECTION: Reveals nail inc urvation, pain on palpation, groove hypertrophy , groove ischemia , Medial nail border, , TA Neurological SENSORY: Neurological exa m demonstrates, reduced vibration sensation, reduced light touch sensation, reduced sharp/dull pin prick discrimination , 5.07 monofilament test performed at plantar aspects of 5 varied sites per foot shows sensation, absent, B/L, Pt relates, anesthesia, pins and needles sensation, especially in the evening, TINEL'S COMPRESSION: Dermatologic SKIN FINDINGS: Skin exam reveal s Keratotic lesion(s) located at, SUB MTH (s), 1, B/L, Unna boot left leg Ophthalmology Referral DIABETES EYE EXAM Diabetic Retinopa thy Screening:: Yes Findings of Diabetic Eye Exam:: retinopa thy right and maybe left Nails NAILS are: Elongated, overg rown, dystrophic, lytic, greater than 3mm thick, discolored and friable with crumbly malodorous subungual debris, , 2-5 Left foot , 1-5 Right foot
--- OUTSIDE RECORDS SUMMARY | 2024-11-29 06:38 | XMS_ITS | Patient Health Record ---
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 Name Role Phone Jose Alberto Bridges MD Primary Care Provider Veronicaa Belinda Samuel Unavailable [phone] Allergies Allergen (clinical drug ingredient) Drug/Non Drug Allergy documented on EMR Reaction Allergy Type Onset Date Status acetaminophen / oxycodone Percocet vomiting Drug Allergy Active Percodan vomiting Drug Allergy Active Seasonale Unknown Drug Allergy Active Simvastatin Unknown Drug Allergy Activ e tramadol Ultram vomiting Drug Allergy Active codeine Codeine Severe Chest Pain Drug Allergy Active morphine Morphine vomiting Drug Allergy Active Results Component Value Reference Range Notes HEMOGLOBIN A1C (GLYCOHEMOGLO BIN) Reviewed date:11/12/2024 10:58:45 AM Interpretation: Performing Lab: Notes/Report: HEMOGLOBIN A1C % (HH) 6.1 HEMOGLOBIN A1C (GLYCOHEMOGLO BIN) Reviewed date:09/10/2024 09:14:08 AM Interpretation: Performing Lab: Notes/Report: HEMOGLOBIN A1C % (HH) 6.1 HEMOGLOBIN A1C (GLYCOHEMOGLO BIN) Reviewed date:06/04/2024 09:35:24 AM Interpretation: Performing Lab: Notes/Report: TOTAL HEMOGLOBIN (HGBA1C) 6.1 Reason For Referral No Information Medications Medication SIG (Take, Route, Frequency, Duration) Notes Start Date End Date Status Losartan Potassium 50 MG 1 tablet Orally Once a day Not-Taking Levothyroxine Sodium Active hydroCHLOROthiazide Not-Taking Lasix 20 MG 1 tablet Orally Once a day for 30 day(s) PRN as needed Active Lasix PRN Not-Taking Losartan Potassium 50 MG 1 tablet Orally Once a day Active Metoprolol & Diet Manage Prod 100 mcg Daily Active Ibuprofen Not-Taking metFORMIN HCl 500 MG 1 tablet with a meal Orally in morning and two at night once a day Active Calcium 500 + D 500mg Not-Taking Omeprazole Active Metformin & Diet Manage Prod 500 MG as directed Orally Once a day Not-Taking Vitamin B-12 Active Simvastatin Not-Taki ng Vitamin D 50 MCG (2000 UT) as directed Orally twice a day Active Extra Depth Orthopedic Shoes (1 Pair) with Customized Heat Molded Multidensity Innersoles (3 Pair) as directed Dx: NIDDM/Polyneuropath y (E11.42), Hammertoe Foot Deformity (M20.41,M20.42), Preulcerative Skin Lesion(s) (L85.1 09/10/2024 Active Compression Stockings 20-30mm Hg as directed Not-Taking Fosamax Active Cephalexin 500 MG 1 tablet Orally Twice a day for 10 day(s) Not-Taking Immunizations Vaccine Route Administration Date Status Comme nts COVID-19 Moderna Vaccine Unknown 06/16/2020 Administered 1st 09/25/2020 2nd 10/23/2020 Influenza Unknown 05/28/2015 Administered Influenza Unknown 05/11/2016 Administered Influenza Unknown 06/14/2017 Administered Influenza Unknown 05/01/2018 Administered Influenza Unknown 05/28/2019 Administered Influenza Unknown 05/15/2021 Administered Influenza Unknown 05/17/2022 Administered Influenza Unknown 05/16/2023 Administered Social History Tobacco Use: Social History Observation Description Date Details (start date - stop date) Never Smoker NA - NA Tobacco use other than smoking: Question Answer Notes Are you an other tobacco user? No Tobacco Control (Standard) Question Answer Notes Tobacco use: Nonsmoker Additional Findings: Tobacco non-user Current no nsmoker AUDIT-C (Standard) Question Answer Notes Did you have a drink containing alcohol in the p ast year? No Points 0 Interpretation Negative Problems Problem Type SNOMED Code ICD Code Onset Dates Problem Status W/U Status Risk Notes Problem Localized, primary osteoarthritis of the ankle and/or foot (580535871) Primary osteoarthritis, right ankle and foot (M19.071) Active confirmed Problem Localized, primary osteoarthritis of the ankle and/or foot (271512245) Primary osteoarthritis, left ankle and foot (M19.072) Active confirmed Problem Acquired hammer toe of right foot (8137534351243467 ) Other hammer toe(s) (acquired), right foot (M20.41) Active confirmed Problem Acquired hammer toe of left foot (4818099276830796 ) Other hammer toe(s) (acquired), left foot (M20.42) Active confirmed Problem Polyneuropathy due to type 2 diabetes mellitus (403355621) Type 2 diabetes mellitus with diabetic polyneuropathy (E11.42) Active confirmed Problem 78061291 Unsteady gait (R26.81) Active confirmed Problem 68358438 Venous insufficiency (I87.2) Active confirmed Vital Signs Blood pressure diastolic 80 mm Hg 11/12/2024 Height 4 ft 11 in in 11/12/2024 Blood pressure systolic 130 mm Hg 11/12/2024 Weight 139 lbs 11/12/2024 BMI 28.07 kg/m2 11/12/2024 Procedures Procedure Date Ordered Date Performed Result Body Sit e 17958-ZPFAWFK NAIL, 6 OR MORE 01/02/2024 N/A 71885-ASDE SKIN LESIONS, 2 TO 4 01/02/2024 N/A 51562-HNHUKTX NAIL, 6 OR MORE 03/08/2024 N/A 05254-JUVH SKIN LESIONS, 2 TO 4 03/08/2024 N/A 28239-AKAMPAL NAIL, 6 OR MORE 06/04/2024 N/A 76238-Qrcedazj Plate 06/04/2024 N/A 13983-YKZY SKIN LESIONS, 2 TO 4 06/04/2024 N/A 48546-MUEOTYR NAIL, 6 OR MORE 09/10/2024 N/A 12268-LSCX SKIN LESIONS, 2 TO 4 09/10/2024 N/A 58158-IVUSGOS NAIL, 6 OR MORE 11/12/2024 N/A 34764-Ckkamxne Plate 11/12/2024 N/A 38757-IRHE SKIN LESIONS, 2 TO 4 11/12/2024 N/A Encounters Encounter Location Date Provider Diagnosis [facility] [address] [place] [address] 01/02/2024 Belinda Black Tinea unguium B35.1 ; Type 2 diabetes mellitus with diabetic polyneuropathy E11.42 ; Other viral warts B07.8 ; Pain in left foot M79.672 ; Pain in left foot M79.672 ; Pain in left ankle and joints of left foot M25.572 ; Bursitis of intermetatarsal bursa of left foot M77.52 and Metatarsalgia, left foot M77.[address] [address] 03/08/2024 Belinda Black Tinea unguium B35.1 ; Type 2 diabetes mellitus with diabetic polyneuropathy E11.42 ; Other viral warts B07.8 ; Pain in left foot M79.672 ; Pain in left ankle and joints of left foot M25.572 ; Bursitis of intermetatarsal bursa of left foot M77.52 and Metatarsalgia, left foot M77.[address] [address] 06/04/2024 Belinda Black Tinea unguium B35.1 ; Type 2 diabetes mellitus with diabetic polyneuropathy E11.42 and Ingrown nail L60.[address] [address] 09/10/2024 Belinda Black Type 2 diabetes mellitus with diabetic polyneuropathy E11.42 ; Other hammer toe(s) (acquired), right foot M20.41 ; Tinea unguium B35.1 and Other hammer toe(s) (acquired), left foot M20.[address] [address] 11/12/2024 Belinda Black Type 2 diabetes mellitus with diabetic polyneuropathy E11.42 ; Tinea unguium B35.1 and Ingrown nail L60.0 Assessments Encounter Date Diagnosis (ICD Code) Assessment Notes Treatment Notes Treatment Clinical Notes Section Notes 01/02/2024 Tinea unguium (ICD-10 - B35.1) 03/08/2024 Tinea unguium (ICD-10 - B35.1) 06/04/2024 Tinea unguium (ICD-10 - B35.1) 09/10/2024 Other hammer toe(s) (acquired), right foot (ICD-10 - M20.41) Patient Educated with: DIABETIC FOOT CARE INSTRUCTIONS. pdf (DIABETIC FOOT CARE INSTRUCTIONS. pdf) 09/10/2024 Type 2 diabetes mellitus with diabetic polyneuropathy (ICD-10 - E11.42) 11/12/2024 Tinea unguium (ICD-10 - B35.1) 11/12/2024 Type 2 diabetes mellitus with diabetic polyneuropathy (ICD-10 - E11.42) 11/12/2024 Ingrown nail (ICD-10 - L60.0) 09/10/2024 Tinea unguium (ICD-10 - B35.1) 06/04/2024 Type 2 diabetes mellitus with diabetic polyneuropathy (ICD-10 - E11.42) 06/04/2024 Ingrown nail (ICD-10 - L60.0) 03/08/2024 Other viral warts (ICD-10 - B07.8) 03/08/2024 Type 2 diabetes mellitus with diabetic polyneuropathy (ICD-10 - E11.42) 01/02/2024 Type 2 diabetes mellitus with diabetic polyneuropathy (ICD-10 - E11.42) 01/02/2024 Other viral warts (ICD-10 - B07.8) 03/08/2024 Pain in left foot (ICD-10 - M79.672) 09/10/2024 Other hammer toe(s) (acquired), left foot (ICD-10 - M20.42) 03/08/2024 Pain in left ankle and joints of left foot (ICD-10 - M25.572) 01/02/2024 Pain in left foot (ICD-10 - M79.672) 03/08/2024 Bursitis of intermetatarsal bursa of left foot (ICD-10 - M77.52) 01/02/2024 Pain in left foot (ICD-10 - M79.672) 03/08/2024 Metatarsalgia, left foot (ICD-10 - M77.42) Response to treatment - Improvement 01/02/2024 Pain in left ankle and joints of left foot (ICD-10 - M25.572) 01/02/2024 Bursitis of intermetatarsal bursa of left foot (ICD-10 - M77.52) 01/02/2024 Metatarsalgia, left foot (ICD-10 - M77.42) 11/12/2024 Other Plan Of Treatment Pending Test Test Name Order Date 34212-TMBQPTU NAIL, 6 OR MORE 05/27/2011 56723-UUQKTIL NAIL, 6 OR MORE 08/05/2011 22267-UFXTCBA NAIL, 6 OR MORE 10/18/2011 70111-WBXLVDV NAIL, 6 OR MORE 12/29/2011 74181-YOOSZBB NAIL, 6 OR MORE 08/02/2012 36849-YEOJJTR NAIL, 6 OR MORE 10/18/2012 28016-MLHFAWK NAIL, 6 OR MORE 02/05/2013 15254-SVYKXMH NAIL, 6 OR MORE 05/07/2013 97658-RDPJGQN NAIL, 6 OR MORE 03/20/2012 70766-OPSFPUO NAIL, 6 OR MORE 06/05/2012 15833-GQZKLBM NAIL, 6 OR MORE 11/12/2013 73710-NPHKDGT NAIL, 6 OR MORE 02/04/2014 23838-VHWQPOG NAIL, 6 OR MORE 04/22/2014 32088-VESVMTO NAIL, 6 OR MORE 07/08/2014 33260-SMRWSLT NAIL, 6 OR MORE 10/23/2014 56124-UZCFKBQ NAIL, 6 OR MORE 12/26/2014 36574-DREGQDS NAIL, 6 OR MORE 03/12/2015 62838-EQAEADD NAIL, 6 OR MORE 06/09/2015 34420-OYALQXF NAIL, 6 OR MORE 08/21/2015 97368-LHTSPTB NAIL, 6 OR MORE 10/29/2015 08379-MEXLJZO NAIL, 6 OR MORE 01/16/2016 85902-PNHNVDH NAIL, 6 OR MORE 03/22/2016 71615-CZFFJDG NAIL, 6 OR MORE 06/14/2016 34634-RXDVJUB NAIL, 6 OR MORE 09/06/2016 55836-SYTBZHB NAIL, 6 OR MORE 11/15/2016 39861-XGCZPTB NAIL, 6 OR MORE 01/24/2017 78186-NTRGMXZ NAIL, 6 OR MORE 04/04/2017 21127-ZCOWMDL NAIL, 6 OR MORE 06/13/2017 05451-DECYLMF NAIL, 6 OR MORE 09/01/2017 68314-ZTEHFYP NAIL, 6 OR MORE 11/10/2017 68290-MIVYLTZ NAIL, 6 OR MORE 01/12/2018 05033-QHSRJTI NAIL, 6 OR MORE 03/16/2018 56217-HQKZGDQ NAIL, 6 OR MORE 05/29/2018 39268-REMTFRU NAIL, 6 OR MORE 11/06/2018 89510-RTAVROE NAIL, 6 OR MORE 01/15/2019 98297-WAQFORU NAIL, 6 OR MORE 03/26/2019 42915-GWNXYVW NAIL, 6 OR MORE 06/07/2019 26808-ULXLPCP NAIL, 6 OR MORE 10/18/2019 07861-CYAUXTY NAIL, 6 OR MORE 12/24/2019 57477-VBSZNGL NAIL, 6 OR MORE 03/03/2020 23296-WAWIJVW NAIL, 6 OR MORE 06/05/2020 10789-LTBKEOI NAIL, 6 OR MORE 08/25/2020 44825-IWFFQYR NAIL, 6 OR MORE 12/05/2020 75517-JQUZDNE NAIL, 6 OR MORE 02/12/2021 59845-ENYTWCX NAIL, 6 OR MORE 05/04/2021 86078-TGFNRYC NAIL, 6 OR MORE 07/23/2021 10870-IPRKKUB NAIL, 6 OR MORE 11/05/2021 54438-VSVIOWQ NAIL, 6 OR MORE 02/08/2022 31015-CITPGGF NAIL, 6 OR MORE 05/10/2022 45781-XHGGLZW NAIL, 6 OR MORE 08/05/2022 87676-WSRIDAL NAIL, 6 OR MORE 12/06/2022 77292-EMAQIAB NAIL, 6 OR MORE 02/24/2023 60527-KDGPNNU NAIL, 6 OR MORE 08/18/2023 86204-ZBPUQQR NAIL, 6 OR MORE 10/27/2023 82702-AZFNIXU NAIL, 6 OR MORE 01/02/2024 69392-MJTKJKQ NAIL, 6 OR MORE 03/08/2024 12204-VUCNQEO NAIL, 6 OR MORE 06/04/2024 53492-UGUYGIT NAIL, 6 OR MORE 09/10/2024 37268-KMICUQT NAIL, 6 OR MORE 11/12/2024 68540-Ytxz Destruction, 1-08/18/2023 90562-Cznr Destruction, 1-14 08/05/2022 69106-Ojzo Destruction, 1-14 05/10/2022 11094-Fhlahsef Plate 11/05/2021 56266-Wmyvsvek Plate 07/23/2021 36070-Peevphkf Plate 05/04/2021 10363-Rnccatoh Plate 06/05/2020 82101-Apytcryk Plate 08/25/2020 81362-Gborofyz Plate 12/05/2020 22200-Jnwyvejl Plate 03/03/2020 10035-Gcbqygev Plate 12/06/2022 41679-Ajydhzlw Plate 11/12/2024 18160-Bfegxgaf Plate 02/24/2023 55756-Ewbtqosa Plate 06/04/2024 68468-Lytjokhs Plate 12/24/2019 99671-Dxdbkbwb Plate 08/02/2019 01514-Woetnhzt Plate 03/26/2019 63051-Rbwfyrpw Plate 11/06/2018 28189-Dsaugzqc Plate 05/29/2018 82455-Cfkuqhti Plate 01/12/2018 68561-Bcyezfzq Plate 06/13/2017 18021-Uinhetim Plate 09/01/2017 12172-Tgrhgkcm Plate 04/04/2017 10081-Qgixinvt Plate 11/15/2016 53776-Svsdttjx Plate 01/24/2017 91765-Ycuhfxkr Plate 09/06/2016 78994-Rregbith Plate 06/14/2016 58518-Zdzsxrbp Plate 06/09/2015 13907-Ndkalqzf Plate 03/12/2015 20864-Yyevlvxv Plate 12/26/2014 88788-Qvhcvutg Plate 07/08/2014 55956-Ynmfxbwd Plate 10/23/2014 70534-Ymrxdmzp Plate 04/22/2014 42932-Cjmuiajb Plate 02/04/2014 38931-Forlclqs Plate 06/05/2012 60778-Dlhrvghe Plate 05/07/2013 64643-Pvrqonqr Plate 10/18/2011 52209-Mnipujvk Plate 08/05/2011 96458-Wultvtiu Plate Each Additional 99359-Cjpgsbaw Plate Each Additional 02865-Wkyfjobz Plate Each Additional 06/2015 89968-Pfnmxomk Plate Each Additional 71590-Gokmqrrp Plate Each Additional 47113-Wpjhdntk Plate Each Additional 52406-Khgrxbyi Plate Each Additional 01857-Pposmcem Plate Each Additional 38478-Brfyynwp Plate Each Additional 53879-Mzoahiph Plate Each Additional 11433-Exjguosw Plate Each Additional 04/2021 89993-Slqzkvnl Plate Each Additional 82029- Debride <25 sq cm 11/12/2013 20402 I&D ABSCESS- SIMPLE,SINGLE 011 96025 I&D ABSCESS- SIMPLE,SINGLE 012 71271 I&D ABSCESS- SIMPLE,SINGLE 018 40368 I&D ABSCESS- SIMPLE,SINGLE 022 80383-UKMG SKIN LESIONS, 2 TO 4 02/09/20 52288-XRWO SKIN LESIONS, 2 TO 4 08/05/20 00100-EQKW SKIN LESIONS, 2 TO 4 07/23/20 59362-WHLF SKIN LESIONS, 2 TO 4 11/06/19 39800-NYQY SKIN LESIONS, 2 TO 4 05/04/20 14293-ATNX SKIN LESIONS, 2 TO 4 12/06/19 15743-YDXI SKIN LESIONS, 2 TO 4 02/13/20 64239-COHE SKIN LESIONS, 2 TO 4 12/24/19 39608-NAHV SKIN LESIONS, 2 TO 4 03/03/20 82580-NBCN SKIN LESIONS, 2 TO 4 08/25/19 18852-ZFFT SKIN LESIONS, 2 TO 4 06/05/20 85714-IKSB SKIN LESIONS, 2 TO 4 12/07/19 94121-NAGV SKIN LESIONS, 2 TO 4 02/25/20 29556-KSUZ SKIN LESIONS, 2 TO 4 06/04/20 68143-WSFX SKIN LESIONS, 2 TO 4 01/02/20 26467-QYIL SKIN LESIONS, 2 TO 4 03/08/20 55780-KYVX SKIN LESIONS, 2 TO 4 08/18/19 24564-XZQA SKIN LESIONS, 2 TO 4 10/27/19 94519-FFMY SKIN LESIONS, 2 TO 4 09/10/19 36463-GUIX SKIN LESIONS, 2 TO 4 11/13/19 58321-QULZ SKIN LESIONS, 2 TO 4 01/16/20 07362-HNNS SKIN LESIONS, 2 TO 4 03/26/20 48263-JUUM SKIN LESIONS, 2 TO 4 06/07/20 01228-EAPV SKIN LESIONS, 2 TO 4 10/18/19 08694-Knybjrxv Benign Lesion 0.5cm 10/30 Next Appt Details Provider Name:Belinda Garcia , 01/10/2025 11:15:00 AM, [address] [place], [address], Provider Name:Belinda Garcia , 03/21/2025 11:00:00 AM, [address] [place], [address], Insurance Providers Payer Name Payer Address Payer Phone Subscriber Number Group Number Insured Name Patient Relationship to Insured Coverage Start Date Coverage End Date Medicare National [employer] [address] [place] [address] [id number] Wang Lory Self - patient is the insured 1 [employer] [address] [place] [address] [phone] [id number] Wang MohamudLory Self - patient is the insured Medical (General) History Medical History History ICD Code poor circulation measles joint implants/screws chicken pox back, hip, knee pain Arthritis reflux Hypothyroidism anemia chronic sinusitis migraine headaches Cholesterol Sciatica Lymphedema Surgical History Surgery Date(Month/Year) appendectomy 1971 cholecystectomy 1970 hysterectomy 1981 left knee replacement 2006 sinus surgery 1982 tonsillectomy and adenoidectomy 1947 bilateral eyelid surgery 05/2014 lt and rt cataracts 2013 carpal tunnel 03/2018 and 05/2018 Hospitalization History Reason Date(Month/Year) Acute Cellulitis- b/l legs i nfected-IV antibiotics - [facility] comes to pts home and PT 1 x a week 08/01/23-08/05/23 [facility] [place]- Gi issues stay a few days 08/2020 [facility] [place]- Sciatica 06/29/20 06/30/20 [facility] [place]- Fall- swollen eye - head scan 03/27 ER in [place]-Sepsis Infection in hand- IV antibiotics/Flu 07/2019 [facility] [place] for headache and stomach bacterial i nfection 12/2017 [facility] [place] for acute diverculitis 2018
--- OUTSIDE RECORDS SUMMARY | 2024-11-29 06:38 | XMS_ITS ---
Author Organization [facility] Address [address] [place] [address] Care Team Providers Care Videotape Editor Name Role Phone Jose Alberto Bridges MD Primary Care Provider Unavaila ble Black, Belinda Unavailable [phone] Allergies Allergen (clinical drug ingredient) Drug/Non Drug [...] Duration) Notes Start Date End Date Status hydroCHLOROthiazide Not-Taking Ibuprofen Not-Taking Calcium 500 + D 500mg Not-Taking Metformin & Diet Manage Prod 500 MG as directed Orally Once a day Not-Taking Simvastatin Not-Taki ng Lasix PRN Not-Taking Losartan Potassium 50 MG 1 tablet Orally Once a day Not-Taking Extra Depth Orthopedic Shoes (1 Pair) with Customized Heat Molded Multidensity Innersoles (3 Pair) as directed Dx: NIDDM/Polyneuropath y (E11.42), Hammertoe Foot Deformity (M20.41,M20.42), Preulcerative Skin Lesion(s) (L85.1 09/10/2024 Active Compression Stockings 20-30mm Hg as directed Not-Taking Cephalexin 500 MG 1 tablet Orally Twice a day for 10 day(s) Not-Taking Metoprolol & Diet Manage Prod 100 mcg Daily Active metFORMIN HCl 500 MG 1 tablet with a meal Orally in morning and two at night once a day Active Omeprazole Active Vitamin B-12 Active Vitamin D 50 MCG (1999) as directed Orally twice a day Active Lasix 20 MG 1 tablet Orally Once a day for 30 day(s) PRN as needed Active Losartan Potassium 50 MG 1 tablet Orally Once a day Active Levothyroxine Sodium Active Fosamax Active Social History Tobacco Use: Social History Observation Description Date Details (start date - stop date) Never Smoker NA - NA Tobacco use other than smoking: Question Answer Notes Are you an other tobacco user? No Tobacco Control (Standard) Question Answer Notes Tobacco use: Nonsmoker Additional Findings: Tobacco non-user Current no nsmoker Vital Signs Height 4 ft 11 in in 11/12/2024 Weight 139 lbs 11/12/2024 BMI 28.07 kg/m2 11/12/2024 Blood pressure systolic 130 mm Hg 11/13/19 Blood pressure diastolic 80 mm Hg 025 Procedures Procedure Date Ordered Date Performed Result Body Sit e 01230-RMFWTXD NAIL, 6 OR MORE 11/12/2024 N/A 33438-Ybaugnmk Plate 11/12/2024 N/A 76876-DOUE SKIN LESIONS, 2 TO 4 11/12/2024 N/A Encounters Encounter Location Date Provider Diagnosis [facility] [address] [place] [address] 11/12/2024 Belinda Jose Type 2 diabetes mellitus with diabetic polyneuropathy E11.42 ; Tinea unguium B35.1 and Ingrown nail L60.0 Assessments Encounter Date Diagnosis (ICD Code) Assessment Notes Treatment Notes Treatment Clinical Notes Section Notes 11/12/2024 Type 2 diabetes mellitus with diabetic polyneuropathy (ICD-10 - E11.42) 11/12/2024 Tinea unguium (ICD-10 - B35.1) 11/12/2024 Ingrown nail (ICD-10 - L60.0) 11/12/2024 Other Plan Of Treatment Pending Test Test Name Order Date 56568-WWBKMOW NAIL, 6 OR MORE 11/12/2024 53509-Yhinhnsi Plate 11/12/2024 11608-HULH SKIN LESIONS, 2 TO 4 11/13/19 25 Next Appt Details Follow Up: 2 Weeks,prn, Reas on: Provider Name:Belinda Garcia , 01/10/2025 11:15:00 AM, [address] [place] [address], [phone], Provider Name:Belinda Garcia , 03/21/2025 11:00:00 AM, [address] [place] [address], [phone], Procedure Notes * Category Sub-Category Detail Notes [...] Motrin was recommended for pain or discomfort - 99500, DIABETES: Matricectomy deferred at this time due to diabetes risk Anesthesia , was deferred - KAREEM ROPATHY: patient has medically documented neuropathic condition affecting sensation Location , Bilateral nail bor guillermo, T1 Debride Nail 6-10 Nail debridement Due to the cl inical pathology outlined in the exam findings, performance of this nail treatment is medically necessary as its management by an unskilled/untrained nonprofessional would put this patients foot and overall health at risk. Therefore, debridement to affected nail(s), as described in exam ( TA,,T2, T3, T4, T5, T6, T7, T8, T9_), was performed exclusively by the physician of record to reduce/remove overall nail length, girth, thickness, subungual debris, and necrotic tissue, by manual and/or electrical means through the use of a nail nipper and/or dremel-type convex grinder operator, to a more viable healthy nail plate or bed tissue 6-10 nails in total. Silver nitrate was used for any petechial bleeding as necessary. Definitive antifungal treatment options, both pharmaceutical and surgical, have been reviewed and discussed with the patient. The patient solely prefers the use of intermittent/as needed professional debridement services for their nail condition and understands the need for additional periodic treatments to maintain effectiveness in symptomatic relief - 05952 Keratoma Treatment Parring or Cutting o f Benign Hyperkeratotic Lesion(s) (-56) 2-4 Lesions - Due to the at risk nature of the patients medical condition as documented in the exam findings, performance of this keratoderma treatment is medically necessary as its management by an unskilled/untrained nonprofessional would put this patients foot and overall health at risk. Therefore, the benign hyperkeratotic lesions, ( 2 ) in total, locations as stated and described in the exam ( Submet 1 b/l), were pared, and/or cut utilizing a sterile 15 blade, tissue nippers, and/or power dremel instrumentation by the physician of record - 38981 Progress Notes * Lory STANLEY ADOB:[birth year] (88 yo F)Acc No.[id number]:11/12/2024 Progress Note Patient:?Lory STANLEY Provider:?Belinda Garcia DPM :1935???Age:88 Y???Sex:Female D ate:11/12/2024 Address:[address] [place] [address], [phone] Pcp:Jose Alberto Bridges MD Subjective: * Chief Complaints: * ???At Risk FootcareIngrown N ail * HPI: ???At Risk footcare:?Pt States Last PCP Visit:?Date?05/15/2024 * ROS:?General/Constitutional:?Nausea?denies.?Vomiting?denies.?Hunger Thirst?denies.?Loss appetite?denies.?Chills?denies.?Fatigue?denies.?Fever?denies.?Night Sweats?denies.?Unexplained weight loss?denies.?Ophthalmologic:?Blurred vision?denies.?Red eye?denies.?HEENTM:?Dentures?denies.?Dizziness?denies.?Glasses/contacts?denies.?Retinopathy?den ies.?Blurred/double vision?denies.?TMJ?denies.?Discharge/drainage?denies.?Implants?denies.?Hard of hearing admits.?Difficulty chewing/swallowing/speaking?denies.?Nose bleeds?denies.?Sore mouth?denies.?Swollen glands?denies.?Respiratory:?On O xygen?denies.?Pneumonia/pleurisy?denies.?Bronchitis?denies.?Emphysema?denies.?Co ughing?denies.?Cough blood?denies.?Shortness of breath?denies.?Wheezing?denies.?Cardiovascular:?Pacemaker?denies.?MVP?denies.?WPW?denies.?CHF?denies.?Heart attack?denies.?Septal defect?denies.?Rapid beat?denies.?Chest pain ?denies.?Atrial Fib.?denies.?Murmur/Palpitations?denies.?Gastrointestinal:?Hemorrhoids?denies.?Stomach/Abdominal pain?denies.?Dark blood stool?denies.?Irritable bowel ?denies.?Constipation?denies.?Diarrhea?denies.?Vomiting?denies.?Hematology:?Swelling?admits.?Bruising?denies.?Bleeding problem?denies.?Genitourinary:?Blood urine?denies.?Frequent/Painfu/urination/bladder control?denies.?Kidney stones?denies.?Infection (UTI)?denies.?Nephropathy?denies.?Musculoskeletal:?Hammertoes?admits.?Bunions?denies.?Scoliosis/kyphosis?denies.?Muscle cramps / walking?denies.?Generalized aches and pains?admits.?Weakness?denies.?Integ.:?Ayala?denies.?Scars?denies.?Corns/calluses?denies.?Ingrown nails?, admits.?Painful nails?denies.?Rashes?denies.?Neurologic:?Difficulty sleeping?denies.?Bipolar?denies.?Brain disorder?denies.?Balance t rouble?denies.?Confusion?denies.?Fainting/blackouts?denies.?Headache?denies.?Shawn mors?denies.? * Medical History:? * Surgical History:?appendecto my 1971cholecystectomy 1971hysterectomy 1982left knee replacement 2007sinus surgery 1983tonsillectomy and adenoidectomy 1947bilateral eyelid surgery 05/2014lt and rt cataracts 2013carpal tunnel 03/2018 and 05/2018 * Hospitalization/Major Diagno stic Procedure:[place] [place] 2017[facility] [place] headache and stomach bacterial infection 12/2017[place] in [place]-Sepsis Infection in hand- IV antibiotics/Flu 07/2019[facility] [place]- swollen eye - head scan 03/27/20[facility] [place]- Sciatica 06/29/20 06/30/20[facility] [place] Gi issues stay a few days 1Acute Cellulitis- b/l legs infected-IV antibiotics - [facility] comes to pts home and PT 1 x a week 08/01/23-08/05/23 * Family History:?Mother: dece ased, diagnosed with Other malignant neoplasm of unspecified site, Diabetic - NIDDM, Family history of arthritis.?Father: , diagnosed with Other malignant neoplasm of unspecified site.?Siblings: Brother -Cancer, diagnosed with Other malignant neoplasm of unspecified site.? * Social History:?Tobacco Use:?Tobacco use other than smoking?Are you an other tobacco user??No ?Tobacco Control (Standard)?Tobacco use:?Nonsmoker ?Additional Findings: Tobacco non-user?Current nonsmoker ???Miscellaneous:?Caffeine: yes, frequency:, 2-3 cups per day. ?Children: no. ?Exercise: yes, walking. ?Marital status: single. 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 * Medications:?TakingFosamax L asix 20 MG Tablet 1 tablet Orally Once a day , Notes to Pharmacist: PRN as neededLosartan Potassium 50 MG Tablet 1 tablet Orally Once a day Levothyroxine Sodium Metoprolol & Diet Manage Prod 100 mcg Daily metFORMIN HCl 500 MG Tablet 1 tablet with a meal Orally in morning and two at night , Notes to Pharmacist: once a dayOmeprazole Vitamin B-12 Vitamin D 50 MCG (1999 UT) Capsule as directed Orally , Notes to Pharmacist: twice a dayExtra Depth Orthopedic Shoes (1 Pair) with Customized Heat Molded Multidensity Innersoles (3 Pair) as directed Dx: NIDDM/Polyneuropathy (E11.42), Hammertoe Foot Deformity (M20.41,M20.42), Preulcerative Skin Lesion(s) (L85.1 Taking Fosamax Taking Lasix 20 MG Tablet 1 tablet Orally Once a day , Notes to Pharmacist: PRN as neededTaking Losartan Potassium 50 MG Tablet 1 tablet Orally Once a day Taking Levothyroxine Sodium Taking Metoprolol & Diet Manage Prod 100 mcg Daily Taking metFORMIN HCl 500 MG Tablet 1 tablet with a meal Orally in morning and two at night , Notes to Pharmacist: once a dayTaking Omeprazole Taking Vitamin B-12 Taking Vitamin D 50 MCG (1999 UT) Capsule as directed Orally , Notes to Pharmacist: twice a dayTaking Extra Depth Orthopedic Shoes (1 Pair) with Customized Heat Molded Multidensity Innersoles (3 Pair) as directed Dx: NIDDM/Polyneuropathy (E11.42), Hammertoe Foot Deformity (M20.41,M20.42), Preulcerative Skin Lesion(s) (L85.1 Not-Taking/PRNCompression Stockings 20-30mm Hg closed toe- knee high as directed Cephalexin 500 MG Tablet 1 tablet Orally Twice a day Lasix PRN Losartan Potassium 50 MG Tablet 1 tablet Orally Once a day hydroCHLOROthiazide Ibuprofen Calcium 500 + D 500mg Metformin & Diet Manage Prod 500 MG Miscellaneous as directed Orally Once a day Simvastatin Medication List reviewed and reconciled with the patientNot-Taking/PRN Compression Stockings 20-30mm Hg closed toe- knee high as directed Not-Taking/PRN Cephalexin 500 MG Tablet 1 tablet Orally Twice a day Not-Taking/PRN Lasix PRN Not-Taking/PRN Losartan Potassium 50 MG Tablet 1 tablet Orally Once a day Not-Taking/PRN hydroCHLOROthiazide Not-Taking/PRN Ibuprofen Not-Taking/PRN Calcium 500 + D 500mg Not-Taking/PRN Metformin & Diet Manage Prod 500 MG Miscellaneous as directed Orally Once a day Not-Taking/PRN Simvastatin Medication List reviewed and reconciled with the patient * Allergies:?Percocet: vomitin g - AllergyUltram: vomiting - AllergyPercodan: vomiting - AllergySimvastatinCodeine: Severe Chest Pain - AllergyMorphine: vomiting - AllergySeasonaleyes[Allergies Verified] Objective: * Vitals:?Ht: 4 ft 11 in, Wt: 139, BMI: 28.07, Shoe size: 6ww, BP: 130/80 mm Hg, BS: not taken, Wt-k.05 kg. * ???Past Orders: ???Lab:HEMOGLOBIN A1C (GLYCO HEMOGLOBIN) (Order Date - 07/15/2024) (Collection Date & Time - 07/15/2024 10:58 AM) ? Value Reference Range ?HEMOGLOBIN A1C % (HH) 6.1 * Examination: ???Ophthalmology Referral: ?DIABETES EYE EXAM?Procedure Performed:?Yes ?Date of Exam Performed?06/15/2024 ?Findings of Diabetic Eye Exam:?retinopathy?General Examination: ?GENERAL APPEARANCE:?Reveals a pleasant, alert, well nourished, well- developed, well hydrated individual, who demonstrates proper attention to hygiene/body habitus, and is in no acute distress, Pt serves as own historian for office visit today.?ORIENTED:?person, place, and time.?Neurological: ?SENSORY:?Neurological exam demonstrates, reduced vibration sensation, reduced light touch sensation, reduced sharp/dull pin prick discrimination , 5.07 monofilament test performed at plantar aspects of 5 varied sites per foot shows sensation, absent, B/L, Pt relates, anesthesia, pins and needles sensation, especially in the evening,.?Nails: ?NAILS are:?Elongated, overgrown, dystrophic, lytic, greater than 3mm thick, discolored and friable with crumbly malodorous subungual debris, ,with dull to no pain on palpation due to neuropathy, , TA,,T2, T3, T4, T5, T6, T7, T8, T9.?Dermatologic: ?SKIN FINDINGS:?Skin exam reveals Keratotic lesion(s) located at, SUB MTH (s), 1, B/L,.?Vascular: ?DP PULSES (B):?1/4, B/L.?PT PULSES (B):?1/4, B/L.?PIGMENTATION:?rubrous, B/L.?EDEMA (C):?/4, non-pitting, B/L.?Ingrown Nail: ?INSPECTION:?Reveals nail incurvation, dull pain on palpation due to neuropathy, groove hypertrophy, Bilateral nail borders, T1.? Assessment: * Assessment: 1.?Tinea unguium - B35.1???2 .?Type 2 diabetes mellitus with diabetic polyneuropathy - E11.42 (Primary)???3.?Ingrown nail - L60.0??? Plan: * Treatment: 2.?Tinea unguium?Procedure: 49100-BOLMEKM NAIL, 6 OR MORE 3.?Ingrown nail?Procedure: 05598-Xuugepwn Plate * Procedures:?Debride Nail 6-10:?Nail debridement?Due to the clinical pathology outlined in the exam findings, performance of this nail treatment is medically necessary as its management by an unskilled/untrained nonprofessional would put this patients foot and overall health at risk. Therefore, debridement to affected nail(s), as described in exam ( TA,,T2, T3, T4, T5, T6, T7, T8, T9_), was performed exclusively by the physician of record to reduce/remove overall nail length, girth, thickness, subungual debris, and necrotic tissue, by manual and/or electrical means through the use of a nail nipper and/or dremel-type convex grinder operator, to a more viable healthy nail plate or bed tissue 6-10 nails in total. Silver nitrate was used for any petechial bleeding as necessary. Definitive antifungal treatment options, both pharmaceutical and surgical, have been reviewed and discussed with the patient. The patient solely prefers the use of intermittent/as needed professional debridement services for their nail condition and understands the need for additional periodic treatments to maintain effectiveness in symptomatic relief - 98085.?Keratoma Treatment:?Parring or Cutting of Benign Hyperkeratotic Lesion(s)?(-56) 2-4 Lesions - Due to the at risk nature of the patients medical condition as documented in the exam findings, performance of this keratoderma treatment is medically necessary as its management by an unskilled/untrained nonprofessional would put this patients foot and overall health at risk. Therefore, the benign hyperkeratotic lesions, ( 2 ) in total, locations as stated and described in the exam ( Submet 1 b/l), were pared, and/or cut utilizing a sterile 15 blade, tissue nippers, and/or power dremel instrumentation by the physician of record - 26505.?Nail Avulsion:?Location?, Bilateral nail border, T1.?Anesthesia?, was deferred - NEUROPATHY: patient has medically documented neuropathic condition affecting sensation.?Procedure?A fine sterile elevator was placed between the [...] Motrin was recommended for pain or discomfort - 76261, DIABETES: Matricectomy deferred at this time due to diabetes risk.? * Procedure Codes:?48844 DEBRI DE NAIL, 6 OR MORE, Modifiers: XS 55320 Avulsion Plate, Modifiers: T1 31746 TRIM SKIN LESIONS, 2 TO 4, Modifiers: XS * Preventive Medicine:? ??Screening/Special Tests:?Fall Risk?Screening:?No falls in the past year ?FALLS: Screening for Future Fall Risk?Have you had any falls with injury in the past year??No * Follow Up:?2 Weeks,prn * Images: * Sign off status: Completed true * Provider:?Belinda Garcia DPM Date:?2024 Generated for Ayleen matias/Kevan/Adrian on:?11/29/2024 06:38 AM EDT History and Physical Notes * HPI (History of Present Illness) Category Sub-Category Detail Notes Category Not es At Risk footcare Pt States Last PCP Visit: Date: 4 Examination Category Sub-Category Detail Notes Category Not es Ingrown Nail INSPECTION: Reveals nail inc urvation, dull pain on palpation due to neuropathy, groove hypertrophy, Bilateral nail borders, T1 Neurological SENSORY: Neurological exa m demonstrates, reduced [...] located at, SUB MTH (s), 1, B/L, General Examination GENERAL APPEARANCE: Reveals a pleasant, alert, well nourished, well-developed, well hydrated individual, who demonstrates proper attention to hygiene/body habitus, and is in no acute distress, Pt serves as own historian for office visit today ORIENTED: person, place, and t drew Ophthalmology Referral DIABETES EYE EXAM Procedure Perform ed:: Yes ?Date of Exam Performed: 06/15/2024 Findings of Diabetic Eye Exam:: retinopa thy Vascular DP PULSES (B): /4, B/L PT PULSES (B): 4, B/L EDEMA (C): 11/16, non-pitting, B/ L PIGMENTATION: rubrous, B/L Nails NAILS are: Elongated, overg rown, dystrophic, lytic, greater than 3mm thick, discolored and friable with crumbly malodorous subungual debris, ,with dull to no pain on palpation due to neuropathy, , TA,,T2, T3, T4, T5, T6, T7, T8, T9
--- OUTSIDE RECORDS SUMMARY | 2024-11-29 06:38 | XMS_ITS ---
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 Automobile Name Role Phone Jose Alberto Bridges MD Primary Care Provider Unavaila ble Black, Belinda Unavailable [phone] Allergies Allergen (clinical drug ingredient) Drug/Non Drug [...] Active REASON FOR VISIT At Risk Footcare, Toe Irritation Medications Medication SIG (Take, Route, Frequency, Duration) Notes Start Date End Date Status Simvastatin Not-Taki ng Metformin & Diet Manage Prod 500 MG as directed Orally Once a day Not-Taking Calcium 500 + D 500mg Not-Taking Ibuprofen Not-Taking Extra Depth Orthopedic Shoes (1 Pair) with Customized Heat Molded Multidensity Innersoles (3 Pair) as directed Dx: NIDDM/Polyneuropath y (E11.42), Hammertoe Foot Deformity (M20.41,M20.42), Preulcerative Skin Lesion(s) (L85.1 09/10/2024 Active hydroCHLOROthiazide Not-Taking Losartan Potassium 50 MG 1 tablet Orally Once a day Not-Taking Lasix PRN Not-Taking Cephalexin 500 MG 1 tablet Orally Twice a day for 10 day(s) Not-Taking Compression Stockings 20-30mm Hg as directed Not-Taking Vitamin D 50 MCG (1999 UT) as directed Orally twice a day Active Vitamin B-12 Active Omeprazole Active metFORMIN HCl 500 MG 1 tablet with a meal Orally in morning and two at night once a day Active Metoprolol & Diet Manage Prod 100 mcg Daily Active Losartan Potassium 50 MG 1 tablet Orally Once a day Active Lasix 20 MG 1 tablet Orally Once a day for 30 day(s) PRN as needed Active Fosamax Active Levothyroxine Sodium Active Social History Tobacco [...] ast year? No Points 0 Interpretation Negative Vital Signs Height 4 ft 11 in in 09/10/2024 Weight 139 lbs 09/10/2024 BMI 28.07 kg/m2 09/10/2024 Blood pressure systolic 130 mm Hg 09/10/19 25 Blood pressure diastolic 80 mm Hg 025 Procedures Procedure Date Ordered Date Performed Result Body Sit e 71637-OCBKPJN NAIL, 6 OR MORE 09/10/2024 N/A 57940-TDWP SKIN LESIONS, 2 TO 4 09/10/2024 N/A Encounters Encounter Location Date Provider Diagnosis [facility] [address] [address] 09/10/2024 Belinda Black Type 2 diabetes mellitus with diabetic polyneuropathy E11.42 ; Other hammer toe(s) (acquired), right foot M20.41 ; Tinea unguium B35.1 and Other hammer toe(s) (acquired), left foot M20.42 Assessments Encounter Date Diagnosis (ICD Code) Assessment Notes Treatment Notes Treatment Clinical Notes Section Notes 09/10/2024 Type 2 diabetes mellitus with diabetic polyneuropathy (ICD-10 - E11.42) 09/10/2024 Other hammer toe(s) (acquired), right foot (ICD-10 - M20.41) Patient Educated with: DIABETIC FOOT CARE INSTRUCTIONS. pdf (DIABETIC FOOT CARE INSTRUCTIONS. pdf) 09/10/2024 Tinea unguium (ICD-10 - B35.1) 09/10/2024 Other hammer toe(s) (acquired), left foot (ICD-10 - M20.42) Plan Of Treatment Medication Medication Name Sig Start Date Stop Date Notes Extra Depth Orthopedic Shoes (1 Pair) with Customized Heat Molded Multidensity Innersoles (3 Pair) as directed Dx: NIDDM/Polyneuropathy (E11.42), Hammertoe Foot Deformity (M20.41,M20.42), Preulcerative Skin Lesion(s) (L85.1 09/10/2024 Treatment Notes Assessment Notes Other hammer toe(s) (acquired), right fo ot Patient Educated with: DIABETIC FOOT CARE INSTRUCTIONS.pdf (DIABETIC FOOT CARE INSTRUCTIONS.pdf) Pending Test Test Name Order Date 91707-MOOYOOQ NAIL, 6 OR MORE 09/10/2024 67015-WXGX SKIN LESIONS, 2 TO 4 09/10/19 Next Appt Details Follow Up: prn, Reason: Provider Name:Belinda Garcia , 01/10/2025 11:15:00 AM, [address] [place] [address], [phone], Provider Name:Belinda Garcia , 03/21/2025 11:00:00 AM, [address] [place] [address], [phone], Procedure Notes * Category Sub-Category Detail Notes Debride Nail 6-10 Nail debridement Due to the cl inical pathology outlined in the exam findings, performance of this nail treatment is medically necessary as its management by an unskilled/untrained nonprofessional would put this patients foot and overall health at risk. Therefore, debridement to affected nail(s), as described in exam ( TA, T1, T2, T3, T4, T5, T6, T7, T8, T9, ), was performed exclusively by the physician of record to reduce/remove overall nail length, girth, thickness, subungual debris, and necrotic tissue, by manual and/or electrical means through the use of a nail nipper and/or dremel-type lap grinder, to a more viable healthy nail [...] to maintain effectiveness in symptomatic relief - 60733 Keratoma Treatment Parring or Cutting o f [...] instrumentation by the physician of record - 02302 Progress Notes * Lory STANLEY ADOB:[birth year] (88 yo F)Acc No.[id number]:09/10/2024 Progress Note Patient:?Lory STANLEY A Provider:?Belinda Garcia DPM :1935???Age:88 Y???Sex:Female D ate:09/10/2024 Address:[address] [place] [address], [place], [place]-[id number] Pcp:Jose Alberto Bridges MD Subjective: * Chief Complaints: * ???At Risk FootcareToe Irrit ation * HPI: ???At Risk footcare:?Pt States Last PCP Visit:?Date?05/15/2024 ???Toe pain:?Location:?B/L feet.?Duration:?several years.?Course:?worse.?Aggravated by:?shoes, any pressure.?Treatments:?change in shoes.? * ROS:?General/Constitutional:?Nausea?denies.?Vomiting?denies.?Hunger Thirst?denies.?Loss appetite?denies.?Chills?denies.?Fatigue?denies.?Fever?denies.?Night Sweats?denies.?Unexplained weight loss?denies.?Ophthalmologic:?Blurred vision?denies.?Red eye?denies.?HEENTM:?Dentures?denies.?Dizziness?denies.?Glasses/contacts?denies.?Retinopathy?den ies.?Blurred/double vision?denies.?TMJ?denies.?Discharge/drainage?denies.?Implants?denies.?Hard of hearing admits.?Difficulty chewing/swallowing/speaking?denies.?Nose bleeds?denies.?Sore mouth?denies.?Swollen glands?denies.?Respiratory:?On O xygen?denies.?Pneumonia/pleurisy?denies.?Bronchitis?denies.?Emphysema?denies.?Co ughing?denies.?Cough blood?denies.?Shortness of breath?denies.?Wheezing?denies.?Cardiovascular:?Pacemaker?denies.?MVP?denies.?WPW?denies.?CHF?denies.?Heart attack?denies.?Septal defect?denies.?Rapid beat?denies.?Chest pain ?denies.?Atrial Fib.?denies.?Murmur/Palpitations?denies.?Gastrointestinal:?Hemorrhoids?denies.?Stomach/Abdominal pain?denies.?Dark blood stool?denies.?Irritable bowel ?denies.?Constipation?denies.?Diarrhea?denies.?Vomiting?denies.?Hematology:?Swelling?admits.?Bruising?denies.?Bleeding problem?denies.?Genitourinary:?Blood urine?denies.?Frequent/Painfu/urination/bladder control?denies.?Kidney stones?denies.?Infection (UTI)?denies.?Nephropathy?denies.?Musculoskeletal:?Hammertoes?admits.?Bunions?denies.?Scoliosis/kyphosis?denies.?Muscle cramps / walking?denies.?Generalized aches and pains?admits.?Weakness?denies.?Integ.:?Ayala?denies.?Scars?denies.?Corns/calluses?denies.?Ingrown nails?denies.?Painful nails?denies.?Rashes?denies.?Neurologic:?Difficulty sleeping?denies.?Bipolar?denies.?Brain disorder?denies.?Balance t rouble?denies.?Confusion?denies.?Fainting/blackouts?denies.?Headache?denies.?Shawn mors?denies.? * Medical History:? * Surgical History:?appendecto my 1971cholecystectomy 1971hysterectomy 1982left knee replacement 2007sinus surgery 1983tonsillectomy and adenoidectomy 1947bilateral eyelid surgery 05/2014lt and rt cataracts 2013carpal tunnel 03/2018 and 05/2018 * Hospitalization/Major Diagno stic Procedure:?[facility] for acute diverculitis 2017[facility] for headache and stomach bacterial infection 12/2017[place] in [place]-Sepsis Infection in hand- IV antibiotics/Flu 07/2019[facility]- Fall- swollen eye - head scan 03/27/20[facility]- Sciatica 06/29/20 06/30/20[facility]- Gi issues stay a few days 1Acute [...] (Standard)?Tobacco use:?Nonsmoker ?Additional Findings: Tobacco non-user?Current nonsmoker ???Drugs/Alcohol:?Drugs?Have you used drugs other than those for medical reasons in the past 12 months??No ???Miscellaneous:?Caffeine: yes, frequency:, 2-3 cups per day. ?Children: no. ?Exercise: yes, walking. ?Marital status: single. 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 ???Drug/Alcohol:?AUDIT-C (Standard)?Did you have a drink containing alcohol in the past year??No ?Points?0 ?Interpretation?Negative * Medications:?TakingFosamax L asix 20 MG Tablet [...] (2000 UT) Capsule as directed Orally , Notes to Pharmacist: twice a dayTaking Fosamax Taking Lasix 20 [...] (2000 UT) Capsule as directed Orally , Notes to Pharmacist: twice a dayNot-Taking/PRNCompression Stockings 20-30mm Hg closed [...] Shoe size: 6ww, BP: 130/80 mm Hg, BS:not taken, Wt-k.05 kg. * ???Past Orders: ???Lab:HEMOGLOBIN A1C (GLYCO HEMOGLOBIN) (Order Date - 04/16/2024) (Collection Date & Time - 05/15/2024 09:13 AM) ? Value Reference Range ?HEMOGLOBIN A1C % (HH) 6.1 * Examination: ???Ophthalmology Referral: ?DIABETES EYE EXAM?Procedure Performed:?Yes ?Date of Exam Performed?05/16/2024 ?Retinal Screening Performed:?Yes ?Findings of Diabetic Eye Exam:?no retinopathy?General Examination: ?GENERAL APPEARANCE:?Reveals a pleasant, alert, well nourished, well- developed, well hydrated individual, who demonstrates proper attention to hygiene/body habitus, and is in no acute distress, Pt serves as own historian for office visit today.?ORIENTED:?person, place, and time.?FOOT EXAM:?Lower Extremity Neurological Exam performed:?Yes Date ?Visual exam of foot performed:?Yes ?Date?09/10/2024 ?Sensory testing performed:?sensations diminished ?Sensory and motor testing performed:?sensations diminished ?Pedal pulse taking performed:?1+ ?Footwear Evaluation?Footwear Evaluation performed:?Yes?Neurological: ?SENSORY:?Neurological exam demonstrates, reduced vibration sensation, reduced [...] pain on palpation due to neuropathy, , TA, T1, T2, T3, T4, T5, T6, T7, T8, T9.?Dermatologic: ?SKIN FINDINGS:?Skin exam reveals Keratotic lesion(s) located at, SUB MTH (s), 1, B/L,.?Orthopedic: ?MUSCLE STRENGTH:?Generalized decrease in strength, B/L.?DIGITAL DEFORMITIES:?Digital contracture, PIPJ, 2-5 B/L, incompl-reducible to push-up test, no over, nor underlapping,?there is?evidence of shoe producing skin irritation.?FOOTWEAR:?worn, non-supportive, shoe gear properties exacerbate patient's foot/toe deformity.?Vascular: ?DP PULSES (B):?1/4, B/L.?PT PULSES (B):?1/4, B/L.?PIGMENTATION:?rubrous, B/L.?EDEMA (C):?4/, non-pitting, B/L.? Assessment: * Assessment: 1.?Other hammer toe(s) (acqu ired), right foot - M20.41 (Primary)???Specify :Chronic problem, Worse (4),Rx Management (4)???2.?Type 2 diabetes mellitus with diabetic polyneuropathy - E11.42???3.?Tinea unguium - B35.1???4.?Other hammer toe(s) (acquired), left foot - M20.42???Specify :Chronic problem, Worse (4),Rx Management (4)??? Plan: * Treatment: 2.?Type 2 diabetes mellitus with diabetic polyneuropathy? Start Extra Depth Orthopedic Shoes (1 Pair) with Customized Heat Molded Multidensity Innersoles (3 Pair), as directed, Dx: NIDDM/Polyneuropathy (E11.42), Hammertoe Foot Deformity (M20.41,M20.42), Preulcerative Skin Lesion(s) (L85.1, 1, Refills 0.?Procedure: 08931-AXWT SKIN LESIONS, 2 TO 4 3.?Tinea unguium?Procedure: 91288-ZIASOIY NAIL, 6 OR MORE * Procedures:?Debride Nail 6-10:?Nail debridement?Due to the clinical pathology outlined in the exam findings, performance of this nail treatment is medically necessary as its management by an unskilled/untrained nonprofessional would put this patients foot and overall health at risk. Therefore, debridement to affected nail(s), as described in exam ( TA, T1, T2, T3, T4, T5, T6, T7, T8, T9, ), was performed exclusively by the physician of record to reduce/remove overall nail length, girth, thickness, subungual debris, and necrotic tissue, by manual and/or electrical means through the use of a nail nipper and/or dremel-type lap grinder, to a more viable healthy nail plate or bed tissue 6- 10 nails in total. Silver nitrate was used for any petechial bleeding as necessary. Definitive antifungal treatment options, both pharmaceutical and surgical, have been reviewed and discussed with the patient. The patient solely prefers the use of intermittent/as needed professional debridement services for their nail condition and understands the need for additional periodic treatments to maintain effectiveness in symptomatic relief - 56083.?Keratoma Treatment:?Parring or Cutting of Benign Hyperkeratotic Lesion(s)?(-56) [...] instrumentation by the physician of record - 01355.? * Procedure Codes:?98883 DEBRI DE NAIL, 6 OR MORE, Modifiers: XS 27274 TRIM SKIN LESIONS, 2 TO 4, Modifiers: XS * Preventive Medicine:? ??Counseling:?Discussion:?-14: Office or other outpatient visit for the evaluation and management of an established patient, which required a medically appropriate history and/or examination and MODERATE level of DECISION MAKING for: 1 OR MORE CHRONIC PROBLEM(S) THATS WORSENING, 2 STABLE CHRONIC PROBLEMS, A NEWLY DIAGNOSED PROBLEM WITH UNCERTAIN PROGNOSIS, AN ACUTE COMPLICATED INJURY WITH MULTIPLE TREATMENT OPTIONS, OR AN ACUTE PROBLEM WITH ACCOMPANYING SYSTEMIC SYMPTOMS, THAT POSE(S) A MODERATE RISK OF MORBIDITY. THIS CONDITION MAY ALSO INCLUDE RX DRUG MANAGEMENT, OR A DECISON FOR MINOR SURGERY. The visit on the day of the encounter encompassed interpreting the data and educating the patient as to the nature of their condition, treatment options available according to their individual PMH, meds, allergies, and overall health/living conditions, as well as any potential risks or complications that may occur from a failure to adhere to, and participate in, the recommended course of therapy. The discussion included a complete verbal, and/or written explanation of the examination results, any x-rays taken, the proposed diagnosis, and outline of the treatment plan. A schedule for future care needs was also explained. The patient verbalized an understanding of the instructions at this time and agreed to be an active participant in their treatment. If the patient should think of any questions or concerns after the visit, I have encouraged the patient to call the office.?Digital Surgery:?We elected to try conservative treatment at the present time, due to the patients age, medical history, and circulatory constraints.?Digital Treatment:?HT- I explained to the patient the possible etiologies of Hammertoes, including genetics/foot type/shoegear/activity level/exercise routine and the risks/benefits of all the different treatment options for their pain including: No treatment at all, Rest, Ice, New/supportive/wider/deeper Shoe gear, Digital Padding/Strapping/Taping/Bracing/Gel protective sleeves, Foot/Ankle AFO Bracing, Stretching exercises, Deep Tissue Massage, Arch support/shoe inserts with splay metatarsal padding, and Custom orthoses. I insisted that any digital devices be removed daily and not worn overnight for safety. The patient is to carefully examine the toes daily for any skin irritation while using any splinting or padding device. The advantages and disadvantages of each option were discussed and the patients questions re: shoe gear, padding, custom vs prefabricated inserts, activity level, and consistency in home treatment regimens for optimal success were answered to their verbally confirmed satisfaction, Recomm, rest, ice, proper shoegear, padding, orthotics, anti-inflammatories or tylenol as tolerated, topical analgesics, cortisone injections.?Shoe Gear Counseling:?SHOE Rx - The patient was counseled in great detail on their muscoloskeletal foot and toe deformities which coincided with the dermatological presentations visualized on exam. We discussed how their deformities put the integrity of their feet at risk for potential pedal complications which makes the accomidative diabetic shoes and cutomizable inserts medically necessary. We discussed the different shoe and insert treatment types and options, as well as the important advantages for adhering to regularly wearing these accomidative devices daily. The patient was made aware of the fact that a failure to abide by these recommedations may be deleterious to their foot health as they are able to prevent many pedal complications such as skin irritation, skin ulceration, infection, and even loss of toe/foot/leg/or life. Time was also spent with the patient dispensing and discussing proper diabetic footcare techniques including daily skin moisturization, daily foot inspection for any interruption in skin integrity including open lesions, or sign of infection such as redness/malodor/drainage/swelling. Also discussed and recommended were procedures regarding daily shoe inspection for the presence of internal foreign bodies as well as any visualized irregular shoe or insert wear. Patient questions re: shoes, inserts, and self foot inspections were answered to their satisfaction as the patient verbally confirmed a full understanding of the above information. A Rx for Extra Depth Orthopedic Shoes with 3 pair of custom heat-molded inserts was dispensed.? ??Screening/Special Tests:?Fall Risk?Screening:?No falls in the past year ?FALLS: Screening for Future Fall Risk?Have you had any falls with injury in the past year??No * Follow Up:?prn * Images: * Sign off status: Completed true * Provider:?Belinda Garcia DPM Date:?2024 Generated for Ayleen matias/Kevan/eTbettyitting on:?11/29/2024 06:38 AM EDT History and Physical Notes * HPI (History of Present Illness) Category Sub-Category Detail Notes Category Not es Toe pain Location: B/L feet Duration: several years Course: worse Aggravated by: shoes, any pressure Treatments: change in shoes At Risk footcare Pt States Last PCP Visit: Date: 4 Examination Category Sub-Category Detail Notes Category Not es Neurological SENSORY: Neurological exa m demonstrates, reduced [...] located at, SUB MTH (s), 1, B/L, Orthopedic FOOTWEAR EVALUATION: worn, non-s upportive, shoe gear properties exacerbate patient's foot/toe deformity DIGITAL DEFORMITIES: Digital contracture , PIPJ, 2-5 B/L, incompl-reducible to push-up test, no over, nor underlapping, there is evidence of shoe producing skin irritation MUSCLE STRENGTH: Generalized decrease in strength, B/L General Examination GENERAL APPEARANCE: Reveals a pleasant, alert, well nourished, well-developed, well hydrated individual, who demonstrates proper attention to hygiene/body habitus, and is in no acute distress, Pt serves as own historian for office visit today FOOT EXAM: Lower Extremity Neurological Exa m performed:: Yes Date Visual exam of foot performed:: Yes Date: 09/10/2024 Sensory testing performed:: sensations d iminished Sensory and motor testing performed:: se nsations diminished Pedal pulse taking performed:: 1+ ORIENTED: person, place, and t drew Footwear Evaluation Footwear Evaluation performe d:: Yes Ophthalmology Referral DIABETES EYE EXAM Procedure Perform ed:: Yes ?Date of Exam Performed: 05/16/2024 Retinal Screening Performed:: Yes Findings of Diabetic Eye Exam:: no retin opathy Vascular DP PULSES (B): 1/4, B/L PT PULSES (B): 1/4, B/L EDEMA (C): 4/4, non-pitting, B/ L PIGMENTATION: rubrous, B/L Nails NAILS are: Elongated, overg rown, dystrophic, lytic, greater than 3mm thick, discolored and friable with crumbly malodorous subungual debris, ,with dull to no pain on palpation due to neuropathy, , TA, T1, T2, T3, T4, T5, T6, T7, T8, T9
[2024-11-29 10:09] LABS: MANUAL DIFF FLAG NO
[2024-11-29 10:19] LABS: Basophils Absolute Auto 0.1 X10*3/uL (0.0-0.2); Basophils Percent Auto 0.9 % (0-2); Eosinophils Absolute Auto 0.3 X10*3/uL (0.0-0.4); Eosinophils Percent Auto 3.1 % (0-4); Hematocrit 36.8 % (37.0-47.0); Hemoglobin 11.5 g/dl (12.0-16.0); Imm Gran Abs Auto 0.04 X10*3/uL (0.00-0.03); Imm Gran Pct Auto 0.5 % (0.0-0.4); Lymphocytes Percent Auto 34.5 % (20-40); Mean Corpuscular HGB Conc 31.3 g/dl (31.0-35.0); Mean Corpuscular Hemoglobin 25.9 pg (27.0-33.0); Mean Corpuscular Volume 82.9 fL (80.0-98.0); Mean Platelet Volume 11.8 fL (9.4-12.3); Monocytes Absolute Auto 0.8 X10*3/uL (0.1-1.2); Monocytes Percent Auto 8.8 % (2-11); Neutrophils Absolute Auto 4.6 x10*3/uL (2.0-8.3); Neutrophils Percent Auto 52.2 % (45-73); Platelet Count 367 X10*3/uL (160-400); Red Blood Count 4.44 X10*6/uL (4.20-5.50); Red Cell Distribution Width 14.6 % (11.0-16.0); White Blood Count 8.8 X10*3/uL (4.8-10.8)
[2024-11-29 10:28] LABS: Estimated Average Glucose 126 mg/dL; Hemoglobin A1C 132.5014 umol/L; Total Hemoglobin (HGBA1C) 3119.8158 umol/L
[2024-11-29 10:38] LABS: Anion Gap 13 (12-20)
[2024-11-29 10:45] LABS: Alanine Aminotransferase 15 U/L (0-31); Albumin Level 4.2 g/dL (3.5-5.0); Aspartate Amino Transferase 20 U/L (5-31); Bilirubin Total 0.3 mg/dL (0.0-1.0); Blood Urea Nitrogen 40 mg/dL (9-16); Carbon Dioxide 25 mmol/L (22-29); Chloride 105 mmol/L (96-108); Estimated Glomerular Filt Rate > 60; Glucose Random 113 mg/dL (60-115); Iron 97 mcg/dL (30-160); Percent Iron Saturation 23 % (15-50); Potassium 4.5 mmol/L (3.3-5.1); Sodium 138 mmol/L (135-145); Total Iron Binding Capacity 416 mcg/dL (228-428); Total Protein 7.3 g/dL (6.5-8.0); Unsaturated Iron Binding 319 ug/dL
[2024-11-29 10:55] LABS: Appearance Urine Clear; Color Urine Yellow; Glucose Urine UA Negative (Negative); Leukocyte Esterase Urine Small (1+) (Negative); Nitrite Urine Negative (Negative); PH 6.5 (5.0-9.0); Specific Gravity - Urine 1.015 (1.005-1.025); UMIC TRIGGER UACC YES; Urine Blood Negative (Negative); Urine Ketones Negative (Negative); Urine Protein Negative (Neg-Trace)
[2024-11-29 10:57] LABS: Alkaline Phosphatase 90 U/L (39-117)
[2024-11-29 10:59] LABS: Folate 9.9 ng/mL (> or = 4.0); Vitamin B12 1272 pg/mL (200-900)
[2024-11-29 11:08] LABS: Ferritin 24 ng/mL (10-250); Vitamin D 25-OH Total 86.2 ng/mL (>30)
[2024-11-29 11:23] LABS: Creatinine Urine 51.58 mg/dL; Microalbum/Creatinine Ratio Ur 25.2 ug/mg cr (<30)
[2024-11-29 11:37] LABS: Bacteria Urine 2+ (None Seen); Hyaline Casts Urine 0-2 /LPF (0-2); RBC Urine 0-2 /HPF (0-2); Squamous Epithelial Cell Urine 0-2 /HPF (0-2); UACC Culture Trigger YES
== END 2024-11-29 06:35 | disposition home or self-care (01) ==
LOC: HO.HMGCLDS 06:34
PROVIDERS: PCP Internal Medicine; Visit Provider Internal Medicine
DX: E11.42 Type 2 diabetes mellitus with diabetic polyneuropathy (principal); I10 Essential (primary) hypertension; E78.00 Pure hypercholesterolemia, unspecified; D64.9 Anemia, unspecified; R35.1 Nocturia; M81.0 Age-related osteoporosis without current pathological fracture
CPT/HCPCS: 36415; 80053; 81001; 81003; 82043; 82306; 82570; 82607; 82728; 82746; 83036; 83540; 83735; 85025; 87086; 87088; 87186

== ENCOUNTER 2025-01-09 11:08 | Outpatient (REF) | payer MEDICARE, SELFPAY ==
--- OUTSIDE RECORDS SUMMARY | 2025-01-09 12:11 | XMS_ITS | Patient Health Record ---
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 Operator Name Role Phone Jose Alberto Bridges MD Primary Care Provider Unavaila Dwaine Pickard Unavailable [phone] WU ALMAZAN Unavailable Unavailable Reason For Referral No Information Problems Problem Type SNOMED Code ICD Code Onset Dates Problem Status W/U Status Risk Notes Problem Diverticulosis of colon (finding) (255332321) Diverticulosis of colon (without mention of hemorrhage) (562.10) Active confirmed Problem Blood in stool (654649586) Blood in stool (578.1) Active confirmed Problem History of polyp of colon (situation) (849186124) Personal history of colonic polyps (V12.72) Active confirmed Problem Family history o f malignant neoplasm of gastrointestinal tract (V16.0) Active confirmed Plan Of Treatment No Information Insurance Providers Payer Name Payer Address Payer Phone Subscriber Number Group Number Insured Name Patient Relationship to Insured Coverage Start Date Coverage End Date MEDICARE OF [place] [address] [place] [address] [id number] ROSINA STANLEY Self - patient is the insured [employer] CLAIMS [address] [place] [address] [id number] ROSINA STANLEY Self - patient is the insured
[2025-01-09 14:11] LABS: Appearance Urine Clear; Color Urine Yellow; Glucose Urine UA Negative (Negative); Leukocyte Esterase Urine Large (3+) (Negative); Nitrite Urine Negative (Negative); Specific Gravity - Urine 1.015 (1.005-1.025); UMIC TRIGGER UA YES; Urine Blood Negative (Negative); Urine Ketones Negative (Negative); Urine Protein Trace mg/dL (Neg-Trace)
[2025-01-09 14:42] LABS: Bacteria Urine None Seen (None Seen); RBC Urine 0-2 /HPF (0-2); Squamous Epithelial Cell Urine 0-2 /HPF (0-2); WBC Urine 21-50 /HPF (0-5)
== END 2025-01-09 11:09 | disposition home or self-care (01) ==
LOC: HO.HMGCLDS 11:08
PROVIDERS: PCP Internal Medicine; Visit Provider Internal Medicine
DX: R35.0 Frequency of micturition (principal); I10 Essential (primary) hypertension
CPT/HCPCS: 81001; 87086

== ENCOUNTER 2025-01-12 12:19 | Outpatient (AMB) | payer MEDICARE, SELFPAY ==
--- NOTE | 2025-01-12 12:20 | AM.OFFWIN_ITS ---
Intake Vital Signs 3 01/12/25 12:24 01/12/25 13:08 Height 4 ft 9 in Weight 135 lb BMI 29.2 BP 140/80 H Blood Pressure Location Lt brachial Position Sitting Respiration 16 Pulse 115 H 90 Pulse Source Pulse Oximeter Auscultation Temp 97.8 F Temp Source Oral Pulse Oximetry (%) 97 Oxygen Delivery Method Room Air Intake Visit Reasons: EP swollen legs Intake Note: Pt is here today c/o bilateral leg swollen Patient Tobacco Use Status: Never used Tobacco Allergies morphine [MORPHINE] Allergy (Unknown, Verified 01/12/25 12:38) NAUSEA & VOMITING codeine [CODEINE] Adverse Reaction (Unknown, Verified 01/12/25 12:38) DIGESTIVE PROBLEMS oxycodone Adverse Reaction (Unknown, Verified 01/12/25 12:38) NAUSEA AND VOMITING tramadol [From ULTRAM] Adverse Reaction (Unknown, Verified 01/12/25 12:38) DIGESTIVE PROBLEMS Codeine Phosphate Allergy (Unknown, Uncoded 01/12/25 12:21) Nausea and Vomiting codiene Allergy (Unknown, Uncoded 01/12/25 12:21) SOB, cp morphine Allergy (Unknown, Uncoded 01/12/25 12:21) n/v percocet Allergy (Unknown, Uncoded 01/12/25 12:21) vomiting Percodan Allergy (Unknown, Uncoded 01/12/25 12:21) Nausea and Vomiting percodan Allergy (Unknown, Uncoded 01/12/25 12:21) vomiting Medication List - Last Reconciled 01/12/25 by Nessa Ayon, DIRECTOR OF CUSTOMER SERVICE-BC alendronate 70 mg PO QWEEK calcium carbonate 600 mg PO DAILY cholecalciferol (vitamin D3) 50 mcg PO DAILY ciprofloxacin HCl 250 mg PO BID diclofenac sodium 1% 4 grams topical QID PRN L.acid-L.casei-B.bif-B.jamee-FOS 2 billion cell-50 mg (Probiotic Blend) 1 cap PO DAILY levothyroxine 50 mcg PO DAILY losartan 50 mg PO DAILY magnesium oxide 500 mg PO DAILY metformin ER 500 mg PO DAILY@0730 metoprolol succinate ER 100 mg PO DAILY naproxen sodium (Aleve) 220 mg PO Q12H PRN omeprazole 20 mg PO DAILY vitamin B complex (B Complex-Vitamin B12 tablet) 1 tab PO DAILY HPI HPI Comments 2 History of Present Illness0 Details History of Present Illness - The patient is an 89-year-old female w ith lymphedema, PVD and CHF presenting with swelling in bilateral lower extremities. - Swelling onset was two to three weeks ago. - Aggravated to significant swelling wit hin the last week prior to visit. - Swelling has reduced partially with le g elevation; has chronic lymphedema, admits to not using compression machine at home. - Redness is noted as constant, no recen t changes. - Current treatment for urinary tract in [facility], started Cipro this AM. Review of Systems - Musculoskeletal: Reports swelling in b ilateral lower extremities. - Cardiovascular: Denies chest pain, ort hopnea. Admits to eating hot dogs prior to onset of swelling in legs. Has prn lasix at home but has not taken any. - Respiratory: Denies shortness of breat h. - Neurological: Denies difficulty rising after a fall. - Skin: Reports constant redness in lowe r extremities. Discussion Notes I discussed with the patient that the presentation is not consistent with cellulitis as her legs are cool and without warmth. Given her symptoms and history, starting diuretic therapy with Lasix was recommended. The prescribed regimen is 20 mg twice daily for three days, reducing to 20 mg once daily for seven days. I advised her to monitor if swelling resolves earlier, take lasix only for 1 additional day and then stop . I instructed her to intake foods rich in potassium due to the potassium-lowering effect of the diuretic. Follow-up was discussed should her symptoms not improve or worsen. We discussed her recent urinary tract infection and current treatment, she should cont Cipro. The patient consented to the recommended management plan, expressed understanding and agreement with the approach, and intends to keep follow-ups with Dr. Bridges. Assessment and Plan 1. Swelling BLE - Initiate Lasix 20 mg bid for three day s, then 20 mg qd for seven days. - Recommend potassium intake. Monitor sy mptoms. She has this at home. 2. Urinary Tract Infection - Continue prescribed antibiotics as dir ected by PCP. Patient Instructions - Take prescribed diuretic Lasix 20 mg t wo times a day for three days, then 20 mg once daily for seven days. - Include potassium-rich foods in your d iet. - Monitor for changes in swelling, adjus t as advised. - Continue antibiotic treatment for urin julio tract infection as prescribed. - Attend scheduled spinal injection appo intment for sciatica. - Seek medical attention if swelling wor sens or other symptoms arise. Consent Patient was informed and verbally consented to the use of an ambient scribe for clinic note documentation during this visit. Total time spent caring for the patient today was 30 minutes. This includes time spent before the visit reviewing the chart, time spent during the visit, and time spent after the visit on documentation, reviewing laboratory results, diagnostic imaging, medications, performing a medically necessary evaluation, counseling on diagnoses, care coordination, ordering appropriate tests, ordering appropriate medications, review of tests performed by other providers, reporting test results with the patient, communication with other healthcare providers. Exam awake alert NAD RRR, 2/6 murmur, RSB LS CTAB Edema BLE, + chronic vascular changes, skin intact, there is no warmth or streaking to suggest cellulitis. Changes today look more related to chronic vascular disease and edema. +2 edema BLE. + PP. PFSH Medical History Diabetes type 2, controlled Hypertension Thyroid disease Osteoporosis Infectious colitis Hyperlipidemia Arthritis Diabetes Surgical History History of surgery History of surgery History of carpal tunnel surgery History of cholecystectomy H/O sinus surgery H/O: hysterectomy Hx of appendectomy H/O adenoidectomy Hx of tonsillectomy History of total left knee replacement Family History Mother Diabetes Social History Household Members: None Housing: House Do you presently have visiting nurse or other home services: No Alcohol intake: current Alcohol intake frequency: holidays/special occasions only Comment: sleeping Patient Tobacco Use Status: Never used Tobacco Advance Directives Date on File: 08/01/23 service: No Current occupational status: retired Physical Exam Vital Signs: Last Vital Signs Temp 97.8 F 01/12/25 12:24 Pulse 115 H 01/12/25 12:24 Resp 16 01/12/25 12:24 BP 140/80 H 01/12/25 12:24 Pulse Ox 97 01/12/25 12:24 Oxygen Delivery Method Room Air 01/12/25 12:24 BMI result Body Mass Index 29.2 Assessment & Plan Assessment & Plan (1) CHF exacerbation: Code(s): I50.9 - Heart failure, unspecified Qualifiers: Heart failure type: diastolic Qualified Code(s): I50.33 - Acute on chronic diastolic (congestive) heart failure (2) PVD (peripheral vascular disease): Code(s): I73.9 - Peripheral vascular disease, unspecified (3) H/O echocardiogram: Comment: left ventricular systolic function is normal with an EF of 60-65%. Impaired relaxation of diastolic filling. Code(s): Z92.89 - Personal history of other medical treatment (4) UTI (urinary tract infection): Code(s): N39.0 - Urinary tract infection, site not specified Qualifiers: Hematuria presence: without hematuria Urinary tract infection type: a cute cystitis Qualified Code(s): N30.00 - Acute cystitis without hematuria (5) Lymphedema: Code(s): I89.0 - Lymphedema, not elsewhere classified Plan . Patient Instructions: Patient Instructions - Take prescribed diuretic Lasix 20 mg two times a day for three days, then 20 mg once daily for seven days. - Include potassium-rich foods in your diet. - Monitor for changes in swelling, adjust as advised. - Continue antibiotic treatment for urinary tract infection as prescribed. - Attend scheduled spinal injection appointment for sciatica. - Seek medical attention if swelling worsens or other symptoms arise. Coding Level of Care Code Est Pt Level 4 (69294) Diagnoses Acute on chronic diastolic congestive heart failure I50.33 Heart failure type: diastolic PVD (peripheral vascular disease) I73.9 H/O echocardiogram Z92.89 Acute cystitis without hematuria N30.00 Hematuria presence: without hematuria Urinary tract infection type: acute cystitis Lymphedema I89.0
--- OUTSIDE RECORDS SUMMARY | 2025-01-12 12:21 | XMS_ITS | Patient Health Record ---
Author Organization [facility] Address [address] [place] [address] Care Team Providers Care Check Examiner Name Role Phone Jose Alberto Bridges MD Primary Care Provider Unavaila Dwaine Pickard Unavailable [phone] WU ALMAZAN Unavailable Unavailable Reason For Referral No Information Problems Problem Type SNOMED Code ICD Code Onset Dates Problem Status W/U Status Risk Notes Problem Diverticulosis of colon (finding) (879417037) Diverticulosis of colon (without mention of hemorrhage) (562.10) Active confirmed Problem Blood in stool (758377488) Blood in stool (578.1) Active confirmed Problem History of polyp of colon (situation) (469912176) Personal history of colonic polyps (V12.72) Active confirmed Problem Family history of malignant neoplasm of gastrointestinal tract (965451744) Family history of malignant neoplasm of gastrointestinal tract (V16.0) Active confirmed Plan Of Treatment No Information Insurance Providers Payer Name Payer Address Payer Phone Subscriber Number Group Number Insured Name Patient Relationship to Insured Coverage Start Date Coverage End Date MEDICARE OF [place] [address] [place] [id number] ROSINA STANLEY Self - patient is the insured [employer] ATT[employer] CLAIMS [address] [place] [address] [id number] ROSINA STANLEY Self - patient is the insured
[2025-01-12 12:24] VITALS: BP 140/80; PULSE 115; RESP 16; TEMP 36.6; O2SAT 97; BMI 29.2
[2025-01-12 13:08] VITALS: PULSE 90
== END 2025-01-12 14:35 | disposition home or self-care (01) ==
PROVIDERS: PCP Internal Medicine; Visit Provider Nurse Practitioner Family
DX: I50.33 Acute on chronic diastolic (congestive) heart failure (principal); I73.9 Peripheral vascular disease, unspecified; Z92.89 Personal history of other medical treatment; N30.00 Acute cystitis without hematuria; I89.0 Lymphedema, not elsewhere classified

== ENCOUNTER → 2025-01-12 12:19 | Outpatient (BNVA) | payer MEDICARE, SELFPAY | PROVIDERS: PCP Internal Medicine | DX: I50.33 Acute on chronic diastolic (congestive) heart failure (principal); I73.9 Peripheral vascular disease, unspecified; N30.00 Acute cystitis without hematuria; I89.0 Lymphedema, not elsewhere classified; Z92.89 Personal history of other medical treatment | CPT/HCPCS: 99212 ==

== ENCOUNTER 2025-03-25 10:41 | Outpatient (REF) | payer SELFPAY ==
--- OUTSIDE RECORDS SUMMARY | 2025-03-21 07:00 | XMS_ITS ---
Author Organization [facility] Address [address] [place] [address] Care Team Providers Care Loading Rack Supervisor Name Role Phone Jose Alberto Bridges MD Primary Care Provider Unavaila ble Black, Belinda Unavailable [phone] Allergies Allergen (clinical drug ingredient) Drug/Non Drug Allergy documented on EMR Reaction Allergy Type Onset Date Status acetaminophen / oxycodone Percocet vomiting Drug Allergy Active Percodan vomiting Drug Allergy Active Seasonale Unknown Drug Allergy Active simvastatin Simvastatin Unknown Drug Allergy Act mehnaz tramadol Ultram vomiting Drug Allergy Active codeine Codeine Severe Chest Pain Drug Allergy Active morphine Morphine vomiting Drug Allergy Active REASON FOR VISIT At Risk Footcare, Toe Irritation Medications Medication SIG (Take, Route, Frequency, Duration) Notes Start Date End Date Status Cephalexin 500 MG 1 tablet Orally Twice a day; Duration: 10 day(s) Not-Taking Lasix PRN Not-Taking Losartan Potassium 50 MG 1 tablet Orally Once a day Not-Taking hydroCHLOROthiazide Not-Taking Ibuprofen Not-Taking Omeprazole Active Extra Depth Orthopedic Shoes (1 Pair) with Customized Heat Molded Multidensity Innersoles (3 Pair) as directed Dx: NIDDM/Polyneuropath y (E11.42), Hammertoe Foot Deformity (M20.41,M20.42), Preulcerative Skin Lesion(s) (L85.1 09/10/2024 Active Compression Stockings 20-30mm Hg as directed Not-Taking Vitamin B-12 Active Vitamin D 50 MCG (1999 UT) as directed Orally twice a day Active Lasix 20 MG 1 tablet Orally Once a day; Duration: 30 day(s) PRN as needed Active Losartan Potassium 50 MG 1 tablet Orally Once a day Active metFORMIN HCl 500 MG 1 tablet with a meal Orally in morning and two at night once a day Active Levothyroxine Sodium Active Metoprolol & Diet Manage Prod 100 mcg Daily Active Fosamax Active Calcium 500 + D 500mg Not-Taking Metformin & Diet Manage Prod 500 MG as directed Orally Once a day Not-Taking Simvastatin Not-Taki ng Ciprofloxacin HCl 250 MG TAKE 1 TABLET B Y MOUTH 2 TIMES A DAY FOR 5 DAYS. Oral; Duration: 5 Days Not-Taking Social History Tobacco Use: Social History Observation [...] year? Monthly or less (1 point) How many drinks did you have on a typical day when you were drinking in the past year? 1 or 2 drinks (0 point) How often did you have six o r more drinks on one occasion in the past year? Never (0 point) Points 1 Interpretation Negative Problems Problem Type SNOMED Code ICD Code Onset Dates Problem Status W/U Status Risk Notes Problem Acquired hammer toe of right foot (75594020686 38581) Other hammer toe(s) (acquired) , right foot (M20.41) Active confirmed Response to treatment, Improvement Problem Acquired hammer toe of left foot (87360771803 42316) Other hammer toe(s) (acquired) , left foot (M20.42) Active confirmed Response to treatment, Improvement Vital Signs Height 4 ft 11 in in 03/21/2025 Weight 138 lbs 03/21/2025 BMI 27.87 kg/m2 03/21/2025 Blood pressure systolic 130 mm Hg 03/21/20 25 Blood pressure diastolic 80 mm Hg 025 Procedures Procedure Date Ordered Date Performed Result Body Sit e 30076-VOMWPZS NAIL, 6 OR MORE 03/21/2025 N/A 39846-[id number] SKIN LESIONS, 2 TO 4 03/21/2025 N/A Encounters Encounter Location Date Provider Diagnosis [facility] [address] [address] 03/21/2025 Belinda Garcia Tinea unguium B35.1 ; Type 2 diabetes mellitus with diabetic polyneuropathy E11.42 ; Other hammer toe(s) (acquired), right foot M20.41 and Other hammer toe(s) (acquired), left foot M20.42 Assessments Encounter Date Diagnosis (ICD Code) Assessment Notes Treatment Notes Treatment Clinical Notes Section Notes 03/21/2025 Tinea unguium (ICD-10 - B35.1) 03/21/2025 Type 2 diabetes mellitus with diabetic polyneuropathy (ICD-10 - E11.42) 03/21/2025 Other hammer toe(s) (acquired), right foot (ICD-10 - M20.41) Response to treatment, Improvement 03/21/2025 Other hammer toe(s) (acquired), left foot (ICD-10 - M20.42) Response to treatment, Improvement Plan Of Treatment Pending Test Test Name Order Date [id number] NAIL, 6 OR MORE 03/21/2025 [id number] SKIN LESIONS, 2 TO 4 03/21/20 Next Appt Details Follow Up: prn, Reason: Provider Name:Belinda Garcia , 05/30/2025 11:15:00 AM, [address] [place] [address], [phone], Provider Name:Belinda Garcia , 08/22/2025 11:15:00 AM, [address] [place] [address], [phone], Procedure Notes * Category Sub-Category Detail Notes Debride Nail 6-10 Nail debridement Due to the cl inical pathology outlined in the exam findings, performance of this nail treatment is medically necessary as its management by an unskilled/untrained nonprofessional would put this patients foot and overall health at risk. Therefore, debridement to affected nail(s), as described in exam ( TA,,T1, T3, T4, T5, T6, T7, T8, T9_), was performed exclusively by the physician of record to reduce/remove overall nail length, girth, thickness, subungual debris, and necrotic tissue, by manual and/or electrical means through the use of a nail nipper and/or dremel-type double end production grinder, to a more viable healthy nail [...] to maintain effectiveness in symptomatic relief - 72215 Keratoma Treatment Parring or Cutting o f Benign Hyperkeratotic Lesion(s) (-56) 2-4 Lesions - Due to the at risk nature of the patients medical condition as documented in the exam findings, performance of this keratoderma treatment is medically necessary as its management by an unskilled/untrained nonprofessional would put this patients foot and overall health at risk. Therefore, the benign hyperkeratotic lesions, ( 3 ) in total, locations as stated and described in the exam ( Submet 1 b/l,plantar heel left), were pared, and/or cut utilizing a sterile 15 blade, tissue nippers, and/or power dremel instrumentation by the physician of record - 28020 Progress Notes * LIZETH, Lory ADOB:[birth year] (89 yo F)Acc No.[id number]:03/21/2025 Progress Note Patient: Lory OSUNA Provider: Adela Garcia DPM :1935 A ge:89 Y S ex:Female Date:03/21/2025 Address:[address] [place] [address], [place], [place]-[id number] Pcp:Jose Alberto Bridges MD Subjective: * Chief Complaints: * A t Risk FootcareToe Irritation * HPI: A t Risk footcare: Pt States Last PCP Visit: D ate 0 11/19/2024 T oe pain: Treatments: R x shoes . * ROS: G eneral/Constitutional: Nausea d enies. V omiting d enies. H huma Thirst d enies. L oss appetite d enies. C hills d enies. F atigue d enies.?Fever d enies. N ight Sweats d enies. U nexplained weight loss d enies. O phthalmologic: Blurred vision d enies. R ed eye d enies. ? H EENTM: Dentures d enies. D izziness d enies. G lasses/contacts d enies. R etinopathy d enies. B lurred/double vision d enies. T MJ?denies. D ischarge/drainage d enies. I mplants d enies. H kristen of hearing admits. D ifficulty chewing/swallowing/speaking d enies. N ose bleeds d enies.?Sore mouth d enies. S wollen glands d enies. R espiratory: On Oxygen d enies. P neumonia/pleurisy d enies.?Bronchitis d enies. E mphysema d enies. C oughing d enies. C ough blood?denies. S hortness of breath d enies. W heezing d enies. C ardiovascular: Pacemaker d enies. M COMPETITIVE INTELLIGENCE MANAGER d enies. W PW d enies. C HF d enies. H eart attack d enies. S eptal defect d enies. R apid beat d enies. C hest pain d enies. A trial Fib. d enies. M urmur/Palpitations d enies. G astrointestinal: Hemorrhoids d enies. S tomach/Abdominal pain d enies. D ark blood stool d enies. I rritable bowel d enies. C onstipation d enies. D iarrhea d enies. V omiting d enies. H ematology: Swelling a dmits. B ruising d enies. B leeding problem d enies. G enitourinary: Blood urine d enies. F requent/Painfu/urination/bladder control d enies. K idney stones d enies. I nfection (UTI) d enies. N ephropathy d enies. M usculoskeletal: Hammertoes a dmits. B unions d enies. S coliosis/kyphosis d enies. M uscle cramps / walking d enies. G eneralized aches and pains?admits. W eakness d enies. I nteg.: Ayala d enies. S cars d enies. C orns/calluses?denies. I ngrown nails , admits. P ainful nails d enies. R ashes d enies. N eurologic: Difficulty sleeping d enies. B ipolar d enies. B rain disorder d enies. B alance trouble d enies. C onfusion d enies. F ainting/blackouts d enies. H eadache d enies. T remors d enies. * Medical History: * Surgical History: a ppendectomy 1971cholecystectomy 1971hysterectomy 1982left knee replacement 2007sinus surgery 1983tonsillectomy and adenoidectomy 1947bilateral eyelid surgery 05/2014lt and rt cataracts 2013carpal tunnel 03/2018 and 05/2018 * Hospitalization/Major Diagno stic Procedure: H for acute diverculitis 2017[facility] [place] for headache and stomach bacterial infection 12/2017[place] in [place]-Sepsis Infection in hand- IV antibiotics/Flu 07/2019[facility] [place]- Fall- swollen eye - head scan 03/27/20[facility] [place]- Sciatica 06/29/20 06/30/20[facility] [place]- Gi issues stay a few days 1Acute Cellulitis- b/l legs infected-IV antibiotics - [facility] comes to pts home and PT 1 x a week 08/01/23-08/05/23 * Family History: M other: , diagnosed with Other malignant neoplasm of unspecified site, Diabetic - NIDDM, Family history of arthritis. F ather: , diagnosed with Other malignant neoplasm of unspecified site. S iblings: Brother -Cancer, diagnosed with Other malignant neoplasm of unspecified site. * Social History: T obacco Use: T obacco use other than smoking A re you an other tobacco user? N o Tobacco Control (Standard) T obacco use: N onsmoker A dditional Findings: Tobacco non-user C urrent nonsmoker D rugs/Alcohol: D rugs H ave you used drugs other than those for medical reasons in the past 12 months? N o M iscellaneous: C affeine: yes, frequency:, 2-3 cups per day. Children: no. Exercise: yes, walking. Marital status: single. 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 D rug/Alcohol: A TANA-C (Standard) D id you have a drink containing alcohol in the past year? Y es H ow often did you have a drink containing alcohol in the past year? M onthly or less (1 point) H ow many drinks did you have on a typical day when you were drinking in the past year? 1 or 2 drinks (0 point) H ow often did you have six or more drinks on one occasion in the past year? N ever (0 point) P oints 1 I nterpretation N egative * Medications: T akingFosamax Lasix 20 MG Tablet 1 tablet Orally [...] as directed Orally Once a day Simvastatin Ciprofloxacin HCl 250 MG Tablet TAKE 1 TABLET BY MOUTH 2 TIMES A DAY FOR 5 DAYS. Oral Medication List reviewed and reconciled with the patientNot- Taking/PRN Compression Stockings 20-30mm Hg closed toe- knee high as directed Not- Taking/PRN Cephalexin 500 MG Tablet 1 tablet Orally Twice a day Not-Taking/PRN Lasix PRN Not-Taking/PRN Losartan Potassium 50 MG Tablet 1 tablet Orally Once a day Not-Taking/PRN hydroCHLOROthiazide Not-Taking/PRN Ibuprofen Not-Taking/PRN Calcium 500 + D 500mg Not-Taking/PRN Metformin & Diet Manage Prod 500 MG Miscellaneous as directed Orally Once a day Not-Taking/PRN Simvastatin Not-Taking/PRN Ciprofloxacin HCl 250 MG Tablet TAKE 1 TABLET BY MOUTH 2 TIMES A DAY FOR 5 DAYS. Oral Medication List reviewed and reconciled with the patient * Allergies: P ercocet: vomiting - AllergyUltram: vomiting - AllergyPercodan: vomiting - AllergySimvastatinCodeine: Severe Chest Pain - AllergyMorphine: vomiting - AllergySeasonaleyes[Allergies Verified] Objective: * Vitals: H t: 4 ft 11 in, Wt: 138, BMI: 27.87, Shoe size: 6WW, BP: 130/80 mm Hg, BS: not taken, Wt-k.6 kg. * P ast Orders: L ab:HEMOGLOBIN A1C (GLYCOHEMOGLOBIN) (Order Date - 11/13/2024) (Collection Date & Time - 03/21/2025 11:04 AM) Value Reference Range HEMOGLOBIN A1C % (HH) 6.3 * Examination: O phthalmology Referral: DIABETES EYE EXAM P rocedure Performed: Dinesh Robertson ate of Exam Performed 0 10/15/2024 D iabetic Retinopathy Screening: Y grabiel F indings of Diabetic Eye Exam: r etinopathy G eneral Examination: GENERAL APPEARANCE: R eveals a pleasant, alert, well nourished, well-developed, well hydrated individual, who demonstrates proper attention to hygiene/body habitus, and is in no acute distress, Pt serves as own historian for office visit today. ORIENTED: p erson, place, and time. Footwear Evaluation F ootwear Evaluation performed: Y es N eurological: SENSORY: Neurological exam demonstrates inability for patient to distinguish sharp/dull pin prick discrimination, reduced, light touch sensation, reduced, vibration sensation,reduced, proprioception identification, in a stocking fashion, B/L. Test with 5.07 Hancock-Eugene monofilament performed at plantar aspects of 5 varied sites per foot shows sensation absent in at least 2 locations, B/L, Pt relates, anesthesia, pins and needles sensation, especially in the evening,. O rthopedic: FOOTWEAR EVALUATION: g ood condition, exhibit proper fit and accommodation for pedal deformities. OT were inspected and noted to be worn, but in good condition giving proper support at the present time. V ascular: DP PULSES (B): 1 /4, B/L. PT PULSES (B): 1 /4, B/L. PIGMENTATION: r ubrous, B/L. EDEMA (C): 4 /4, non-pitting, B/L. D ermatologic: SKIN FINDINGS: S kin exam reveals Keratotic lesion(s) located at, SUB MTH (s), 1, B/L,, Plantar Heel(s), Left. N ails: NAILS are: E longated, overgrown, dystrophic, lytic, greater than 3mm thick, discolored and friable with crumbly malodorous subungual debris, ,with dull to no pain on palpation due to neuropathy, , TA,,T1, T3, T4, T5, T6, T7, T8, T9. Assessment: * Assessment: 1. T inea unguium - B35.1 2 . T ype 2 diabetes mellitus with diabetic polyneuropathy - E11.42 (Primary) 3 . O ther hammer toe(s) (acquired), right foot - M20.41 S pecify :Chronic problem, Stable (1=3,2=4) N otes :Response to treatment, Improvement 4 . O ther hammer toe(s) (acquired), left foot - M20.42 S pecify :Chronic problem, Stable (1=3,2=4) N otes :Response to treatment, Improvement Plan: * Treatment: 2. T inea unguium P rocedure: 40553-KVIHYLV NAIL, 6 OR MORE * Procedures: D ebride Nail 6-10: Nail debridement D ue to the clinical pathology outlined in the exam findings, performance of this nail treatment is medically necessary as its management by an unskilled/untrained nonprofessional would put this patients foot and overall health at risk. Therefore, debridement to affected nail(s), as described in exam ( TA,,T1, T3, T4, T5, T6, T7, T8, T9_), was performed exclusively by the physician of record to reduce/remove overall nail length, girth, thickness, subungual debris, and necrotic tissue, by manual and/or electrical means through the use of a nail nipper and/or dremel- type double end production grinder, to a more viable healthy nail [...] to maintain effectiveness in symptomatic relief - 98504. K eratoma Treatment: Parring or Cutting of Benign Hyperkeratotic Lesion(s) ( -56) 2-4 Lesions - Due to the at risk nature of the patients medical condition as documented in the exam findings, performance of this keratoderma treatment is medically necessary as its management by an unskilled/untrained nonprofessional would put this patients foot and overall health at risk. Therefore, the benign hyperkeratotic lesions, ( 3 ) in total, locations as stated and described in the exam ( Submet 1 b/l,plantar heel left), were pared, and/or cut utilizing a sterile 15 blade, tissue nippers, and/or power dremel instrumentation by the physician of record - 55239. * Procedure Codes: 1 1721 DEBRIDE NAIL, 6 OR MORE, Modifiers: XS 10968 TRIM SKIN LESIONS, 2 TO 4, Modifiers: XS * Preventive Medicine: Counseling: D iscussion: - 13: Office or other outpatient visit for the evaluation and management of an established patient, which required a medically appropriate history and/or examination and LOW level of DECISION MAKING for: 1 STABLE ACUTE UNCOMPLICATED PROBLEM, 2 OR MORE MINOR PROBLEMS, OR 1 STABLE CHRONIC PROBLEM, THAT POSE(S) A LOW RISK FOR MORBIDITY/MORTALITY. The visit on the day of the [...] have encouraged the patient to call the office. S hoe Gear Counseling: A thorough inspection of the patients Rxed shoe gear and inserts was performed and findings communicated. We reviewed the many important medical advantages for adhering to regularly wearing these shoe and insert accommodative devices daily as well as reviewed the fact that a failure in accepting these recommendations may be deleterious, unable to prevent, and result in many pedal complications such as skin irritation, skin ulceration, infection, and even loss of toe/foot/leg/or even their life. Time was also spent reviewing the proper foot care techniques including daily skin moisturization, daily foot inspection for any interruption in skin integrity, open lesions, or sign of infection such as redness/malodor/drainage/swelling as well as daily shoe inspection for the presence of trapped foreign bodies in the shoe as well as insert wear. Patient questions re: shoes, inserts, and self foot inspections were answered to their satisfaction as the patient verbally confirmed a full understanding of the above information.? Screening/Special Tests: F all Risk Screening: N o falls in the past year F ALLS: Screening for Future Fall Risk Have you had two or more falls in the past year? N o Have you had any falls with injury in the past year? N o * Follow Up: p rn * Images: * Sign off status: Completed true * Provider: ISAI BonillaM Date: 0 03/21/2025 Generated for Ayleen matias/Kevan/Adrian on: 0 03/25/2025 11:24 AM EDT History and Physical Notes * HPI (History of Present Illness) Category Sub-Category Detail Notes Category Not es Toe pain Treatments: Rx shoes At Risk footcare Pt States Last PCP Visit: Date: Examination Category Sub-Category Detail Notes Category Not es Ingrown Nail INSPECTION: Neurological SENSORY: Neurological exa m demonstrates inability for patient to distinguish sharp/dull pin prick discrimination, reduced, light touch sensation, reduced, vibration sensation,reduced, proprioception identification, in a stocking fashion, B/L. Test with 5.07 Hancock-Eugene monofilament performed at plantar aspects of 5 varied sites per foot shows sensation absent in at least 2 locations, B/L, Pt relates, anesthesia, pins and needles sensation, especially in the evening, TINEL'S COMPRESSION: Dermatologic SKIN FINDINGS: Skin exam reveal s Keratotic lesion(s) located at, SUB MTH (s), 1, B/L,, Plantar Heel(s), Left Orthopedic FOOTWEAR EVALUATION: good condit ion, exhibit proper fit and accommodation for pedal deformities. OT were inspected and noted to be worn, but in good condition giving proper support at the present time General Examination GENERAL APPEARANCE: Reveals a pleasant, alert, well nourished, well-developed, well hydrated individual, who demonstrates proper attention to hygiene/body habitus, and is in no acute distress, Pt serves as own historian for office visit today ORIENTED: person, place, and t drew Footwear Evaluation Footwear Evaluation performe d:: Yes Ophthalmology Referral DIABETES EYE EXAM Procedure Perform ed:: Yes Date of Exam Performed: 10/15/2024 Diabetic Retinopathy Screening:: Yes Findings of Diabetic Eye Exam:: retinopa thy Vascular DP PULSES (B): 1/4, B/L PT PULSES (B): 1/4, B/L EDEMA (C): 4/4, non-pitting, B/ L PIGMENTATION: rubrous, B/L Nails NAILS are: Elongated, overg rown, dystrophic, lytic, greater than 3mm thick, discolored and friable with crumbly malodorous subungual debris, ,with dull to no pain on palpation due to neuropathy, , TA,,T1, T3, T4, T5, T6, T7, T8, T9
--- OUTSIDE RECORDS SUMMARY | 2025-03-25 11:24 | XMS_ITS | Patient Health Record ---
Author Organization [facility] Address [address] [place] [address] Care Team Providers Care Guide Escort Name Role Phone Jose Alberto Bridges MD Primary Care Provider Unavaila Dwaine Pickard Unavailable [phone] WU ALMAZAN Unavailable Unavailable Reason For Referral No Information Problems Problem Type SNOMED Code ICD Code Onset Dates Problem Status W/U Status Risk Notes Problem Diverticulosis of colon (finding) (459317678) Diverticulosis of colon (without mention of hemorrhage) (562.10) Active confirmed Problem Blood in stool (576909602) Blood in stool (578.1) Active confirmed Problem History of polyp of colon (situation) (135857404) Personal history of colonic polyps (V12.72) Active confirmed Problem Family history of malignant neoplasm of gastrointestinal tract (284800010) Family history of malignant neoplasm of gastrointestinal tract (V16.0) Active confirmed Plan Of Treatment No Information Insurance Providers Payer Name Payer Address Payer Phone Subscriber Number Group Number Insured Name Patient Relationship to Insured Coverage Start Date Coverage End Date MEDICARE OF [place] [address] [place]OPEZ [address] [id number] ROSINA STANLEY Self - patient is the insured [employer] ATT[employer] CLAIMS [address] [place] [address] [phone] [id number] ROSINA STANLEY Self - patient is the insured
== END 2025-03-25 10:42 | disposition home or self-care (01) ==
LOC: HO.HAP 10:41
PROVIDERS: PCP Internal Medicine; Visit Provider Internal Medicine
DX: Z46.1 Encounter for fitting and adjustment of hearing aid (principal)
CPT/HCPCS: V5266

== ENCOUNTER 2025-04-30 10:30 | Outpatient (AMB) | payer MEDICARE, SELFPAY ==
--- OUTSIDE RECORDS SUMMARY | 2025-02-25 09:30 | XMS_ITS ---
Author Organization [facility] Address [address] [place] [phone] Care Team Providers Care Dental Chair Assembler Name Role Phone Cyrus HODGES, Jose Alberto Primary Care Provider Unavaila Belinda Samuel [phone] Encounters Encounter Location Date Provider Diagnosis [address] [address] 02/25/2025 Belinda Garcia Plan Of Treatment Next Appt Details Provider Name:Belinda Valle Jose , 05/30/2025 11:15:00 AM, [address] [place] [address], [phone], Provider Name:Belinda Garcia , 08/22/2025 11:15:00 AM, [address] [place] [address], [phone], Progress Notes * Lory STANLEY ADOB:[birth year] (89 yo F)Acc No.[id number]:02/25/2025 Progress Note Patient: Marcelo EUCEDA Lory Valle Provider: Adela Garcia DPM :1935 A ge:89 Y S ex:Female Date:02/25/2025 Address:[address] [place] [address] [phone] Pcp:Jose Alberto Bridges MD Subjective: * Chief Complaints: * * Medical History: Objective: * Vitals: Assessment: Plan: * Treatment: * Images: * The named appointment provid er may or may not be the originator of this progress note, and it is not deemed complete until electronically signed by the appointment provider. Sign off status: Pending * Provider: Adela Garcia DPM Date: 02/25/2025 Generated for Ayleen matias/Kevan/Adrian on: 0 04/30/2025 01:45 PM EDT
--- NOTE | 2025-04-30 10:31 | MHC.OFFVIS ---
Vital Signs 04/30/25 10:32 Height 4 ft 9 in BP 128/66 Blood Pressure Location Lt brachial Position Sitting Pulse 98 Pulse Source Pulse Oximeter Pulse Oximetry (%) 100 Oxygen Delivery Method Room Air Intake Visit Reasons: osteoporosis Intake Note: Patient present today for Osteoporosis follow up visit. 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 Accompanied by: Self / Same As Patient Allergies morphine (MORPHINE) Allergy (Unknown, Verified 04/30/25 10:37) NAUSEA & VOMITING codeine (CODEINE) Adverse Reaction (Unknown, Verified 04/30/25 10:37) DIGESTIVE PROBLEMS oxycodone Adverse Reaction (Unknown, Verified 04/30/25 10:37) NAUSEA AND VOMITING tramadol (From ULTRAM) Adverse Reaction (Unknown, Verified 04/30/25 10:37) DIGESTIVE PROBLEMS Codeine Phosphate Allergy (Unknown, Uncoded 04/30/25 10:37) Nausea and Vomiting codiene Allergy (Unknown, Uncoded 04/30/25 10:37) SOB, cp morphine Allergy (Unknown, Uncoded 04/30/25 10:37) n/v percocet Allergy (Unknown, Uncoded 04/30/25 10:37) vomiting Percodan Allergy (Unknown, Uncoded 04/30/25 10:37) Nausea and Vomiting percodan Allergy (Unknown, Uncoded 04/30/25 10:37) vomiting Medication List - Last Reconciled 04/30/25 by Dwaine Montgomery MD alendronate 70 mg PO QWEEK calcium carbonate 600 mg PO DAILY cholecalciferol (vitamin D3) 50 mcg PO DAILY ciprofloxacin HCl 250 mg PO BID diclofenac sodium 1% 4 grams topical QID PRN L.acid-L.casei-B.bif-B.jamee-FOS 2 billion cell-50 mg (Probiotic Blend) 1 cap PO DAILY levothyroxine 50 mcg PO DAILY losartan 50 mg PO DAILY magnesium oxide 500 mg PO DAILY metformin ER 500 mg PO DAILY@0730 metoprolol succinate ER 100 mg PO DAILY naproxen sodium (Aleve) 220 mg PO Q12H PRN omeprazole 20 mg PO DAILY vitamin B complex (B Complex-Vitamin B12 tablet) 1 tab PO DAILY HPI Comments Details: 89 YO Female with is seen in consultation at the request of PCP for Osteoporosis. First diagnosed in this yr . Not Received treatment in the past No history of pathologic fracture or ONJ. Has several servings of dietary calcium per day in the form of milk and cottage cheese . Not Takes Calcium supplement Takes 1000 IU of Vitamin D daily. Takes PPI, not anticoagulant, antiepileptic or glucocorticoid medication. 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 UTD on dental cleanings and sees dentist every 6 months. Has upcoming dental work for crown placement or extractions. DXA dated : EXAMINATION: BONE DENSITOMETRY CLINICAL INDICATION: Postmenopausal estrogen deficiency. COMPARISON: Previous BD dated 03/28/2012 and baseline BD dated 07/05/2005. TECHNIQUE: Using a [employer] DXA System (software version: 13.1) manufactured by [employer], dual-energy x-ray absorptiometry was performed of the lumbar spine and left hip. The images are of good technical quality. Summary results are attached. FINDINGS: AP SPINE L1-L4 (excluding L3): The data of L1-L4 has been changed to exclude the L3 vertebral body, because levocurvature and degenerative changes at this level may cause overestimation of lumbar spine density. There are other multilevel degenerative changes also contributing to probable overestimation of the bone mineral density lumbar spine. Current: BMD 1.503 g/cm2, Z-score 4.9, T-score 2.8, normal, 14.3% decrease from previous, 14.6% increase from baseline (<5% change is not significant). Prior: BMD 1.754 g/cm2. Baseline: BMD 1.311 g/cm2. LEFT FEMUR, NECK: Current: BMD 0.654 g/cm2, Z-score -0.2, T-score -2.8, osteoporosis. Prior: BMD 0.786 g/cm2. Baseline: BMD 0.805 g/cm2. LEFT FEMUR, TOTAL: Current: BMD 0.758 g/cm2, Z-score 0.5, T-score -2.0, osteopenia, 16.5% decrease from previous, 18.5% decrease from baseline (<5% change is not significant). Prior: BMD 0.908 g/cm2. Baseline: BMD 0.930 g/cm2. Labs: Currently on alendronate 70 mg q.week. Tolerating nicely. No fx PFSH Medical History Diabetes type 2, controlled Hypertension Thyroid disease Osteoporosis Infectious colitis Hyperlipidemia Arthritis Diabetes Surgical History History of surgery History of surgery History of carpal tunnel surgery History of cholecystectomy H/O sinus surgery H/O: hysterectomy Hx of appendectomy H/O adenoidectomy Hx of tonsillectomy History of total left knee replacement Family History Mother Diabetes Social History Household Members: None Housing: House Do you presently have visiting nurse or other home services: No Alcohol intake: current Alcohol intake frequency: holidays/special occasions only Comment: sleeping Patient Tobacco Use Status: Never used Tobacco Advance Directives Date on File: 08/01/23 service: No Current occupational status: retired Assessment & Plan Assessment & Plan (1) Osteoporosis: Code(s): M81.0 - Age-related osteoporosis without current pathological fracture Category: Medical Plan: This 89-year-old white female with a history of osteoporosis. Secondary workup is negative. Being treated with alendronate since 09/2022. Recent DEXA shows low bone mass Plan is to continue the alendronate. We will check urine NTX. If urine NTX is suppressed, we will consider a drug holiday Orders: Orders Collagen Crosslinks NTX Today M81.0 - Age-related osteoporosis without current pathological fracture Coding Level of Care Code Est Pt Level 3 (09379) Diagnoses Osteoporosis M81.0
[2025-04-30 10:32] VITALS: BP 128/66; PULSE 98; O2SAT 100
--- OUTSIDE RECORDS SUMMARY | 2025-04-30 13:45 | XMS_ITS | Patient Health Record ---
Author Organization [facility] Address [address] [place] [address] Care Team Providers Care Revolving Field Assembler Name Role Phone Jose Alberto Bridges MD Primary Care Provider Unavaila Dwaine Pickard Unavailable [phone] WU ALMAZAN Unavailable Unavailable Reason For Referral No Information Problems Problem Type SNOMED Code ICD Code Onset Dates Problem Status W/U Status Risk Notes Problem Diverticulosis of colon (finding) (570247869) Diverticulosis of colon (without mention of hemorrhage) (562.10) Active confirmed Problem Blood in stool (027057566) Blood in stool (578.1) Active confirmed Problem History of polyp of colon (situation) (951061042) Personal history of colonic polyps (V12.72) Active confirmed Problem Family history of malignant neoplasm of gastrointestinal tract (466490002) Family history of malignant neoplasm of gastrointestinal tract (V16.0) Active confirmed Plan Of Treatment No Information Insurance Providers Payer Name Payer Address Payer Phone Subscriber Number Group Number Insured Name Patient Relationship to Insured Coverage Start Date Coverage End Date MEDICARE OF [place] [address] [place] [id number] [phone] [id number] ROSINA STANLEY Self - patient is the insured MED[employer] ATTN CLAIMS [address] [place] [address] [id number] ROSINA STANLEY Self - patient is the insured
--- OUTSIDE RECORDS SUMMARY | 2025-04-30 13:45 | XMS_ITS | Patient Health Record ---
Author [facility] Address [address] [place] [address] Care Team Providers Care Hematologist Name Role Phone Jose Alberto Bridges MD Primary Care Provider Unavaila Belinda Samuel Unavailable [phone] Allergies Allergen (clinical drug ingredient) Drug/Non Drug [...] (HH) 6.1 HEMOGLOBIN A1C (GLYCOHEMOGLO BIN) Reviewed date:03/21/2025 11:04:45 AM Interpretation: Performing Lab: Notes/Report: HEMOGLOBIN A1C % (HH) 6.3 Reason For Referral No Information Medications Medication SIG (Take, Route, Frequency, Duration) Notes Start Date End Date Status Lasix PRN Not-Taking Losartan Potassium 50 MG 1 tablet Orally Once a day Active Losartan Potassium 50 MG 1 tablet Orally Once a day Not-Taking Fosamax Active Cephalexin 500 MG 1 tablet Orally Twice a day; Duration: 10 day(s) Not-Taking Lasix 20 MG 1 tablet Orally Once a day; Duration: 30 day(s) PRN as needed Active metFORMIN HCl 500 MG 1 tablet with a meal Orally in morning and two at night once a day Active Calcium 500 + D 500mg Not-Taking Omeprazole Active Metformin & Diet Manage Prod 500 MG as directed Orally Once a day Not-Taking Levothyroxine Sodium Active hydroCHLOROthiazide Not-Taking Metoprolol & Diet Manage Prod 100 mcg Daily Active Ibuprofen Not-Taking Extra Depth Orthopedic Shoes (1 Pair) with Customized Heat Molded Multidensity Innersoles (3 Pair) as directed Dx: NIDDM/Polyneuropath y (E11.42), Hammertoe Foot Deformity (M20.41,M20.42), Preulcerative Skin Lesion(s) (L85.1 09/10/2024 Active Compression Stockings 20-30mm Hg as directed Not-Taking Vitamin B-12 Active Simvastatin Not-Taki ng Vitamin D 50 MCG (2000 UT) as directed Orally twice a day Active Ciprofloxacin HCl 250 MG TAKE 1 TABLET B Y MOUTH 2 TIMES A DAY FOR 5 DAYS. Oral; Duration: 5 Days Not-Taking Immunizations Vaccine Route Administration Date Status Comme nts Influenza Unknown 05/28/2015 Administered Influenza Unknown 05/11/2016 Administered Influenza Unknown 06/14/2017 Administered Influenza Unknown 05/01/2018 Administered Influenza Unknown 05/28/2019 Administered Influenza Unknown 05/15/2021 Administered Influenza Unknown 05/17/2022 Administered Influenza Unknown 05/16/2023 Administered Influenza Unknown 05/15/2024 Administered COVID-19 Moderna Vaccine Unknown 06/16/2020 Administered 1st 09/25/2020 2nd 10/23/2020 Social History Tobacco Use: Social History Observation [...] Problem Acquired hammer toe of right foot (103045502067726 5) Other hammer toe(s) (acquired), right foot (M20.41) Active confirmed Response to treatment, Improvement Problem Acquired hammer toe of left foot (224952292327326 3) Other hammer toe(s) (acquired), left foot (M20.42) Active confirmed Response to treatment, Improvement Problem Polyneuropathy due to type 2 diabetes mellitus (650245308) Type 2 diabetes mellitus with diabetic polyneuropathy (E11.42) Active confirmed Vital Signs Blood pressure diastolic 80 mm Hg 03/21/2025 Height 4 ft 11 in in 03/21/2025 Blood pressure systolic 130 mm Hg 03/21/2025 Weight 138 lbs 03/21/2025 BMI 27.87 kg/m2 03/21/2025 Procedures Procedure Date Ordered Date Performed Result Body Sit e 54124-HVVZSVU NAIL, 6 OR MORE 06/04/2024 N/A 17558-Ihdvmdit Plate 06/04/2024 N/A 79600-OZVI SKIN LESIONS, 2 TO 4 06/04/2024 N/A 34625-NYVUPYZ NAIL, 6 OR MORE 09/10/2024 N/A 17003-LRHM SKIN LESIONS, 2 TO 4 09/10/2024 N/A 67388-HRULQJY NAIL, 6 OR MORE 11/12/2024 N/A 33914-Gmdlxprp Plate 11/12/2024 N/A 67902-SHSC SKIN LESIONS, 2 TO 4 11/12/2024 N/A 93081-XWCSDYI NAIL, 6 OR MORE 01/10/2025 N/A 37120-Esuoyrgl Plate 01/10/2025 N/A 83820-GGWJ SKIN LESIONS, 2 TO 4 01/10/2025 N/A 93355-CMJODYM NAIL, 6 OR MORE 03/21/2025 N/A 31887-TBEZ SKIN LESIONS, 2 TO 4 03/21/2025 N/A Encounters Encounter Location Date [facility] [address] [address] 06/04/2024 Belinda Black Tinea unguium B35.1 ; Type 2 diabetes mellitus with diabetic polyneuropathy E11.42 and Ingrown nail L60.[address] [facility] [address] 09/10/2024 Belinda Garcia Type 2 diabetes mellitus with diabetic polyneuropathy E11.42 ; Other hammer toe(s) (acquired), right foot M20.41 ; Tinea unguium B35.1 and Other hammer toe(s) (acquired), left foot M20.[address] [address] 11/12/2024 Belinda Garcia Type 2 diabetes mellitus with diabetic polyneuropathy E11.42 ; Tinea unguium B35.1 and Ingrown nail L60.[address] [address] 01/10/2025 Belinda Garcia Tinea unguium B35.1 ; Ingrown nail L60.0 and Type 2 diabetes mellitus with diabetic polyneuropathy E11.[address] [address] 03/21/2025 Belinda Garcia Tinea unguium B35.1 ; Type 2 diabetes mellitus with diabetic polyneuropathy E11.42 ; Other hammer toe(s) (acquired), right foot M20.41 and Other hammer toe(s) (acquired), left foot M20.[address] [address] 02/22/2025 Belinda Garcia Assessments Encounter Date Diagnosis (ICD Code) Assessment [...] INSTRUCTIONS. pdf (DIABETIC FOOT CARE INSTRUCTIONS. pdf) 01/10/2025 Tinea unguium (ICD-10 - B35.1) 03/21/2025 Tinea unguium (ICD-10 - B35.1) 03/21/2025 Type 2 diabetes mellitus with diabetic polyneuropathy (ICD-10 - E11.42) 06/04/2024 Tinea unguium (ICD-10 - B35.1) 06/04/2024 Type 2 diabetes mellitus with diabetic polyneuropathy (ICD-10 - E11.42) 06/04/2024 Ingrown nail (ICD-10 - L60.0) 01/10/2025 Ingrown nail (ICD-10 - L60.0) 03/21/2025 Other hammer toe(s) (acquired), right foot (ICD-10 - M20.41) Response to treatment, Improvement 09/10/2024 Tinea unguium (ICD-10 - B35.1) 11/12/2024 Ingrown nail (ICD-10 - L60.0) 09/10/2024 Other hammer toe(s) (acquired), left foot (ICD-10 - M20.42) 01/10/2025 Type 2 diabetes mellitus with diabetic polyneuropathy (ICD-10 - E11.42) 03/21/2025 Other hammer toe(s) (acquired), left foot (ICD-10 - M20.42) Response to treatment, Improvement 11/12/2024 Other Plan Of Treatment Pending Test Test Name Order Date 25883-PTECCIR NAIL, 6 OR MORE 05/27/2011 40567-RGUOYAC NAIL, 6 OR MORE 08/05/2011 57593-EEQYAZD NAIL, 6 OR MORE 10/18/2011 48028-QFGJOXL NAIL, 6 OR MORE 12/29/2011 16310-ZJUVITN NAIL, 6 OR MORE 08/02/2012 44925-RIXLKQI NAIL, 6 OR MORE 10/18/2012 39549-HGUSASP NAIL, 6 OR MORE 02/05/2013 33914-JALSFZT NAIL, 6 OR MORE 05/07/2013 04761-HLENYKL NAIL, 6 OR MORE 03/20/2012 90545-TZDTLWT NAIL, 6 OR MORE 06/05/2012 27598-XKAYWRC NAIL, 6 OR MORE 11/12/2013 87575-YEAYQZS NAIL, 6 OR MORE 02/04/2014 33916-XVGDOXP NAIL, 6 OR MORE 04/22/2014 41530-TXJDGVL NAIL, 6 OR MORE 07/08/2014 34985-EXKPYIA NAIL, 6 OR MORE 10/23/2014 66471-UMJTNWR NAIL, 6 OR MORE 12/26/2014 03842-DGMQEIH NAIL, 6 OR MORE 03/12/2015 27296-HUEDKHV NAIL, 6 OR MORE 06/09/2015 52771-KYEELKK NAIL, 6 OR MORE 08/21/2015 33987-QNJCVQZ NAIL, 6 OR MORE 10/29/2015 14943-AVMTHTD NAIL, 6 OR MORE 01/16/2016 71752-YWFJRBM NAIL, 6 OR MORE 03/22/2016 83503-GTIOFDH NAIL, 6 OR MORE 06/14/2016 71330-NXGMGYR NAIL, 6 OR MORE 09/06/2016 07771-PWOPFHH NAIL, 6 OR MORE 11/15/2016 13528-CNCWXFE NAIL, 6 OR MORE 01/24/2017 13925-TRWSYXG NAIL, 6 OR MORE 04/04/2017 86100-RLKFUKH NAIL, 6 OR MORE 06/13/2017 22985-EYSOCRM NAIL, 6 OR MORE 09/01/2017 58723-GYSIRCN NAIL, 6 OR MORE 11/10/2017 83096-UUZOIVZ NAIL, 6 OR MORE 01/12/2018 93792-TIVWLVR NAIL, 6 OR MORE 03/16/2018 93965-NLAWMKV NAIL, 6 OR MORE 05/29/2018 62263-FRVZPUO NAIL, 6 OR MORE 11/06/2018 81796-CKRBRAX NAIL, 6 OR MORE 01/15/2019 85069-PBMVPXK NAIL, 6 OR MORE 03/26/2019 82029-KNRCLAS NAIL, 6 OR MORE 06/07/2019 50000-UQLMNHY NAIL, 6 OR MORE 10/18/2019 54130-DVRNUUF NAIL, 6 OR MORE 12/24/2019 69384-NXRNIBE NAIL, 6 OR MORE 03/03/2020 44542-NFMJKHZ NAIL, 6 OR MORE 06/05/2020 34029-CVDVAHG NAIL, 6 OR MORE 08/25/2020 72427-YULHYTB NAIL, 6 OR MORE 12/05/2020 10730-OOSCLPC NAIL, 6 OR MORE 02/12/2021 53443-RQYGFSV NAIL, 6 OR MORE 05/04/2021 79287-SJGQIHP NAIL, 6 OR MORE 07/23/2021 64517-XJDDHMS NAIL, 6 OR MORE 11/05/2021 78705-LNNHNHL NAIL, 6 OR MORE 02/08/2022 41617-PCDFKBK NAIL, 6 OR MORE 05/10/2022 83513-ZXHSHJQ NAIL, 6 OR MORE 08/05/2022 09211-VHSFXBY NAIL, 6 OR MORE 12/06/2022 93601-BTYYEIK NAIL, 6 OR MORE 02/24/2023 03268-EALCHHI NAIL, 6 OR MORE 08/18/2023 17734-GMAYIAQ NAIL, 6 OR MORE 10/27/2023 68197-FNDFTET NAIL, 6 OR MORE 01/02/2024 47902-WFAJSKJ NAIL, 6 OR MORE 03/08/2024 03484-ZQNFZBV NAIL, 6 OR MORE 06/04/2024 04721-SRQLDYO NAIL, 6 OR MORE 09/10/2024 32348-JKOFPLM NAIL, 6 OR MORE 11/12/2024 23189-IZVVSHD NAIL, 6 OR MORE 01/10/2025 56802-SHHYQVV NAIL, 6 OR MORE 03/21/2025 69315-Sduf Destruction, 1-14 08/18/2023 43194-Diln Destruction, 1-14 08/05/2022 13293-Nnex Destruction, 1-14 05/10/2022 25262-Kjxgcfbn Plate 11/05/2021 00458-Mpndtbte Plate 07/23/2021 76331-Faoapbmb Plate 05/04/2021 90091-Rbxzrznu Plate 06/05/2020 96144-Dnhkuplh Plate 08/25/2020 09671-Zoccamuo Plate 12/05/2020 52181-Rvqubfdf Plate 03/03/2020 24241-Piziqdsj Plate 12/06/2022 32221-Cnvgjlcf Plate 11/12/2024 47099-Fkrlaugc Plate 01/10/2025 43857-Qvlybzzf Plate 02/24/2023 00681-Zpzacukp Plate 06/04/2024 91407-Fdvxeicz Plate 12/24/2019 46851-Dsqhwfpo Plate 08/02/2019 81630-Ipvepydo Plate 03/26/2019 36556-Zswwfwud Plate 11/06/2018 23595-Gzfmjaet Plate 05/29/2018 04799-Oampdyjy Plate 01/12/2018 35070-Khmceexq Plate 06/13/2017 66664-Sejojelt Plate 09/01/2017 29296-Ikdligtv Plate 04/04/2017 59512-Cpeasxhw Plate 11/15/2016 59297-Pcyqsaee Plate 01/24/2017 59519-Bdwsxzkz Plate 09/06/2016 20089-Wieqxbzt Plate 06/14/2016 26101-Nfacluvv Plate 06/09/2015 51202-Wyjmcsvw Plate 03/12/2015 69447-Fxpfbapx Plate 12/26/2014 34162-Upsojlbl Plate 07/08/2014 02829-Kvcsfyqj Plate 10/23/2014 64932-Sykbwylc Plate 04/22/2014 97261-Gspafqhw Plate 02/04/2014 61619-Lhsohrts Plate 06/05/2012 30752-Zfxxeexv Plate 05/07/2013 79046-Rwzshfwo Plate 10/18/2011 09971-Xjgdcjwe Plate 08/05/2011 62420-Sfozeuzz Plate Each Additional 83087-Fpkbzdvx Plate Each Additional 72691-Ptibdpev Plate Each Additional 06/2015 26066-Nwtopxno Plate Each Additional 59586-Hfgxuytf Plate Each Additional 53609-Dtgsnzoo Plate Each Additional 05635-Jflklbbh Plate Each Additional 34759-Hwttatmm Plate Each Additional 35393-Snseblxd Plate Each Additional 49964-Vmcptvbl Plate Each Additional 32664-Jguteoue Plate Each Additional 04/2021 81828-Bnnhagnp Plate Each Additional 41394- Debride <25 sq cm 11/12/2013 96380 I&D ABSCESS- SIMPLE,SINGLE 011 71512 I&D ABSCESS- SIMPLE,SINGLE 012 62917 I&D ABSCESS- SIMPLE,SINGLE 018 70784 I&D ABSCESS- SIMPLE,SINGLE 022 56136-ZPOM SKIN LESIONS, 2 TO 4 02/09/20 22 10564-IUGD SKIN LESIONS, 2 TO 4 08/05/20 22 60750-JUAU SKIN LESIONS, 2 TO 4 07/23/20 21 59133-QIMT SKIN LESIONS, 2 TO 4 11/06/19 28540-RWXA SKIN LESIONS, 2 TO 4 05/04/20 21 61278-ZJBQ SKIN LESIONS, 2 TO 4 04/23/20 21 30030-WUOP SKIN LESIONS, 2 TO 4 02/13/20 39584-QJMR SKIN LESIONS, 2 TO 4 12/24/19 31976-FTLU SKIN LESIONS, 2 TO 4 03/03/20 91397-ZUQI SKIN LESIONS, 2 TO 4 08/25/19 15699-FPOH SKIN LESIONS, 2 TO 4 06/05/20 88050-VFUA SKIN LESIONS, 2 TO 4 12/07/19 07657-BYGP SKIN LESIONS, 2 TO 4 02/25/20 65503-GIMN SKIN LESIONS, 2 TO 4 06/04/20 67397-TVLZ SKIN LESIONS, 2 TO 4 01/02/20 76032-OQMY SKIN LESIONS, 2 TO 4 03/08/20 81089-PZTE SKIN LESIONS, 2 TO 4 08/18/19 96063-YJAY SKIN LESIONS, 2 TO 4 10/27/19 67463-RHQK SKIN LESIONS, 2 TO 4 09/10/19 67433-ENEL SKIN LESIONS, 2 TO 4 01/11/20 82151-OZZJ SKIN LESIONS, 2 TO 4 11/13/19 96024-COOP SKIN LESIONS, 2 TO 4 03/21/20 88054-FKKU SKIN LESIONS, 2 TO 4 01/16/20 15278-AKDW SKIN LESIONS, 2 TO 4 03/26/20 24828-RBJJ SKIN LESIONS, 2 TO 4 06/07/20 04466-ONCT SKIN LESIONS, 2 TO 4 10/18/19 87544-Hiuxxdiz Benign Lesion 0.5cm 10/30 Next Appt Details Provider Name:Belinda Garcia , 05/30/2025 11:15:00 AM, [address] [place] [address], [phone], Provider Name:Belinda Garcia , 08/22/2025 11:15:00 AM, [address] [place] [address], [phone], Insurance Providers Payer Name Payer Address Payer Phone Subscriber Number Group Number Insured Name Patient Relationship to Insured Coverage Start Date Coverage End Date Medicare National [employer]t S[employer] [address] [place] [address] [id number] Lory Piña Self - patient is the insured 1 [employer] [facility] [address] [place] [address] [id number] Lory Piña Self - patient is the insured Medical (General) History Medical History History ICD Code poor circulation measles joint implants/screws chicken pox back, hip, knee pain Arthritis reflux Hypothyroidism anemia chronic sinusitis migraine headaches Cholesterol Sciatica Lymphedema Primary osteoarthritis, 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 osteoarthritis, right ankle and foot M19.071 Unsteady gait R26.81 Other hammer toe(s) (acquired), left judi t M20.42 Other hammer toe(s) (acquired), right fo ot M20.41 Venous insufficiency I87.2 Surgical History Surgery Date(Month/Year) appendectomy 1970 cholecystectomy 1970 hysterectomy 1981 left knee replacement 2006 sinus surgery 1982 tonsillectomy and adenoidectomy 1946 bilateral eyelid surgery 05/2014 lt and rt cataracts 2013 carpal tunnel 03/2018 and 05/2018 Hospitalization History Reason Date(Month/Year) Acute Cellulitis- b/l legs i nfected-IV antibiotics - [facility] comes to pts home and PT 1 x a week 08/01/23-08/05/23 [facility]- Gi issues stay a few days 08/2020 [facility]- Sciatica 06/29/20 06/30/20 [facility]- Fall- swollen eye - head scan 03/27 ER in [place]-Sepsis Infection in hand- IV antibiotics/Flu 07/2019 [facility] for headache and stomach bacterial i nfection 12/2017 [facility] for acute diverculitis 2018
== END 2025-04-30 10:59 | disposition home or self-care (01) ==
PROVIDERS: PCP Internal Medicine; Visit Provider Internal Medicine Endocrinology, Diabetes & Metabolism
DX: M81.0 Age-related osteoporosis without current pathological fracture (principal)
CPT/HCPCS: 99213

== ENCOUNTER → 2025-04-30 10:30 | Outpatient (BNVA) | payer MEDICARE, SELFPAY | PROVIDERS: PCP Internal Medicine; Visit Provider Internal Medicine Endocrinology, Diabetes & Metabolism | DX: M81.0 Age-related osteoporosis without current pathological fracture (principal) | CPT/HCPCS: 99212 ==

== ENCOUNTER 2025-07-04 06:51 | Outpatient (REF) | payer MEDICARE, SELFPAY ==
--- OUTSIDE RECORDS SUMMARY | 2024-04-23 04:15 | XMS_ITS ---
Author Organization [facility] Address [address] [place] [phone] Care Team Providers Care Sales And Management Trainee Name Role Phone Jose Alberto Bridges MD Primary Care Provider Unavaila lilly Garcia Belinda Unavailable [phone] REASON FOR VISIT too soon Encounters Encounter Location Date Provider Diagnosis [address] [phone] 04/23/2024 Belinda Garcia Plan Of Treatment Next Appt Details Provider Name:Belinda Valle Jose , 08/22/2025 11:15:00 AM, [address] [place] [address], [phone], Provider Name:Belinda Garcia , 10/31/2025 11:00:00 AM, [address] [place] [address], [phone], Progress Notes * Lory STANLEY ADOB:[birth year] (89 yo F)Acc No.[id number]:04/23/2024 Progress Note Patient: Marcelo EUCEDA Lory Valle Provider: Adela Garcia DPM :1935 A ge:88 Y S ex:Female Date:04/23/2024 Address:[address] [place] [phone] Pcp:Jose Alberto Bridges MD Subjective: * Chief [...] 0 04/23/2024 Generated for Ayleen matias/Kevan/Adrian on: 09/03/2024 06:55 AM EST
--- OUTSIDE RECORDS SUMMARY | 2025-02-25 08:30 | XMS_ITS ---
Author Organization [facility] Address [address] [place] [address] Care Team Providers Care Court Orderly Name Role Phone Cyrus HODGES, Jose Alberto Primary Care Provider Unavaila Belinda Samuel [phone] Encounters Encounter Location Date Provider Diagnosis [address] [address] 02/25/2025 Belinda Garcia Plan Of Treatment Next Appt Details Provider Name:Belinda Valle Jose , 08/22/2025 11:15:00 AM, [address] [place] [address], [phone], Provider Name:Belinda Garcia , 10/31/2025 11:00:00 AM, [address] [place] [address], [phone], Progress Notes * Lory STANLEY ADOB:[birth year] (89 yo F)Acc No.[id number]:02/25/2025 Progress Note Patient: Marcelo EUCEDA Lory Valle Provider: Adela Garcia DPM :1935 A ge:89 Y S ex:Female Date:02/25/2025 Address:[address] [place] [address] [phone] Pcp:Jose Alberto Bridges MD Subjective: * Chief [...] DPM Date: 0 02/25/2025 Generated for Ayleen matias/Kevan/Adrian on: 1 09/03/2024 06:55 AM EST
--- OUTSIDE RECORDS SUMMARY | 2025-07-04 06:55 | XMS_ITS | Patient Health Record ---
Author Organization [facility] Address [address] [place] [address] Care Team Providers Care Decorator Street And Building Name Role Phone Jose Alberto Bridges MD Primary Care Provider Unavaila Dwaine Pickard Unavailable [phone] WU ALMAZAN Unavailable Unavailable Reason For Referral No Information Problems Problem Type SNOMED Code ICD Code Onset Dates Problem Status W/U Status Risk Notes Problem Diverticulosis of colon (finding) (843872960) Diverticulosis of colon (without mention of hemorrhage) (562.10) Active confirmed Problem Blood in stool (405669780) Blood in stool (578.1) Active confirmed Problem History of polyp of colon (situation) (653080710) Personal history of colonic polyps (V12.72) Active confirmed Problem Family history of malignant neoplasm of gastrointestinal tract (763477753) Family history of malignant neoplasm of gastrointestinal tract (V16.0) Active confirmed Plan Of Treatment No Information Insurance Providers Payer Name Payer Address Payer Phone Subscriber Number Group Number Insured Name Patient Relationship to Insured Coverage Start Date Coverage End Date MEDICARE OF [place] [address] [place] [id number] ROSINA STANLEY Self - patient is the insured [employer] ATTN CLAIMS [address] [place] [address] [phone] [id number] ROSINA STANLEY Self - patient is the insured
--- OUTSIDE RECORDS SUMMARY | 2025-07-04 06:55 | XMS_ITS | Patient Health Record ---
Author Organization [facility] [place] Address [address] [place] [address] Care Team Providers Care Microbiology Manager Name Role Phone Jose Alberto Bridges MD Primary Care Provider Unavaila Belinda Samuel Unavailable [phone] Allergies Allergen (clinical drug ingredient) Drug/Non Drug [...] Start Date End Date Status Fosamax Active Losartan Potassium 50 MG 1 tablet Orally Once a day Active Lasix 20 MG 1 tablet Orally Once a day; Duration: 30 day(s) PRN as needed Active Lasix PRN Not-Taking Cephalexin 500 MG 1 tablet Orally Twice a day; Duration: 10 day(s) Not-Taking Losartan Potassium 50 MG 1 tablet Orally Once a day Not-Taking Vitamin D 50 MCG (2000 UT) as directed Orally twice a day Active Ciprofloxacin HCl 250 MG TAKE 1 TABLET B Y MOUTH 2 TIMES A DAY FOR 5 DAYS. Oral; Duration: 5 Days Not-Taking Vitamin B-12 Active Simvastatin Not-Taki ng Compression Stockings 20-30mm Hg as directed Not-Taking Extra Depth Orthopedic Shoes (1 Pair) with Customized Heat Molded Multidensity Innersoles (3 Pair) as directed Dx: NIDDM/Polyneuropath y (E11.42), Hammertoe Foot Deformity (M20.41,M20.42), Preulcerative Skin Lesion(s) (L85.1 09/10/2024 Active Metoprolol & Diet Manage Prod 100 mcg Daily Active Ibuprofen Not-Taking Levothyroxine Sodium Active hydroCHLOROthiazide Not-Taking Omeprazole Active Metformin & Diet Manage Prod 500 MG as directed Orally Once a day Not-Taking metFORMIN HCl 500 MG 1 tablet with a meal Orally in morning and two at night once a day Active Calcium 500 + D 500mg Not-Taking Immunizations Vaccine Route Administration Date Status Comme nts Influenza Unknown 05/28/2015 Administered Influenza Unknown 05/11/2016 Administered Influenza Unknown 06/14/2017 Administered Influenza Unknown 05/01/2018 Administered Influenza Unknown 05/28/2019 Administered Influenza Unknown 05/15/2021 Administered Influenza Unknown 05/17/2022 Administered Influenza Unknown 05/16/2023 Administered Influenza Unknown 05/15/2024 Administered Influenza Unknown 05/16/2025 Administered COVID-19 Moderna Vaccine Unknown 06/16/2020 Administered [...] Problem Acquired hammer toe of right foot (778268973318396 5) Other hammer toe(s) (acquired), right foot (M20.41) Active confirmed Response to treatment, Improvement Problem Acquired hammer toe of left foot (925484670401569 3) Other hammer toe(s) (acquired), left foot (M20.42) Active confirmed Response to treatment, Improvement Problem Polyneuropathy due to type 2 diabetes mellitus (907868994) Type 2 diabetes mellitus with diabetic polyneuropathy (E11.42) Active confirmed Vital Signs Blood pressure diastolic 80 mm Hg 05/30/2025 Height 4 ft 11 in in 05/30/2025 Blood pressure systolic 128 mm Hg 05/30/2025 Weight 137 lbs 05/30/2025 BMI 27.67 kg/m2 05/30/2025 Procedures Procedure Date Ordered Date Performed Result Body Sit e 99834-KGXECSZ NAIL, 6 OR MORE 09/10/2024 N/A 50105-BHUM SKIN LESIONS, 2 TO 4 09/10/2024 N/A 70746-RXJIQLL NAIL, 6 OR MORE 11/12/2024 N/A 61961-Jyyghjqi Plate 11/12/2024 N/A 77759-XCJS SKIN LESIONS, 2 TO 4 11/12/2024 N/A 09763-DRWTKQZ NAIL, 6 OR MORE 01/10/2025 N/A 28572-Fjmkrbln Plate 01/10/2025 N/A 11200-XUPX SKIN LESIONS, 2 TO 4 01/10/2025 N/A 88424-QFWQTPR NAIL, 6 OR MORE 03/21/2025 N/A 19664-ZKFX SKIN LESIONS, 2 TO 4 03/21/2025 N/A 90844-ODMOGAX NAIL, 6 OR MORE 05/30/2025 N/A 91485-Hdxfbsex Plate 05/30/2025 N/A 88179-HUCS SKIN LESIONS, 2 TO 4 05/30/2025 N/A Encounters Encounter Location Date Provider Diagnosis [facility] [place] [address] [place] [address] 09/10/2024 Belinda Black Type 2 diabetes mellitus with diabetic polyneuropathy E11.42 ; Other hammer toe(s) (acquired), right foot M20.41 ; Tinea unguium B35.1 and Other hammer toe(s) (acquired), left foot M20.[address] [address] 11/12/2024 Belinda Black Type 2 diabetes mellitus with diabetic polyneuropathy E11.42 ; Tinea unguium B35.1 and Ingrown nail L60.[address] [address] 01/10/2025 Belinda Black Tinea unguium B35.1 ; Ingrown nail L60.0 and Type 2 diabetes mellitus with diabetic polyneuropathy E11.[address] [address] 03/21/2025 Belinda Black Tinea unguium B35.1 ; Type 2 diabetes mellitus with diabetic polyneuropathy E11.42 ; Other hammer toe(s) (acquired), right foot M20.41 and Other hammer toe(s) (acquired), left foot M20.[address] [address] 05/30/2025 Belinda Black Tinea unguium B35.1 ; Type 2 diabetes mellitus with diabetic polyneuropathy E11.42 and Ingrown nail L60.[address] [address] 02/22/2025 Belinda Black Assessments Encounter Date Diagnosis (ICD Code) Assessment Notes Treatment Notes Treatment Clinical Notes Section Notes 09/10/2024 Other hammer toe(s) (acquired), right foot (ICD-10 - M20.41) Patient Educated with: DIABETIC FOOT CARE INSTRUCTIONS. pdf (DIABETIC FOOT CARE INSTRUCTIONS. pdf) 09/10/2024 Type 2 diabetes mellitus with diabetic polyneuropathy (ICD-10 - E11.42) 11/12/2024 Tinea unguium (ICD-10 - B35.1) 11/12/2024 Type 2 diabetes mellitus with diabetic polyneuropathy (ICD-10 - E11.42) 01/10/2025 Tinea unguium (ICD-10 - B35.1) 03/21/2025 Type 2 diabetes mellitus with diabetic polyneuropathy (ICD-10 - E11.42) 05/30/2025 Tinea unguium (ICD-10 - B35.1) 03/21/2025 Tinea unguium (ICD-10 - B35.1) 05/30/2025 Type 2 diabetes mellitus with diabetic polyneuropathy (ICD-10 - E11.42) 05/30/2025 Ingrown nail (ICD-10 - L60.0) 01/10/2025 Ingrown nail (ICD-10 - L60.0) 03/21/2025 Other hammer toe(s) (acquired), right foot (ICD-10 - M20.41) Response to treatment, Improvement 11/12/2024 Ingrown nail (ICD-10 - L60.0) 09/10/2024 Tinea unguium (ICD-10 - B35.1) 09/10/2024 Other hammer toe(s) (acquired), left foot (ICD-10 - M20.42) 01/10/2025 Type 2 diabetes mellitus with diabetic polyneuropathy (ICD-10 - E11.42) 03/21/2025 Other hammer toe(s) (acquired), left foot (ICD-10 - M20.42) Response to treatment, Improvement 11/12/2024 Other Plan Of Treatment Pending Test Test Name Order Date 02964-PFGIEFU NAIL, 6 OR MORE 05/27/2011 17002-IIBJDLH NAIL, 6 OR MORE 08/05/2011 38135-WVIDBNJ NAIL, 6 OR MORE 10/18/2011 60684-SJTOJNK NAIL, 6 OR MORE 12/29/2011 59645-JKCLETJ NAIL, 6 OR MORE 08/02/2012 49212-JUZPZOE NAIL, 6 OR MORE 10/18/2012 05929-IRIJFOU NAIL, 6 OR MORE 02/05/2013 08930-XEXNXKE NAIL, 6 OR MORE 05/07/2013 54167-ODZARXA NAIL, 6 OR MORE 03/20/2012 59538-KIARCJI NAIL, 6 OR MORE 06/05/2012 12191-GNNNKVQ NAIL, 6 OR MORE 11/12/2013 61461-DZKGKRQ NAIL, 6 OR MORE 02/04/2014 80277-YCHCHOJ NAIL, 6 OR MORE 04/22/2014 40351-SOYJDRO NAIL, 6 OR MORE 07/08/2014 26619-TSXJFWA NAIL, 6 OR MORE 10/23/2014 33964-UALUYEI NAIL, 6 OR MORE 12/26/2014 48755-EKURDAM NAIL, 6 OR MORE 03/12/2015 38478-ASKZLPI NAIL, 6 OR MORE 06/09/2015 46144-MRAUHFG NAIL, 6 OR MORE 08/21/2015 28931-JRBIHAA NAIL, 6 OR MORE 10/29/2015 03843-FBTAEKO NAIL, 6 OR MORE 01/16/2016 42084-PPOZFOX NAIL, 6 OR MORE 03/22/2016 35294-ZUYDJQW NAIL, 6 OR MORE 06/14/2016 74735-OPKJHSB NAIL, 6 OR MORE 09/06/2016 27160-TWVIOSA NAIL, 6 OR MORE 11/15/2016 73399-HOVFXNS NAIL, 6 OR MORE 01/24/2017 99970-BDYIZWQ NAIL, 6 OR MORE 04/04/2017 61351-KODDJDS NAIL, 6 OR MORE 06/13/2017 18082-FUKFVBX NAIL, 6 OR MORE 09/01/2017 40015-VZFRCHG NAIL, 6 OR MORE 11/10/2017 40717-SKHWLIX NAIL, 6 OR MORE 01/12/2018 98303-HDVHQCD NAIL, 6 OR MORE 03/16/2018 06944-PMYYMUN NAIL, 6 OR MORE 05/29/2018 37245-QMAYOLB NAIL, 6 OR MORE 11/06/2018 70391-QSYIQUU NAIL, 6 OR MORE 01/15/2019 48883-CIIATPZ NAIL, 6 OR MORE 03/26/2019 44015-SLPHEWK NAIL, 6 OR MORE 06/07/2019 01058-CSFLEWM NAIL, 6 OR MORE 10/18/2019 24804-PDSGIXC NAIL, 6 OR MORE 12/24/2019 59623-MXERZIT NAIL, 6 OR MORE 03/03/2020 73970-MHMTTYD NAIL, 6 OR MORE 06/05/2020 86293-SGGBPOO NAIL, 6 OR MORE 08/25/2020 07539-HLAVBBA NAIL, 6 OR MORE 12/05/2020 85261-CLPEKSE NAIL, 6 OR MORE 02/12/2021 15701-BYZWEPI NAIL, 6 OR MORE 05/04/2021 78268-IHCHOFH NAIL, 6 OR MORE 07/23/2021 30597-YMDNDUE NAIL, 6 OR MORE 11/05/2021 29942-FPPDMUK NAIL, 6 OR MORE 02/08/2022 65903-AHESXNZ NAIL, 6 OR MORE 05/10/2022 98320-DNTYGUN NAIL, 6 OR MORE 08/05/2022 20284-ZEEBOEC NAIL, 6 OR MORE 12/06/2022 02735-UWXMHJZ NAIL, 6 OR MORE 02/24/2023 15547-ILHFAZI NAIL, 6 OR MORE 08/18/2023 83599-LCGLMQM NAIL, 6 OR MORE 10/27/2023 84315-AFPNWQG NAIL, 6 OR MORE 01/02/2024 31129-DRJUMTI NAIL, 6 OR MORE 03/08/2024 54982-XHHASZE NAIL, 6 OR MORE 06/04/2024 66154-NGYTEJL NAIL, 6 OR MORE 09/10/2024 14768-EYDJAQA NAIL, 6 OR MORE 11/12/2024 95358-XWWSCQV NAIL, 6 OR MORE 01/10/2025 58143-EHNADNS NAIL, 6 OR MORE 03/21/2025 26294-SWQWORG NAIL, 6 OR MORE 05/30/2025 88507-Fxua Destruction, 1-14 08/18/2023 62583-Cahi Destruction, 1-14 08/05/2022 57849-Oetv Destruction, 1-14 05/10/2022 93017-Obqensit Plate 11/05/2021 23275-Zxjpnnoi Plate 07/23/2021 76297-Jdelypay Plate 05/04/2021 72877-Pxplmkza Plate 06/05/2020 37258-Ixiugyig Plate 08/25/2020 60639-Vcnhukea Plate 12/05/2020 86572-Fqpvofvf Plate 03/03/2020 43950-Yyweamge Plate 12/06/2022 07191-Odvgqsdm Plate 05/30/2025 95403-Zquvlwrs Plate 11/12/2024 10711-Jgsgxlzz Plate 01/10/2025 83527-Lcqjnner Plate 02/24/2023 12608-Vgubxrpa Plate 06/04/2024 23370-Tlcdmgze Plate 12/24/2019 91204-Keoeceei Plate 08/02/2019 77630-Qyjaghfq Plate 03/26/2019 79564-Fyxjontw Plate 11/06/2018 98137-Whqdvpkr Plate 05/29/2018 95497-Fthsrpdv Plate 01/12/2018 03213-Kutolfkd Plate 06/13/2017 33876-Qvciexpw Plate 09/01/2017 75399-Hkffmmnm Plate 04/04/2017 83076-Dcdfcyfy Plate 11/15/2016 17501-Azkjirrf Plate 01/24/2017 39527-Ewopbjor Plate 09/06/2016 45663-Rfmapdrj Plate 06/14/2016 69560-Faqmapuf Plate 06/09/2015 00284-Zrbhbsva Plate 03/12/2015 33435-Xmcshcbh Plate 12/26/2014 47433-Lhjnoxmj Plate 07/08/2014 70289-Tsqzcmmc Plate 10/23/2014 03053-Nkcwloat Plate 04/22/2014 28729-Rsidawvx Plate 02/04/2014 20305-Tyfxfnza Plate 06/05/2012 31606-Dlpinvuh Plate 05/07/2013 74421-Psbjohas Plate 10/18/2011 94594-Bnzlqsuk Plate 08/05/2011 55672-Qceprgbw Plate Each Additional 93120-Izftknhm Plate Each Additional 00956-Twqxeczk Plate Each Additional 06/2015 14847-Olqshjld Plate Each Additional 79547-Amjgsoyd Plate Each Additional 69006-Wfisvqxf Plate Each Additional 67378-Tmmspnce Plate Each Additional 17983-Zsukptji Plate Each Additional 97004-Ikmazddl Plate Each Additional 14017-Qvnrujgk Plate Each Additional 74710-Hmerkvul Plate Each Additional 04/2021 16955-Ajoydlse Plate Each Additional 24859- Debride <25 sq cm 11/12/2013 38296 I&D ABSCESS- SIMPLE,SINGLE 011 73565 I&D ABSCESS- SIMPLE,SINGLE 012 32232 I&D ABSCESS- SIMPLE,SINGLE 018 05742 I&D ABSCESS- SIMPLE,SINGLE 022 43738-WIMC SKIN LESIONS, 2 TO 4 02/09/20 22 64353-RGHV SKIN LESIONS, 2 TO 4 08/05/20 96273-ISCK SKIN LESIONS, 2 TO 4 07/23/20 21 12419-KORZ SKIN LESIONS, 2 TO 4 11/06/19 22847-TFIU SKIN LESIONS, 2 TO 4 05/04/20 18908-QUPT SKIN LESIONS, 2 TO 4 12/06/19 20317-TTEN SKIN LESIONS, 2 TO 4 02/13/20 10281-CVUL SKIN LESIONS, 2 TO 4 12/24/19 10074-AYHD SKIN LESIONS, 2 TO 4 03/03/20 75118-KAGY SKIN LESIONS, 2 TO 4 08/25/19 04851-IQHZ SKIN LESIONS, 2 TO 4 06/05/20 33577-ZITO SKIN LESIONS, 2 TO 4 12/07/19 71673-OJWK SKIN LESIONS, 2 TO 4 02/25/20 66350-QMDJ SKIN LESIONS, 2 TO 4 06/04/20 68972-EBTG SKIN LESIONS, 2 TO 4 01/02/20 97699-EDQK SKIN LESIONS, 2 TO 4 03/08/20 67072-MBYW SKIN LESIONS, 2 TO 4 08/18/19 97092-SCDD SKIN LESIONS, 2 TO 4 10/27/19 03535-DHPV SKIN LESIONS, 2 TO 4 09/10/19 86265-MYBQ SKIN LESIONS, 2 TO 4 01/11/20 22029-VDAW SKIN LESIONS, 2 TO 4 11/13/19 19558-ELGG SKIN LESIONS, 2 TO 4 03/21/20 79703-MAVJ SKIN LESIONS, 2 TO 4 05/30/20 02519-JRVA SKIN LESIONS, 2 TO 4 01/16/20 18575-JOCP SKIN LESIONS, 2 TO 4 03/26/20 99015-ANAV SKIN LESIONS, 2 TO 4 06/07/20 14881-JYAK SKIN LESIONS, 2 TO 4 10/18/19 49150-Qnhdjbyd Benign Lesion 0.5cm 10/30 Next Appt Details Provider Name:Belinda Garcia , 08/22/2025 11:15:00 AM, [address] [place] [address], [phone], Provider Name:Belinda Garcia , 10/31/2025 11:00:00 AM, [address] [place] [address], [phone], Insurance Providers Payer Name Payer Address Payer Phone Subscriber Number Group Number Insured Name Patient Relationship to Insured Coverage Start Date Coverage End Date Medicare National Govt [employer] [address] [place] [address] [id number] Lory Piña Self - patient is the insured 1 [employer] [address] [place] [address] [id number] Lory Piña Self - patient is the [...] insufficiency I87.2 Surgical History Surgery Date(Month/Year) appendectomy 1971 cholecystectomy 1970 hysterectomy 1982 left knee replacement 2006 sinus surgery 1982 tonsillectomy and adenoidectomy 1946 bilateral eyelid surgery 05/2014 lt and rt cataracts 2013 carpal tunnel 03/2018 and 05/2018 Hospitalization History Reason Date(Month/Year) Acute Cellulitis- b/l legs i nfected-IV antibiotics - [facility] comes to pts home and PT 1 x a week 08/01/23-08/05/23 [facility]- Gi issues stay a few days 08/2020 [facility]- Sciatica 06/29/20 06/30/20 [facility]- Fall- swollen eye - head scan 03/27 ER in [place]-Sepsis Infection in hand- IV antibiotics/Flu 07/2019 [facility] for headache and stomach bacterial i nfection 12/2017 [facility] for acute diverculitis 2017
--- OUTSIDE RECORDS SUMMARY | 2025-07-04 06:56 | XMS_ITS | Encounter Summary ---
Author Organization [facility] Address [address] [facility] [address] [place] [address] Phone Care Team Providers Care Tile Roofer Name Role Phone Jose Alberto Bridges MD Unavailable [phone] Jose Alberto Bridges MD Primary Care Provider [phone] Kalia Rico Unavailable [phone] Belinda Garcia DPM Unavailable [phone] Encounter Details Date Type Department Care Team (Late st Contact Info) Description 03/07/2020 Orders Only [facility] Medicine [address] [place] [address] Jose Alberto Bridges MD [address] [place], [place] [phone] [email or web address] Social History Tobacco Use Types Packs/Day Years Used Date Smoking Tobacco: Never Smokeless Tobacco: Never Alcohol Use Standard Drinks/Week Comments Yes 0 (1 standard drink = 0.6 oz pur e alcohol) few times a year Comments No Sex and Gender Information Value Date Recorded Sex Assigned at Not on file Legal Sex Female 3:26 AM EDT Gender Identity Not on file Sexual Orientation Not on file documented as of this encounter Plan of Treatment Upcoming Encounters Date Type Department Care Team (Late st Contact Info) Description 12/11/2025 11:00 AM EDT Office Visit [facility] Internal Medicine [address] [place], [place] [phone] Jose Alberto Bridges MD [address], [place] [phone] documented as of this encounter Procedures Procedure Name Priority Date/Time Associated Diagnosis Comments COMPREHENSIVE METABOLIC PANEL (CMP) Routine 02/27/2020 CBC Routine 02/27/2020 THYROID STIMULATING HORMONE (TSH) Routine 02/27/2020 documented in this encounter Results * Comprehensive metabolic panel (02/27/2020) Jose Alberto Bridges MD LAB BLOOD BKR ORDERABLES Edit ed Result - Final * CBC (02/27/2020) us Jose Alberto Bridges MD LAB BLOOD BKR ORDERABLES Edit ed Result - Final * TSH (02/27/2020) Jose Alberto Bridges MD LAB BLOOD BKR ORDERABLES Edit ed Result - Final documented in this encounter Visit Diagnoses Not on filedocumented in this encounter Additional Health Concerns Assessment Noted Time PHQ-2 Depression Total Score: 0 12/06/19 20 9:28 AM EDT documented as of this encounter Care Teams Tile Roofer Relationship Specialty Start Date End Date Jose Alberto Bridges MD [address] [place] [address] [email or web address] PCP - General Internal Medicine 07/01/17 Jose Alberto Bridges MD [address] [place] [address] [email or web address] Insurance Assigned Provider 11/19/23 Kalia Rico PA [address] [place], [place] [address] [address] Unknown Provider Specialty 06/09/20 Belinda Garcia DPM [address] [place] [address] Podiatry 09/02/20 documented as of this encounter Additional Source Comments The information contained in this document represents components of the legal health record. It is not the complete legal health record.[facility]
--- OUTSIDE RECORDS SUMMARY | 2025-07-04 06:56 | XMS_ITS | Encounter Summary ---
Author Organization [facility] Address [address] [facility] [address] [place] [address] Phone Care Team Providers Care Java Lead Architect Name Role Phone Jose Alberto Bridges MD Unavailable [phone] Jose Alberto Bridges MD Primary Care Provider [phone] Kalia Rico Unavailable [phone] Belinda Garcia DPM Unavailable [phone] Reason for Visit * Reason Comments Medication Refill Encounter Details Date Type Department Care Team (Late st Contact Info) Description 04/17/2025 Refill [facility] Internal Medicine [address] [place], [place] [phone] Jose Alberto Bridges MD [address] [place] [address] [email or web address] Medication Refill Social History Tobacco Use Types Packs/Day Years Used Date Smoking Tobacco: Former Cigarettes Q uit: 1969 Smokeless Tobacco: Never Alcohol Use Standard Drinks/Week Comments Yes 0 (1 standard drink = 0.6 oz pure alcohol) 1 glass of wine once in a blue [email or web address] Child or Family Care Answer Date Record ed Do you have problems with on e of the following making it difficult for you to work, study, or receive health care? No 12/25/2020 Education Answer Date Recorded Are you interested in more education? Not on shante e 12/28/2022 Are you concerned about learning? Not on file 12/28/2022 No 12/28/2022 No 12/28/2022 Food Answer Date Recorded Within the past 6 months we worried whether our food would run out before we got money to buy more. Never True 12/25/2020 Within the past 6 months the food we bought just didn't last and we didn't have enough money to get more. Never True Paying for Meds Answer Date Recorded Do you have trouble paying for medicines? No 12/25/2020 Paying Utility Bills Answer Date Record ed Do you have trouble paying your heating or elect ricity bill? No 12/25/2020 Transportation Answer Date Recorded Has the lack of transportati on kept you from medical appointments or from getting medications? No 12/25/2020 Unemployment Answer Date Recorded Are you currently unemployed or working on a part-time or temporary basis, and looking for work? No 12/25/2020 Digital Access Answer Date Recorded No 01/10/2023 No 01/10/2023 Reliable internet access at home? Not on file 01/10/2023 Device with a working camera? Not on file Intimate Partner Violence Answer Date R ecorded Denied Basic Needs Not on file 11/19/2024 In the past 12 months have y ou been in a relationship with a person who hurts, threatens, or tries to control you? No 11/19/2024 Worried food would run out Not on file 11/19 In the past 12 months have y ou been in a relationship with a person who hurts, threatens, or tries to control you? No 11/19/2024 Comments No Sex and Gender Information Value Date Recorded Sex Assigned at Not on file Legal Sex Female 3:26 AM EDT Gender Identity Not on file Sexual Orientation Not on file documented as of this encounter Progress Notes * Sepideh Rocha CMA - 04/17/2025 3:15 PM EDT Rx Care Gap Status - Instructions for Clinical Staff (prescriber discretion applies): > Mismatch review guide > At least one request does not meet full criteria. Specifics below. > Labs due: Please remind patient. > Orders needed: Click OPA and Accept to open SmartSet. BMP - Needs order * Visit Info Last visit: 11/19/2024 Jose Alberto Bridges MD - Internal Medicine [facility] > Requested f/u: Return in about 6 months (around 05/23/2025) for Recheck. Upcoming visit: 05/20/2025 Jose Alberto Bridges MD - Internal Medicine [facility] ACTIONS TAKEN BY Sepideh Rocha CMA - Updated rx duration per protocol. Diabetes Rx Protocol (on Diabetes Registry) - metformin HCl Criteria not met; renew for up to 3 months. Visit in the past 14 months: Yes Clinical criteria: - BMP within past year: 11/29/24 - A1c within past 6 months: Yes - Lipid panel within past year: Yes (LDL 91 on 04/20/2024) - Urine microalbumin within past year or on ANA MARIA/ARB: Yes Lab Results Component Value Date SODIUM 139 09/02/2020 Potassium level - External 4.5 11/29/2024 CHLORIDE 102 09/02/2020 CO2 25 09/02/2020 BUN 32 (H) 09/02/2020 Creatinine, serum - External 0.76 (*) 11/29/2024 EGFR 84 09/02/2020 Lab Results Component Value Date Creatinine, serum - External 0.76 (*) 11/29/2024 Creatinine, serum - External 0.83 04/20/2024 Creatinine, serum - External 0.77 (*) 10/11/2023 EGFR 84 09/02/2020 EGFR 80 04/03/2020 EGFR 60 12/27/2017 Lab Results Component Value Date Hemoglobin A1c - External 6.0 11/29/2024 Microalbumin/Creatinine Ratio, urine - External 25.2 11/29/2024 Urine Microalbumin/Creatinine Ratio - External 25.2 11/29/2024 URINE MICROALBUMIN 2.9 (H) 09/02/2020 Lab Results Component Value Date LDL - External 91 04/20/2024 HDL - External 47 04/20/2024 Cholesterol, total - External 153 04/20/2024 Health Maintenance Labs Due / Due Soon Topic Date Due LIPID PANEL 04/20/2025 documented in this encounter Plan of Treatment Upcoming Encounters Date Type Department Care Team (Late st Contact Info) Description 12/11/2025 11:00 AM EDT Office Visit [facility] [place] Internal Medicine [address] [facility] [place] [address] Jose Alberto Bridges MD [address] [place] [address] [email or web address] documented as of this encounter Visit Diagnoses Diagnosis Type 2 diabetes mellitus with diabetic polyneuropathy, without long-term current use of insulin documented in this encounter Additional Health Concerns Assessment Noted Time PHQ-2 Depression Total Score: 0 11/20/19 25 11:59 AM EDT documented as of this encounter Care Teams Java Lead Architect Relationship Specialty Start Date End Date Jose Alberto Bridges MD [address] [place] [address] [email or web address] PCP - General Internal Medicine 07/01/17 Jose Alberto Bridges MD [address] [place] [address] [email or web address] Insurance Assigned Provider 11/19/23 Kalia Rico PA [address] [place] [address] Unknown Provider Specialty 06/09/20 Belinda Garcia DPM [address] [place] [address] Podiatry 09/02/20 documented as of this encounter Additional Source Comments The information contained in this document represents components of the legal health record. It is not the complete legal health record.[facility]
--- OUTSIDE RECORDS SUMMARY | 2025-07-04 06:56 | XMS_ITS | Clinical Summary ---
Author Organization [facility] Address [address] [address] Phone Care Team Providers Care Rigger Chief Name Role Phone Jose Alberto Bridges MD Unavailable [phone] Jose Alberto Bridges MD Primary Care Provider [phone] Kalia Rico Unavailable [phone] BlackBelinda DPM Unavailable [phone] Allergies Active Allergy Reactions Criticality Noted Date Comments Codeine GI Upset 06/01/2021 Levonorgestrel-Ethinyl Estrad Unknown 2021 Atorvastatin Nausea and/or Vomiting 09/02/2020 Lisinopril Cough 06/01/2021 Morphine GI Upset 07/01/2017 Oxycodone-Aspirin 11/03/2021 Oxycodone-Acetaminophen GI Upset 07/01/2017 Percodan Yeni Nausea and/or Vomiting 11/05/2021 Simvastatin Nausea and/or Vomiting 09/02/2020 Medications alcohol PadM USE DAILY DIRECTED Active BACILLUS COAGULANS (PROBIOTIC, B. COAGULANS, ORAL) Take 1 capsule by mouth daily. Active cholecalciferol (VITAMIN D3) 1,000 unit tablet Take 2,000 Units by mouth daily. Active FREESTYLE LITE Strp stripsIndications: Type 2 diabetes mellitus without complications 1 each by Miscellaneous route every morning. 100 strip 02/18/20 20 Active FREESTYLE 28 gauge lancetsIndications :Type 2 diabetes mellitus without complications 1 each by Miscellaneous route every morning. Freestyle Lite 100 each 5 02/18/20 20 Active cyanocobalamin, vitamin B-12, 1000 MCG tablet Take 500 mcg by mouth daily. Active amoxicillin (AMOXIL) 500 MG capsule Takes prior to the dentist 12/16/19 21 Active acetaminophen (TYLENOL) 500 MG tablet Take 1,000 mg by mouth as needed for pain (specific location in comments). Active CALCIUM CITRATE ORAL Take 1 capsule by mouth daily. Active alendronate (FOSAMAX) 70 MG tablet TAKE 1 TABLET BY MOUTH ONCE EVERY WEEK 09/21/19 23 Active diclofenac sodium (VOLTAREN) 1 % GelIndications:gladys ulder pain Apply 4 g topically every morning. Indications: shoulder pain 09/23/19 23 Active acetaminophen (TYLENOL ARTHRITIS PAIN ORAL) Take 1 tablet by mouth as needed. Active acetaminophen-caff eine (EXCEDRIN TENSION HEADACHE) 500-65 mg Tab Take 1 tablet by mouth daily as needed. Active naproxen sodium (ALEVE) 220 MG tablet Take 220 mg by mouth every morning. Up to twice daily Active magnesium gluconate (MAGONATE) 500 mg (27 mg elemental) Tab Take 500 mg by mouth daily. Active hydrocortisone 1 % cream Apply topically 3 (three) times a day. 112 g 08/12/20 23 Active Additional Information Patient taking differently:Topical 3 times daily,As needed, Reported on 05/20/2025 furosemide (LASIX) 40 MG tabletIndications: Bilateral leg edema Take 1 tablet (40 mg total) by mouth daily as needed (bilateral leg edema). 60 tablet 5 11/07/19 24 Active gabapentin (NEURONTIN) 100 MG capsuleIndications :Acute right-sided low back pain with right-sided sciatica Take 1 capsule (100 mg total) by mouth nightly at bedtime. 90 capsule 3 03/27/20 24 Active Additional Information Patient not taking.Reported on 05/20/2025 losartan (COZAAR) 50 MG tabletIndications: Primary hypertension TAKE 1 TABLET BY MOUTH EVERY DAY 90 tablet 3 01/04/20 25 Active metoprolol succinate (TOPROL-XL) 100 MG 24 hr tabletIndications: HTN (hypertension) TAKE 1 TABLET BY MOUTH EVERY DAY 90 tablet 3 01/11/20 25 Active omeprazole (PRILOSEC) 20 MG capsule TAKE 1 CAPSULE BY MOUTH EVERY DAY 90 capsule 3 04/05/20 25 Active metFORMIN (GLUCOPHAGE-XR) 500 MG 24 hr tabletIndications: Type 2 diabetes mellitus with diabetic polyneuropathy, without long-term current use of insulin TAKE 1 TABLET BY MOUTH EVERY DAY WITH BREAKFAST 90 tablet 04/17/20 Active levothyroxine (SYNTHROID, LEVOTHROID) 50 MCG tabletIndications: Acquired hypothyroidism TAKE 1 TABLET BY MOUTH EVERY DAY BEFORE BREAKFAST 90 tablet 3 05/22/20 Active Active Problems Problem Noted Date Diagnosed Date Lymphedema 05/09/2024 Overview (05/09/2024): [facility] for lymphedema w/ Dr. Lidia Matthews 04/02/24 - pt left without being seen Abnormal finding on imaging 04/04/2024 Assessment & Plan (04/04/2024 12:16 PM EDT): MRI lumbar spine: T2 hypointense renal lesions bilaterally which are incompletely characterized they recommend further assessment with renal ultrasound or contrast-enhanced renal protocol MRIs. -Renal US -booked this week Right-sided low back pain with right-sided sciat ica 02/28/2024 Overview (05/09/2024): Saw [facility] Ghulam brown PA-C 04/13/24 - was to see PVSS for possible L5 nerve block if this fails- she can r/t and consider surgery with Dr. Bains Assessment & Plan (04/04/2024 12:25 PM EDT): Significant findings on MRI of spine patient is set to see Dr. Bains on Tuesday who is a neurosurgeon out of [place]. We had a discussion with regards to her findings of her MRI and the concern for questionable if she would be a surgical candidate versus facet cortisone injections. -continue aleve and gabapentin -[facility] referral [facility] -Keep appointment for Tuesday to see Dr. Bains and then second opinion with [facility]. Assessment & Plan (02/28/2024 12:45 PM EDT): Patient noted to have motor deficits on the right leg with + SLR. MRI lumbar spine - [facility] Gabapentin 100mg nightly Continue heat and ice Bilateral impacted cerumen 02/13/2024 Assessment & Plan (02/13/2024 12:06 PM EDT): Bilateral cerumen impaction noted on physical examination. Ear lavage performed in the clinic, accessible reexamination of the ears show no cerumen. Rash and other nonspecific skin eruption 023 Assessment & Plan (08/12/2023 5:32 PM EST): Recommend Julissa, which she has tolerated well in the past. She thinks that W Sarbjit Elder [employer] Advisor may have washed clothes differently (same products) which could have contributed to overnight hives. She will investigate. If rash spreads or is not improving despite antihistamine use she will follow up. topical hydrocortisone ok prn. Bilateral leg edema 08/29/2017 Assessment & Plan (08/12/2023 5:31 PM EST): Continue furosemide, elevating legs as prescribed. She will also be trying compression with ANA MARIA bandages. Requests referral to [facility]. If any signs of worsened redness or swelling she will f/u right away Nocturia 08/29/2017 Osteopenia of multiple sites 08/29/2017 Other chronic pain 08/29/2017 Left knee pain 08/29/2017 Right knee pain 08/29/2017 Primary osteoarthritis involving multiple joints 08/29/2017 Type 2 diabetes mellitus wit h diabetic polyneuropathy, without long-term current use of insulin 07/07/2017 Hypercholesterolemia 07/07/2017 Hypothyroidism 07/07/2017 Paresthesias 07/07/2017 HTN (hypertension) 07/01/2017 Resolved Problems Problem Noted Date Diagnosed Date Resolved Date Pancolitis 09/16/2020 06/01/2021 Assessment & Plan (09/16/2020 10:34 PM EST): From the conversation we had on the phone the patient's diarrhea is now solidifying. I would allow her to stay on the low residue diet until next week and then she can switch over to a regular diet. A banana a day for magnesium and potassium and continue the potassium at night and continue to stay well-hydrated. Be very careful when standing up for orthostatic symptoms. Patient acknowledged this advice. Follow-up with PCP as previously scheduled. Encounters Date Type Department Care Team Description 06/17/2025 Telephone [facility] Internal [facility] [address] [place] [address] Jose Alberto Bridges MD Protected Health Informtion (PHI) 05/22/2025 Refill [facility] [address] [facility] [place] [address] Jose Alberto Bridges MD Medication Refill 05/20/2025 11:00 AM EDT Office Visit [facility] [address] [facility] [place] [address] Jose Alberto Bridges MD Primary hypertension (Primary Dx); Acquired hypothyroidism; Hypercholesterolemia; Need for prophylactic vaccination and inoculation against influenza; Type 2 diabetes mellitus with diabetic polyneuropathy, without long-term current use of insulin; Age-related osteoporosis without current pathological fracture; Vitamin D deficiency, unspecified; Anemia, unspecified type; Nocturia 04/17/2025 Refill [facility] [address] [place] [address] Jose Alberto Bridges MD Medication Refill 04/05/2025 Refill [facility] [address] [facility] [place] [address] Jose Alberto Bridges MD Medication Refill from Last 3 Months Immunizations Immunization Administration Dates Next Due COVID-19 (Pre-06/06) Moderna Vaccine, Bivalent 6mo+ 05/24/2022 COVID-19 (Pre-06/06) Moderna Vaccine, mRNA, PF 10/23/2020,09/25/2020,06/16/2020 INFLUENZA, SPLIT VIRUS, TRIVALENT PF 08/2020,06/14/2017,05/11/2016,05/28 INFLUENZA, SPLIT VIRUS, TRIV ALENT W/ PRESERVATIVE IM 05/15/2012 Influenza High-Dose Quadriva lent Preservative Free IM 06/13/2023,05/24/2022,06/01/2021,06/09 Influenza High-Dose Trivalen t Preservative Free IM 05/20/2025,05/01/2018,06/13/2017,05/11,05/26/2015,06/07/2014,06/28/2013 Influenza Quadrivalent Prese rvative Free IM 05/28/2019 Influenza Quadrivalent w/ Pr eservative IM 06/07/2014 Influenza, Unspecified Formulation 06/02/2010, Pneumococcal conjugate PCV13 05/20/2015 Pneumococcal polysaccharide PPSV23 03/02/2012, Td (adult) 5 Lf Tetanus Toxo id, PF, Adsorbed 01/21/2015,12/13/2004 Family History Medical History Relation Comments Colon cancer Brother 1 metastized into kidneys and lungs Alcohol abuse Brother 2 Depression Brother 2 Emphysema Brother 2 Emphysema Father Leukemia Father Colon cancer Mother Hodgkins lymphoma Mother Relation Status Comments Brother 1 (Age 94) at 94 y/o d/t colon cancer metastized into kidneys lungs Brother 2 (Age 84) at 84 y/o d/t emphysema and h/o alcoholism Father Mother Social History Tobacco Use Types Packs/Day Years Used Date Smoking Tobacco: Former Cigarettes Q uit: 1969 Smokeless Tobacco: Never Tobacco Cessation:Counseling Given: Not Answered Alcohol Use Standard Drinks/Week Comments Yes 0 [...] on file Sexual Orientation Not on file Last Filed Vital Signs Vital Sign Reading Time Taken Comments Blood Pressure 127/76 05/20/2025 11:00 AM EDT Pulse 87 05/20/2025 11:00 AM EDT Temperature 36.8 C (98.2 F) 05/20/2025 11:00 AM EDT Respiratory Rate 16 05/20/2025 11:00 AM EDT Oxygen Saturation 99% 05/20/2025 11:00 AM EDT Inhaled Oxygen Concentration - - Weight 60.6 kg (133 lb 9.6 oz) 05/20/2025 11:00 AM EDT Height 145.6 cm (4' 9.32 ) 05/20/2025 11:00 AM E DT Body Mass Index 28.59 05/20/2025 11:00 AM EDT Plan of Treatment Upcoming Encounters Date Type Department Care Team (Late st Contact Info) Description 12/11/2025 11:00 AM EDT Office Visit [facility] Internal Medicine [address] [place] [address] Jose Alberto Bridges MD [address] [place] [address] [email or web address] Health Maintenance Due Date Last Done Comments ZOSTER VACCINES (1 of 2) 12/22/1985 RSV VACCINE (1 - 1-dose 75+ series) 12/22/2010 Adult Td,Tdap Booster 01/21/2025 01/21/2015, 005 COVID-19 VACCINE ( season) 2025 06/30/2023, 05/24/2022, 11/23/2021, Additional history exists LIPID PANEL 04/20/2025 04/20/2024, 09/0 01/2024, 04/20/2024, Additional history exists TSH LEVEL 04/20/2025 04/20/2024, 09/0 01/2024, 10/11/2023, Additional history exists DIABETIC EYE EXAM 05/16/2025 05/16/2024, , 04/19/2024, Additional history exists HEMOGLOBIN A1C 05/31/2025 11/29/2024, 09/0 01/2024, 04/20/2024, Additional history exists DEPRESSION SCREENING 11/19/2025 11/19/2024 CREATININE LEVEL 11/29/2025 11/29/2024, 01/2024, 04/20/2024, Additional history exists POTASSIUM LEVEL 11/29/2025 11/29/2024, 09/0 01/2024, 10/11/2023, Additional history exists FOLLOW UP BONE DENSITY TESTING 05/22/2026 05/22/2024, 12/16/2021, 03/28/2012 PNEUMOCOCCAL VACCINES (50+ years) Completed 05/20/2015, 03/02/2012, 06/15/2005 OSTEOPOROSIS SCREENING INITIAL (ONE-TIME) Completed 05/22/2024, 12/16/2021, 03/28/2012 INFLUENZA VACCINE Completed 05/20/2025, , 06/13/2023, Additional history exists HEPATITIS A VACCINES Aged Out No long er eligible based on patient's age to complete this topic HIB VACCINES Aged Out No longer eligi ble based on patient's age to complete this topic MENINGOCOCCAL VACCINES (ACWY) Aged Out No longer eligible based on patient's age to complete this topic MENINGOCOCCAL VACCINES (B) Aged Out N o longer eligible based on patient's age to complete this topic Medical Devices Not on file Procedures Procedure Name Priority Date/Time Associated Diagnosis Comments OUTSIDE HEMOGLOBIN A1C Routine 11/29/2024 OUTSIDE POTASSIUM LEVEL Routine 11/29/2024 OUTSIDE SERUM CREATININE LEVEL Routine 11/29/2024 HM DEXA SCAN Routine 05/22/2024 11:49 AM EDT DIABETES EYE EXAM FOR RESULT ENTRY ONLY Routine 05/16/2024 12:01 PM EDT THYROID STIMULATING HORMONE (TSH) Routine 04/20/2024 11:50 AM EDT Acquired hypothyroidism OUTSIDE HDL Routine 04/20/2024 from Last 3 Months or Most Recently Relevant to Health Maintenance Results * Outside Potassium Level (11/29/2024) Potassium level - External 4.5 3.4 - 5.0 mmol/L Historical Provider LAB BLOOD ORDERABLES [facility] Result * Outside HbA1c (11/29/2024) Hemoglobin A1c - External 6.0 % [facility] Provider LAB BLOOD ORDERABLES [facility] Result * (ABNORMAL) Outside Serum Creatinine Level (11/29/2024) Creatinine, serum - External 0.76(A) 0.8 - 1.3 mg/dL Historical Provider LAB BLOOD ORDERABLES [facility] Result * HM DEXA SCAN (05/22/2024 11:49 AM EDT) Historical Provider HEALTH MAINTENANCE Edited Result - Final * DIABETES EYE EXAM FOR RESULT ENTRY ONLY (05/16/2024 12:01 PM EDT) us Historical Provider HEALTH MAINTENANCE Edited Result - Final * TSH (04/20/2024 11:50 AM EDT) Blood us Jose Alberto Bridges MD LAB BLOOD BKR ORDERABLES [facility] Result [address] [address] * Outside HDL (04/20/2024) HDL - External 47 40 - 80 mg/dL EXTERNAL NON-INTERFACED REF LAB Historical Provider LAB BLOOD ORDERABLES [facility] Result EXTERNAL NON-INTERFACED REF LAB from Last 3 Months or Most Recently Relevant to Health Maintenance Insurance MEDICARE PART A & B [employer] CROSS MEDEX SUPPLEMENT MEDICARE PART A & B [employer] MEDEX SUPPLEMENT MEDICARE PART A & B [employer] MEDEX SUPPLEMENT MEDICARE PART A & B [employer] MEDEX SUPPLEMENT MEDICARE PART A & B [employer] MEDEX SUPPLEMENT MEDICARE PART A & B [employer] MEDEX SUPPLEMENT MEDICARE PART A & B BLUE CROSS MEDEX SUPPLEMENT MEDICARE PART A & B [employer] MEDEX SUPPLEMENT MEDICARE PART A & B [employer] MEDEX SUPPLEMENT Advance Directives For more information, please contact: [phone] (9AM - 5PM [facility], Tuesday-Tuesday) Documents on File Type Date Recorded 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 MOLST 07/13/2024 12:30 PM Healthcare Proxy 03/14/2023 Healthcare Proxy- 03/14/2023 * DNR OK to Intubate (Latest Code Status on File) Date Activated Date Inactivated Comments 03/14/2023 11:07 AM Question Answer Comments Code Status Confirmed With: Patient Code Status Communicated To: PCP Care Teams Rigger Chief Relationship Specialty Start Date End Date Jose Alberto Bridges MD [address] [place] [id number] [email or web address] PCP - General Internal Medicine 07/01/17 Jose Alberto Bridges MD [address] [place] [phone] Insurance Assigned Provider 11/19/23 Kalia Rico PA [address] [facility] [place] [address] Unknown Provider Specialty 06/09/20 Belinda Garcia DPM [address] [place] [address] Podiatry 09/02/20 Additional Source Comments The information contained in this document represents components of the legal health record. It is not the complete legal health record.[facility]
[2025-07-04 10:15] LABS: MANUAL DIFF FLAG NO
[2025-07-04 10:23] LABS: Hematocrit 36.2 % (37.0-47.0); Hemoglobin 11.2 g/dl (12.0-16.0); Imm Gran Abs Auto 0.03 X10*3/uL (0.00-0.03); Imm Gran Pct Auto 0.3 % (0.0-0.4); Lymphocytes Absolute Auto 2.5 X10*3/uL (1.2-4.9); Mean Corpuscular HGB Conc 30.9 g/dl (31.0-35.0); Mean Corpuscular Hemoglobin 25.7 pg (27.0-33.0); Mean Corpuscular Volume 83.2 fL (80.0-98.0); NRBC Abs Auto 0.000 X10*3/uL (0.0-0.012); NRBC Pct Auto 0.0 /100WBC (0.0-0.2); Platelet Count 349 X10*3/uL (160-400); Red Blood Count 4.35 X10*6/uL (4.20-5.50); White Blood Count 9.3 X10*3/uL (4.8-10.8)
[2025-07-04 10:56] LABS: Alanine Aminotransferase 7 U/L (0-31); Albumin Level 4.2 g/dL (3.5-5.0); Alkaline Phosphatase 75 U/L (39-117); Anion Gap 14 (12-20); Aspartate Amino Transferase 19 U/L (5-31); Blood Urea Nitrogen 34 mg/dL (9-16); Calcium 9.9 mg/dL (8.4-10.2); Carbon Dioxide 26 mmol/L (22-29); Chloride 104 mmol/L (96-108); Estimated Glomerular Filt Rate > 60; Iron 66 mcg/dL (30-160); Percent Iron Saturation 19 % (15-50); Potassium 4.5 mmol/L (3.3-5.1); Sodium 139 mmol/L (135-145); Total Iron Binding Capacity 356 mcg/dL (228-428); Total Protein 7.1 g/dL (6.5-8.0); Unsaturated Iron Binding 290 ug/dL
[2025-07-04 11:16] LABS: Ferritin 25 ng/mL (10-250)
[2025-07-04 13:36] LABS: Appearance Urine Turbid; Glucose Urine UA Negative (Negative); PH 6.5 (5.0-9.0); Specific Gravity - Urine 1.015 (1.005-1.025); UMIC TRIGGER UACC YES
[2025-07-04 13:42] LABS: UACC Culture Trigger YES
[2025-07-04 14:03] LABS: Microalbum/Creatinine Ratio Ur 955.5 ug/mg cr (<30)
[2025-07-09 13:44] LABS: NTXCreaRU 44 mg/dL (20-275)
== END 2025-07-04 06:52 | disposition home or self-care (01) ==
LOC: HO.HMGCLDS 06:51
PROVIDERS: Absent Provider Internal Medicine Endocrinology, Diabetes & Metabolism; PCP Internal Medicine; Visit Provider Internal Medicine
DX: E11.42 Type 2 diabetes mellitus with diabetic polyneuropathy (principal); M81.0 Age-related osteoporosis without current pathological fracture; I10 Essential (primary) hypertension; R35.1 Nocturia
CPT/HCPCS: 36415; 80053; 81001; 82043; 82306; 82523; 82570; 82728; 83036; 83540; 84443; 85025; 87086; 87088; 87186

== ENCOUNTER 2025-07-05 03:30 | Outpatient (REF) | payer MEDICARE, SELFPAY ==
--- OUTSIDE RECORDS SUMMARY | 2024-04-23 04:15 | XMS_ITS ---
Author Organization [facility] Address [address] [place] [id number] Care Team Providers Care Pairing Machine Operator Name Role Phone Jose Alberto Bridges MD Primary Care Provider Unavaila lilly Garcia Belinda Unavailable [phone] REASON FOR VISIT too soon Encounters Encounter Location Date Provider Diagnosis [address] [phone] 04/23/2024 Belinda Garcia Plan Of Treatment Next Appt Details Provider Name:Belinda Valle Jose , 08/22/2025 11:15:00 AM, [address] [place] [address], [phone], Provider Name:Belinda Garcia , 10/31/2025 11:00:00 AM, [address] [place] [address], [phone], Progress Notes * Lory STANLEY ADOB:[birth year] (89 yo F)Acc No.[id number]:04/23/2024 Progress Note Patient: Marcelo EUCEDA Lory Valle Provider: Adela Garcia DPM :1935 A ge:88 Y S ex:Female Date:04/23/2024 Address:[address] [place] [phone] Pcp:Jose Alberto Bridges MD Subjective: * Chief Complaints: * 1 . Too soon. * Medical History: Objective: * Vitals: Assessment: Plan: * Treatment: * Images: * The named appointment provid er may or may not be the originator of this progress note, and it is not deemed complete until electronically signed by the appointment provider. Sign off status: Pending * Provider: Adela Garcia DPM Date: 0 04/23/2024 Generated for Ayleen matias/Kevan/Adrian on: 09/04/2024 08:32 AM EST
--- OUTSIDE RECORDS SUMMARY | 2025-02-25 08:30 | XMS_ITS ---
Author Organization [facility] Address [address] [place] [phone] Care Team Providers Care Logistics Technician Name Role Phone Cyrus HODGES, Jose Alberto Primary Care Provider Unavaila Belinda Samuel [phone] Encounters Encounter Location Date Provider Diagnosis [address] [address] 02/25/2025 Belinda Garcia Plan Of Treatment Next Appt Details Provider Name:Belinda Valle Jose , 08/22/2025 11:15:00 AM, [address] [place] [address], [phone], Provider Name:Belinda Garcia , 10/31/2025 11:00:00 AM, [address] [place] [address], [phone], Progress Notes * Lory STANLEY ADOB:[birth year] (89 yo F)Acc No.[id number]:02/25/2025 Progress Note Patient: Marcelo EUCEDA Lory Valle Provider: Adela Garcia DPM :1935 A ge:89 Y S ex:Female Date:02/25/2025 Address:[address] [place] [address] [phone] Pcp:Jose Alberto Bridges MD Subjective: * Chief [...] 02/25/2025 Generated for Ayleen Ramirez/Adrian on: 1 09/04/2024 08:32 AM EST
--- OUTSIDE RECORDS SUMMARY | 2025-07-05 08:32 | XMS_ITS | Patient Health Record ---
Author Organization [facility] marcin Foristell Address [address] [place] [address] Care Team Providers Care Stretcher Leveler Operator Helper Name Role Phone Jose Alberto Bridges MD Primary Care Provider Unavaila Belinda Samuel Unavailable [phone] Allergies Allergen (clinical drug ingredient) Drug/Non Drug [...] Problem Acquired hammer toe of right foot (222525185817915 5) Other hammer toe(s) (acquired), right foot (M20.41) Active confirmed Response to treatment, Improvement Problem Acquired hammer toe of left foot (183270641409318 3) Other hammer toe(s) (acquired), left foot (M20.42) Active confirmed Response to treatment, Improvement Problem Polyneuropathy due to type 2 diabetes mellitus (217724323) Type 2 diabetes mellitus with diabetic polyneuropathy (E11.42) Active confirmed Vital Signs Blood pressure diastolic 80 mm Hg 05/30/2025 Height 4 ft 11 in in 05/30/2025 Blood pressure systolic 128 mm Hg 05/30/2025 Weight 137 lbs 05/30/2025 BMI 27.67 kg/m2 05/30/2025 Procedures Procedure Date Ordered Date Performed Result Body Sit e 28390-ZLSKXMC NAIL, 6 OR MORE 09/10/2024 N/A 20701-PNQM SKIN LESIONS, 2 TO 4 09/10/2024 N/A 80357-VTDYUSD NAIL, 6 OR MORE 11/12/2024 N/A 03030-Sqdyttex Plate 11/12/2024 N/A 70311-OXLD SKIN LESIONS, 2 TO 4 11/12/2024 N/A 70375-OLXJVUR NAIL, 6 OR MORE 01/10/2025 N/A 72320-Hgshloqy Plate 01/10/2025 N/A 97880-KPBG SKIN LESIONS, 2 TO 4 01/10/2025 N/A 40256-LMNFEMB NAIL, 6 OR MORE 03/21/2025 N/A 52027-BLIA SKIN LESIONS, 2 TO 4 03/21/2025 N/A 91737-DNKSUKY NAIL, 6 OR MORE 05/30/2025 N/A 35217-Gjwmdjeb Plate 05/30/2025 N/A 92509-XTKO SKIN LESIONS, 2 TO 4 05/30/2025 N/A Encounters Encounter Location Date Provider Diagnosis [facility] [place] [address] [place] [address] 09/10/2024 Belinda Black Type 2 diabetes mellitus with diabetic polyneuropathy E11.42 ; Other hammer toe(s) (acquired), right foot M20.41 ; Tinea unguium B35.1 and Other hammer toe(s) (acquired), left foot M20.[address] [address] 11/12/2024 Belinda Black Type 2 diabetes mellitus with diabetic polyneuropathy E11.42 ; Tinea unguium B35.1 and Ingrown nail L60.[address] [address] 01/10/2025 Belinda Black Tinea unguium B35.1 ; Ingrown nail L60.0 and Type 2 diabetes mellitus with diabetic polyneuropathy E11.[address] [address] 03/21/2025 Belinda Black Tinea unguium B35.1 ; Type 2 diabetes mellitus with diabetic polyneuropathy E11.42 ; Other hammer toe(s) (acquired), right foot M20.41 and Other hammer toe(s) (acquired), left foot M20.[address] [address] 05/30/2025 Belinda Black Tinea unguium B35.1 ; Type 2 diabetes mellitus with diabetic polyneuropathy E11.42 and Ingrown nail L60.[address] [address] 02/22/2025 Belinda Black Assessments Encounter Date Diagnosis [...] Treatment Pending Test Test Name Order Date 99180-GBVZERU NAIL, 6 OR MORE 05/27/2011 97192-HYMQTJQ NAIL, 6 OR MORE 08/05/2011 43877-RYBTRBS NAIL, 6 OR MORE 10/18/2011 74404-DVRUANJ NAIL, 6 OR MORE 12/29/2011 74639-TKERSZW NAIL, 6 OR MORE 08/02/2012 54789-EUYMASD NAIL, 6 OR MORE 10/18/2012 59084-WXWMTZP NAIL, 6 OR MORE 02/05/2013 50090-IZLEATQ NAIL, 6 OR MORE 05/07/2013 44427-LVGGJOT NAIL, 6 OR MORE 03/20/2012 73645-PCWKSTC NAIL, 6 OR MORE 06/05/2012 53784-ETLVGFN NAIL, 6 OR MORE 11/12/2013 24345-PIEPMHT NAIL, 6 OR MORE 02/04/2014 19654-CRSZOSL NAIL, 6 OR MORE 04/22/2014 90409-OOFIDWN NAIL, 6 OR MORE 07/08/2014 86311-FNGUKWT NAIL, 6 OR MORE 10/23/2014 08620-LVMCIFN NAIL, 6 OR MORE 12/26/2014 73363-YKRUPGT NAIL, 6 OR MORE 03/12/2015 64638-FFULOOK NAIL, 6 OR MORE 06/09/2015 36796-FRSSNEU NAIL, 6 OR MORE 08/21/2015 86392-LEEEOGG NAIL, 6 OR MORE 10/29/2015 41864-JWZSTQE NAIL, 6 OR MORE 01/16/2016 61516-CTWQLDO NAIL, 6 OR MORE 03/22/2016 07685-FGLCPIP NAIL, 6 OR MORE 06/14/2016 49367-IEYMGYH NAIL, 6 OR MORE 09/06/2016 35567-KZQAVQY NAIL, 6 OR MORE 11/15/2016 37918-DJODFRH NAIL, 6 OR MORE 01/24/2017 49663-NRKLKBU NAIL, 6 OR MORE 04/04/2017 66020-AOQFHIJ NAIL, 6 OR MORE 06/13/2017 23204-UHTVKIU NAIL, 6 OR MORE 09/01/2017 86342-HMKTGIF NAIL, 6 OR MORE 11/10/2017 01372-QGFUIKZ NAIL, 6 OR MORE 01/12/2018 92765-PBYRIYH NAIL, 6 OR MORE 03/16/2018 74076-OWIHNXY NAIL, 6 OR MORE 05/29/2018 98590-QCTQECW NAIL, 6 OR MORE 11/06/2018 68922-PHSERXA NAIL, 6 OR MORE 01/15/2019 74468-RJJSZTY NAIL, 6 OR MORE 03/26/2019 37002-EPTRGZM NAIL, 6 OR MORE 06/07/2019 99941-APAGBRI NAIL, 6 OR MORE 10/18/2019 50955-AZDUNIM NAIL, 6 OR MORE 12/24/2019 57800-GZIMPSE NAIL, 6 OR MORE 03/03/2020 72491-XUWRTKF NAIL, 6 OR MORE 06/05/2020 19952-YTAIYKR NAIL, 6 OR MORE 08/25/2020 83743-XHHZKUL NAIL, 6 OR MORE 12/05/2020 57969-IYLVSJQ NAIL, 6 OR MORE 02/12/2021 19947-INOOQCZ NAIL, 6 OR MORE 05/04/2021 97102-YIQBZRQ NAIL, 6 OR MORE 07/23/2021 72396-ZIBOGTV NAIL, 6 OR MORE 11/05/2021 88937-HISBMNH NAIL, 6 OR MORE 02/08/2022 44248-EVCRPYC NAIL, 6 OR MORE 05/10/2022 21922-LQNOEOE NAIL, 6 OR MORE 08/05/2022 66007-KFWKNJI NAIL, 6 OR MORE 12/06/2022 09915-BJIXOYF NAIL, 6 OR MORE 02/24/2023 78041-DZDGNWQ NAIL, 6 OR MORE 08/18/2023 22611-SJRNGFR NAIL, 6 OR MORE 10/27/2023 02886-DEUKTIS NAIL, 6 OR MORE 01/02/2024 12142-YMESVWQ NAIL, 6 OR MORE 03/08/2024 70740-SVSPDYC NAIL, 6 OR MORE 06/04/2024 12883-KXKOVTV NAIL, 6 OR MORE 09/10/2024 56957-HUYKZAU NAIL, 6 OR MORE 11/12/2024 06549-KQEPKEX NAIL, 6 OR MORE 01/10/2025 47417-PRVLWTD NAIL, 6 OR MORE 03/21/2025 41319-JYUGVQK NAIL, 6 OR MORE 05/30/2025 05095-Bqiz Destruction, 1-14 08/18/2023 47860-Tatq Destruction, 1-14 08/05/2022 24523-Bbjn Destruction, 1-14 05/10/2022 31352-Ckqoaxfh Plate 11/05/2021 59238-Xpgjelzq Plate 07/23/2021 15902-Hzldhocg Plate 05/04/2021 31605-Ibkxvpsz Plate 06/05/2020 34336-Liwempxu Plate 08/25/2020 22121-Dixeiwxc Plate 12/05/2020 22449-Baymiekk Plate 03/03/2020 17704-Gssbgqmn Plate 12/06/2022 36444-Gyrprydp Plate 05/30/2025 33398-Tmryxhjm Plate 11/12/2024 55712-Rovovpbw Plate 01/10/2025 13900-Hknzjrga Plate 02/24/2023 06630-Tntthykl Plate 06/04/2024 32893-Zqskovdb Plate 12/24/2019 74308-Yrzjjizu Plate 08/02/2019 51834-Pshtsdbv Plate 03/26/2019 59187-Cytzeyjz Plate 11/06/2018 83383-Ahmybvnb Plate 05/29/2018 69020-Ifkhcrtt Plate 01/12/2018 91024-Rwlrihio Plate 06/13/2017 82533-Magcunzz Plate 09/01/2017 21995-Aqlnaebs Plate 04/04/2017 75021-Mjltrwrb Plate 11/15/2016 22968-Knofxuwp Plate 01/24/2017 82991-Tmgvboup Plate 09/06/2016 79484-Kbamuucn Plate 06/14/2016 81234-Fzprsumv Plate 06/09/2015 07114-Iismwrer Plate 03/12/2015 40321-Xqowixzi Plate 12/26/2014 23830-Zxemfjte Plate 07/08/2014 15782-Vfqsgbyb Plate 10/23/2014 16033-Fjbihwbx Plate 04/22/2014 05778-Zbqgpsod Plate 02/04/2014 49978-Wxrqdyjj Plate 06/05/2012 68977-Fjfrebok Plate 05/07/2013 41039-Gkgimyax Plate 10/18/2011 98601-Mtllcjcx Plate 08/05/2011 10569-Zqydjpgh Plate Each Additional 15663-Zbnjvfnh Plate Each Additional 45911-Jcopcllz Plate Each Additional 06/2015 82623-Ibfsilvh Plate Each Additional 57006-Tvflhfgj Plate Each Additional 77853-Szcfgfok Plate Each Additional 02178-Vtixewcx Plate Each Additional 46588-Vfzjhqyt Plate Each Additional 20730-Qpqioeok Plate Each Additional 35811-Eyqsdkby Plate Each Additional 23039-Pzjiqpft Plate Each Additional 04/2021 78928-Rhxzjzoo Plate Each Additional 91288- Debride <25 sq cm 11/12/2013 80230 I&D ABSCESS- SIMPLE,SINGLE 011 31600 I&D ABSCESS- SIMPLE,SINGLE 012 31970 I&D ABSCESS- SIMPLE,SINGLE 018 00410 I&D ABSCESS- SIMPLE,SINGLE 022 90814-FUTP SKIN LESIONS, 2 TO 4 02/09/20 22 90306-ILKD SKIN LESIONS, 2 TO 4 08/05/20 43369-GUGS SKIN LESIONS, 2 TO 4 07/23/20 21 05430-KCUW SKIN LESIONS, 2 TO 4 11/06/19 52204-VFCY SKIN LESIONS, 2 TO 4 05/04/20 63521-WAIA SKIN LESIONS, 2 TO 4 12/06/19 73951-JRGN SKIN LESIONS, 2 TO 4 02/13/20 38898-FUMS SKIN LESIONS, 2 TO 4 12/24/19 51103-NCEZ SKIN LESIONS, 2 TO 4 03/03/20 65011-XDHT SKIN LESIONS, 2 TO 4 08/25/19 52755-AOVI SKIN LESIONS, 2 TO 4 06/05/20 86595-DXLE SKIN LESIONS, 2 TO 4 12/07/19 40378-HAAA SKIN LESIONS, 2 TO 4 02/25/20 25356-ESGS SKIN LESIONS, 2 TO 4 06/04/20 88065-SCOG SKIN LESIONS, 2 TO 4 01/02/20 64389-RTWX SKIN LESIONS, 2 TO 4 03/08/20 24289-MSVH SKIN LESIONS, 2 TO 4 08/18/19 70871-SLOO SKIN LESIONS, 2 TO 4 10/27/19 80892-ETVL SKIN LESIONS, 2 TO 4 09/10/19 60812-XHQT SKIN LESIONS, 2 TO 4 01/11/20 62243-KFGA SKIN LESIONS, 2 TO 4 11/13/19 38138-QQET SKIN LESIONS, 2 TO 4 03/21/20 13401-YWFL SKIN LESIONS, 2 TO 4 05/30/20 99901-XPHO SKIN LESIONS, 2 TO 4 01/16/20 20064-JEXW SKIN LESIONS, 2 TO 4 03/26/20 52439-LGHX SKIN LESIONS, 2 TO 4 06/07/20 33395-TQWZ SKIN LESIONS, 2 TO 4 10/18/19 08343-Hqmklidl Benign Lesion 0.5cm 10/30 Next Appt Details Provider Name:Belinda Garcia , 08/22/2025 11:15:00 AM, [address] [place] [address], [phone], Provider Name:Belinda Garcia , 10/31/2025 11:00:00 AM, [address] [place] [address], [phone], Insurance Providers Payer Name Payer Address Payer Phone Subscriber Number Group Number Insured Name Patient Relationship to Insured Coverage Start Date Coverage End Date Medicare National Govt [employer] [address] [place] [address] [id number] Lory Piña Self - patient is the insured 1 [employer] Blue [employer] [address] [place] [address] [id number] Lory Piña Self - patient is the [...] and PT 1 x a week 08/01/23-08/05/23 [facility]- Gi issues stay a few days 08/2020 [facility]- Sciatica 06/29/20 06/30/20 [facility]- Fall- swollen eye - head scan 03/27 ER in [place]-Sepsis Infection in hand- IV antibiotics/Flu 07/2019 [facility] for headache and stomach bacterial i nfection 12/2017 [facility] for acute diverculitis 2017
--- OUTSIDE RECORDS SUMMARY | 2025-07-05 08:32 | XMS_ITS | Patient Health Record ---
Author Organization [facility] Address [address] [place] [address] Care Team Providers Care Product Representative Name Role Phone Jose Alberto Bridges MD Primary Care Provider Unavaila Dwaine Pickard Unavailable [phone] WU ALMAZAN Unavailable Unavailable Reason For Referral No Information Problems Problem Type SNOMED Code ICD Code Onset Dates Problem Status W/U Status Risk Notes Problem Diverticulosis of colon (finding) (717520795) Diverticulosis of colon (without mention of hemorrhage) (562.10) Active confirmed Problem Blood in stool (769996551) Blood in stool (578.1) Active confirmed Problem History of polyp of colon (situation) (793184550) Personal history of colonic polyps (V12.72) Active confirmed Problem Family history of malignant neoplasm of gastrointestinal tract (549789701) Family history of malignant neoplasm of gastrointestinal tract (V16.0) Active confirmed Plan Of Treatment No Information Insurance Providers Payer Name Payer Address Payer Phone Subscriber Number Group Number Insured Name Patient Relationship to Insured Coverage Start Date Coverage End Date MEDICARE OF [place] [address] [place] [id number] ROSINA STANLEY Self - patient is the insured MED[employer] ATTN CLAIMS [address] [place] [address] [phone] [id number] ROSINA STANLEY Self - patient is the insured
--- OUTSIDE RECORDS SUMMARY | 2025-07-05 08:32 | XMS_ITS | Encounter Summary ---
Author Organization [facility] Address [address] [facility] [address] [place] [address] Phone Care Team Providers Care Section Forest Fire Warden Name Role Phone Jose Alberto Bridges MD Unavailable [phone] Jose Alberto Bridgse MD Primary Care Provider [phone] Kalia Rico Unavailable [phone] Belinda Garcia DPM Unavailable [phone] Reason for Visit * Reason Comments Medication Refill Encounter Details Date Type Department Care Team (Late st Contact Info) Description 04/17/2025 Refill [facility] Internal Medicine [address] [place], [place] [phone] Jose Alberto Bridges MD [address] [place] [address] [email or web address] Medication Refill Social History Tobacco [...] Jose Alberto Bridges MD - Internal Medicine [facility] > Requested f/u: Return in about 6 months (around 05/23/2025) for Recheck. Upcoming visit: 05/20/2025 Jose Alberto Bridges MD - Internal Medicine [facility] ACTIONS TAKEN BY Sepideh Rocha [...] EDT Office Visit [facility] [place] [facility] [address] [facility] [place] [address] Jose Alberto Bridges MD [address] [place] [address] [email or web address] documented as of this encounter Visit Diagnoses Diagnosis Type 2 diabetes mellitus with diabetic polyneuropathy, without long-term current use of insulin documented in this encounter Additional Health Concerns Assessment Noted Time PHQ-2 Depression Total Score: 0 11/20/19 25 11:59 AM EDT documented as of this encounter Care Teams Section Forest Fire Warden Relationship Specialty Start Date End Date Jose Alberto Bridges MD [address] [place] [address] [email or web address] PCP - General Internal Medicine 07/01/17 Jose Alberto Bridges MD [address] [place] [address] [email or web address] Insurance Assigned Provider 11/19/23 Kalia Rico PA [address] [place] [address] Unknown Provider Specialty 06/09/20 Belinda Garcia DPM [address] [place] [address] Podiatry 09/02/20 documented as of this encounter Additional Source Comments The information contained in this document represents components of the legal health record. It is not the complete legal health record.[facility]
--- OUTSIDE RECORDS SUMMARY | 2025-07-05 08:32 | XMS_ITS | Encounter Summary ---
Author Organization [facility] Address [address] [facility] [address] [place] [address] Phone Care Team Providers Care Automobile Mechanic Apprentice Name Role Phone Jose Alberto Bridges MD Unavailable [phone] Jose Alberto Bridges MD Primary Care Provider [phone] Kalia Rico Unavailable [phone] Belinda Garcia DPM Unavailable [phone] Encounter Details Date Type Department Care Team (Late st Contact Info) Description 03/07/2020 Orders Only [facility] Medicine [address] [place] [address] Jose Alberto Bridges MD [address] [place], [place] [id number] [email or web address] Social History Tobacco Use Types Packs/Day Years [...] Description 12/11/2025 11:00 AM EDT Office Visit [facility] Internal Medicine [address] [place], [place] [phone] Jose Alberto Bridges MD [address] [place], [place] [phone] documented as of this encounter Procedures Procedure [...] documented as of this encounter Care Teams Automobile Mechanic Apprentice Relationship Specialty Start Date End Date Jose Alberto Bridges MD [address] [place] [address] [email or web address] PCP - General Internal Medicine 07/01/17 Jose Alberto Bridges MD [address] [place] [address] [email or web address] Insurance Assigned Provider 11/19/23 Kalia Rico PA [address] [place] [address] [address] Unknown Provider Specialty 06/09/20 Belinda Garcia DPM [address] [place] [address] Podiatry 09/02/20 documented as of this encounter Additional Source Comments The information contained in this document represents components of the legal health record. It is not the complete legal health record.[facility]
--- OUTSIDE RECORDS SUMMARY | 2025-07-05 08:33 | XMS_ITS | Clinical Summary ---
Author Organization [facility] Address [address] [address] Phone Care Team Providers Care Automotive Machinist Apprentice Name Role Phone Jose Alberto Bridges MD Unavailable [phone] Jose Alberto Bridges MD Primary Care Provider Kalia Rico Unavailable [phone] BlackBelinda DPM Unavailable [phone] Allergies Active Allergy Reactions Criticality Noted Date [...] by Miscellaneous route every morning. 100 strip 5 02/18/20 20 Active FREESTYLE 28 gauge lancetsIndications [...] Diagnosed Date Lymphedema 05/09/2024 Overview (05/09/2024): [facility] [place]hedema w/ Dr. Lidia Matthews [...] right-sided sciat ica 02/28/2024 Overview (05/09/2024): [facility] Ghulam brown PA-C 04/13/24 - was to see PVSS for possible L5 nerve block if this fails- she can r/t and consider surgery with Dr. Bains Assessment & Plan (04/04/2024 12:25 PM EDT): Significant findings on MRI of spine patient is set to see Dr. Bains on Tuesday who is a neurosurgeon out of [place]. We had a discussion with regards to her findings of her MRI and the concern for questionable if she would be a surgical candidate versus facet cortisone injections. -continue aleve and gabapentin -[facility] referral natoma urgent -Keep appointment for Tuesday to see Dr. Bains and then second opinion with [facility]. Assessment & Plan (02/28/2024 12:45 PM EDT): Patient noted to have motor deficits on the right leg with + SLR. MRI lumbar spine - [facility] Gabapentin 100mg nightly Continue heat and ice [...] past. She thinks that W Sarbjit Elder Pipe Organ Mechanic Apprentice may have washed clothes differently (same products) [...] with ANA MARIA bandages. Requests referral to [facility]. If any signs of worsened redness [...] Type Department Care Team Description 06/17/2025 Telephone [facility] Internal [facility] [address] [place] [address] Jose Alberto Bridges MD Protected Health Informtion (PHI) 05/22/2025 Refill [facility] [address] [facility] [place] [address] Jose Alberto Bridges MD Medication Refill 05/20/2025 11:00 AM EDT Office Visit [facility] [address] [facility] [place] [place] [address] Jose Alberto Bridges MD Primary hypertension (Primary Dx); Acquired hypothyroidism; Hypercholesterolemia; Need for prophylactic vaccination and inoculation against influenza; Type 2 diabetes mellitus with diabetic polyneuropathy, without long-term current use of insulin; Age-related osteoporosis without current pathological fracture; Vitamin D deficiency, unspecified; Anemia, unspecified type; Nocturia 04/17/2025 Refill [facility] [address] [place] [address] Jose Alberto Bridges MD Medication Refill 04/05/2025 Refill [facility] [address] [facility] [place] [address] Jose Alberto Bridges MD Medication Refill from [...] Description 12/11/2025 11:00 AM EDT Office Visit [facility] Internal Medicine [address] [place] [address] Jose Alberto Bridges MD [address] [place] [address] [email or web address] Health Maintenance Due Date Last Done Comments [...] (11/29/2024) Hemoglobin A1c - External 6.0 % [facility] Provider LAB BLOOD ORDERABLES Delmi l Result [...] LAB BLOOD BKR ORDERABLES Delmi l Result [address] [address] * Outside HDL (04/20/2024) HDL - External 47 40 - 80 mg/dL EXTERNAL NON-INTERFACED REF LAB Historical Provider LAB BLOOD ORDERABLES Delmi l Result EXTERNAL NON-INTERFACED REF LAB from Last 3 Months or Most Recently Relevant to Health Maintenance Insurance MEDICARE PART A & B [employer] MEDEX SUPPLEMENT MEDICARE PART A & B [employer] MEDEX SUPPLEMENT MEDICARE PART A & B [employer]EX SUPPLEMENT MEDICARE PART A & B [employer] MEDEX SUPPLEMENT MEDICARE PART A & B [employer] MEDEX SUPPLEMENT MEDICARE PART A & B [employer] MEDEX SUPPLEMENT MEDICARE PART A & B [employer] MEDEX SUPPLEMENT MEDICARE PART A & B [employer] MEDEX SUPPLEMENT MEDICARE PART A & B [employer] MEDEX SUPPLEMENT Advance Directives For more information, please contact: [phone] (9AM - 5PM [facility], Tuesday-Tuesday) Documents on File Type Date Recorded Patient Pre K Special Education Teacher Expl anation MOLST 07/13/2024 12:30 PM Healthcare Proxy 03/14/2023 Healthcare Proxy- 03/14/2023 * DNR OK to Intubate (Latest Code Status on File) Date Activated Date Inactivated Comments 03/14/2023 11:07 AM Question Answer Comments Code Status Confirmed With: Patient Code Status Communicated To: PCP Care Teams Automotive Machinist Apprentice Relationship Specialty Start Date End Date Jose Alberto Bridges MD [address] [place] [address] [email or web address] PCP - General Internal Medicine 07/01/17 Jose Alberto Bridges MD [address] [place] [address] Insurance Assigned Provider 11/19/23 Kalia Rico PA [address] [facility] [place] [address] Unknown Provider Specialty 06/09/20 Belinda Garcia DPM [address] [place] [address] Podiatry 09/02/20 Additional Source Comments The information contained in this document represents components of the legal health record. It is not the complete legal health record.[facility]
[2025-07-11 14:23] LABS: NTXCreaRU 24 mg/dL (20-275)
== END 2025-07-05 03:31 | disposition home or self-care (01) ==
LOC: HO.HMGCLNP 03:30
PROVIDERS: PCP Internal Medicine; Visit Provider Internal Medicine Endocrinology, Diabetes & Metabolism
DX: M81.0 Age-related osteoporosis without current pathological fracture (principal)
CPT/HCPCS: 82523

== ENCOUNTER 2025-08-03 13:12 | Inpatient (IN) | payer MEDICARE, SELFPAY ==
--- OUTSIDE RECORDS SUMMARY | 2024-04-23 04:15 | XMS_ITS ---
Author Organization [facility] Address [address] [place] [phone] Care Team Providers Care Rate Manager Name Role Phone Jose Alberto Bridges MD Primary Care Provider Unavaila Belinda Samuel Unavailable [phone] REASON FOR VISIT too soon Encounters Encounter Location Date Provider Diagnosis [address] [address] 04/23/2024 Belinda Garcia Plan Of Treatment Next Appt Details Provider Name:Belinda Valle Jose , 08/22/2025 11:15:00 AM, [address] [place] [address], [phone], Provider Name:Belinda Garcia , 10/31/2025 11:00:00 AM, [address] [place] [address], [phone], Progress Notes * Lory STANLEY ADOB:[birth year] (89 yo F)Acc No.[id number]:04/23/2024 Progress Note Patient: Marcelo EUCEDA Lory Valle Provider: Adela Garcia DPM :1935 A ge:88 Y S ex:Female Date:04/23/2024 Address:[address] [place] [phone] Pcp:Jose Alberto Bridges MD Subjective: * Chief [...] DPM Date: 0 04/23/2024 Generated for Ayleen Ramirez/Adrian on: 1 10/04/2024 02:24 PM EST
--- OUTSIDE RECORDS SUMMARY | 2025-02-25 08:30 | XMS_ITS ---
Author Organization [facility] Address [address] [place] [id number] Care Team Providers Care Implementation Manager Name Role Phone Cyrus HODGES, Jose Alberto Primary Care Provider Unavaila Belinda Samuel [phone] Encounters Encounter Location Date Provider Diagnosis [address] [address] 02/25/2025 Belinda Garcia Plan Of Treatment Next Appt Details Provider Name:Belinda Valle Jose , 08/22/2025 11:15:00 AM, [address] [place] [address], [phone], Provider Name:Belinda Garcia , 10/31/2025 11:00:00 AM, [address] [place] [address], [phone], Progress Notes * Lory STANLEY ADOB:[birth year] (89 yo F)Acc No.[id number]:02/25/2025 Progress Note Patient: Marcelo EUCEDA Lory Valle Provider: Adela Garcia DPM :1935 A ge:89 Y S ex:Female Date:02/25/2025 Address:[address] [place] [address] [id number] Pcp:Jose Alberto Bridges MD Subjective: * Chief Complaints: * * Medical History: Objective: * Vitals: Assessment: Plan: * Treatment: * Images: * The named appointment provid er may or may not be the originator of this progress note, and it is not deemed complete until electronically signed by the appointment provider. Sign off status: Pending * Provider: Adela Garcia DPM Date: 0 02/25/2025 Generated for Ayleen Ramirez/Adrian on: 1 10/04/2024 02:24 PM EST
--- NOTE | ~2025-08-03 | CT_ITS ---
CLINICAL HISTORY: abd pain CT abdomen and pelvis with IV contrast. COMPARISON: None provided. FINDINGS: Small hiatal hernia. Minimal atelectasis along the lung bases. Moderate intrahepatic biliary ductal dilatation. Common bile duct is normal in caliber measuring up to 6 mm. Cystic lesion along the sundeep hepatis measuring 3.9 x 3.5 x 3.7 cm. This appears to communicate with the biliary tree and may represent a biloma. Normal spleen. Normal pancreas. Normal adrenal glands. Symmetric renal enhancement. Bilateral renal cystic lesions measuring up to 3.6 cm on the left and 1.3 cm on the right. No hydronephrosis. Appendix is not identified. No right lower quadrant or pericecal inflammatory changes. Mild thickening of the mucosa of the descending and transverse colon. No mesenteric or retroperitoneal lymphadenopathy. Moderate aortoiliac atherosclerotic vascular calcifications. Normal appearance of the urinary bladder. No adnexal mass. [place] left curvature of the upper lumbar spine. Advanced multilevel spondylosis. No acute fracture or suspicious bone lesion. IMPRESSION: 1. Mild diffuse thickening of the mucosa of the descending and sigmoid colon may be secondary to degree of contraction or represent an early/mild colitis. Recommend correlation clinically. No bowel obstruction. 2. 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 Suspect this is a chronic finding given likely cholecystectomy. Recommend correlation with prior imaging and clinical history. 3. Small hiatal hernia. This document has been electronically signed by: John Pickett MD on 08/03/2025 16:55:26
[2025-08-03 13:29] VITALS: BP 145/74; BP 161/83; PULSE 117; PULSE 91; RESP 18; TEMP 37.7; O2SAT 98; BMI 26.3
--- NOTE | 2025-08-03 13:51 | ECG_ITS ---
Test Reason : N/V Blood Pressure : */* mmHG Vent. Rate : 118 BPM Atrial Rate : 118 BPM P-R Int : 158 ms QRS Dur : 72 ms QT Int : 328 ms P-R-T Axes : 25 -34 15 degrees QTcB Int : 459 ms Poor data quality Sinus tachycardia with Premature atrial complexes Left axis deviation Abnormal ECG When compared with ECG of 01-Aug-2023 15:06, Premature atrial complexes are now Present Referred By: Regina Hardin Electronically Signed By: Pranav Smyth
[2025-08-03 14:18] LABS: Hematocrit 36.0 % (37.0-47.0); Hemoglobin 11.5 g/dl (12.0-16.0); Imm Gran Abs Auto 0.09 X10*3/uL (0.00-0.03); Imm Gran Pct Auto 0.5 % (0.0-0.4); Lymphocytes Absolute Auto 0.3 X10*3/uL (1.2-4.9); Mean Corpuscular HGB Conc 31.9 g/dl (31.0-35.0); Mean Corpuscular Hemoglobin 26.2 pg (27.0-33.0); Mean Corpuscular Volume 82.0 fL (80.0-98.0); NRBC Abs Auto 0.000 X10*3/uL (0.0-0.012); NRBC Pct Auto 0.0 /100WBC (0.0-0.2); Platelet Count 272 X10*3/uL (160-400); Red Blood Count 4.39 X10*6/uL (4.20-5.50); SCAN SMEAR FLAG 1; White Blood Count 18.7 X10*3/uL (4.8-10.8)
--- OUTSIDE RECORDS SUMMARY | 2025-08-03 14:24 | XMS_ITS | Encounter Summary ---
Author Organization [facility] Address [address] [place] [address] Phone Care Team Providers Care Sheep Killer Name Role Phone Jose Alberto Bridges MD Unavailable [phone] Jose Alberto Bridges MD Primary Care Provider [phone] Kalia Rico Unavailable [phone] Belinda Garcia DPM Unavailable [phone] Encounter Details Date Type Department Care Team (Late st Contact Info) Description 07/08/2025 Orders Only [facility] [address] [place] [address] Provider, MD Sonu [address] [place] [address] Social History Tobacco Use Types Packs/Day Years [...] Description 12/11/2025 11:00 AM EDT Office Visit [facility] [address] [place] [address] Jose Alberto Bridges MD [address] [place] [address] [email or web address] documented as of this encounter Procedures Procedure Name Priority Date/Time Associated Diagnosis Comments OUTSIDE LAB Routine 07/04/2025 1:24 PM EST documented in this encounter Results * Outside Lab (Non-[facility]) (07/04/2025 1:24 PM EST) us Historical Provider LAB BLOOD BKR ORDERABLES Final Result documented in this encounter Visit Diagnoses Not on filedocumented in this encounter Additional Health Concerns Assessment Noted Time PHQ-2 Depression Total Score: 0 11/20/19 25 11:59 AM EDT documented as of this encounter Care Teams Sheep Killer Relationship Specialty Start Date End Date Jose Alberto Bridges MD [address] [place] [address] [email or web address] PCP - General Internal Medicine 07/01/17 Jose Alberto Bridges MD [address] [place] [address] Insurance Assigned Provider 11/19/23 Kalia Rico PA [address] [place] [address] Unknown Provider Specialty 06/09/20 Belinda Garcia DPM [address] [place] [address] Podiatry 09/02/20 documented as of this encounter Additional Source Comments The information contained in this document represents components of the legal health record. It is not the complete legal health record.[facility]
--- OUTSIDE RECORDS SUMMARY | 2025-08-03 14:24 | XMS_ITS | Patient Health Record ---
Author Organization [facility] Address [address] [place] [address] Care Team Providers Care Power Checker Name Role Phone Jose Alberto Bridges MD Primary Care Provider Unavaila Dwaine Pickard Unavailable [phone] WU ALMAZAN Unavailable Unavailable Reason For Referral No Information Problems Problem Type SNOMED Code ICD Code Onset Dates Problem Status W/U Status Risk Notes Problem Diverticulosis of colon (finding) (739276828) Diverticulosis of colon (without mention of hemorrhage) (562.10) Active confirmed Problem Blood in stool (249880295) Blood in stool (578.1) Active confirmed Problem History of polyp of colon (situation) (449895361) Personal history of colonic polyps (V12.72) Active confirmed Problem Family history of malignant neoplasm of gastrointestinal tract (431031395) Family history of malignant neoplasm of gastrointestinal tract (V16.0) Active confirmed Plan Of Treatment No Information Insurance Providers Payer Name Payer Address Payer Phone Subscriber Number Group Number Insured Name Patient Relationship to Insured Coverage Start Date Coverage End Date MEDICARE OF [place] [address] [place] LOPEZ [id number] ROSINA STANLEY Self - patient is the insured MED[employer] ATT[employer] CLAIMS [address] [place] [address] [phone] [id number] ROSINA STANLEY Self - patient is the insured
--- OUTSIDE RECORDS SUMMARY | 2025-08-03 14:24 | XMS_ITS | Encounter Summary ---
Author Organization [facility] Address [address] [place] [address] Phone Care Team Providers Care Scorekeeper Name Role Phone Jose Alberto Bridges MD Unavailable [phone] Jose Alberto Bridges MD Primary Care Provider [phone] Kalia Rico Unavailable [phone] Belinda Garcia DPM Unavailable [phone] Encounter Details Date Type Department Care Team (Late st Contact Info) Description 07/12/2025 Orders Only [facility] [address] [place] [address] Provider, MD Sonu [address] [place] [address] Social History Tobacco Use Types Packs/Day [...] Description 12/11/2025 11:00 AM EDT Office Visit [facility] [address] [place] [address] Jose Alberto Bridges MD [address] [place] [address] [email or web address] documented as of this encounter Procedures Procedure Name Priority Date/Time Associated Diagnosis Comments OUTSIDE LAB Routine 07/05/2025 12:55 PM EST documented in this encounter Results * Outside Lab (Non-MGB) (07/05/2025 12:55 PM EST) us Historical Provider LAB BLOOD BKR ORDERABLES Final Result documented in this encounter Visit Diagnoses Not on filedocumented in this encounter Additional Health Concerns Assessment Noted Time PHQ-2 Depression Total Score: 0 11/20/19 25 11:59 AM EDT documented as of this encounter Care Teams Scorekeeper Relationship Specialty Start Date End Date Jose Alberto Bridges MD [address] [place] [address] [email or web address] PCP - General Internal Medicine 07/01/17 Jose Alberto Bridges MD [address] [place] [address] Insurance Assigned Provider 11/19/23 Kalia Rico PA [address] [place] [address] Unknown Provider Specialty 06/09/20 Belinda Garcia DPM [address] [place] [address] Podiatry 09/02/20 documented as of this encounter Additional Source Comments The information contained in this document represents components of the legal health record. It is not the complete legal health record.[facility]
--- OUTSIDE RECORDS SUMMARY | 2025-08-03 14:24 | XMS_ITS | Patient Health Record ---
Author Organization [facility] [place] Address [address] [place] [address] Care Team Providers Care Wellness Rn Name Role Phone Jose Alberto Bridges MD Primary Care Provider Belinda Farfan Unavailable [phone] Allergies Allergen (clinical drug ingredient) Drug/Non Drug [...] Range Notes HEMOGLOBIN A1C (GLYCOHEMOGLO BIN) Reviewed date:03/21/2025 11:04:45 [...] a day Not-Taking Vitamin D 50 MCG (1999 UT) [...] Problem Acquired hammer toe of right foot (569176386683434 5) Other hammer toe(s) (acquired), right foot (M20.41) Active confirmed Response to treatment, Improvement Problem Acquired hammer toe of left foot (987921722069789 3) Other hammer toe(s) (acquired), left foot (M20.42) Active confirmed Response to treatment, Improvement Problem Polyneuropathy due to type 2 diabetes mellitus (204188681) Type 2 diabetes mellitus with diabetic polyneuropathy (E11.42) Active confirmed Vital Signs Blood pressure diastolic 80 mm Hg 05/30/2025 Height 4 ft 11 in in 05/30/2025 Blood pressure systolic 128 mm Hg 05/30/2025 Weight 137 lbs 05/30/2025 BMI 27.67 kg/m2 05/30/2025 Procedures Procedure Date Ordered Date Performed Result Body Sit e 36164-BCSCCSQ NAIL, 6 OR MORE 09/10/2024 N/A 23340-ODIL SKIN LESIONS, 2 TO 4 09/10/2024 N/A 03615-BWSCJUI NAIL, 6 OR MORE 11/12/2024 N/A 46166-Vaegqync Plate 11/12/2024 N/A 26944-CUQG SKIN LESIONS, 2 TO 4 11/12/2024 N/A 19907-BESSFIE NAIL, 6 OR MORE 01/10/2025 N/A 88801-Fznxaavc Plate 01/10/2025 N/A 89800-SAAX SKIN LESIONS, 2 TO 4 01/10/2025 N/A 15198-EQDLVMS NAIL, 6 OR MORE 03/21/2025 N/A 63776-WIOL SKIN LESIONS, 2 TO 4 03/21/2025 N/A 60255-HLFWIVY NAIL, 6 OR MORE 05/30/2025 N/A 16867-Flnddnfg Plate 05/30/2025 N/A 93857-WEHF SKIN LESIONS, 2 TO 4 05/30/2025 N/A Encounters Encounter Location Date Provider Diagnosis [facility] [address] [address] 09/10/2024 Belinda Black Type 2 diabetes mellitus with diabetic polyneuropathy E11.42 ; Other hammer toe(s) (acquired), right foot M20.41 ; Tinea unguium B35.1 and Other hammer toe(s) (acquired), left foot M20.42 [facility] [address] [address] 11/12/2024 Belinda Black Type 2 diabetes mellitus with diabetic polyneuropathy E11.42 ; Tinea unguium B35.1 and Ingrown nail L60.[address] [address] 01/10/2025 Belinda Black Tinea unguium B35.1 ; Ingrown nail L60.0 and Type 2 diabetes mellitus with diabetic polyneuropathy E11.[address] [address] 03/21/2025 Belinda Black Tinea unguium B35.1 ; Type 2 diabetes mellitus with diabetic polyneuropathy E11.42 ; Other hammer toe(s) (acquired), right foot M20.41 and Other hammer toe(s) (acquired), left foot M20.[address] [address] 05/30/2025 Belinda Black Tinea unguium B35.1 ; Type 2 diabetes mellitus with diabetic polyneuropathy E11.42 and Ingrown nail L60.[address] [address] 02/22/2025 Belinda Black Assessments Encounter Date Diagnosis [...] Treatment Pending Test Test Name Order Date 00221-DGNZHNT NAIL, 6 OR MORE 05/27/2011 19404-JVHRJFR NAIL, 6 OR MORE 08/05/2011 92023-EUHLIID NAIL, 6 OR MORE 10/18/2011 67179-TKQQHEA NAIL, 6 OR MORE 12/29/2011 72920-ESUOMIO NAIL, 6 OR MORE 08/02/2012 81898-SUQUBHH NAIL, 6 OR MORE 10/18/2012 83110-DSMJDPK NAIL, 6 OR MORE 02/05/2013 29938-NWIBZTL NAIL, 6 OR MORE 05/07/2013 26054-MTRFMEK NAIL, 6 OR MORE 03/20/2012 45180-YDARPIP NAIL, 6 OR MORE 06/05/2012 37711-HZDIXOE NAIL, 6 OR MORE 11/12/2013 36419-KKNZKXW NAIL, 6 OR MORE 02/04/2014 21375-FDJYMBC NAIL, 6 OR MORE 04/22/2014 30883-KMWMILJ NAIL, 6 OR MORE 07/08/2014 30499-TYKOJEK NAIL, 6 OR MORE 10/23/2014 23052-TBPNYLK NAIL, 6 OR MORE 12/26/2014 30664-FCFJGGS NAIL, 6 OR MORE 03/12/2015 34596-QEUWRRI NAIL, 6 OR MORE 06/09/2015 77320-HANABBU NAIL, 6 OR MORE 08/21/2015 60935-ECWIUGC NAIL, 6 OR MORE 10/29/2015 59380-SILWYKE NAIL, 6 OR MORE 01/16/2016 15947-OLBWHPU NAIL, 6 OR MORE 03/22/2016 03616-JAHSGBX NAIL, 6 OR MORE 06/14/2016 63701-OHQAVGL NAIL, 6 OR MORE 09/06/2016 80646-HVHVTIO NAIL, 6 OR MORE 11/15/2016 12289-TDWKPPU NAIL, 6 OR MORE 01/24/2017 73681-ZNXHZBU NAIL, 6 OR MORE 04/04/2017 50057-UQABGOE NAIL, 6 OR MORE 06/13/2017 96059-OFHWDQR NAIL, 6 OR MORE 09/01/2017 88370-WZFLMAG NAIL, 6 OR MORE 11/10/2017 42363-AFXLRAJ NAIL, 6 OR MORE 01/12/2018 31395-NQUGSKU NAIL, 6 OR MORE 03/16/2018 36500-MFSQVRO NAIL, 6 OR MORE 05/29/2018 34581-RNMNXKC NAIL, 6 OR MORE 11/06/2018 59118-QYHGIFA NAIL, 6 OR MORE 01/15/2019 14281-QLMWAOT NAIL, 6 OR MORE 03/26/2019 71290-EXELPNE NAIL, 6 OR MORE 06/07/2019 51402-AQRARLY NAIL, 6 OR MORE 10/18/2019 88181-NEXQQOJ NAIL, 6 OR MORE 12/24/2019 40233-BXQKHHI NAIL, 6 OR MORE 03/03/2020 15895-WHXQQBW NAIL, 6 OR MORE 06/05/2020 35248-UVFBILZ NAIL, 6 OR MORE 08/25/2020 46755-GZWDJYV NAIL, 6 OR MORE 12/05/2020 93677-OKOZHOE NAIL, 6 OR MORE 02/12/2021 08502-TVZQHVD NAIL, 6 OR MORE 05/04/2021 47031-PFSCVFX NAIL, 6 OR MORE 07/23/2021 57080-HNNEZLN NAIL, 6 OR MORE 11/05/2021 30765-VZLXLSA NAIL, 6 OR MORE 02/08/2022 41441-VGMNOKV NAIL, 6 OR MORE 05/10/2022 15149-XWOMEVA NAIL, 6 OR MORE 08/05/2022 52748-DIAORRP NAIL, 6 OR MORE 12/06/2022 71872-MIZRWXP NAIL, 6 OR MORE 02/24/2023 13730-HUNWJGF NAIL, 6 OR MORE 08/18/2023 80880-IFUKXFN NAIL, 6 OR MORE 10/27/2023 09651-ZPPBAVN NAIL, 6 OR MORE 01/02/2024 06617-OQIMIMM NAIL, 6 OR MORE 03/08/2024 07548-NJRYXSI NAIL, 6 OR MORE 06/04/2024 92236-RFBVNZL NAIL, 6 OR MORE 09/10/2024 65980-CKDGPNF NAIL, 6 OR MORE 11/12/2024 48628-DRXGAOD NAIL, OR MORE 01/10/2025 16465-ECMUTBT NAIL, 6 OR MORE 03/21/2025 59089-BNBQBOG NAIL, 6 OR MORE 05/30/2025 58055-Twrx Destruction, 1-14 08/18/2023 57218-Vdsm Destruction, 1-14 08/05/2022 42869-Nxxg Destruction, 1-14 05/10/2022 95045-Lubgnpal Plate 11/05/2021 12221-Oohphzpl Plate 07/23/2021 64741-Erotqmkf Plate 05/04/2021 20459-Rkkkuokw Plate 06/05/2020 51373-Foxrcmsp Plate 08/25/2020 05500-Dhnzuyes Plate 12/05/2020 47500-Thzhksha Plate 03/03/2020 83066-Wvaiuvhj Plate 12/06/2022 10095-Usxiclyl Plate 05/30/2025 58267-Fqhdfjgx Plate 11/12/2024 70587-Bhwljhrv Plate 01/10/2025 10133-Remkeoif Plate 02/24/2023 33935-Kgwjftry Plate 06/04/2024 14423-Tatozhkw Plate 12/24/2019 66720-Hgyhheie Plate 08/02/2019 27133-Wblfudhq Plate 03/26/2019 45450-Fobiqobg Plate 11/06/2018 39313-Yopqdogu Plate 05/29/2018 71901-Ewbceapp Plate 01/12/2018 44062-Sdrtqgcz Plate 06/13/2017 45052-Lhmaxbfs Plate 09/01/2017 56608-Nimvtvdz Plate 04/04/2017 00843-Oesdddja Plate 11/15/2016 65819-Dtzbqzks Plate 01/24/2017 54251-Cjivemhv Plate 09/06/2016 31193-Dptnxtbe Plate 06/14/2016 99105-Dwwqndyx Plate 06/09/2015 61231-Qqnoubkd Plate 03/12/2015 42487-Rdjizupz Plate 12/26/2014 78690-Xbvdmpje Plate 07/08/2014 57406-Qmhuvxse Plate 10/23/2014 56559-Naebddia Plate 04/22/2014 29796-Rhklqmoe Plate 02/04/2014 49899-Vlxcqbas Plate 06/05/2012 73022-Duxcmoxs Plate 05/07/2013 88180-Zylfqmov Plate 10/18/2011 44928-Ikgpmlup Plate 08/05/2011 13457-Odmxdxnm Plate Each Additional 06270-Mofivrii Plate Each Additional 75764-Ffkcjtgb Plate Each Additional 06/2015 81816-Lqcvumwj Plate Each Additional 86415-Vbyupjdw Plate Each Additional 24271-Wunbvrnq Plate Each Additional 72130-Wjcrexoi Plate Each Additional 42267-Yukogcrq Plate Each Additional 78899-Blpobaku Plate Each Additional 19787-Szintsex Plate Each Additional 14217-Nuympfyu Plate Each Additional 04/2021 84447-Caxnvizr Plate Each Additional 54962- Debride <25 sq cm 11/12/2013 81579 I&D ABSCESS- SIMPLE,SINGLE 011 54201 I&D ABSCESS- SIMPLE,SINGLE 012 10659 I&D ABSCESS- SIMPLE,SINGLE 018 08492 I&D ABSCESS- SIMPLE,SINGLE 022 77082-DFNC SKIN LESIONS, 2 TO 4 02/09/20 22 19007-WEQN SKIN LESIONS, 2 TO 4 08/05/20 22 69257-HDPX SKIN LESIONS, 2 TO 4 07/23/20 21 42766-UNIZ SKIN LESIONS, 2 TO 4 11/06/19 22 97886-MSTC SKIN LESIONS, 2 TO 4 05/04/20 18230-HFUP SKIN LESIONS, 2 TO 4 12/06/19 41728-GWWX SKIN LESIONS, 2 TO 4 02/13/20 30270-QQWI SKIN LESIONS, 2 TO 4 12/24/19 16406-UBJW SKIN LESIONS, 2 TO 4 03/03/20 26372-SXVX SKIN LESIONS, 2 TO 4 08/25/19 72790-PZBC SKIN LESIONS, 2 TO 4 06/05/20 87688-JRUG SKIN LESIONS, 2 TO 4 12/07/19 07021-HQWU SKIN LESIONS, 2 TO 4 02/25/20 29763-PINU SKIN LESIONS, 2 TO 4 06/04/20 11601-IXDU SKIN LESIONS, 2 TO 4 01/02/20 15523-LFDJ SKIN LESIONS, 2 TO 4 03/08/20 81401-EFLW SKIN LESIONS, 2 TO 4 08/18/19 06728-KSHA SKIN LESIONS, 2 TO 4 10/27/19 90727-FMGJ SKIN LESIONS, 2 TO 4 09/10/19 30923-ZUTG SKIN LESIONS, 2 TO 4 01/11/20 21220-JUUP SKIN LESIONS, 2 TO 4 11/13/19 58929-VKMU SKIN LESIONS, 2 TO 4 03/21/20 39334-FUMB SKIN LESIONS, 2 TO 4 05/30/20 41581-HGRJ SKIN LESIONS, 2 TO 4 01/16/20 52206-WNYG SKIN LESIONS, 2 TO 4 03/26/20 61065-HJSD SKIN LESIONS, 2 TO 4 06/07/20 48605-QPYP SKIN LESIONS, 2 TO 4 10/18/19 16154-Nqlbszeh Benign Lesion 0.5cm 10/30 Next Appt Details Provider Name:Belinda Garcia , 08/22/2025 11:15:00 AM, [address] [place] [address], [phone], Provider Name:Belinda Garcia , 10/31/2025 11:00:00 AM, [address] [place] [address], [phone], Insurance Providers Payer Name Payer Address Payer Phone Subscriber Number Group Number Insured Name Patient Relationship to Insured Coverage Start Date Coverage End Date Medicare National [employer]t Sv[employer] [address] [place] [address] [phone] [id number] Lory Piña Self - patient is the insured [facility] [address] [place] [address] [id number] Lory Piña Self - patient is the [...] and PT 1 x a week 08/01/23-08/05/23 [facility]- Gi issues stay a few days 08/2020 [facility]- Sciatica 06/29/20 06/30/20 [facility]- Fall- swollen eye - head scan 03/27 ER in [place]-Sepsis Infection in hand- IV antibiotics/Flu 07/2019 [facility] for headache and stomach bacterial i nfection 12/2017 [facility] for acute diverculitis 2018
--- OUTSIDE RECORDS SUMMARY | 2025-08-03 14:24 | XMS_ITS | Clinical Summary ---
Author Organization [facility] Address [address] [address] Phone Care Team Providers Care Superintendent Circus Name Role Phone Jose Alberto Bridges MD Unavailable [phone] Jose Alberto Bridges MD Primary Care Provider [phone] Kalia Rico Unavailable [phone] BlackBelinda DPM Unavailable [phone] Allergies Active Allergy Reactions Criticality Noted Date [...] BEFORE BREAKFAST 90 tablet 3 05/22/20 Active ciprofloxacin HCl (CIPRO) 250 MG tablet Take 1 tablet (250 mg total) by mouth 2 (two) times a day for 7 days. 14 tablet 07/23/20 25 025 Active Problems Problem Noted Date Diagnosed Date Lymphedema 05/09/2024 Overview (05/09/2024): h [facility] vascular for lymphedema w/ Dr. Lidia Matthews [...] right-sided sciat ica 02/28/2024 Overview (05/09/2024): Saw [facility] Spine Ghulam brown PA-C 04/13/24 - was to see [facility]SS for possible L5 nerve block if this fails- she can r/t and consider surgery with Dr. Bains Assessment & Plan (04/04/2024 12:25 PM EDT): Significant findings on MRI of spine patient is set to see Dr. Bains on Tuesday who is a neurosurgeon out of [place]. We had a discussion with regards to her findings of her MRI and the concern for questionable if she would be a surgical candidate versus facet cortisone injections. -continue aleve and gabapentin -[facility] referral [place] urgent -Keep appointment for Tuesday to see Dr. Bains and then second opinion with [facility]. Assessment & Plan (02/28/2024 12:45 PM EDT): Patient noted to have motor deficits on the right leg with + SLR. MRI lumbar spine - [facility] Gabapentin 100mg nightly Continue heat [...] well in the past. She thinks that Yoana Schaffer [employer] may have washed clothes differently (same products) [...] with ANA MARIA bandages. Requests referral to [facility]. If any signs of worsened redness [...] Encounters Date Type Department Care Team Description 07/23/2025 Telephone [facility] [address] [place] [address] Jose Alberto Bridges MD Results 07/12/2025 Orders Only [facility] [address] [place] [address] Sonu Bejarano MD 07/10/2025 Orders Only [facility] [address] [place] [address] Sonu Bejarano MD 07/08/2025 Orders Only [facility] [address] [place] [address] Sonu Bejarano MD 07/05/2025 Orders Only [facility] [address] [place] [address] Sonu Bejarano MD 06/17/2025 Telephone [facility] [address] [place] [address] Jose Alberto Bridges MD Protected Health Informtion (PHI) 05/22/2025 Refill [facility] [address] [place] [address] Jose Alberto Bridges MD Medication Refill 05/20/2025 11:00 AM EDT Office Visit [facility] [address] [place] [address] Jose Alberto Bridges MD Primary hypertension (Primary Dx); Acquired hypothyroidism; Hypercholesterolemia; Need for prophylactic vaccination and inoculation against influenza; Type 2 diabetes mellitus with diabetic polyneuropathy, without long-term current use of insulin; Age-related osteoporosis without current pathological fracture; Vitamin D deficiency, unspecified; Anemia, unspecified type; Nocturia from Last 3 Months Immunizations Immunization Administration Dates Next Due COVID-19 (Pre) Moderna Vaccine, Bivalent 6mo+ 05/24/2022 COVID-19 (Pre) Moderna Vaccine, mRNA, PF 10/23/2020,09/25/2020,06/16/2020 INFLUENZA, SPLIT [...] 12/11/2025 11:00 AM EDT Office Visit [facility] [address] [place] [address] Jose Alberto Bridges MD [address] [place] [address] [email or web address] Health Maintenance Due Date Last Done Comments ZOSTER VACCINES (1 of 2) 12/22/1985 RSV VACCINE (1 - 1-dose 75+ series) 12/22/2010 Adult Td,Tdap Booster 01/21/2025 01/21/2015, 005 COVID-19 VACCINE ( season) 2025 06/30/2023, 05/24/2022, 11/23/2021, Additional history exists LIPID PANEL 04/20/2025 04/20/2024, 090 01/2024, 04/20/2024, Additional history exists TSH LEVEL [...] OUTSIDE LAB Routine 07/05/2025 12:55 PM EST OUTSIDE LAB Routine 07/04/2025 2:40 PM EST OUTSIDE LAB Routine 07/04/2025 1:24 PM EST OUTSIDE LAB Routine 07/04/2025 11:22 AM EST OUTSIDE HEMOGLOBIN A1C Routine 11/29/2024 OUTSIDE POTASSIUM LEVEL Routine 11/29/2024 OUTSIDE SERUM CREATININE LEVEL Routine 11/29/2024 DEXA SCAN Routine 05/22/2024 11:49 AM EDT DIABETES EYE EXAM FOR RESULT ENTRY ONLY Routine 05/16/2024 12:01 PM EDT THYROID STIMULATING HORMONE (TSH) Routine 04/20/2024 11:50 AM EDT Acquired hypothyroidism OUTSIDE HDL Routine 04/20/2024 from Last 3 Months or Most Recently Relevant to Health Maintenance Results * Outside Lab (Non-MGB) (07/05/2025 12:55 PM EST) Only the most recent of4 resultswithin the time period is included. us Historical Provider LAB BLOOD BKR ORDERABLES Final Result * Outside Potassium Level (11/29/2024) Potassium level - External 4.5 3.4 - 5.0 mmol/L Result [facility] Provider MD LAB BLOOD ORDERABLES Delmi l Result * Outside HbA1c (11/29/2024) Hemoglobin A1c - External 6.0 % Result [facility] MD LAB BLOOD ORDERABLES Delmi l Result * (ABNORMAL) Outside Serum Creatinine Level (11/29/2024) Creatinine, serum - External 0.76(A) 0.8 - 1.3 mg/dL Result [facility] Provider MD LAB BLOOD ORDERABLES Delmi l Result * DEXA SCAN (05/22/2024 11:49 AM EDT) Result [facility] HEALTH MAINTENANCE Edited Result - Final * DIABETES EYE EXAM FOR RESULT ENTRY ONLY (05/16/2024 12:01 PM EDT) Result [facility] Provider HEALTH MAINTENANCE Edited Result - Final * TSH (04/20/2024 11:50 AM EDT) Blood Result [facility] Jose Alberto Bridges MD LAB BLOOD BKR ORDERABLES Delmi l Result [address] [address] * Outside HDL (04/20/2024) HDL - External 47 40 - 80 mg/dL EXTERNAL NON-INTERFACED REF LAB Result [facility] LAB BLOOD ORDERABLES Delmi l Result EXTERNAL NON-INTERFACED REF LAB from Last 3 Months or Most Recently Relevant to Health Maintenance Insurance MEDICARE PART A & B [employer]EX SUPPLEMENT MEDICARE PART A & B [employer] MED[employer] SUPPLEMENT MEDICARE PART A & B [employer] SUPPLEMENT MEDICARE PART A & B [employer] MEDEX SUPPLEMENT MEDICARE PART A & B [facility] [place] MEDEX SUPPLEMENT MEDICARE PART A & B [facility] [employer] MEDEX SUPPLEMENT MEDICARE PART A & B [employer] MEDEX SUPPLEMENT MEDICARE PART A & B [employer] MEDEX SUPPLEMENT MEDICARE PART A & B [employer] MEDEX SUPPLEMENT Advance Directives For more information, please contact: [phone] (9AM - 5PM Monique/[facility], Tuesday-Tuesday) Documents on File Type Date Recorded Patient Doctor Of Chiropractic Treva CHUAST 07/13/2024 12:30 PM Healthcare Proxy 03/14/2023 Healthcare Proxy- 03/14/2023 * DNR OK to Intubate (Latest Code Status on File) Date Activated Date Inactivated Comments 03/14/2023 11:07 AM Question Answer Comments Code Status Confirmed With: Patient Code Status Communicated To: PCP Care Teams Superintendent Circus Relationship Specialty Start Date End Date Jose Alberto Bridges MD [address] [place] [address] [email or web address] PCP - General Internal Medicine 07/01/17 Jose Alberto Bridges MD [address] [place] [address] [email or web address] Insurance Assigned Provider 11/19/23 Kalia Rico PA [address] [place] [address] Unknown Provider Specialty 06/09/20 Belinda Garcia DPM [address] [place] [address] Podiatry 09/02/20 Additional Source Comments The information contained in this document represents components of the legal health record. It is not the complete legal health record.[facility]
--- OUTSIDE RECORDS SUMMARY | 2025-08-03 14:24 | XMS_ITS | Encounter Summary ---
Author Organization [facility] Address [address] [facility] [address] [place] [address] Phone Care Team Providers Care Applications Specialist Name Role Phone Jose Alberto Bridges MD Unavailable [phone] Jose Alberto Bridges MD Primary Care Provider [phone] Kalia Rico Unavailable [phone] Belinda Garcia DPM Unavailable [phone] Encounter Details Date Type Department Care Team (Late st Contact Info) Description 03/07/2020 Orders Only [facility] [address] [place] [address] Jose Alberto Bridges MD [address] [place] [address] [id number] Social History Tobacco Use Types Packs/Day Years [...] Description 12/11/2025 11:00 AM EDT Office Visit [facility] Primary Care [facility] [address] [place], [place] [id number] Jose Alberto Bridges MD [address] [place], [place] [id number] documented as of this encounter Procedures Procedure Name Priority Date/Time Associated Diagnosis Comments COMPREHENSIVE METABOLIC PANEL (CMP) Routine 02/27/2020 CBC Routine 02/27/2020 THYROID STIMULATING HORMONE (TSH) Routine 02/27/2020 documented in this encounter Results * Comprehensive metabolic panel (02/27/2020) us Jose Alberto Bridges MD LAB BLOOD BKR ORDERABLES Edit ed Result - Final * CBC (02/27/2020) us Jose Alberto Bridges MD LAB BLOOD BKR ORDERABLES Edit ed Result - Final * TSH (02/27/2020) us Jose Alberto Bridges MD LAB BLOOD BKR ORDERABLES Edit ed Result - Final documented in this encounter Visit Diagnoses Not on filedocumented in this encounter Additional Health Concerns Assessment Noted Time PHQ-2 Depression Total Score: 0 12/06/19 20 9:28 AM EDT documented as of this encounter Care Teams Applications Specialist Relationship Specialty Start Date End Date Jose Alberto Bridges MD [address] [place] [address] [email or web address] PCP - General Internal Medicine 07/01/17 Jose Alberto Bridges MD [address] [place] [address] [email or web address] Insurance Assigned Provider 11/19/23 Kalia Rico PA [address] [facility] [place] [address] Unknown Provider Specialty 06/09/20 Belinda Garcia DPM [address] [place] [address] Podiatry 09/02/20 documented as of this encounter Additional Source Comments The information contained in this document represents components of the legal health record. It is not the complete legal health record.[facility]
--- OUTSIDE RECORDS SUMMARY | 2025-08-03 14:24 | XMS_ITS | Encounter Summary ---
Author Organization [facility] Address [address] [place] [address] Phone Care Team Providers Care Chute Boss Name Role Phone Jose Alberto Bridges MD Unavailable [phone] Jose Alberto Bridges MD Primary Care Provider [phone] Kalia Rico Unavailable [phone] Belinda Garcia DPM Unavailable [phone] Encounter Details Date Type Department Care Team (Late st Contact Info) Description 07/05/2025 Orders Only [facility] [address] [place] [address] Provider, MD Sonu [address] [place] [id number] Social History Tobacco Use Types Packs/Day [...] Description 12/11/2025 11:00 AM EDT Office Visit [facility] [address] [place] [address] Jose Alberto Bridges MD [address] [place] [address] [email or web address] documented as of this encounter Procedures Procedure Name Priority Date/Time Associated Diagnosis Comments OUTSIDE LAB Routine 07/04/2025 2:40 PM EST documented in this encounter Results * Outside Lab (Non-[facility]) (07/04/2025 2:40 PM EST) us Historical Provider LAB BLOOD BKR ORDERABLES Final Result documented in this encounter Visit Diagnoses Not on filedocumented in this encounter Additional Health Concerns Assessment Noted Time PHQ-2 Depression Total Score: 0 11/20/19 25 11:59 AM EDT documented as of this encounter Care Teams Chute Boss Relationship Specialty Start Date End Date Jose Alberto Bridges MD [address] [place] [address] [email or web address] PCP - General Internal Medicine 07/01/17 Jose Alberto Bridges MD [address] [place] [address] Insurance Assigned Provider 11/19/23 Kalia Rico PA [address] [place] [address] Unknown Provider Specialty 06/09/20 Belinda Garcia DPM [address] [place] [address] Podiatry 09/02/20 documented as of this encounter Additional Source Comments The information contained in this document represents components of the legal health record. It is not the complete legal health record.[facility]
--- OUTSIDE RECORDS SUMMARY | 2025-08-03 14:24 | XMS_ITS | Encounter Summary ---
Author Organization [facility] Address [address] [place] [address] Phone Care Team Providers Care Stretcher Leveler Operator Helper Name Role Phone Jose Alberto Bridges MD Unavailable [phone] Jose Alberto Bridges MD Primary Care Provider [phone] Kalia Rico Unavailable [phone] Belinda Garcia DPM Unavailable [phone] Encounter Details Date Type Department Care Team (Late st Contact Info) Description 07/10/[address] [facility] [address] [place] [address] Provider, MD Sonu [address] [place] [address] Social History Tobacco Use Types Packs/Day [...] Description 12/11/2025 11:00 AM EDT Office Visit [facility] [address] [place] [address] Jose Alberto Bridges MD [address] [place] [address] [email or web address] documented as of this encounter Procedures Procedure Name Priority Date/Time Associated Diagnosis Comments OUTSIDE LAB Routine 07/04/2025 11:22 AM EST documented in this encounter Results * Outside Lab (Non-[facility]) (07/04/2025 11:22 AM EST) us Historical Provider LAB BLOOD BKR ORDERABLES Final Result documented in this encounter Visit Diagnoses Not on filedocumented in this encounter Additional Health Concerns Assessment Noted Time PHQ-2 Depression Total Score: 0 11/20/19 25 11:59 AM EDT documented as of this encounter Care Teams Stretcher Leveler Operator Helper Relationship Specialty Start Date End Date Jose Alberto Bridges MD [address] [place] [address] [email or web address] PCP - General Internal Medicine 07/01/17 Jose Alberto Bridges MD [address] [place] [address] Insurance Assigned Provider 11/19/23 Kalia Rico PA [address] [place] [address] Unknown Provider Specialty 06/09/20 Belinda Garcia DPM [address] [place] [address] Podiatry 09/02/20 documented as of this encounter Additional Source Comments The information contained in this document represents components of the legal health record. It is not the complete legal health record.[facility]
[2025-08-03 14:47] LABS: Alanine Aminotransferase 13 U/L (0-31); Albumin Level 4.3 g/dL (3.5-5.0); Alkaline Phosphatase 64 U/L (39-117); Anion Gap 18 (12-20); Aspartate Amino Transferase 34 U/L (5-31); Blood Urea Nitrogen 42 mg/dL (9-16); Calcium 9.2 mg/dL (8.4-10.2); Carbon Dioxide 21 mmol/L (22-29); Chloride 106 mmol/L (96-108); Creatinine Clr Calc Pharmacy 38.2; Estimated Glomerular Filt Rate > 60; Magnesium 1.9 mg/dL (1.6-2.6); Potassium 5.5 mmol/L (3.3-5.1); Sodium 139 mmol/L (135-145); Total Protein 7.5 g/dL (6.5-8.0)
[2025-08-03 14:59] LABS: Resp Syncy Virus RNA Qual PCR NEGATIVE (Negative); SARS COV2 PCR INHOUSE NEGATIVE (Negative)
--- NOTE | 2025-08-03 15:09 | ED_ITS ---
HPI - General Adult General Chief complaint: Nausea/Vomiting/Diarrhea Stated complaint: SEGAL,NAUSEA,VOMITING, HX HYPERTENSION PER EMS Time Seen by Provider: 08/03/25 15:09 Source: patient and EMS Mode of arrival: EMS Limitations: no limitations History of Present Illness ED Provider: Regina Hardin PA-C HPI narrative: Patient is an 89 year old female with a history of CHF, lymphedema, DM, LVH, pulmonary hypertension, ulcerative colitis, tricuspid regurg, mitral regurg, and aortic regurg presenting to the emergency department today with abdominal pain, nausea, vomiting, and headache. Patient states that she woke up and began having nausea, vomiting, and feeling generally unwell. Patient states that she developed a headache after beginning to vomit. Patient states that she had her gallbladder removed in her 30s. Patient denies any other complaints at this time. Related Data Home Medications ?Medication ?Instructions ?Recorded ?Confirmed metformin 500 mg tablet,extended 500 mg PO DAILY@0730 06/29/20 08/03/25 release 24 hr metoprolol succinate 100 mg 100 mg PO DAILY 06/29/20 1 10/04/24 tablet,extended release 24 hr naproxen sodium 220 mg capsule 220 mg PO Q12H PRN Pain 06/29/20 08/03/25 (Aleve) omeprazole 20 mg capsule,delayed 20 mg PO DAILY@0630 1 08/29/19 08/03/25 release magnesium oxide 500 mg PO DAILY 09/09/20 cholecalciferol (vitamin D3) 50 50 mcg PO DAILY 08/03/25 mcg (2,000 unit) capsule levothyroxine 50 mcg capsule 50 mcg PO DAILY@0600 03/0608/03/25 diclofenac sodium 1 % topical gel 4 g topical QID PRN SHOULDER PAIN 08/01/23 08/03/25 losartan 50 mg tablet 50 mg PO DAILY 08/01/2307/16 calcium carbonate 600 mg PO DAILY 01/12/25 acetaminophen 500 mg tablet 1,000 mg PO Q6H PRN Pain 1 10/04/24 08/03/25 (Acetaminophen Extra Strength) vitamin B complex 1 tab PO DAILY 08/03/2507/16 Previous Rx's ?Medication ?Instructions ?Recorded alendronate 70 mg tablet 70 mg PO QWEEK #12 tabs 06/15/25 Allergies Allergy/AdvReac Type Severity Reaction Status Date / Time morphine (MORPHINE) Allergy Unknown NAUSEA & Verified 08/03/25 13:30 VOMITING codeine (CODEINE) AdvReac Unknown DIGESTIVE Verified 08/03/25 13:30 PROBLEMS oxycodone AdvReac Unknown NAUSEA AND Verified 08/03/25 13:30 VOMITING tramadol (From ULTRAM) AdvReac Unknown DIGESTIVE Verified 08/03/25 13:30 PROBLEMS Codeine Phosphate Allergy Unknown Nausea and Uncoded 08/03/25 13:30 Vomiting codiene Allergy Unknown SOB, cp Uncoded 08/03/25 13:30 morphine Allergy Unknown n/v Uncoded 08/03/25 13:30 percocet Allergy Unknown vomiting Uncoded 08/03/25 13:30 Percodan Allergy Unknown Nausea and Uncoded 08/03/25 13:30 Vomiting percodan Allergy Unknown vomiting Uncoded 08/03/25 13:30 Review of Systems 2 Constitutional: Constitutional: Reports as per HPI Eyes: Eyes: Reports as per HPI ENT: Reports as per HPI Cardiovascular: Cardiovascular: Reports as per HPI Respiratory: Respiratory: Reports as per HPI Gastrointestinal: Gastrointestinal: Reports as per HPI Genitourinary: Genitourinary: Reports as per HPI Musculoskeletal: Musculoskeletal: Reports as per HPI Integumentary/Breasts: Skin/Breast: Reports as per HPI Neurologic: Reports as per HPI Psychiatric: Psychiatric: Reports as per HPI Endocrine: Endocrine: Reports as per HPI Hematologic/Lymphatic: Hematologic/Lymphatic: Reports as per HPI Allergic/Immunologic: Allergic/Immunologic: Reports as per HPI [facility] Past Medical History Attestation statement: The following information was validated with the patient. Source: old records reviewed and nursing notes reviewed Medical History (Updated 08/04/25 @ 00:10 by Alecia Muhammad RN) Vomiting Diabetes type 2, controlled Hypertension Thyroid disease Osteoporosis Infectious colitis Hyperlipidemia Arthritis Diabetes Surgical History History of surgery History of surgery History of carpal tunnel surgery History of cholecystectomy H/O sinus surgery H/O: hysterectomy Hx of appendectomy H/O adenoidectomy Hx of tonsillectomy History of total left knee replacement Family History Family History Mother Diabetes Social History Social History Household Members: None Housing: House Do you presently have visiting nurse or other home services: Yes Alcohol intake: current Alcohol intake frequency: holidays/special occasions only Comment: sleeping Patient Tobacco Use Status: Never used Tobacco Smoked in Last 30 Days: No Use of substances other than those prescribed or required for medical reasons: No Advance Directives: Yes Advance Directives on File: Yes Advance Directives Date on File: 08/01/23 Do you have a plan to hurt others: No Plan Recently lost weight without trying: Yes How much weight loss: 14-23 pounds Eating poorly because of decreased appetite: Yes Nutrition screen score: 5 Nutrition Risks: No Nutritional Risk Patient : No service: No Current occupational status: retired Physical Exam ED Vital Signs: Vital Signs - 24 hr 08/03/25 13:29 08/03/25 15:22 Temperature 99.8 F Pulse Rate 117 H 117 H Respiratory Rate 18 20 Blood Pressure 145/74 H 129/69 Pulse Oximetry 98 96 Oxygen Delivery Method Room Air Room Air BMI result Body Mass Index 26.3 Const General: cooperative, no acute distress, alert and awake Nutritional Appearance: well nourished Orientation/consciousness: patient oriented x3 HENMT Head: Yes normal to inspection and Yes atraumatic Ears: hearing grossly normal bilaterally and external ears normal General nose exam: Normal external nose present, no nasal discharge noted and no epistaxis Face and sinus: Yes normal facial exam, No abrasion and No laceration Mouth: Normal oral and palatal mucosa present, no drooling and no muffled voice Eyes General: appearance normal, both eyes and all related structures Periorbital: periorbital findings normal Eyelids: Yes eyelids normal Conjunctivae: conjunctivae normal Pupils: Equal, round and reactive pupils present EOM: EOMs intact bilaterally Neck Neck: Yes normal visual inspection and Yes full ROM Resp Effort & Inspection: normal respiratory effort and able to speak in complete sentences Cardio Rate: tachycardic Rhythm: regular rhythm GI Palpation (GI): Soft to palpation, not firm, Tenderness to palpation present (GI), no guarding and not rigid Neuro General: patient oriented x3, moves all extremities and CN's II-XI intact bilaterally Cranial nerves: Yes Equal, round and reactive pupils present Cognition (Neuro): normal cognition Extrem General: Yes normal to inspection, Yes full ROM and Yes capillary refill normal Psych Appearance: grossly normal Mental Status: mental status grossly normal Affect: normal affect Attitude: cooperative Thought process: Normal thought process present Thought content: Normal thought content present Insight: Good insight present (Psych) Medications Administered Generic Name Dose Route Start Last Admin Trade Name Freq PRN Reason Stop Dose Admin Acetaminophen 650 mg 08/03/25 18:58 08/03/25 22:37 Acetaminophen 325 Mg Tablet PO 650 mg Q6H PRN Administration Pain, Mild 1-3,fever,headache Calcium Carbonate 1,500 mg 08/04/25 09:00 08/04/25 08:50 Calcium Carbonate 750 Mg Tab.Chew PO 1,500 mg DAILY JULIA Administration Heparin Sodium (Porcine) 5,000 unit 08/03/25 19:00 08/04/25 06:20 Heparin Sodium,Porcine 5,000 Unit/Ml Vial SUBCUT 5,000 unit Q12H JULIA Administration Lactated Ringer's 1,000 mls @ 75 mls/hr 08/03/25 19:15 08/04/25 08:49 Lr IVCONT 75 mls/hr .[id number] JULIA Administration Piperacillin Sod/Tazobactam 100 mls @ 200 mls/hr 08/04/25 02:00 08/04/25 08:52 Sod 4.5 gm/ Sodium Chloride IV 08/10/25 01:59 200 mls/hr Q8H JULIA Administration Levothyroxine Sodium 50 mcg 08/04/25 06:00 08/04/25 04:36 Levothyroxine Sodium 50 Mcg Tablet PO 50 mcg DAILY@0600 JULIA Administration Magnesium Oxide 400 mg 08/04/25 09:00 08/04/25 08:50 Magnesium Oxide 400 Mg Tablet PO 400 mg DAILY JULIA Administration Metoprolol Succinate 100 mg 08/04/25 09:00 08/04/25 08:51 Metoprolol Succinate Er 100 Mg Tab.Er.24h PO 100 mg DAILY JULIA Administration Protocol Multivitamins/Vitamin C 1 tab 08/04/25 09:00 08/04/25 08:50 Multivitamin Tablet PO 1 tab DAILY JULIA Administration Omeprazole 20 mg 08/04/25 06:30 08/04/25 04:36 Omeprazole 20 Mg Capsule.Dr PO 20 mg DAILY@0630 JULIA Administration Sodium Chloride 3 ml 08/04/25 00:00 08/04/25 08:50 0.9 % Sodium Chloride Flush 3 Ml Syringe IVFLUSH Not Given QSHIFT JULIA Vitamin D 50 mcg 08/04/25 09:00 08/04/25 08:51 Cholecalciferol (Vitamin D3) 25 Mcg Tablet PO 50 mcg DAILY JULIA Administration Discontinued Medications Generic Name Dose Route Start Last Admin Trade Name Bakari PRN Reason Stop Dose Admin Sodium Chloride 500 mls @ 500 mls/hr 08/03/25 15:15 08/03/25 18:08 Ns IV 08/03/25 16:14 Infused .Q1H JULIA Infusion Piperacillin Sod/Tazobactam 50 mls @ 100 mls/hr 08/03/25 17:08 08/03/25 19:00 Sod 3.375 gm/ Sodium Chloride IV 08/03/25 17:37 Infused ONCE ONE Infusion Iohexol 100 ml 08/03/25 15:47 08/03/25 15:47 Iohexol 350 Mg/Ml 100 Ml Infus..Btl IV 08/03/25 15:48 85 ml ONCE ONE Administration Ondansetron HCl 4 mg 08/03/25 15:13 08/03/25 15:22 Ondansetron Hcl 4 Mg/2 Ml Vial IVPUSH 08/03/25 15:14 4 mg ONCE ONE Administration Medical Decision Making Medical Decision Making MDM Narrative: Patient is an 89 year old female with a history of CHF, lymphedema, DM, LVH, pulmonary hypertension, ulcerative colitis, tricuspid regurg, mitral regurg, and aortic regurg presenting to the emergency department today with abdominal pain, nausea, vomiting, and headache. Patient's physical exam was as noted in the physical exam portion of this note. Patient's blood work showed a WBC count of 18.7, potassium 5.5. Patient's EKG showed sinus tachycardia but no evidence of ischemia or infarct. Patient's abdominal CT showed evidence of colitis as well as a cystic lesion along the sundeep hepatis measuring up to 3.9cm that appears to communicate with the biliary tree that appears larger than previous studies. I consulted with the general surgeon, Dr. Carmona, who agreed with admission to the medicine service with IV Zosyn for colitis, and continued monitoring. States the patient is not a surgical candidate at this time (if she were to need surgery). I considered the patient potentially septic at 1708. Patient received 500ml of IV fluids and a dose of IV zofran. I explained my physical exam findings as well as all test results to the patient. I answered all questions asked by the patient. I spoke with the hospitalist team who agreed to admission. Patient verbalized agreement and understanding with this treatment plan and admission. Differential Diagnosis Differential Diagnoses: The differential diagnosis associated with the presentation includes Colitis Unable to tolerate PO intake Abd pain Nausea Vomiting Admission/Observation Consideration of admission/observation: Escalation of care including admission/observation considered Patient admitted as noted in the MDM Rationale portion of this note. Consult Healthcare Provider Management of the patient was discussed with: Hospitalist (agreed to admission as noted in the MDM Rationale portion of this note. ) and Pipe Coremaker (consulted with the general surgery team as noted in the MDM Rationale portion of this note. ) Lab Data [facility] Lab Attestation statement: I reviewed the patient's lab results. My interpretation of these results are in the MDM Rationale portion of this note. 08/04/25 07:09 08/03/25 14:11 Labs: Lab Results 08/03/25 08/03/25 Range/Units 14:11 18:07 WBC 18.7 H (4.8-10.8) X10*3/uL RBC 4.39 (4.20-5.50) X10*6/uL Hgb 11.5 L (12.0-16.0) g/dl Hct 36.0 L (37.0-47.0) % MCV 82.0 (80.0-98.0) fL MCH 26.2 L (27.0-33.0) pg MCHC 31.9 (31.0-35.0) g/dl RDW 14.7 (11.0-16.0) % Plt Count 272 (160-400) X10*3/uL MPV 11.3 (9.4-12.3) fL Immature Gran % (Auto) 0.5 H (0.0-0.4) % Neut % (Auto) 96.2 H (45-73) % Lymph % (Auto) 1.7 L (20-40) % [place] % (Auto) 1.3 L (2-11) % Eos % (Auto) 0.0 (0-4) % Baso % (Auto) 0.3 (0-2) % Lymph # (Auto) 0.3 L (1.2-4.9) X10*3/uL [place] # (Auto) 0.2 (0.1-1.2) X10*3/uL Eos # (Auto) 0.0 (0.0-0.4) X10*3/uL Baso # (Auto) 0.1 (0.0-0.2) X10*3/uL Abs Immat Gran (auto) 0.09 H (0.00-0.03) X10*3/uL Absolute Neuts (auto) 18.0 H (2.0-8.3) x10*3/uL Absolute Nucleated RBC 0.000 (0.0-0.012) X10*3/uL Nucleated RBC % (auto) 0.0 (0.0-0.2) /100WBC Sodium 139 (135-145) mmol/L Potassium 5.5 H D (3.3-5.1) mmol/L Chloride 106 (96-108) mmol/L Carbon Dioxide 21 L (22-29) mmol/L Anion Gap 18 (12-20) BUN 42 H (9-16) mg/dL Creatinine 0.78 (0.5-1.4) mg/dL Estim Creat Clear Calc 38.2 Estimated GFR > 60 Random Glucose 162 H (60-115) mg/dL Lactic Acid 1.7 (0.5-2.0) mmol/L Calcium 9.2 D (8.4-10.2) mg/dL Magnesium 1.9 (1.6-2.6) mg/dL Total Bilirubin 0.5 (0.0-1.0) mg/dL AST 34 H (5-31) U/L ALT 13 (0-31) U/L Alkaline Phosphatase 64 (39-117) U/L Troponin I High Sens 15.8 (<3.5-17.0) ng/L Total Protein 7.5 (6.5-8.0) g/dL Albumin 4.3 (3.5-5.0) g/dL Influenza Type A (PCR) NEGATIVE (Negative) Influenza Type B (PCR) NEGATIVE (Negative) RSV RNA Qual (PCR) NEGATIVE (Negative) SARS-CoV-2 RNA (RT-PCR) NEGATIVE (Negative) Independent Interpretation I performed an independent interpretation of an: EKG and CT Scan Interpretation: My interpretation is in agreement with the radiologist's impression of this imaging study as written below. CLINICAL HISTORY: abd pain CT abdomen and pelvis with IV contrast. COMPARISON: None provided. FINDINGS: Small hiatal hernia. Minimal atelectasis along the lung bases. Moderate intrahepatic biliary ductal dilatation. Common bile duct is normal in caliber measuring up to 6 mm. Cystic lesion along the sundeep hepatis measuring 3.9 x 3.5 x 3.7 cm. This appears to communicate with the biliary tree and may represent a biloma. Normal spleen. Normal pancreas. Normal adrenal glands. Symmetric renal enhancement. Bilateral renal cystic lesions measuring up to 3.6 cm on the left and 1.3 cm on the right. No hydronephrosis. Appendix is not identified. No right lower quadrant or pericecal inflammatory changes. Mild thickening of the mucosa of the descending and transverse colon. No mesenteric or retroperitoneal lymphadenopathy. Moderate aortoiliac atherosclerotic vascular calcifications. Normal appearance of the urinary bladder. No adnexal mass. Wolcott left curvature of the upper lumbar spine. Advanced multilevel spondylosis. No acute fracture or suspicious bone lesion. IMPRESSION: 1. Mild diffuse thickening of the mucosa of the descending and sigmoid colon may be secondary to degree of contraction or represent an early/mild colitis. Recommend correlation clinically. No bowel obstruction. 2. 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 Suspect this is a chronic finding given likely cholecystectomy. Recommend correlation with prior imaging and clinical history. 3. Small hiatal hernia. This document has been electronically signed by: John Pickett MD on 08/03/2025 16:55:26 Dictated By: John Pickett MD Signed By: Electronically signed by John Pickett MD 08/03/25 1656 I independently interpreted this EKG and am in agreement with the below findings: Vent. Rate: 118 BPM Atrial Rate: 118 BPM P-R Int: 158 ms QRS Dur: 72 ms QT Int: 328 ms P-R-T Axes: 25 -34 15 degrees QTcB Int: 459 ms Sinus tachycardia with Premature atrial complexes When compared with ECG of 01-Aug-2023 15:06, Premature atrial complexes are now Present DD/ 1407 Radiology Impression Discussion of test interpretation with radiology: I have reviewed the radiologist's reading. Independent Historian Clinical information obtained from an independent historian. History obtained from or confirmed by: EMS (EMS provided additional history and confirmed the history provided by the patient. ) Critical Care Time Critical Care Time Critical Care Time: Yes Total Critical Care Time: 57 Attestation: I spent 57 minutes of Critical Care Time with this patient. This does not include time spent on separately reported billable procedures. Discharge Plan Discharge Clinical Impression: Colitis Patient Disposition: Admitted As Inpatient Interventions: Admission Worksheet (ED) Last Done: 08/03/25 23:16 Discharge Date/Time: 08/04/25 00:10
[2025-08-03 15:22] VITALS: BP 129/69; PULSE 117; RESP 20; O2SAT 96
[2025-08-03 15:31] LABS: Troponin-I High Sensitivity 15.8 ng/L (<3.5-17.0)
[2025-08-03 15:35] LABS: MANUAL DIFF FLAG NO
[2025-08-03] MEDS: iohexoL 350 MG/ML 100 ML INFUS..BTL IV (15:47)
--- NOTE | 2025-08-03 17:21 | PM.CNGS ---
History of Present Illness Consult details Consult date: 08/03/25 Narrative: 89-year-old female here in the ER because of nausea and vomiting. She says she woke up around 630 this morning with vomiting. She said that she had multiple episodes all day. She says she may have had about 13 episodes of vomiting. She does therefore decided to come to emergency room. She denies any diarrhea. She denies significant abdominal pain She says that she feels better now and has had no vomiting for about 3 hours. She denies being nauseous anymore She had open cholecystectomy and appendectomy about 50 years ago. She has other multiple medical problems including LVH, mitral regurgitation, aortic regurgitation, tricuspid regurgitation, CHF, peripheral vascular disease and lymphedema. She says she still ambulates at home well. Review of Systems Constitutional: Constitutional: Denies chills and Denies fever(s) Cardiovascular: Cardiovascular: Denies chest pain, Denies dyspnea and Reports dyspnea on exertion Respiratory: Respiratory: Denies cough, Denies dyspnea and Reports dyspnea on exertion Gastrointestinal: Gastrointestinal: Denies hematochezia, Denies change in bowel habits and Reports vomiting Genitourinary: Genitourinary: Denies hematuria Musculoskeletal: Musculoskeletal: Reports back pain and Reports limited range of motion Neurologic: Denies focal weakness and Denies convulsions Psychiatric: Psychiatric: Denies depression and Denies mood swings PMFSH Past Medical History Medical History (Updated 08/04/25 @ 00:10 by Alecia Muhammad RN) Vomiting Diabetes type 2, controlled Hypertension Thyroid disease Osteoporosis Infectious colitis Hyperlipidemia Arthritis Diabetes Family History Family History Mother Diabetes Surgical History Surgical History History of surgery History of surgery History of carpal tunnel surgery History of cholecystectomy H/O sinus surgery H/O: hysterectomy Hx of appendectomy H/O adenoidectomy Hx of tonsillectomy History of total left knee replacement Social History Social History Household Members: None Housing: House Do you presently have visiting nurse or other home services: Yes Alcohol intake: current Alcohol intake frequency: holidays/special occasions only Comment: sleeping Patient Tobacco Use Status: Never used Tobacco Smoked in Last 30 Days: No Use of substances other than those prescribed or required for medical reasons: No Advance Directives: Yes Advance Directives on File: Yes Advance Directives Date on File: 08/01/23 Do you have a plan to hurt others: No Plan Recently lost weight without trying: Yes How much weight loss: 14-23 pounds Eating poorly because of decreased appetite: Yes Nutrition screen score: 5 Nutrition Risks: No Nutritional Risk Patient : No service: No Current occupational status: retired Meds Allergies Allergy/AdvReac Type Severity Reaction Status Date / Time morphine (MORPHINE) Allergy Unknown NAUSEA & Verified 08/03/25 13:30 VOMITING codeine (CODEINE) AdvReac Unknown DIGESTIVE Verified 08/03/25 13:30 PROBLEMS oxycodone AdvReac Unknown NAUSEA AND Verified 08/03/25 13:30 VOMITING tramadol (From ULTRAM) AdvReac Unknown DIGESTIVE Verified 08/03/25 13:30 PROBLEMS Codeine Phosphate Allergy Unknown Nausea and Uncoded 08/03/25 13:30 Vomiting codiene Allergy Unknown SOB, cp Uncoded 08/03/25 13:30 morphine Allergy Unknown n/v Uncoded 08/03/25 13:30 percocet Allergy Unknown vomiting Uncoded 08/03/25 13:30 Percodan Allergy Unknown Nausea and Uncoded 08/03/25 13:30 Vomiting percodan Allergy Unknown vomiting Uncoded 08/03/25 13:30 Active Medications: Current Medications Piperacillin Sod/Tazobactam (Sod 3.375 gm/ Sodium Chloride) 50 mls @ 100 mls/hr IV ONCE ONE Stop: 08/03/25 17:37 Home Medications ?Medication ?Instructions ?Recorded ?Confirmed ?Last Taken ?Type metformin 500 mg tablet,extended 500 mg PO DAILY@0730 06/29/20 08/03/25 08/02/25 History release 24 hr metoprolol succinate 100 mg 100 mg PO DAILY 06/29/20 08/03/25 08/02/25 History tablet,extended release 24 hr naproxen sodium 220 mg capsule 220 mg PO Q12H PRN Pain 06/29/20 08/03/25 08/02/25 History (Aleve) omeprazole 20 mg capsule,delayed 20 mg PO DAILY@0630 06/29/20 08/03/25 08/02/25 History release magnesium oxide 500 mg PO DAILY 09/09/20 08/03/25 08/02/25 History cholecalciferol (vitamin D3) 50 50 mcg PO DAILY 09/21/22 08/03/25 08/02/25 History mcg (2,000 unit) capsule levothyroxine 50 mcg capsule 50 mcg PO DAILY@0600 09/21/22 08/03/25 08/02/25 History diclofenac sodium 1 % topical gel 4 g topical QID PRN SHOULDER PAIN 08/01/23 08/03/25 08/02/25 History losartan 50 mg tablet 50 mg PO DAILY 08/01/23 08/03/25 08/02/25 History calcium carbonate 600 mg PO DAILY 01/12/25 08/03/25 08/02/25 History acetaminophen 500 mg tablet 1,000 mg PO Q6H PRN Pain 08/03/25 08/03/25 08/02/25 History (Acetaminophen Extra Strength) vitamin B complex 1 tab PO DAILY 08/03/25 08/03/25 08/02/25 History Physical Exam Vital Signs: Vital Signs: Last Vital Signs Temp 99.8 F 08/03/25 13:29 Pulse 117 H 08/03/25 15:22 Resp 20 08/03/25 15:22 BP 129/69 08/03/25 15:22 Pulse Ox 96 08/03/25 15:22 O2 Del Method Room Air 08/03/25 15:22 BMI result Body Mass Index 26.3 Const: General: comfortable and no acute distress Orientation/consciousness: patient oriented x3 Neck: Neck: Yes no lymphadenopathy Resp: Auscultation: clear to auscultation bilaterally Cardio: Rhythm: regular rhythm GI: Palpation (GI): Soft to palpation, nontender and no guarding Neuro: General: patient oriented x3 Results Labs 08/04/25 07:09 08/04/25 07:09 Labs: Abnormal lab results 08/03/25 Range/Units 14:11 WBC 18.7 H (4.8-10.8) X10*3/uL Hgb 11.5 L (12.0-16.0) g/dl Hct 36.0 L (37.0-47.0) % MCH 26.2 L (27.0-33.0) pg Immature Gran % (Auto) 0.5 H (0.0-0.4) % Neut % (Auto) 96.2 H (45-73) % Lymph % (Auto) 1.7 L (20-40) % [place] % (Auto) 1.3 L (2-11) % Lymph # (Auto) 0.3 L (1.2-4.9) X10*3/uL Abs Immat Gran (auto) 0.09 H (0.00-0.03) X10*3/uL Absolute Neuts (auto) 18.0 H (2.0-8.3) x10*3/uL Potassium 5.5 H D (3.3-5.1) mmol/L Carbon Dioxide 21 L (22-29) mmol/L BUN 42 H (9-16) mg/dL Random Glucose 162 H (60-115) mg/dL AST 34 H (5-31) U/L Short CBC 08/03/25 Range/Units 14:11 WBC 18.7 H (4.8-10.8) X10*3/uL Hgb 11.5 L (12.0-16.0) g/dl Hct 36.0 L (37.0-47.0) % Plt Count 272 (160-400) X10*3/uL BMP 08/03/25 14:11 Sodium 139 Potassium 5.5 H D Chloride 106 Carbon Dioxide 21 L BUN 42 H Creatinine 0.78 Calcium 9.2 D Liver Function 08/03/25 Range/Units 14:11 Total Bilirubin 0.5 (0.0-1.0) mg/dL AST 34 H (5-31) U/L ALT 13 (0-31) U/L Alkaline Phosphatase 64 (39-117) U/L Albumin 4.3 (3.5-5.0) g/dL All other labs normal. Imaging Abdomen CT scan report/results: report reviewed and image reviewed CT scan - pelvis: report reviewed and image reviewed Assessment and Plan (1) Vomiting: Status: Acute She has had multiple episodes of vomiting all day. This seems to have resolved the past 3 hours however I have reviewed her CAT scan and this shows some mild thickening of the left colon and sigmoid. There was note of a cystic structure in the gallbladder fossa but there is no surrounding inflammation. I am uncertain as to the etiology of this cystic structure but this seems to be asymptomatic and likely to be an incidental finding. Her symptoms are likely secondary to some form of colitis/enteritis. She denies any abdominal pain. Her abdominal exam is very benign I would agree to he had her for observation and gentle IV hydration. She is currently comfortable. I will follow along while she is in the hospital. Procedures Date of Service Date of Service: 08/04/25
--- NOTE | 2025-08-03 18:45 | PHA.MEDREC ---
Addendum entered by Christina Aleman RPh 08/03/25 18:59: Reviewed by [facility] Original Note: Pharmacy Consult ? Medication Reconciliation Pharmacy has completed the medication reconciliation. Confirmed medication list with patient and against pharmacy claims. Patient last took Alendronate 70 mg tablet on Tuesday, 07/31, per Rx instructions. Patient finished antibitiotic regimen of Ciprofloxacin 250 mg tablet by mouth BID on Tuesday. Patient takes 2 OTC Acetaminophen 500 mg tablets by mouth PRN for pain at Bedtime. Patient took all medications yesterday (08/02) aside from those mentioned above that have a different date.
--- NOTE | 2025-08-03 19:05 | PM.IMHP ---
History of Present Illness Date of Service: 08/03/25 Chief Complaint: Abdominal pain 89-year-old female with past medical history significant for heart failure, lymphedema, T2 dm, pulmonary hypertension, ulcerative colitis who presented to the hospital complaining of abdominal pain, nausea and and vomiting. Patient states that yesterday night she had a salmon for dinner, woke up with abdominal pain and vomiting, proximally 12 episodes, bilious content, no bleeding, called 911 and was brought into the hospital. Denies any fevers, hematochezia. In the ED labs showing WBC 18.7, potassium 5.5, creatinine 0.7, CT abdomen and pelvis showing mild diffuse thickening of mucosa in descending sigmoid colon. ED reached out to General surgery suggesting treating colitis with IV Zosyn and patient at this time most surgical candidate. Review of Systems Review of Systems: Fourteen point review of systems obtained, negative except as stated above [facility] Medical History (Updated 08/03/25 @ 19:06 by Baljinder Fregoso MD) Vomiting Diabetes type 2, controlled Hypertension Thyroid disease Osteoporosis Infectious colitis Hyperlipidemia Arthritis Diabetes Family History Mother Diabetes Surgical History History of surgery History of surgery History of carpal tunnel surgery History of cholecystectomy H/O sinus surgery H/O: hysterectomy Hx of appendectomy H/O adenoidectomy Hx of tonsillectomy History of total left knee replacement Social History Household Members: None Housing: House Do you presently have visiting nurse or other home services: No Alcohol intake: current Alcohol intake frequency: holidays/special occasions only Comment: sleeping Patient Tobacco Use Status: Never used Tobacco Smoked in Last 30 Days: No Use of substances other than those prescribed or required for medical reasons: No Advance Directives: Yes Advance Directives on File: Yes Advance Directives Date on File: 08/01/23 Do you have a plan to hurt others: No Plan service: No Current occupational status: retired Meds Allergies Allergy/AdvReac Type Severity Reaction Status Date / Time morphine (MORPHINE) Allergy Unknown NAUSEA & Verified 08/03/25 13:30 VOMITING codeine (CODEINE) AdvReac Unknown DIGESTIVE Verified 08/03/25 13:30 PROBLEMS oxycodone AdvReac Unknown NAUSEA AND Verified 08/03/25 13:30 VOMITING tramadol (From ULTRAM) AdvReac Unknown DIGESTIVE Verified 08/03/25 13:30 PROBLEMS Codeine Phosphate Allergy Unknown Nausea and Uncoded 08/03/25 13:30 Vomiting codiene Allergy Unknown SOB, cp Uncoded 08/03/25 13:30 morphine Allergy Unknown n/v Uncoded 08/03/25 13:30 percocet Allergy Unknown vomiting Uncoded 08/03/25 13:30 Percodan Allergy Unknown Nausea and Uncoded 08/03/25 13:30 Vomiting percodan Allergy Unknown vomiting Uncoded 08/03/25 13:30 Active Medications: Current Medications Calcium Carbonate (Calcium Carbonate 750 Mg Tab.Chew) 1,500 mg PO DAILY [facility] Levothyroxine Sodium (Levothyroxine Sodium 50 Mcg Tablet) 50 mcg PO DAILY@0600 [facility] Magnesium Oxide (Magnesium Oxide 400 Mg Tablet) 400 mg PO DAILY [facility] Metoprolol Succinate (Metoprolol Succinate Er 100 Mg Tab.Er.24h) 100 mg PO DAILY [facility]; Protocol Multivitamins/Vitamin C (Multivitamin Tablet) 1 tab PO DAILY [facility] Omeprazole (Omeprazole 20 Mg Capsule.Dr) 20 mg PO DAILY@0630 [facility] Vitamin D (Cholecalciferol (Vitamin D3) 25 Mcg Tablet) 50 mcg PO DAILY [facility] Home Medications ?Medication ?Instructions ?Recorded ?Confirmed ?Last Taken ?Type metformin 500 mg tablet,extended 500 mg PO DAILY@0730 06/29/20 08/03/25 08/02/25 History release 24 hr metoprolol succinate 100 mg 100 mg PO DAILY 06/29/20 08/03/25 08/02/25 History tablet,extended release 24 hr naproxen sodium 220 mg capsule 220 mg PO Q12H PRN Pain 06/29/20 08/03/25 08/02/25 History (Aleve) omeprazole 20 mg capsule,delayed 20 mg PO DAILY@0630 06/29/20 08/03/25 08/02/25 History release magnesium oxide 500 mg PO DAILY 09/09/20 08/03/25 08/02/25 History cholecalciferol (vitamin D3) 50 50 mcg PO DAILY 09/21/22 08/03/25 08/02/25 History mcg (2,000 unit) capsule levothyroxine 50 mcg capsule 50 mcg PO DAILY@0600 09/21/22 08/03/25 08/02/25 History diclofenac sodium 1 % topical gel 4 g topical QID PRN SHOULDER PAIN 08/01/23 08/03/25 08/02/25 History losartan 50 mg tablet 50 mg PO DAILY 08/01/23 08/03/25 08/02/25 History calcium carbonate 600 mg PO DAILY 01/12/25 08/03/25 08/02/25 History acetaminophen 500 mg tablet 1,000 mg PO Q6H PRN Pain 08/03/25 08/03/25 08/02/25 History (Acetaminophen Extra Strength) vitamin B complex 1 tab PO DAILY 08/03/25 08/03/25 08/02/25 History Physical Exam Vital Signs and Narrative: Vital Signs: Last Vital Signs Temp 99.8 F 08/03/25 13:29 Pulse 117 H 08/03/25 15:22 Resp 20 08/03/25 15:22 BP 129/69 08/03/25 15:22 Pulse Ox 96 08/03/25 15:22 O2 Del Method Room Air 08/03/25 15:22 BMI result Body Mass Index 26.3 General: AxOx3, No acute distress Head: AT/NC ENT: Dry mucous membranes Neck: supple CVS; increased rate and rhythm Lungs: Clear bilateral breath sounds, no wheezes or crackles Abd: Soft non tender, non distended Ext: No calf tenderness MSK: moving all 4 limbs Skin: Bilateral extremity edema Psych: Cooperative with exam Neurology: no focal deficit Results Labs 08/03/25 14:11 08/03/25 14:11 Labs: Laboratory Results - last 24 hr 08/03/25 08/03/25 14:11 18:07 MCV 82.0 MCH 26.2 L MCHC 31.9 RDW 14.7 Plt Count 272 MPV 11.3 Immature Gran % (Auto) 0.5 H Neut % (Auto) 96.2 H Lymph % (Auto) 1.7 L [place] % (Auto) 1.3 L Eos % (Auto) 0.0 Baso % (Auto) 0.3 Lymph # (Auto) 0.3 L [place] # (Auto) 0.2 Eos # (Auto) 0.0 Baso # (Auto) 0.1 Abs Immat Gran (auto) 0.09 H Absolute Neuts (auto) 18.0 H Absolute Nucleated RBC 0.000 Nucleated RBC % (auto) 0.0 Anion Gap 18 Estim Creat Clear Calc 38.2 Estimated GFR > 60 Random Glucose 162 H Lactic Acid 1.7 Calcium 9.2 D Magnesium 1.9 Total Bilirubin 0.5 AST 34 H ALT 13 Alkaline Phosphatase 64 Troponin I High Sens 15.8 Total Protein 7.5 Albumin 4.3 Influenza Type A (PCR) NEGATIVE Influenza Type B (PCR) NEGATIVE RSV RNA Qual (PCR) NEGATIVE SARS-CoV-2 RNA (RT-PCR) NEGATIVE Assessment and Plan (1) Gastroenteritis: Status: Acute Plan Assessment: 89-year-old female with past medical history significant for heart failure, T2 dm, lymphedema, ulcerative colitis who presented to the hospital for nausea and vomiting that began earlier today with about 15 episodes since this morning. In the ED CT scan showing early colitis, per general surgery suggested on IV antibiotics and no surgical procedure at this time. Gastroenteritis, with CT scan showing diffuse thickening of mucosa of descending and sigmoid colon Leukocytosis, likely multifactorial setting of gastroenteritis and decreased p.o. intake -labs and imaging reviewed. Fecal calprotectin ordered, unlikely UC flare-up. -blood cultures ordered and pending, UA ordered given dehydration, which may show hyaline casts -at this time we will initiate LR at 75 mL/hour -continue with IV Zosyn, monitor for any signs of worsening fever, pain -GI panel ordered -Zofran p.r.n. for nausea/vomiting Hypothyroidism, chronic -continue with levothyroxine 50 mcg q.d., monitor for any signs of lethargy. Hypertension, chronic -will give PRN meds, given high normal potassium Hyperkalemia -will continue with IVF and hold off on losartan at this time T2DM a1c 6.4 Will hold of on metformin, initiate ISS Anemia, likely of chronic disease Monitor for any signs of bleeding, shortness of breath, palpitations FEN: LR. replete as needed, NPO at this time GI PPx: Protonix 40mg IV DVT PPx: SCDs, heparin Code Status: DNR, but yes for intubation for 1 day if needed Disposition: Patient will require 2 overnight stays at least giving gastroenteritis requiring IV fluids. Total time managing care of this patient today: 75 minutes. Quality Stroke Does the patient have a stroke diagnosis?: No VTE Prior VTE?: No VTE Risk Level:: Medical - moderate - high VTE Device Contraindication: N/A - Device Ordered VTE Drug Contraindication: N/A - Med Ordered
[2025-08-03] MEDS: Lactated Ringers 1,000 ML 75 ML IVCONT (19:46)
[2025-08-03 19:55] VITALS: BP 96/52; PULSE 120; RESP 18; TEMP 36.4
[2025-08-03 21:10] LABS: Appearance Urine Clear; Glucose Urine UA Negative (Negative); PH 5.0 (5.0-9.0); Specific Gravity - Urine >= 1.030 (1.005-1.025); UMIC TRIGGER UACC YES
[2025-08-03 21:24] LABS: UACC Culture Trigger YES
[2025-08-03 22:26] VITALS: BP 122/53; PULSE 112; RESP 15; TEMP 37.9; O2SAT 93
--- NOTE | 2025-08-03 22:29 | PC.NURSE ---
Dr Larios made aware of vitals. pt is axox4 speaking full clear sentences. denies pain. initially BP 89/53 upon repositioning pt BP 122/53.
--- NOTE | 2025-08-03 23:11 | HO.NURTONUR ---
pt is axox4 from home, uses walker, came in after having ?13 episodes of vomiting this AM. found to have colitis, currently NPO. had rectal temp of 100.2F, given tylenol. has not had n/v/d since arrival, pending GI panel. LR infusing 20 RAC.
[2025-08-04] VITALS (7 sets, daily range): BP systolic 115–138; BP diastolic 54–71; PULSE 75–110; RESP 16–18; TEMP 36.3–37.4; O2SAT 96–98; BMI 28.7
[2025-08-04 08:17] LABS: Hematocrit 29.7 % (37.0-47.0); Hemoglobin 9.3 g/dl (12.0-16.0); Mean Corpuscular HGB Conc 31.3 g/dl (31.0-35.0); Mean Corpuscular Hemoglobin 26.2 pg (27.0-33.0); Mean Corpuscular Volume 83.7 fL (80.0-98.0); NRBC Abs Auto 0.000 X10*3/uL (0.0-0.012); NRBC Pct Auto 0.0 /100WBC (0.0-0.2); Platelet Count 240 X10*3/uL (160-400); Red Blood Count 3.55 X10*6/uL (4.20-5.50); White Blood Count 7.4 X10*3/uL (4.8-10.8)
[2025-08-04] MEDS: Lactated Ringers 1,000 ML 75 ML IVCONT ×2 (08:49→20:41)
--- NOTE | 2025-08-04 08:49 | MHC.CM.PN ---
IMM delivered. Patient lives in a home alone. Independent w/ care. Ambulates w/ walker. Has home making services via [employer] for laundry, shopping, cleaning, etc. PCP Jose Alberto Bridges MD HCP on file and verified. DP: Goal is home w/ PT via [facility]. Reports she used [facility] PT services after hospitalization in 2022 and found it helpful. Niece/alt HCP Shannan to transport. CM will continue to follow.
[2025-08-04] MEDS: Metoprolol Succinate ER 100 MG TAB.ER.24H PO (08:51)
--- NOTE | 2025-08-04 08:57 | HO.PM.IMPN ---
Subjective Subjective Date of Service: 08/04/25 Interval History: Patient seen and examined at bedside this morning, patient states that her abdominal pain has improved, is willing to try clear liquids today. Continues on IV antibiotics. Review of Systems Review of Systems: Yes all other systems are reviewed and are negative Physical Exam Exam: Exam: General: AxOx3, No acute distress Head: AT/NC ENT: Moist mucous membranes Neck: supple CVS; increased rate and rhythm Lungs: Clear bilateral breath sounds, no wheezes or crackles Abd: Soft non tender, non distended Ext: No calf tenderness MSK: moving all 4 limbs Skin: Bilateral extremity edema Psych: Cooperative with exam Neurology: no focal deficit Vital Signs: Vital Signs: Last Vital Signs Temp 99.3 F 08/04/25 07:19 Pulse 95 08/04/25 07:19 Resp 18 08/04/25 07:19 BP 124/59 L 08/04/25 07:19 Pulse Ox 96 08/04/25 07:19 O2 Del Method Room Air 08/04/25 07:19 BMI result Body Mass Index 28.7 Objective Data Active Medications Acetaminophen (Acetaminophen 325 Mg Tablet) 650 mg PO Q6H PRN PRN Reason: Pain, Mild 1-3,fever,headache Last Admin: 08/03/25 22:37 Dose: 650 mg Documented By: CARROL Calcium Carbonate (Calcium Carbonate 750 Mg Tab.Chew) 1,500 mg PO DAILY [facility] Last Admin: 08/04/25 08:50 Dose: 1,500 mg Documented By: KALEY Heparin Sodium (Porcine) (Heparin Sodium,Porcine 5,000 Unit/Ml Vial) 5,000 unit SUBCUT Q12H [facility] Last Admin: 08/04/25 06:20 Dose: 5,000 unit Documented By: EN Lactated Ringer's (Lr) 1,000 mls @ 75 mls/hr IVCONT .[id number] [facility] Last Admin: 08/04/25 08:49 Dose: 75 mls/hr Documented By: KALEY Piperacillin Sod/Tazobactam (Sod 4.5 gm/ Sodium Chloride) 100 mls @ 200 mls/hr IV Q8H [facility] Stop: 08/10/25 01:59 Last Admin: 08/04/25 08:52 Dose: 200 mls/hr Documented By: KALEY Ibuprofen (Ibuprofen 200 Mg Tablet) 200 mg PO Q6H PRN PRN Reason: Pain, Moderate(Pain Scale 4-6) Levothyroxine Sodium (Levothyroxine Sodium 50 Mcg Tablet) 50 mcg PO DAILY@0600 [facility] Last Admin: 08/04/25 04:36 Dose: 50 mcg Documented By: EN Magnesium Hydroxide (Milk Of Magnesia 30 Ml Oral.Susp) 30 ml PO DAILY PRN PRN Reason: Constipation Magnesium Oxide (Magnesium Oxide 400 Mg Tablet) 400 mg PO DAILY [facility] Last Admin: 08/04/25 08:50 Dose: 400 mg Documented By: KALEY Melatonin (Melatonin 3 Mg Tablet) 6 mg PO BEDTIME PRN PRN Reason: Insomnia Metoprolol Succinate (Metoprolol Succinate Er 100 Mg Tab.Er.24h) 100 mg PO DAILY [facility]; Protocol Last Admin: 08/04/25 08:51 Dose: 100 mg Documented By: KALEY Multivitamins/Vitamin C (Multivitamin Tablet) 1 tab PO DAILY [facility] Last Admin: 08/04/25 08:50 Dose: 1 tab Documented By: KALEY Omeprazole (Omeprazole 20 Mg Capsule.Dr) 20 mg PO DAILY@0630 [facility] Last Admin: 08/04/25 04:36 Dose: 20 mg Documented By: EN Sodium Chloride (0.9 % Sodium Chloride Flush 3 Ml Syringe) 3 ml IVFLUSH QSHIFT [facility] Last Admin: 08/04/25 08:50 Dose: Not Given Documented By: KALEY Non-Admin Reason: IV Running Vitamin D (Cholecalciferol (Vitamin D3) 25 Mcg Tablet) 50 mcg PO DAILY [facility] Last Admin: 08/04/25 08:51 Dose: 50 mcg Documented By: KALEY Labs 08/04/25 07:09 08/04/25 07:09 Labs: Laboratory Results - last 24 hr 08/03/25 08/03/25 08/03/25 14:11 18:07 21:02 MCV 82.0 MCH 26.2 L MCHC 31.9 RDW 14.7 Plt Count 272 MPV 11.3 Immature Gran % (Auto) 0.5 H Neut % (Auto) 96.2 H Lymph % (Auto) 1.7 L [place] % (Auto) 1.3 L Eos % (Auto) 0.0 Baso % (Auto) 0.3 Lymph # (Auto) 0.3 L [place] # (Auto) 0.2 Eos # (Auto) 0.0 Baso # (Auto) 0.1 Abs Immat Gran (auto) 0.09 H Absolute Neuts (auto) 18.0 H Absolute Nucleated RBC 0.000 Nucleated RBC % (auto) 0.0 Anion Gap 18 Estim Creat Clear Calc 38.2 Estimated GFR > 60 Random Glucose 162 H Lactic Acid 1.7 Calcium 9.2 D Magnesium 1.9 Total Bilirubin 0.5 AST 34 H ALT 13 Alkaline Phosphatase 64 Troponin I High Sens 15.8 Total Protein 7.5 Albumin 4.3 Urine Color Yellow Urine Appearance Clear Urine pH 5.0 Ur Specific [place] >= 1.030 H Urine Protein Trace Urine Glucose (UA) Negative Urine Ketones Trace Urine Blood Trace H Urine Nitrite Negative Ur Leukocyte Esterase Small (1+) H Urine RBC 3-5 H Urine WBC 21-50 H Ur Squamous Epith Cells 0-2 Urine Bacteria None Seen Hyaline Casts 0-2 Influenza Type A (PCR) NEGATIVE Influenza Type B (PCR) NEGATIVE RSV RNA Qual (PCR) NEGATIVE SARS-CoV-2 RNA (RT-PCR) NEGATIVE 08/04/25 07:09 MCV 83.7 MCH 26.2 L MCHC 31.3 RDW 15.2 Plt Count 240 MPV 11.4 Immature Gran % (Auto) Neut % (Auto) Lymph % (Auto) [place] % (Auto) Eos % (Auto) Baso % (Auto) Lymph # (Auto) [place] # (Auto) Eos # (Auto) Baso # (Auto) Abs Immat Gran (auto) Absolute Neuts (auto) Absolute Nucleated RBC 0.000 Nucleated RBC % (auto) 0.0 Anion Gap Estim Creat Clear Calc Estimated GFR Random Glucose Lactic Acid Calcium Magnesium Total Bilirubin AST ALT Alkaline Phosphatase Troponin I High Sens Total Protein Albumin Urine Color Urine Appearance Urine pH Ur Specific [place] Urine Protein Urine Glucose (UA) Urine Ketones Urine Blood Urine Nitrite Ur Leukocyte Esterase Urine RBC Urine WBC Ur Squamous Epith Cells Urine Bacteria Hyaline Casts Influenza Type A (PCR) Influenza Type B (PCR) RSV RNA Qual (PCR) SARS-CoV-2 RNA (RT-PCR) Assessment and Plan (1) Colitis: Status: Acute Plan Assessment: 89-year-old female with past medical history significant for heart failure, T2 dm, lymphedema, ulcerative colitis who presented to the hospital for nausea and vomiting that began earlier today with about 15 episodes since this morning. In the ED CT scan showing early colitis, per general surgery suggested on IV antibiotics and no surgical procedure at this time. Gastroenteritis, with CT scan showing diffuse thickening of mucosa of descending and sigmoid colon Leukocytosis, likely multifactorial setting of gastroenteritis and decreased p.o. intake, resolved -labs and imaging reviewed. Fecal calprotectin ordered, unlikely UC flare-up. -blood cultures ordered and pending, UA ordered given dehydration, which may show hyaline casts -at this time we will continue LR at 75 mL/hour -continue with IV Zosyn, monitor for any signs of worsening fever, pain -GI panel ordered and pending -Zofran p.r.n. for nausea/vomiting Hypothyroidism, chronic -continue with levothyroxine 50 mcg q.d., monitor for any signs of lethargy. Hypertension, chronic -will give PRN meds, given high normal potassium Hyperkalemia, resolved -will continue with IVF and hold off on losartan at this time T2DM a1c 6.4 Will hold of on metformin, continue ISS Anemia, likely of chronic disease Monitor for any signs of bleeding, shortness of breath, palpitations FEN: LR. replete as needed, clear liquid diet GI PPx: Protonix 40mg IV DVT PPx: SCDs, heparin Code Status: DNR, but yes for intubation for 1 day if needed Disposition: Patient will require 2 overnight stays at least giving gastroenteritis requiring IV fluids. Total time managing care of this patient today: 45 minutes. Quality Stroke Does the patient have a stroke diagnosis?: No VTE Prior VTE?: No VTE Risk Level:: Medical - moderate - high VTE Device Contraindication: N/A - Device Ordered VTE Drug Contraindication: N/A - Med Ordered
[2025-08-04 09:10] LABS: Anion Gap 13 (12-20); Blood Urea Nitrogen 40 mg/dL (9-16); Calcium 8.0 mg/dL (8.4-10.2); Carbon Dioxide 23 mmol/L (22-29); Chloride 110 mmol/L (96-108); Creatinine Clr Calc Pharmacy 40.4; Estimated Glomerular Filt Rate > 60; Magnesium 1.8 mg/dL (1.6-2.6); Potassium 3.8 mmol/L (3.3-5.1); Sodium 142 mmol/L (135-145)
--- NOTE | 2025-08-04 10:03 | P.PNGS_ITS ---
Subjective Subjective Date of Service: 08/04/25 Interval history: Feels much better Denies abdominal pain No nausea or vomiting No diarrhea No fever Physical Exam 2 Vital Signs: Vital Signs: Last Vital Signs Temp 99.3 F 08/04/25 07:19 Pulse 95 08/04/25 07:19 Resp 18 08/04/25 07:19 BP 124/59 L 08/04/25 07:19 Pulse Ox 96 08/04/25 07:19 O2 Del Method Room Air 08/04/25 07:19 BMI result Body Mass Index 28.7 Const: General: comfortable and no acute distress Resp: Effort & Inspection: normal respiratory effort Cardio: Rate: regular rate GI: Palpation (GI): Soft to palpation, not firm, nontender and no guarding Objective Data Active Medications Acetaminophen (Acetaminophen 325 Mg Tablet) 650 mg PO Q6H PRN PRN Reason: Pain, Mild 1-3,fever,headache Last Admin: 08/03/25 22:37 Dose: 650 mg Documented By: CARROL Calcium Carbonate (Calcium Carbonate 750 Mg Tab.Chew) 1,500 mg PO DAILY [facility] Last Admin: 08/04/25 08:50 Dose: 1,500 mg Documented By: KALEY Heparin Sodium (Porcine) (Heparin Sodium,Porcine 5,000 Unit/Ml Vial) 5,000 unit SUBCUT Q12H [facility] Last Admin: 08/04/25 06:20 Dose: 5,000 unit Documented By: EN Lactated Ringer's (Lr) 1,000 mls @ 75 mls/hr IVCONT .[id number] [facility] Last Admin: 08/04/25 08:49 Dose: 75 mls/hr Documented By: KALEY Piperacillin Sod/Tazobactam (Sod 4.5 gm/ Sodium Chloride) 100 mls @ 200 mls/hr IV Q8H [facility] Stop: 08/10/25 01:59 Last Infusion: 08/04/25 09:36 Dose: Infused Documented By: KALEY Ibuprofen (Ibuprofen 200 Mg Tablet) 200 mg PO Q6H PRN PRN Reason: Pain, Moderate(Pain Scale 4-6) Levothyroxine Sodium (Levothyroxine Sodium 50 Mcg Tablet) 50 mcg PO DAILY@0600 [facility] Last Admin: 08/04/25 04:36 Dose: 50 mcg Documented By: EN Magnesium Hydroxide (Milk Of Magnesia 30 Ml Oral.Susp) 30 ml PO DAILY PRN PRN Reason: Constipation Magnesium Oxide (Magnesium Oxide 400 Mg Tablet) 400 mg PO DAILY [facility] Last Admin: 08/04/25 08:50 Dose: 400 mg Documented By: KALEY Melatonin (Melatonin 3 Mg Tablet) 6 mg PO BEDTIME PRN PRN Reason: Insomnia Metoprolol Succinate (Metoprolol Succinate Er 100 Mg Tab.Er.24h) 100 mg PO DAILY [facility]; Protocol Last Admin: 08/04/25 08:51 Dose: 100 mg Documented By: KALEY Multivitamins/Vitamin C (Multivitamin Tablet) 1 tab PO DAILY [facility] Last Admin: 08/04/25 08:50 Dose: 1 tab Documented By: KALEY Omeprazole (Omeprazole 20 Mg Capsule.Dr) 20 mg PO DAILY@0630 [facility] Last Admin: 08/04/25 04:36 Dose: 20 mg Documented By: EN Sodium Chloride (0.9 % Sodium Chloride Flush 3 Ml Syringe) 3 ml IVFLUSH QSHIFT [facility] Last Admin: 08/04/25 08:50 Dose: Not Given Documented By: KALEY Non-Admin Reason: IV Running Vitamin D (Cholecalciferol (Vitamin D3) 25 Mcg Tablet) 50 mcg PO DAILY [facility] Last Admin: 08/04/25 08:51 Dose: 50 mcg Documented By: KALEY Labs 08/04/25 07:09 08/04/25 07:09 Labs: Laboratory Results - last 24 hr 08/03/25 08/03/25 08/03/25 14:11 18:07 21:02 MCV 82.0 MCH 26.2 L MCHC 31.9 RDW 14.7 Plt Count 272 MPV 11.3 Immature Gran % (Auto) 0.5 H Neut % (Auto) 96.2 H Lymph % (Auto) 1.7 L [place] % (Auto) 1.3 L Eos % (Auto) 0.0 Baso % (Auto) 0.3 Lymph # (Auto) 0.3 L [place] # (Auto) 0.2 Eos # (Auto) 0.0 Baso # (Auto) 0.1 Abs Immat Gran (auto) 0.09 H Absolute Neuts (auto) 18.0 H Absolute Nucleated RBC 0.000 Nucleated RBC % (auto) 0.0 Anion Gap 18 Estim Creat Clear Calc 38.2 Estimated GFR > 60 Random Glucose 162 H Lactic Acid 1.7 Calcium 9.2 D Magnesium 1.9 Total Bilirubin 0.5 AST 34 H ALT 13 Alkaline Phosphatase 64 Troponin I High Sens 15.8 Total Protein 7.5 Albumin 4.3 Urine Color Yellow Urine Appearance Clear Urine pH 5.0 Ur Specific [place] >= 1.030 H Urine Protein Trace Urine Glucose (UA) Negative Urine Ketones Trace Urine Blood Trace H Urine Nitrite Negative Ur Leukocyte Esterase Small (1+) H Urine RBC 3-5 H Urine WBC 21-50 H Ur Squamous Epith Cells 0-2 Urine Bacteria None Seen Hyaline Casts 0-2 Influenza Type A (PCR) NEGATIVE Influenza Type B (PCR) NEGATIVE RSV RNA Qual (PCR) NEGATIVE SARS-CoV-2 RNA (RT-PCR) NEGATIVE 08/04/25 07:09 MCV 83.7 MCH 26.2 L MCHC 31.3 RDW 15.2 Plt Count 240 MPV 11.4 Immature Gran % (Auto) Neut % (Auto) Lymph % (Auto) [place] % (Auto) Eos % (Auto) Baso % (Auto) Lymph # (Auto) [place] # (Auto) Eos # (Auto) Baso # (Auto) Abs Immat Gran (auto) Absolute Neuts (auto) Absolute Nucleated RBC 0.000 Nucleated RBC % (auto) 0.0 Anion Gap 13 Estim Creat Clear Calc 40.4 Estimated GFR > 60 Random Glucose 97 Lactic Acid Calcium 8.0 L D Magnesium 1.8 Total Bilirubin AST ALT Alkaline Phosphatase Troponin I High Sens Total Protein Albumin Urine Color Urine Appearance Urine pH Ur Specific [place] Urine Protein Urine Glucose (UA) Urine Ketones Urine Blood Urine Nitrite Ur Leukocyte Esterase Urine RBC Urine WBC Ur Squamous Epith Cells Urine Bacteria Hyaline Casts Influenza Type A (PCR) Influenza Type B (PCR) RSV RNA Qual (PCR) SARS-CoV-2 RNA (RT-PCR) Procedures Date of Service Date of Service: 08/04/25 Progress Note: A&P Assessment and plan (1) Vomiting: Status: Acute Assessment and Plan: Symptoms have resolved Abdomen is soft, benign and nontender She looks well clinically Likely to have had colitis/enteritis Okay to advance diet as tolerated Seems to be okay to be discharged once tolerating regular diet Time Spent With Patient Time: Total time managing care of this patient today ____ minutes. Quality Stroke Does the patient have a stroke diagnosis?: No VTE Prior VTE?: No VTE Risk Level:: Medical - moderate - high VTE Device Contraindication: N/A - Device Ordered VTE Drug Contraindication: N/A - Med Ordered
[2025-08-04 14:38] LABS: E. coli EAEC Not Detected (Not Detect.); E. coli EPEC Not Detected (Not Detect.); E. coli ETEC Not Detected (Not Detect.); E. coli STEC Not Detected (Not Detect.); Shigella sp./EIEC Not Detected (Not Detect.)
[2025-08-04] MEDS: 0.9 % Sodium Chloride Flush 3 ML SYRINGE IVFLUSH (15:16)
--- NOTE | 2025-08-04 18:57 | PC.NURSE ---
Pt noted to have a small amount of blood coming from her rectum. pt reports a history of hemorrhoids. MD made aware. will continue to monitor. steward/stewardess night nurse made aware.
[2025-08-04 23:15] LABS: Glucose, Whole Blood 85 mg/dL (60-115)
[2025-08-05] MEDS: 0.9 % Sodium Chloride Flush 3 ML SYRINGE IVFLUSH (00:10)
[2025-08-05 03:50] VITALS: BP 145/66; PULSE 75; RESP 16; TEMP 36.5; O2SAT 98
[2025-08-05 07:14] LABS: Hematocrit 32.4 % (37.0-47.0); Hemoglobin 9.8 g/dl (12.0-16.0); Mean Corpuscular HGB Conc 30.2 g/dl (31.0-35.0); Mean Corpuscular Hemoglobin 25.8 pg (27.0-33.0); Mean Corpuscular Volume 85.3 fL (80.0-98.0); NRBC Abs Auto 0.000 X10*3/uL (0.0-0.012); NRBC Pct Auto 0.0 /100WBC (0.0-0.2); Platelet Count 214 X10*3/uL (160-400); Red Blood Count 3.80 X10*6/uL (4.20-5.50); White Blood Count 4.0 X10*3/uL (4.8-10.8)
[2025-08-05 07:20] VITALS: BP 145/67; PULSE 79; RESP 18; TEMP 36.7; O2SAT 97
[2025-08-05 07:33] LABS: Anion Gap 13 (12-20); Blood Urea Nitrogen 19 mg/dL (9-16); Calcium 7.9 mg/dL (8.4-10.2); Carbon Dioxide 22 mmol/L (22-29); Chloride 110 mmol/L (96-108); Creatinine Clr Calc Pharmacy 48.6; Estimated Glomerular Filt Rate > 60; Magnesium 1.8 mg/dL (1.6-2.6); Potassium 4.1 mmol/L (3.3-5.1); Sodium 141 mmol/L (135-145)
[2025-08-05] MEDS: Metoprolol Succinate ER 100 MG TAB.ER.24H PO (08:30)
--- NOTE | 2025-08-05 13:38 | P.DS_ITS ---
DS: Providers Provider Date of admission: 08/03/25 19:27 Date of discharge: 08/05/25 Primary care physician: Jose Alberto Bridges MD DS: Diagnosis Discharge Diagnosis (1) Colitis: Status: Acute DS: Summary Hospital Course Hospital Course: 89-year-old female with past medical history significant for heart failure, T2 dm, lymphedema, ulcerative colitis who presented to the hospital for nausea and vomiting that began earlier today with about 15 episodes since this morning. In the ED CT scan showing early colitis, per general surgery suggested on IV antibiotics and no surgical procedure at this time. GI panel obtained showed GI panel obtained positive for norovirus, IV antibiotics discontinued. Gastroenteritis, with CT scan showing diffuse thickening of mucosa of descending and sigmoid colon, secondary to norovirus Leukocytosis, likely multifactorial setting of gastroenteritis and decreased p.o. intake, resolved -labs and imaging reviewed. -gi panel positive for norovirus -patient tolerating PO, no diarrhea. -PRN loperamide, encourage PO fluids -Zofran p.r.n. for nausea/vomiting Hypothyroidism, chronic -continue with levothyroxine 50 mcg q.d. Hypertension, chronic -restart home medications T2DM a1c 6.4 Restart home medications Anemia, likely of chronic disease Monitor for any signs of bleeding, shortness of breath, palpitations Time Attestation Discharge Coordination Time (in mins): 35 minutes Quality: Safe Use of Opioids Does Pt have an Active Cancer Diagnosis on the Problem List?: No Quality: Stroke Does the patient have a stroke diagnosis?: No Physical Exam Exam: Exam: General: AxOx3, No acute distress Head: AT/NC ENT: Moist mucous membranes Neck: supple CVS; regular rate and rhythm Lungs: Clear bilateral breath sounds, no wheezes or crackles Abd: Soft non tender, non distended Ext: No calf tenderness MSK: moving all 4 limbs Skin: Bilateral extremity edema Psych: Cooperative with exam Neurology: no focal deficit Vital Signs: Vital Signs: Last Vital Signs Temp 98.1 F 08/05/25 07:20 Pulse 79 08/05/25 07:20 Resp 18 08/05/25 07:20 BP 145/67 H 08/05/25 07:20 Pulse Ox 97 08/05/25 07:20 O2 Del Method Room Air 08/05/25 07:20 BMI result Body Mass Index 28.7 DS: Data Data Completed and Pending Completed studies during hospitalization [Text1]: Procedures Insertion of Infusion Device into Right Basilic Vein, Percutaneous Approach (08/01/23) Labs on day of discharge: Laboratory Results - last 24 hr 08/04/25 08/04/25 08/05/25 11:58 23:09 06:44 WBC 4.0 L RBC 3.80 L Hgb 9.8 L Hct 32.4 L MCV 85.3 MCH 25.8 L MCHC 30.2 L RDW 15.0 Plt Count 214 MPV 11.9 Absolute Nucleated RBC 0.000 Nucleated RBC % (auto) 0.0 Sodium 141 Potassium 4.1 Chloride 110 H Carbon Dioxide 22 Anion Gap 13 BUN 19 H Creatinine 0.64 Estim Creat Clear Calc 48.6 Estimated GFR > 60 POC Glucose 85 Random Glucose 86 Calcium 7.9 L Magnesium 1.8 Stl C. cayetanensis PCR Not Detected Stool Rotavirus A PCR Not Detected Stl Adenov F 40/41 PCR Not Detected Stool Astrovirus (PCR) Not Detected Stool Campylobacter PCR Not Detected Stool Cryptosporidium PCR Not Detected Stl Sh Tox Pr E STEC PCR Not Detected Stool E coli O157 PCR Not applicable Stl Enterotoxigenic E PCR Not Detected Stool EPEC (PCR) Not Detected Stool EAEC (PCR) Not Detected Stl E. histolytica PCR Not Detected Stool Giardia Lamblia PCR Not Detected Stl P. shigelloides PCR Not Detected Stool Salmonella PCR Not Detected Stool Sapovirus (PCR) Not Detected Stl Shigella/EIEC PCR Not Detected St Y.enterocolitica PCR Not Detected Stool Vibrio (PCR) Not Detected Stl Vibrio cholerae PCR Not Detected Stl Norovirus GI/GII PCR Detected A Preliminary micro results at discharge 08/03/25 18:07 Blood Culture - Preliminary Blood - Venous No growth after 24 hours. 08/03/25 18:07 Blood Culture - Preliminary Blood - Venous No growth after 24 hours. Discharge Plan Discharge Anticipated Discharge Date/Time: 08/05/25 14:36 Patient Disposition: Home, Self-Care Discharge Diagnosis: Viral Gastroenteritis Referrals: Jose Alberto Bridges MD [Primary Care Provider, Internal Medicine] - 1 Week Discharge Medications: Continued alendronate 70 mg tablet 70 mg PO QWEEK Qty: 12 3RF metoprolol succinate 100 mg tablet extended release 24 hr 100 mg PO DAILY omeprazole 20 mg capsule,delayed release(DR/EC) 20 mg PO DAILY@0630 metformin 500 mg tablet extended release 24 hr 500 mg PO DAILY@0730 naproxen sodium [Aleve] 220 mg Capsule 220 mg PO Q12H PRN (Reason: Pain) magnesium oxide 500 mg Tablet 500 mg PO DAILY vitamin B complex Tablet 1 tab PO DAILY acetaminophen [Acetaminophen Extra Strength] 500 mg Tablet 1,000 mg PO Q6H PRN (Reason: Pain) losartan 50 mg tablet 50 mg PO DAILY diclofenac sodium 1 % gel 4 g topical QID PRN (Reason: SHOULDER PAIN) Rx Instructions: apply to single knee, ankle, foot; for foot includes sole/toes/top of foot levothyroxine 50 mcg capsule 50 mcg PO DAILY@0600 cholecalciferol (vitamin D3) 50 mcg (2,000 unit) capsule 50 mcg PO DAILY calcium carbonate 600 mg calcium (1,500 mg) tablet 600 mg PO DAILY Discharge Orders: Discharge Order (Routine); Ordered 08/05/25 Ordered By: Baljinder Fregoso Activity on Discharge: As tolerated Stand Alone Forms: Patient Portal Discharge page Print Language: Stateless Care Plan Goals: continue oral fluids, monitor for any diarrhea, nausea/vomiting, fever Health Concerns: Viral gastroenteritis Plan of Treatment: continue PO fluids as needed medications for diarrhea Assessment: 89-year-old female with past medical history significant for heart failure, T2 dm, lymphedema, ulcerative colitis who presented to the hospital for nausea and vomiting that began earlier today with about 15 episodes since this morning. In the ED CT scan showing early colitis, per general surgery suggested on IV antibiotics and no surgical procedure at this time. GI panel obtained showed GI panel obtained positive for norovirus, IV antibiotics discontinued. Patient Instructions: Gastroenteritis (DC)
--- NOTE | 2025-08-05 14:18 | MHC.CM.PN ---
Pt. has been medically cleared to [place], she will go home via family transport, plan is self care.
[2025-08-14 17:38] LABS: Calprotectin, Fecal 465 mcg/g
== END 2025-08-05 15:05 | disposition home or self-care (01) | DRG 392 ==
LOC: HO.ED 17:31 → HO.EDOVER 19:35 → HO.IMC 23:10
PROVIDERS: Physician Assistant Medical; Admitting Provider Student in an Organized Health Care Education/Training Program; Emergency Provider Emergency Medicine; PCP Internal Medicine; Visit Provider Student in an Organized Health Care Education/Training Program
DX: A08.11 Acute gastroenteropathy due to Norwalk agent (principal); I08.3 Combined rheumatic disorders of mitral, aortic and tricuspid valves; I27.20 Pulmonary hypertension, unspecified; E86.0 Dehydration; E03.9 Hypothyroidism, unspecified; E87.5 Hyperkalemia; D63.8 Anemia in other chronic diseases classified elsewhere; Z20.822 Contact with and (suspected) exposure to COVID-19; Z79.84 Long term (current) use of oral hypoglycemic drugs; Z79.890 Hormone replacement therapy; Z79.899 Other long term (current) drug therapy
CPT/HCPCS: 36415; 74177; 80048; 80053; 81001; 82947; 83605; 83735; 83993; 84484; 85025; 85027; 87040; 87086; 87507; 87637; 93005; 99285; J1644; J2405; J2543; J7120; Q9967

== ENCOUNTER → 2025-08-03 13:51 | Outpatient (BNV) | payer MEDICARE, SELFPAY | PROVIDERS: Admitting Provider Student in an Organized Health Care Education/Training Program; Emergency Provider Emergency Medicine; PCP Internal Medicine; Visit Provider Internal Medicine Cardiovascular Disease | DX: R00.0 Tachycardia, unspecified (principal); I49.1 Atrial premature depolarization | CPT/HCPCS: 93010 ==

== ENCOUNTER → 2025-08-03 14:16 | Outpatient (BNV) | payer MEDICARE, SELFPAY | PROVIDERS: Emergency Provider Emergency Medicine; PCP Internal Medicine; Visit Provider Student in an Organized Health Care Education/Training Program | DX: K52.9 Noninfective gastroenteritis and colitis, unspecified (principal) | CPT/HCPCS: 99233 ==

== ENCOUNTER → 2025-08-03 15:13 | Outpatient (BNV) | payer MEDICARE, SELFPAY | PROVIDERS: PCP Internal Medicine; Visit Provider Radiology Diagnostic Radiology | DX: K76.89 Other specified diseases of liver (principal); K44.9 Diaphragmatic hernia without obstruction or gangrene | CPT/HCPCS: 74177 ==

== ENCOUNTER → 2025-08-03 19:27 | Outpatient (BNV) | payer MEDICARE, SELFPAY | PROVIDERS: Admitting Provider Student in an Organized Health Care Education/Training Program; Emergency Provider Emergency Medicine; PCP Internal Medicine; Visit Provider Surgery | DX: R11.10 Vomiting, unspecified (principal) | CPT/HCPCS: 99222; 99232 ==